=== PATIENT | female | born 1950 | race Caucasian/White ===

== ENCOUNTER → 2020-03-09 09:07 | Outpatient (BNVA) | payer MEDICARE, BC, SELFPAY | PROVIDERS: Visit Provider Orthopaedic Surgery | DX: M75.42 Impingement syndrome of left shoulder (principal) | CPT/HCPCS: 20610; 99202; J1040 ==

== ENCOUNTER → 2020-07-07 09:03 | Outpatient (BNVA) | payer MEDICARE, BC, SELFPAY | PROVIDERS: Visit Provider Orthopaedic Surgery | DX: M75.42 Impingement syndrome of left shoulder (principal) | CPT/HCPCS: 20610; 99212; J1040 ==

== ENCOUNTER 2020-08-12 08:00 | Outpatient (RCR) | payer MEDICARE, BC, SELFPAY ==
--- NOTE | 2020-07-15 13:45 | MHC.PT.EP ---
[facility] [place] Office [place] Office [place] Office [address] Mar[address] Pollock [address] [phone] F: [phone] F: [phone] F: [phone] F: [phone] Physical Therapy Plan of Care Date of Evaluation: 07/14/20 Date of Surgery: NA Diagnosis: LEFT SHOULDER IMPINGEMENT Assessment: ERYN IS A PLEASANT 70 YO FEMALE WITH INCREASING SHOULDER PAIN ON THE LEFT. OF NOTE SHE HAS CONTRALATERAL TSA WHICH FOR WHICH SHE WAS SEEN IN CLINIC SEVERAL MONTHS AGO. CURRENT IMPAIRMENTS INCLUDE DECREASED SHOULDER ROM, DECREASED RIGHT UE STRENGTH, ALTERED POSTURE AND POSITIONING, ALTERED SOFT TISSUE MOBILITY AND INCREASED PAIN. FUNCTIONAL LIMITATIONS INCLUDE DECREASED ABILITY TO REACH, LIFT AND CARRY, DECREASED ABILITY TO PERFORM HOMEMAKING TASKS, COMPUTER WORK AND READING. SHE HAS LIMITED PARTICIPATION IN COMMUNITY AND RECREATIONAL TASKS AND REPORTS DISRUPTED SLEEP. Frequency and Duration: The patient will be seen 2 X WEEK FOR 5 WEEKS Short Term Goals: INITIATE HEP AND PROMOTE SELF MANAGEMENT OF SYMPTOMS IN TWO VISITS [facility] Goals: Full, pain free ROM in 5 weeks Full UE strength, pain free in 5 weeks To perform computer and work tasks without restriction and pain no greater than 2/10 in [address] object at minimum of 5# into cabinet at shoulder height in 5 weeks Treatment Plan: Modalities to reduce pain, spasms and effusion. Manual therapy to restore motion and function. Therapeutic exercise to improve strength and flexibility. Neuromuscular re-education for posture and balance. Therapeutic activities to return to functional activities of daily living. Electronically signed by: URI VELEZ PT, DPT Please sign and return to therapist. Thank you for your referral.
--- NOTE | 2020-08-13 10:25 | MHC.PT.DC ---
[facility] [place] Office [place] Office [place] Office [address] Poll[address] [phone] F: [phone] F: [phone] F: [phone] F: [phone] Physical Therapy Discharge Report Diagnosis: LEFT SHOULDER IMPINGEMENT Date of Surgery: NA Date of Evaluation: 07/14/20 Date of Discharge: 08/12/20 Treatments to Date: 8 Cancellations to Date: 0 No Shows to Date: 0 Discharge Status: Achieved Goals Improved Function Independent with HEP Discharge Summary: ERYN PRESENTS WITH SIGNIFICANT DECREASED IN PAIN LEVELS AND IMPROVED ROM AND STRENGTH. SHE BENEFITS FROM [place] FOR POSTURAL AWARENESS AND WILL NEED TO CONTINUE WITH THIS FOCUS AT HOME. SHE IS INDEPENDENT WITH HER HOME EXERCISE PROGRAM AND SELF MANAGEMENT OF SYMPTOMS. SHE HAS RETURNED TO PERFORMANCE OF HOMEMAKING TASKS AND ADLs WITHOUT RESTRICTION AND HAS MET THE GOALS OF THERAPY ON THIS DATE. Electronically signed by: URI VELEZ PT, DPT Please sign and return to therapist. Thank you for your referral.
== END 2020-08-13 10:29 | disposition other institution (70) ==
LOC: HO.PT 08:00
PROVIDERS: PCP Physician Assistant Medical; Visit Provider Orthopaedic Surgery
DX: M75.42 Impingement syndrome of left shoulder (principal)
CPT/HCPCS: 97110; 97140; 97161; 97530

== ENCOUNTER → 2020-09-14 08:25 | Outpatient (BNVA) | payer MEDICARE, BC, SELFPAY | PROVIDERS: PCP Physician Assistant Medical; Visit Provider Orthopaedic Surgery | DX: M75.42 Impingement syndrome of left shoulder (principal) | CPT/HCPCS: 99212 ==

== ENCOUNTER 2021-04-08 22:36 | Emergency (ER) | payer MEDICARE, BC, SELFPAY ==
[2021-04-08 23:25] LABS: MANUAL DIFF FLAG NO
[2021-04-08 23:27] LABS: Basophils Absolute Auto 0.1 X10*3/uL (0.0-0.2); Basophils Percent Auto 0.8 % (0-2); Eosinophils Absolute Auto 0.4 X10*3/uL (0.0-0.4); Eosinophils Percent Auto 3.5 % (0-4); Hematocrit 30.1 % (37.0-47.0); Hemoglobin 8.9 g/dl (12.0-16.0); Imm Gran Abs Auto 0.02 X10*3/uL (0.00-0.03); Imm Gran Pct Auto 0.2 % (0.0-0.4); Lymphocytes Percent Auto 19.3 % (20-40); Mean Corpuscular HGB Conc 29.6 g/dl (31.0-35.0); Mean Corpuscular Hemoglobin 21.3 pg (27.0-33.0); Mean Corpuscular Volume 72.2 fL (80.0-98.0); Monocytes Absolute Auto 1.1 X10*3/uL (0.1-1.2); Monocytes Percent Auto 10.5 % (2-11); Neutrophils Absolute Auto 6.7 x10*3/uL (2.0-8.3); Neutrophils Percent Auto 65.7 % (45-73); Platelet Count 386 X10*3/uL (160-400); Red Blood Count 4.17 X10*6/uL (4.20-5.50); Red Cell Distribution Width 20.5 % (11.0-16.0); White Blood Count 10.2 X10*3/uL (4.8-10.8)
[2021-04-08 23:30] LABS: Appearance Urine HAZY; Color Urine YELLOW; Glucose Urine UA NEG (NEG); Leukocyte Esterase Urine 2+ (NEG); Nitrite Urine POS (NEG); Specific Gravity - Urine 1.025 (1.005-1.025); UACC Culture Trigger YES; Urine Blood 2+ (NEG); Urine Ketones NEG (NEG); Urine Protein TRACE MG/DL (NEG-TRACE)
[2021-04-08 23:39] LABS: Bacteria Urine 3+ /LPF; RBC Urine 50-75 /HPF (0); Squamous Epithelial Cell Urine 1+ /LPF
[2021-04-08 23:40] LABS: WBC Urine 30-49 /HPF (0-4)
[2021-04-08 23:47] LABS: Alanine Aminotransferase 20 U/L (0-31); Albumin Level 4.2 g/dL (3.5-5.0); Alkaline Phosphatase 89 U/L (39-117); Anion Gap 13 (12-20); Aspartate Amino Transferase 24 U/L (5-31); Bilirubin Total 0.4 mg/dL (0.0-1.0); Blood Urea Nitrogen 15 mg/dL (9-16); Calcium 9.4 mg/dL (8.4-10.2); Carbon Dioxide 25 mmol/L (22-29); Chloride 108 mmol/L (96-108); Estimated Glomerular Filt Rate 50; Glucose Random 122 mg/dL (60-115); Potassium 4.7 mmol/L (3.3-5.1); Sodium 141 mmol/L (135-145)
[2021-04-09 01:19] VITALS: BP 139/73; PULSE 94; RESP 16; TEMP 36.9; O2SAT 100; BMI 45.1
--- NOTE | 2021-04-09 01:49 | ED.FEMALEGU ---
HPI - Female Genitourinary General Chief complaint: Urogenital-Female Stated complaint: unable to urinate Time Seen by Provider: 04/09/21 01:49 Source: patient Mode of arrival: ambulatory Limitations: no limitations History of Present Illness HPI Narrative: Patient otherwise healthy no history of diabetes no history of recurrent urine tract infection noticed dysuria and frequency with small amount of bright red blood since today no flank pain no vomiting no fever or chills patient does not get infection very of otherwise feels fine Related Data Home Medications Medication Instructions Recorded Confirmed acetaminophen 325 mg capsule 325 mg PO QID PRN 02/27/20 albuterol sulfate 90 mcg/actuation 1 inh INHALATION QID 02/27/20 aerosol inhaler aspirin 325 mg tablet 325 mg PO DAILY 02/27/20 atorvastatin 10 mg tablet 10 mg PO DAILY 02/27/20 budesonide-formoterol HFA 80 2 puff INHALATION BID 02/27/20 mcg-4.5 mcg/actuation aerosol inhaler epinephrine 0.3 mg/0.3 mL 0.3 mg IM Q10M PRN 02/27/20 injection, auto-injector (EpiPen) levothyroxine 137 mcg tablet 137 mcg PO DAILY 02/27/20 losartan 50 mg tablet 50 mg PO DAILY 02/27/20 meloxicam 15 mg tablet 15 mg PO DAILY 02/27/20 montelukast 10 mg tablet 10 mg PO DAILY 02/27/20 nitroglycerin 0.4 mg sublingual 0.4 mg SUBLINGUAL Q5M PRN 02/27/20 tablet ibuprofen 800 mg tablet 800 mg PO Q8H 03/09/20 budesonide-formoterol HFA 160 INHALATION 09/14/20 mcg-4.5 mcg/actuation aerosol inhaler losartan 100 mg tablet 100 mg PO DAILY 09/14/20 Previous Rx's Medication Instructions Recorded cefpodoxime 100 mg tablet 100 mg PO BID #20 tab 04/09/21 phenazopyridine 200 mg tablet 200 mg PO TID 2 Days #6 tab 04/09/21 (Pyridium) Allergies Allergy/AdvReac Type Severity Reaction Status Date / Time lactose [LACTOSE] Allergy Intermediate GI UPSET Verified 09/14/20 09:00 adhesive tape [ADHESIVE TAPE] Allergy Unknown RASH Verified 09/14/20 09:00 blueberry [BLUEBERRY] AdvReac Intermediate VOMITING Verified 09/14/20 09:00 doxycycline [From VIBRAMYCIN] AdvReac Intermediate GI ISSUES Verified 09/14/20 09:00 lisinopril [From ZESTRIL] AdvReac Intermediate COUGH Verified 09/14/20 09:00 procaine [From NOVOCAIN] AdvReac Intermediate EXCESS Verified 09/14/20 09:00 NUMBING theophylline [THEOPHYLLINE] AdvReac Intermediate DIZZINESS Verified 09/14/20 09:00 CAT GUT SUTURES Allergy Intermediate DO NOT Uncoded 09/14/20 09:00 DISSOLVE DERMABOND AdvReac Severe RASH Uncoded 09/14/20 09:00 CHOCOLATE AdvReac Intermediate VOMITING Uncoded 09/14/20 09:00 Review of Systems Review of Systems: Yes all other systems are reviewed and are negative [facility] Past Medical History Medical History Asthma Carpal tunnel syndrome Hypercholesteremia Hypertension Hypothyroidism Obesity Surgical History Cataracts, both eyes History of cholecystectomy History of total left knee replacement History of total right knee replacement Hx of gastric bypass Status post total replacement of right shoulder (~09/2019) Family History Family History Mother No problems noted. Father No problems noted. Social History Social History Alcohol intake: never Advance Directives: No Advance Directives Information Provided: Yes Current occupation: [employer] Physical Exam Vital Signs: Vital Signs: Last Vital Signs Temp 98.4 F 04/09/21 01:19 Pulse 94 04/09/21 01:19 Resp 16 04/09/21 01:19 BP 139/73 04/09/21 01:19 Pulse Ox 100 04/09/21 01:19 BMI result Body Mass Index 45.1 Appearance: Alert. Oriented X3. No acute distress. ENT: Pharynx normal. Oral Mucosa moist Neck: Normal inspection. Neck supple. CVS: Normal heart rate and rhythm. Pulses normal. Respiratory: No respiratory distress. Equal air entry bilateral, Abdomen: Soft and nontender. Bowel sounds are present, no mass palpable, no CVA tenderness Skin: Skin warm and dry. Normal skin color. Normal skin turgor. Neuro: Oriented X 3. MDM - Female Genitourinary MDM Narrative Medical decision making narrative: Patient uncomplicated UTI will treat her with cephalosporin cefpodoxime and Pyridium Lab Data Attestation: I reviewed the patient's lab results. Result diagrams: 04/08/21 23:19 04/08/21 23:19 Labs: Lab Results 04/08/21 04/08/21 04/08/21 Range/Units 23:19 23:19 23:25 WBC 10.2 (4.8-10.8) X10*3/uL RBC 4.17 L (4.20-5.50) X10*6/uL Hgb 8.9 L (12.0-16.0) g/dl Hct 30.1 L (37.0-47.0) % MCV 72.2 L (80.0-98.0) fL MCH 21.3 L (27.0-33.0) pg MCHC 29.6 L (31.0-35.0) g/dl RDW 20.5 H (11.0-16.0) % Plt Count 386 (160-400) X10*3/uL MPV 9.0 L (9.4-12.3) fL Immature Gran % (Auto) 0.2 (0.0-0.4) % Neut % (Auto) 65.7 (45-73) % Lymph % (Auto) 19.3 L (20-40) % Jenkins % (Auto) 10.5 (2-11) % Eos % (Auto) 3.5 (0-4) % Baso % (Auto) 0.8 (0-2) % Lymph # (Auto) 2.0 (1.2-4.9) X10*3/uL Jenkins # (Auto) 1.1 (0.1-1.2) X10*3/uL Eos # (Auto) 0.4 (0.0-0.4) X10*3/uL Baso # (Auto) 0.1 (0.0-0.2) X10*3/uL Abs Immat Gran (auto) 0.02 (0.00-0.03) X10*3/uL Absolute Neuts (auto) 6.7 (2.0-8.3) x10*3/uL Absolute Nucleated RBC 0.000 (0.0-0.012) X10*3/uL Nucleated RBC % (auto) 0.0 (0.0-0.2) /100WBC Sodium 141 (135-145) mmol/L Potassium 4.7 (3.3-5.1) mmol/L Chloride 108 (96-108) mmol/L Carbon Dioxide 25 (22-29) mmol/L Anion Gap 13 (12-20) BUN 15 (9-16) mg/dL Creatinine 1.08 (0.5-1.4) mg/dL Estim Creat Clear Calc TNP Estimated GFR 50 Random Glucose 122 H (60-115) mg/dL Calcium 9.4 (8.4-10.2) mg/dL Total Bilirubin 0.4 (0.0-1.0) mg/dL AST 24 (5-31) U/L ALT 20 (0-31) U/L Alkaline Phosphatase 89 (39-117) U/L Total Protein 7.0 (6.5-8.0) g/dL Albumin 4.2 (3.5-5.0) g/dL Urine Color YELLOW Urine Appearance HAZY Urine pH 6.0 (5.0-8.0) Ur Specific [place] 1.025 (1.005-1.025) Urine Protein TRACE (NEG-TRACE) MG/DL Urine Glucose (UA) NEG (NEG) MG/DL Urine Ketones NEG (NEG) MG/DL Urine Blood 2+ H (NEG) Urine Nitrite POS H (NEG) Ur Leukocyte Esterase 2+ H (NEG) Urine RBC 50-75 H (0) /HPF Urine WBC 30-49 H (0-4) /HPF Ur Squamous Epith Cells 1+ /LPF Urine Bacteria 3+ /LPF Discharge Plan Discharge Clinical Impression: Urinary tract infection Qualifiers: Urinary tract infection type: acute cystitis Hematuria presence: with hematuria Qualified Code(s): N30.01 - Acute cystitis with hematuria Patient Disposition: Home, Self-Care Instructions: Urinary Tract Infection in Women (ED) Additional Instructions: Drink plenty of fluid Take antibiotic as prescribed Report to the ER if vomiting/fever/increase flank pain Prescriptions: New cefpodoxime 100 mg tablet 100 mg PO BID Qty: 20 RF: 0 phenazopyridine [Pyridium] 200 mg tablet 200 mg PO TID 2 Days Qty: 6 RF: 0 No Action acetaminophen 325 mg capsule 325 mg PO QID PRNRF: 0 levothyroxine 137 mcg tablet 137 mcg PO DAILY RF: 0 atorvastatin 10 mg tablet 10 mg PO DAILY RF: 0 meloxicam 15 mg tablet 15 mg PO DAILY RF: 0 losartan 50 mg tablet 50 mg PO DAILY RF: 0 montelukast 10 mg tablet 10 mg PO DAILY RF: 0 epinephrine [EpiPen] 0.3 mg/0.3 mL auto-injector 0.3 mg IM Q10M PRNRF: 0 budesonide-formoterol 80-4.5 mcg/actuation HFA aerosol inhaler 2 puff inhalation BID RF: 0 nitroglycerin 0.4 mg tablet, sublingual 0.4 mg sublingual Q5M PRNRF: 0 albuterol sulfate 90 mcg/actuation HFA aerosol inhaler 1 inh inhalation QID RF: 0 aspirin 325 mg tablet 325 mg PO DAILY RF: 0 ibuprofen 800 mg tablet 800 mg PO Q8H RF: 0 budesonide-formoterol 160-4.5 mcg/actuation HFA aerosol inhaler inhalation RF: 0 losartan 100 mg tablet 100 mg PO DAILY RF: 0
[2021-04-09] MEDS: Phenazopyridine HCL 200 MG TABLET PO (02:12)
== END 2021-04-09 02:24 | disposition home or self-care (01) ==
PROVIDERS: Emergency Provider Internal Medicine
DX: N30.01 Acute cystitis with hematuria (principal); I10 Essential (primary) hypertension; J45.909 Unspecified asthma, uncomplicated
CPT/HCPCS: 36415; 80053; 81001; 85025; 87086; 99283

== ENCOUNTER 2022-02-23 09:00 | Outpatient (RCR) | payer MEDICARE, BC, SELFPAY ==
[2021-11-15 08:11] VITALS: BP 178/76; PULSE 73; O2SAT 95
== END 2022-02-23 09:54 | disposition home or self-care (01) ==
LOC: HO.PT 09:00
PROVIDERS: PCP Physician Assistant Medical; Visit Provider Orthopaedic Surgery Orthopaedic Trauma
DX: Z96.612 Presence of left artificial shoulder joint (principal)
CPT/HCPCS: 97110; 97140; 97162; 97530

== ENCOUNTER 2023-08-01 07:51 | Outpatient (AMB) | payer MEDICARE, BC, SELFPAY ==
--- NOTE | 2023-08-01 08:00 | A.OFFVIS_ITS ---
Intake Vital Signs 08/01/23 08:02 Height 5 ft 8 in Weight 297 lb BMI 45.2 Intake Visit Reasons: NewProb- Left hip pain Intake Note: Cornelia a 73 year female who presents today for an evaluation of her left hip pain that radiatates to the groin. Patient reports her pain has been going on for about 2 years and is a 8 on the 1-10 pain scale. She states she has had injection that helped and is also using tylenol and ibuprofen for the pain with little relief. She denies injury and surgery. Allergies lactose [LACTOSE] Allergy (Intermediate, Verified 08/01/23 08:05) GI UPSET adhesive tape [ADHESIVE TAPE] Allergy (Unknown, Verified 08/01/23 08:05) RASH blueberry [BLUEBERRY] Adverse Reaction (Intermediate, Verified 08/01/23 08:05) VOMITING doxycycline [From VIBRAMYCIN] Adverse Reaction (Intermediate, Verified 08/01/23 08:05) GI ISSUES lisinopril [From ZESTRIL] Adverse Reaction (Intermediate, Verified 08/01/23 08:05) COUGH procaine [From NOVOCAIN] Adverse Reaction (Intermediate, Verified 08/01/23 08:05) EXCESS NUMBING theophylline [THEOPHYLLINE] Adverse Reaction (Intermediate, Verified 08/01/23 08 :05) DIZZINESS CAT GUT SUTURES Allergy (Intermediate, Uncoded 09/14/20 09:00) DO NOT DISSOLVE DERMABOND Adverse Reaction (Severe, Uncoded 09/14/20 09:00) RASH CHOCOLATE Adverse Reaction (Intermediate, Uncoded 09/14/20 09:00) VOMITING HPI NewProb- Left hip pain HPI Details 73-year-old female who presents to the o ice today for evaluation of left hip pain for about 2 years. She states she has intermittent burning pain in her left hip which radiates down to her groin and has been getting worse. She currently rates the pain as 8 on the scale of 0-10. Her pain makes it unable to lay on the left side. She also c/o numbness, tingling and an electric sensation in her left hip which goes down to her knee. She finds no relief with Tylenol or ibuprofen. She had injection in the past which provided her relief. She denies any injury and has not had any hip surgery in the past. She has a history of bilateral TKA between 2013-[address] Herrera. She does not have a history of diabetes. ON LICENSE OF [facility] Medical History Asthma Carpal tunnel syndrome Hypercholesteremia Hypertension Hypothyroidism Obesity Surgical History Cataracts, both eyes History of cholecystectomy History of total left knee replacement History of total right knee replacement Hx of gastric bypass Status post total replacement of right shoulder (~09/2019) Family History Mother No problems noted. Father No problems noted. Social History (Updated 08/01/23 @ 08:08 by Alivia Mcginnis CMA) Alcohol intake: never Patient Tobacco Use Status: Former Tobacco user Current occupation: [employer] Review of Systems Const All systems reviewed & are unremarkable except as noted in HPI and below Physical Exam Vital Signs: BMI result Body Mass Index 45.2 Const General: cooperative and no acute distress Orientation/consciousness: patient oriented x3 Resp Effort & Inspection: normal respiratory effort and able to speak in complete sentences Cardio Peripheral pulses: Peripheral pulses 2+ throughout Neuro General: patient oriented x3 Extrem Other: Left hip: Normal to inspection. No pain with ROM of the hip. Pain along the greater trochanter. No pain with hip flexion or abduction. Negative tenderness along the SI joint, Negative SLR. NVI. Results Reviewed Results Reviewed: Xrays were obtained in the office today and personally reviewed by me of the left hip show mild to moderate oa Assessment & Plan Assessment & Plan (1) Trochanteric bursitis, left hip: Code(s): M70.62 - Trochanteric bursitis, left hip Plan While she does have some OA, I fell her primary source of her pain is the bursitis. We discussed options which include PT, NSAIDs and injections. The patient will defer on the injection today and proceed with PT and NSAIDs. If symptoms persist, the patient will contact me for an injection, otherwise, PRN. Orders: Orders PT Evaluation and Treatment Today M70.62 - Trochanteric bursitis, left hip Patient Instructions: Scribed for Bety Krause PA-C, by Tae Lopez claim review medical director, on 08/01/2023 at 8:00 AM EST. I, Bety Krause PA-C, have personally reviewed and agree with the information entered by the scribe. Coding Level of Care Code New Pt Level 3 (23382) Diagnoses Trochanteric bursitis, left hip M70.62
[2023-08-01 08:02] VITALS: BMI 45.2
== END 2023-08-01 09:14 | disposition home or self-care (01) ==
PROVIDERS: PCP Physician Assistant Medical; Visit Provider Physician Assistant
DX: M70.62 Trochanteric bursitis, left hip (principal)
CPT/HCPCS: 99203

== ENCOUNTER 2023-08-01 07:51 | Outpatient (REF) | payer MEDICARE, BC, SELFPAY ==
--- NOTE | ~2023-08-01 | XR_ITS ---
EXAMINATION: XR HIP, LEFT CLINICAL INFORMATION: Pain in unspecified hip. COMPARISON: None available. TECHNIQUE: AP view of the pelvis and 2 views of the left hip. FINDINGS: Degenerative changes in the imaged lower lumbar spine. Bones are diffusely demineralized. Bilateral sacroiliac joints are preserved. Moderate degenerative changes in the left hip with joint space narrowing and hypertrophic change. Moderate degenerative changes on single AP view of the right hip. XR/XR hip LT min 2V IMPRESSION: 1. Moderate degenerative changes in the left hip. 2. Moderate degenerative changes on single AP view of the right hip. 3. Additional imaging with CT scan or MRI should be considered for better visualization as these modalities are much more sensitive for detection of fracture or other underlying pathology.
== END 2023-08-01 07:52 | disposition home or self-care (01) ==
LOC: HO.HOSX 07:51
PROVIDERS: PCP Physician Assistant Medical; Visit Provider Physician Assistant
DX: M70.62 Trochanteric bursitis, left hip (principal)
CPT/HCPCS: 73502; 99202

== ENCOUNTER 2023-08-17 08:25 | Outpatient (RCR) | payer MEDICARE, BC, SELFPAY ==
--- NOTE | 2023-08-17 12:03 | MHC.PT.EP ---
[facility] [place] Office [place] Office [place] Office [address] Janneth Pollock [address] [phone] F: [phone] F: [phone] F: [phone] F: [phone] Physical Therapy Plan of Care Date of Evaluation: 08/17/23 Date of Surgery: Diagnosis: LEFT TROCHANTERIC BURSITIS Assessment: 73 YO FEMALE REF TO PT FOR LEFT TROCH BURSITIS ,H/O HIP OA, EXACERBATED AFTER PAINTING HER CLOSET/ INCR SQUATTING/ STAIR NAVIGATION / CARRYING OBJECTS. SHE HAS A H/O AGUSTIN TKA. SHE RESIDES ALONE AND STATED SHE IS INDEP W ADLs. THE Pt NOTES HER HIP PAIN HAS DECR SINCE INITIAL ONSET... OBJECTIVE FINDINGS: DECR POSTURE, TIGHT HIP FLEXORS/CALVES, DECR LUMBOPELVIC STRENGTH AND STABILITY, AND FLUCTUATING LEVELS OF Lt HIP PAIN- TODAY AT [facility] SHE HAD 0/10 . SHE REQUESTED BRIEF PT HER SXS ARE RESOLVING, TO ADDRESS DEV A HEP AND REDUCING RISK OF REINJURY. Frequency and Duration: The patient will be seen 1 x WK x 3 WKS Short Term Goals: *DECR Lt HIP PAIN TO 2/10 AT MAX Pt RESUMES REG ADLs *INITIATE HEP TO ENGAGE GLUTES *IMPROVE FLEXIBILITY IN HS/ CALVES *IMPROVE FUNCTIONAL SQUAT Longterm Goals: Pt INDEP W HEP AND SELF SX MGMT TECHN Pt DEMON WFL SQUAT MECH W SIMUL ADLs Treatment Plan: Modalities to reduce pain, spasms and effusion. Manual therapy to restore motion and function. Therapeutic exercise to improve strength and flexibility. Neuromuscular re-education for posture and balance. Therapeutic activities to return to functional activities of daily living. Electronically signed by: HEYDI GUTIERREZ,PT Please sign and return to therapist. Thank you for your referral.
--- NOTE | 2023-12-25 11:55 | MHC.PT.DC ---
[facility] [place] Office [place] Office [place] Office [address] Janneth Pollock 140 [facility] [phone] F: [phone] F: [phone] F: [phone] F: [phone] Physical Therapy Discharge Report Diagnosis: LEFT TROCHANTERIC BURSITIS Date of Surgery: Date of Evaluation: 08/17/23 Date of Discharge: 12/25/23 Treatments to Date: 1 Cancellations to Date: 1 No Shows to Date: 0 Discharge Status: Patient Elected to Stop Discharge Summary: THE Pt ATTENDED HER PT EVAL, HOWEVER, SHE CANC F/U PT APPTS- HER SXS HAVE EASED. Electronically signed by: HEYDI GUTIERREZ,PT Please sign and return to therapist. Thank you for your referral.
== END 2023-12-25 11:55 | disposition home or self-care (01) ==
LOC: HO.PT 08:25
PROVIDERS: PCP Physician Assistant Medical; Visit Provider Physician Assistant
DX: M70.62 Trochanteric bursitis, left hip (principal)
CPT/HCPCS: 97161; 97530; 97535

== ENCOUNTER 2024-05-05 09:49 | Day surgery (SDC) | payer MEDICARE, BC, SELFPAY ==
[2024-05-01 09:21] VITALS: BMI 44.9
[2024-05-05 10:58] VITALS: BP 178/91; PULSE 100; RESP 18; TEMP 36.9; O2SAT 96
--- NOTE | 2024-05-05 12:33 | HO.ANESPROP2 ---
[facility] Active Problems Active Problems: All Active Problems Trochanteric bursitis, left hip (Acute) Rotator cuff impingement syndrome of left shoulder (Acute) Past Medical History Medical History Disorders of bursae and tendons in shoulder region, unspecified Hearing loss GERD (gastroesophageal reflux disease) Obesity Carpal tunnel syndrome Hypertension Hypercholesteremia Hypothyroidism Asthma Family History Family History Mother No problems noted. Father No problems noted. Surgical History Surgical History Hx of gastric bypass Cataracts, both eyes History of cholecystectomy History of total left knee replacement History of total right knee replacement Status post total replacement of right shoulder (~09/2019) History of Problems with Anesthesia: No Social History Social History Alcohol intake: never Patient Tobacco Use Status: Former Tobacco user Advance Directives: No Advance Directives Information Provided: Yes Advance Directives on File: No Recently lost weight without trying: No Nutrition Risks: No Nutritional Risk Patient : No : No Current occupation: [employer] Meds Allergies Allergy/AdvReac Type Severity Reaction Status Date / Time lactose [LACTOSE] Allergy Intermediate GI UPSET Verified 08/01/23 08:05 adhesive tape [ADHESIVE TAPE] Allergy Unknown RASH Verified 08/01/23 08:05 CARLOZ Inhibitors Allergy Unknown Verified 05/01/24 08:44 gabapentin Allergy Unknown Verified 05/01/24 08:49 grass pollen Allergy Unknown Verified 05/01/24 08:49 house dust mite Allergy Unknown Verified 05/01/24 08:49 mold Allergy Unknown Verified 05/01/24 08:49 ragweed pollen Allergy Unknown Verified 05/01/24 08:49 tree and shrub pollen Allergy Unknown Verified 05/01/24 08:49 blueberry [BLUEBERRY] AdvReac Intermediate VOMITING Verified 08/01/23 08:05 doxycycline [From VIBRAMYCIN] AdvReac Intermediate GI ISSUES Verified 08/01/23 08:05 lisinopril [From ZESTRIL] AdvReac Intermediate COUGH Verified 08/01/23 08:05 procaine [From NOVOCAIN] AdvReac Intermediate EXCESS Verified 08/01/23 08:05 NUMBING theophylline [THEOPHYLLINE] AdvReac Intermediate DIZZINESS Verified 08/01/23 08:05 CAT GUT SUTURES Allergy Intermediate DO NOT Uncoded 09/14/20 09:00 DISSOLVE DERMABOND AdvReac Severe RASH Uncoded 09/14/20 09:00 CHOCOLATE AdvReac Intermediate VOMITING Uncoded 09/14/20 09:00 Active Medications: Current Medications Povidone Iodine (Povidone Iodine 5 % Ophth Soln 30 Ml Bottle) 1 appl EYE-BOTH PREOP PRN PRN Reason: Pre-Op Surgical Implant Prophy Home Medications ?Medication ?Instructions ?Recorded ?Confirmed ?Last Taken ?Type albuterol sulfate 90 mcg/actuation 1 inh inhalation QID 02/27/20 05/01/24 Unknown History aerosol inhaler atorvastatin 10 mg tablet 10 mg PO DAILY 02/27/20 05/01/24 Unknown History budesonide-formoterol HFA 80 2 puff inhalation BID 02/27/20 05/01/24 Unknown History mcg-4.5 mcg/actuation aerosol inhaler epinephrine 0.3 mg/0.3 mL 0.3 mg IM Q10M PRN Anaphylaxis 02/27/20 05/01/24 Unknown History injection, auto-injector (EpiPen) levothyroxine 137 mcg tablet 137 mcg PO DAILY 02/27/20 05/01/24 05/05/24 History montelukast 10 mg tablet 10 mg PO BEDTIME 02/27/20 05/01/24 Unknown History nitroglycerin 0.4 mg sublingual 0.4 mg sublingual Q5M PRN Chest 02/27/20 05/01/24 Unknown History tablet Pain losartan 100 mg tablet 100 mg PO DAILY 09/14/20 05/01/24 Unknown History amlodipine 2.5 mg tablet 2.5 mg PO DAILY 08/01/23 05/01/24 05/05/24 History cetirizine 10 mg tablet 10 mg PO DAILY 08/01/23 05/01/24 Unknown History omeprazole 20 mg capsule,delayed 20 mg PO DAILY 08/01/23 05/01/24 05/05/24 History release acetaminophen 650 mg 650 mg PO Q8H PRN pain 05/01/24 05/01/24 Unknown History tablet,extended release amoxicillin 500 mg capsule 2,000 mg PO ONCE 05/01/24 05/01/24 Unknown History aspirin 325 mg tablet 325 mg PO DAILY 05/01/24 05/01/24 04/28/24 History calcium 600 mg (as 1 tab PO BID 05/01/24 05/01/24 Unknown History carbonate)-vitamin D3 5 mcg (200 unit) tablet multivitamin 1 tab PO DAILY 05/01/24 05/01/24 Unknown History Exam Height,Weight and Vital Signs: Height 5 ft 8 in Weight 134 kg Last Vital Signs Temp 98.5 F 05/05/24 10:58 Pulse 100 05/05/24 10:58 Resp 18 05/05/24 10:58 BP 178/91 H 05/05/24 10:58 Pulse Ox 96 05/05/24 10:58 O2 Del Method Room Air 05/05/24 10:58 Airway Mallampati Class: III TM Dist: >3cm Neck ROM: Full Loose/Missing/Broken Teeth: No Heart: RRR Lungs: CTA Assessment and Plan Assessment Anesthesia Assessment: Anesthesia Plan Discussed and Chart Reviewed Final Anesthetic Review History of Problems with Anesthesia: No NPO: Yes ASA Class: III Final Preanesthetic Review: Meds/Allgs Chart Reviewed, Consent Obtained/Reviewed and Anes Risks/Benef Reviewed Patient Risk: Intermediate Procedure Risk: Low Anesthetic Plan Anesthetic Plan: MAC: Disposition: Standard PACU
--- NOTE | 2024-05-05 14:24 | MHC.SHP ---
Pre-Procedural Eval Section A - 24 Hr Update-Section A only Date of Service: 05/05/24 The patient is an INPATIENT: No Changes since office visit: No Cold of Flu in the past 2 weeks, No New Medical Problems, No Changes in Medication and No Patient answered all questions The patient has been examined within 24 hours of the surgical procedure. 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 Allergies: Allergies Allergy/AdvReac Type Severity Reaction Status Date / Time lactose [LACTOSE] Allergy Intermediate GI UPSET Verified 08/01/23 08:05 adhesive tape [ADHESIVE TAPE] Allergy Unknown RASH Verified 08/01/23 08:05 CARLOZ Inhibitors Allergy Unknown Verified 05/01/24 08:44 gabapentin Allergy Unknown Verified 05/01/24 08:49 grass pollen Allergy Unknown Verified 05/01/24 08:49 house dust mite Allergy Unknown Verified 05/01/24 08:49 mold Allergy Unknown Verified 05/01/24 08:49 ragweed pollen Allergy Unknown Verified 05/01/24 08:49 tree and shrub pollen Allergy Unknown Verified 05/01/24 08:49 blueberry [BLUEBERRY] AdvReac Intermediate VOMITING Verified 08/01/23 08:05 doxycycline [From VIBRAMYCIN] AdvReac Intermediate GI ISSUES Verified 08/01/23 08:05 lisinopril [From ZESTRIL] AdvReac Intermediate COUGH Verified 08/01/23 08:05 procaine [From NOVOCAIN] AdvReac Intermediate EXCESS Verified 08/01/23 08:05 NUMBING theophylline [THEOPHYLLINE] AdvReac Intermediate DIZZINESS Verified 08/01/23 08:05 CAT GUT SUTURES Allergy Intermediate DO NOT Uncoded 09/14/20 09:00 DISSOLVE DERMABOND AdvReac Severe RASH Uncoded 09/14/20 09:00 CHOCOLATE AdvReac Intermediate VOMITING Uncoded 09/14/20 09:00 Plan Diagnosis/Plan: Unchanged I have reviewed the history and physical and performed a pertinent physical examination on my patient. No changes have occurred unless specified. Time Spent With Patient Time: Total time managing care of this patient today ____ minutes.
--- NOTE | 2024-05-05 14:25 | HO.PNOPHT ---
Ophthalmology Procedure Procedure Date of Service: 05/05/24 Ophthalmology Viscoelastic: Not Applicable Ophthalmology Lenses: Not Applicable Procedure Notes: PREOPERATIVE DIAGNOSIS: Decreased visual field secondary to dermatochalasia POSTOPERATIVE DIAGNOSIS: Same PROCEDURE: Bilateral Blepharoplasty, upper eyelids SURGEON: Meño Estrada M.D. ANESTHESIA: Local with sedation ESTIMATED BLOOD LOSS: None COMPLICATIONS: None After obtaining informed consent, the patient was brought to the operating room and placed in supine position. After adequate sedation per Anesthesia, the eyes were prepped and draped in the usual sterile fashion. Attention was directed to the right eye where a double pinch test was completed to assure excess tissue was not removed from the upper lid. The margin was marked at the proposed incision sites. The left eye was done in a similar fashion. 2% Lidocaine with epinephrine was then instilled subcutaneously along the margin of the pre-marked skin incisions. #15 scalpel blade was then utilized to create the incisions. Using a combination of sharp and blunt dissection with Zack scissors, the epidermis was removed. Hemostasis was achieved with cautery. 6-0 plain suture was then utilized to close the incision site. Attention was directed to the left upper lid where subcutaneous 2% with Epinephrine Lidocaine was instilled along the pre-marked areas. A #15 scalpel blade was then utilized to create the incisions followed by sharp and blunt dissection with Zack scissors to remove the overlying epidermis. Hemostasis was achieved with cautery, followed by closure with 6-0 plain suture. The patient tolerated the procedure well. The patient will be followed up in the a.m. Topical antibiotic ointment was instilled over the incision sites and ice as tolerated for 48 hours.
[2024-05-05 15:35] VITALS: BP 177/98; PULSE 95; RESP 18; TEMP 36.5; O2SAT 96
[2024-05-05 15:50] VITALS: BP 173/92; PULSE 93; RESP 20; TEMP 36.1; O2SAT 95
== END 2024-05-05 16:02 | disposition home or self-care (01) ==
PROVIDERS: PCP Physician Assistant Medical; Visit Provider Ophthalmology
PROC: (CPT 15823; principal; 2024-05-05 13:30)
DX: H02.831 Dermatochalasis of right upper eyelid (principal); H02.834 Dermatochalasis of left upper eyelid; H53.8 Other visual disturbances; I10 Essential (primary) hypertension; E03.9 Hypothyroidism, unspecified; J45.909 Unspecified asthma, uncomplicated; Z79.82 Long term (current) use of aspirin; Z79.51 Long term (current) use of inhaled steroids; Z79.899 Other long term (current) drug therapy; Z88.8 Allergy status to other drugs, medicaments and biological substances; Z87.891 Personal history of nicotine dependence
CPT/HCPCS: 15823; J2004; J2250; J3010

== ENCOUNTER 2024-06-08 08:43 | Emergency (ER) | payer MEDICARE, BC, SELFPAY ==
--- NOTE | ~2024-06-08 | XR_ITS ---
CLINICAL HISTORY: pain, injury 4 view right knee Comparison: None Findings: The cemented total knee arthroplasty is in near anatomic alignment without evidence of hardware complication. Small amount of fluid within the suprapatellar recess. Small superior patellar enthesophyte. IMPRESSION: No evidence of hardware complication. This document has been electronically signed by: Renzo Oglesby DO on 06/08/2024 09:28:24
[2024-06-08 08:51] VITALS: BP 186/124; PULSE 80; RESP 18; TEMP 36.8; O2SAT 98; BMI 44.2
--- NOTE | 2024-06-08 08:52 | ED_ITS ---
HPI - General Adult General Chief complaint: Extremity Injury, Lower Stated complaint: fall, knee pain Time Seen by Provider: 06/08/24 11:19 History of Present Illness HPI narrative: Patient with 2 complaints First complaint is she fell on the ice onto her right knee which has a knee rep lacement in the joint and has had continued pain and mild swelling for the past 3 weeks, she can walk on it with a very slight limp, denies any laceration denies any numbness weakness or tingling denies any other injury in this fall No head injury no neck pain no back pain Second complaint is the right rodriguez is turning a little pink and she has had cellulitis before and is concerned this could be a developing cellulitis No fever no chills denies any red stripe up the leg, no posterior pain no calf pain no posterior knee pain denies calf swelling Related Data Home Medications ?Medication ?Instructions ?Recorded ?Confirmed albuterol sulfate 90 mcg/actuation 1 inh inhalation QID 02/27/20 05/01/24 aerosol inhaler atorvastatin 10 mg tablet 10 mg PO DAILY 02/27/20 05/01/24 budesonide-formoterol HFA 80 2 puff inhalation BID 02/27/20 05/01/24 mcg-4.5 mcg/actuation aerosol inhaler epinephrine 0.3 mg/0.3 mL 0.3 mg IM Q10M PRN Anaphylaxis 02/27/20 05/01/24 injection, auto-injector (EpiPen) levothyroxine 137 mcg tablet 137 mcg PO DAILY 02/27/20 05/01/24 montelukast 10 mg tablet 10 mg PO BEDTIME 02/27/20 05/01/24 nitroglycerin 0.4 mg sublingual 0.4 mg sublingual Q5M PRN Chest 02/27/20 05/01/24 tablet Pain losartan 100 mg tablet 100 mg PO DAILY 09/14/20 05/01/24 amlodipine 2.5 mg tablet 2.5 mg PO DAILY 08/01/23 05/01/24 cetirizine 10 mg tablet 10 mg PO DAILY 08/01/23 05/01/24 omeprazole 20 mg capsule,delayed 20 mg PO DAILY 08/01/23 05/01/24 release acetaminophen 650 mg 650 mg PO Q8H PRN pain 05/01/24 05/01/24 tablet,extended release amoxicillin 500 mg capsule 2,000 mg PO ONCE 05/01/24 05/01/24 aspirin 325 mg tablet 325 mg PO DAILY 05/01/24 05/01/24 calcium 600 mg (as 1 tab PO BID 05/01/24 05/01/24 carbonate)-vitamin D3 5 mcg (200 unit) tablet multivitamin 1 tab PO DAILY 05/01/24 05/01/24 Previous Rx's ?Medication ?Instructions ?Recorded cephalexin 500 mg tablet 500 mg PO QID 7 days #28 tabs 06/08/24 Allergies Allergy/AdvReac Type Severity Reaction Status Date / Time lactose [LACTOSE] Allergy Intermediate GI UPSET Verified 06/08/24 08:54 adhesive tape [ADHESIVE TAPE] Allergy Unknown RASH Verified 06/08/24 08:54 CARLOZ Inhibitors Allergy Unknown Verified 06/08/24 08:54 gabapentin Allergy Unknown Verified 06/08/24 08:54 grass pollen Allergy Unknown Verified 06/08/24 08:54 house dust mite Allergy Unknown Verified 06/08/24 08:54 mold Allergy Unknown Verified 06/08/24 08:54 ragweed pollen Allergy Unknown Verified 06/08/24 08:54 tree and shrub pollen Allergy Unknown Verified 06/08/24 08:54 blueberry [BLUEBERRY] AdvReac Intermediate VOMITING Verified 06/08/24 08:54 doxycycline [From VIBRAMYCIN] AdvReac Intermediate GI ISSUES Verified 06/08/24 08:54 lisinopril [From ZESTRIL] AdvReac Intermediate COUGH Verified 06/08/24 08:54 procaine [From NOVOCAIN] AdvReac Intermediate EXCESS Verified 06/08/24 08:54 NUMBING theophylline [THEOPHYLLINE] AdvReac Intermediate DIZZINESS Verified 06/08/24 08:54 CAT GUT SUTURES Allergy Intermediate DO NOT Uncoded 06/08/24 08:54 DISSOLVE DERMABOND AdvReac Severe RASH Uncoded 06/08/24 08:54 CHOCOLATE AdvReac Intermediate VOMITING Uncoded 06/08/24 08:54 PMFSH Past Medical History Source: nursing notes reviewed Medical History Disorders of bursae and tendons in shoulder region, unspecified Hearing loss GERD (gastroesophageal reflux disease) Obesity Carpal tunnel syndrome Hypertension Hypercholesteremia Hypothyroidism Asthma Surgical History Hx of gastric bypass Cataracts, both eyes History of cholecystectomy History of total left knee replacement History of total right knee replacement Status post total replacement of right shoulder (~09/2019) Family History Family History Mother No problems noted. Father No problems noted. Social History Social History Alcohol intake: never Patient Tobacco Use Status: Former Tobacco user Advance Directives: No Advance Directives Information Provided: No Current occupation: [employer] Physical Exam ED Vital Signs: Vital Signs - 24 hr 06/08/24 08:51 Temperature 98.3 F Pulse Rate 80 Respiratory Rate 18 Blood Pressure 186/124 H Pulse Oximetry 98 Oxygen Delivery Method Room Air BMI result Body Mass Index 44.2 General appearance is no distress comfortable ambulates easily Head normocephalic atraumatic Neck is supple nontender Respiratory no distress Extremities full range motion x4 Right knee there is some mild swelling just below the knee, it is not fluctuant there is no redness or warmth there, she can flex past 90 degrees, the scar from her total knee replacement years ago is intact, there is no deformity, she can do a straight leg raise The lower leg anterior pretibial area is pinkish with some mild tenderness, no lymphangitis, there is no calf tenderness or swelling there is no redness behind the calf posterior leg looks normal and neurovascular intact distal Course Course Course Narrative: RME performed by Justyna Arellano PA-C. Patient is a 73 year old assigned female at presenting to the emergency department with right knee pain. Patient states 3 weeks ago she fell and landed on her knees. Patient states that she continues to have right knee pain. Detailed physical exam and review of systems are deferred to the psychiatric clinician. Imaging ordered. Patient placed back in the waiting room pending room availability and results. The knee replacement is intact patient ambulates easily and had an x-ray which showed intact knee replacement and no other injury no significant effusion The pinkish mildly tender area in the right anterior lower leg certainly could be an early cellulitis so she is treated with Keflex, there is no signs of sepsis or any systemic illness Discharge Plan Discharge Clinical Impression: Right knee sprain, Cellulitis Patient Disposition: Home, Self-Care Additional Instructions: Follow with orthopedist for your continuing knee pain after a fall 3 weeks ago The x-ray did not show any broken bone and showed the hardware intact in her joint replacement For the reddish area of her right rodriguez this certainly could be cellulitis so we are treating with Keflex Return to the ER any time for fever spreading redness worse pain and swelling, swelling behind the leg any worse condition or any concerns Prescriptions: New cephalexin 500 mg tablet 500 mg PO QID 7 Days Qty: 28 0RF No Action amoxicillin 500 mg capsule 2,000 mg PO ONCE aspirin 325 mg Tablet 325 mg PO DAILY acetaminophen 650 mg tablet extended release 650 mg PO Q8H PRN (Reason: pain) multivitamin Tablet 1 tab PO DAILY calcium carbonate-vitamin D3 600 mg-5 mcg (200 unit) Tablet 1 tab PO BID levothyroxine 137 mcg tablet 137 mcg PO DAILY atorvastatin 10 mg tablet 10 mg PO DAILY montelukast 10 mg tablet 10 mg PO BEDTIME epinephrine [EpiPen] 0.3 mg/0.3 mL auto-injector 0.3 mg IM Q10M PRN (Reason: Anaphylaxis) Rx Instructions: for 2 doses budesonide-formoterol 80-4.5 mcg/actuation HFA aerosol inhaler 2 puff inhalation BID nitroglycerin 0.4 mg tablet, sublingual 0.4 mg sublingual Q5M PRN (Reason: Chest Pain) Rx Instructions: do not exceed 3 doses per episode albuterol sulfate 90 mcg/actuation HFA aerosol inhaler 1 inh inhalation QID losartan 100 mg tablet 100 mg PO DAILY amlodipine 2.5 mg tablet 2.5 mg PO DAILY omeprazole 20 mg capsule,delayed release(DR/EC) 20 mg PO DAILY cetirizine 10 mg tablet 10 mg PO DAILY Print Language: [place]
--- OUTSIDE RECORDS SUMMARY | 2024-06-08 11:24 | XMS_ITS | Clinical Summary ---
Author Organization [facility] [address] [place] [address] [place] [phone] Phone Care Team Providers Care Fly Tier Name Role Phone Justin Zavala Primary Care Provider [phone] Allergies Active Allergy Reactions Criticality Noted Date Comments Jose Antonio Inhibitors 03/17/2005 cough Blueberry Flavor Swelling High 08/18/2009 Blueberries,cause swelling Chocolate Flavor Nausea And Vomiting 03/26/2009 Doxycycline Calcium 03/17/2005 Abd pain w/ bright green BM Gabapentin Dizziness 03/07/2017 Grass Pollen-Red Top, Standard 02/23/2020 House Dust Mite 07/26/2013 Lactose Other 01/18/2010 INTOLERANCE- BLOATING, ABD PAIN Mold 07/26/2013 Procaine Hcl 12/23/2007 Too extensive of a reaction Ragweed 07/26/2013 Theophylline Wheezing 03/17/2005 Tree And Shrub Pollen 07/26/2013 Medications albuterol HFA (PROVENTIL HFA;VENTOLIN HFA) 108 (90 Base) MCG/ACT inhaler Inhale 2 Puffs into the lungs 4 times daily. 2 Active multivitamin tablet 1tab bid Active acetaminophen (TYLENOL 8 HOUR) 650 mg 8 hr tablet TAKE 1 TABLET BY MOUTH EVERY 8 HOURS NEEDED FOR PAIN 4 Active aspirin 325 mg tablet Once daily Active budesonide-form oteroL (SYMBICORT) 80-4.5 mcg/actuation inhaler Inhale 2 Puffs into the lungs 2 times daily. Active calcium carbonate-vitam in D3 600 mg-5 mcg (200 unit) per tablet bid Active cetirizine (ZyrTEC) 10 mg tablet Take 1 Tablet by mouth daily. 3 Active EPINEPHrine (EpiPen 2-Brett) 0.3 mg/0.3 mL injection 6 Active losartan (COZAAR) 100 mg tablet TAKE 1 TABLET BY MOUTH EVERY DAY 4 Active montelukast (SINGULAIR) 10 mg tablet Take 10 mg by mouth at bedtime. Active nitroglycerin (NITROSTAT) 0.[address] 1 Tab under the tongue every 5 minutes as needed for Chest pain. 5 Active atorvastatin (LIPITOR) 10 mg tablet TAKE 1 TABLET BY MOUTH EVERY DAY 90 tablet 1 4 Active amLODIPine (NORVASC) 2.5 mg tablet TAKE 1 TABLET BY MOUTH EVERY DAY 90 tablet 1 4 Active levothyroxine (SYNTHROID, LEVOTHROID) 137 mcg tablet TAKE 1 TABLET BY MOUTH EVERY DAY 90 tablet 1 4 Active amoxicillin (AMOXIL) 500 mg capsule Take 4 capsules (2 gms) 1 hr prior to dental procedure 4 capsule 5 4 Active omeprazole (PriLOSEC) [address] capsule Take 1 capsule (20 mg total) by mouth 1 (one) time each day. Do not crush or chew. 90 capsule 3 4 Active Active Problems Problem Noted Date Diagnosed Date Gastroesophageal reflux disease without esophagi tis 03/05/2023 Allergy 09/08/2015 Hearing loss 01/21/2013 Overview (03/06/2024): Has bilat hearing aids Asthma 04/13/2012 Disorder of bursae and tendons in shoulder regio n 08/25/2009 Overview (03/06/2024): IMO update Carpal tunnel syndrome 03/19/2005 Overview (03/06/2024): Surgery on left Still present On the right Hypertension 03/19/2005 Hypothyroidism 03/19/2005 Obesity, unspecified 03/19/2005 Overview (03/06/2024): Gastric bypass Pure hypercholesterolemia 03/19/2005 Encounters Date Type Department Care Team Description 04/07/2024 10:00 AM EST Consult Adult Medicine [address] [phone] Justin Zavala PA Preop cardiovascular exam (Primary Dx); Eyelid abnormality; Secondary hypertension; Encounter for screening mammogram for malignant neoplasm of breast; Screening for osteoporosis from Last 3 Months Immunizations Name Administration Dates Next Due H1N1 Inj Preservative Free 02/19/2009 Influenza trivalent, 0.5mL ( Fluad) 65yo and older 01/21/2024,12/07/2022,12/08/2021,12/26,12/15/2019,01/12/2016,01/07/2015 Influenza trivalent, 0.5mL, preservative free (Fluarix; FluLaval; Fluzone) ages 6mo and older (Afluria) 3 years and older 01/01/2014,12/17/2012,12/29/2010,12/30,02/06/2009,02/03/2008,02/22/2006 Influenza, Unspecified 12/14/2018,12/23/2017, Moderna SARS-CoV-2 COVID-19, mRNA, LNP-S, preservative free 07/26/2021,02/11/2021 Pneumococcal conjugate 13 va lent (Prevnar 13, PCV13) 2mo and older 08/20/2014 Pneumococcal polysaccharide 23 valent (Pneumovax 23) 2yo and older 08/15/2013 Td Tetanus diptheria (Tdvax) 7yo and older 09/08/2015,01/11/2005 Tdap Tetanus diptheria acell ular pertussis (Boostrix; Adacel) 7yo and older 12/28/2019 Varicella live (Varivax) 12m o and older 01/12/2010 Zoster Live 09/15/2017,01/24/2012 Zoster recombinant (Shingrix ) 19yo and older 12/26/2017,06/14/2017,04/16/2017 Surgical History Surgery Date Site/Laterality Comments GASTRIC BYPASS PROCEDURE: KS GASTRIC RSTCV W/BYP W/SM INT RCNSTJ LIMIT ABSRPJ; COMMENT: 2004 dr rodriguez OTHER SURGICAL HISTORY PROCEDURE: KS EXC PRTD NICHOL/PRTD GLND LAT LOBE W/O NRV DSJ; COMMENT: 3 tumors, left COLONOSCOPY 12/23/2007 PROCEDURE: HISTORICAL COLONOSCOPY; COMMENT: diverticulosis; repeat in ten years HAND SURGERY PROCEDURE: HISTORICAL HAND SURGERY; COMMENT: thumb arthoplasty bilateral CARPAL TUNNEL RELEASE PROCEDURE: KS NEUROPLASTY &/TRANSPOS MEDIAN NRV CARPAL TUNNE; COMMENT: left KNEE ARTHROSCOPY 01/20/2011 PROCEDURE: KS ARTHROSCOPY KNEE DIAGNOSTIC W/WO SYNOVIAL BX SPX; COMMENT: Left; Mindess TOTAL KNEE ARTHROPLASTY 2014 PROCEDURE: KS ARTHRP KNE CONDYLE&PLATU MEDIAL&LAT COMPARTMENTS; COMMENT: left dr edward TOTAL KNEE ARTHROPLASTY 2015 PROCEDURE: KS ARTHRP KNE CONDYLE&PLATU MEDIAL&LAT COMPARTMENTS; COMMENT: right COLONOSCOPY 08/21/2018 PROCEDURE: HISTORICAL COLONOSCOPY; COMMENT: negative OTHER SURGICAL HISTORY 09/2019 PROCEDURE: KS ANES ARTHROSCOPIC TOTAL SHOULDER REPLACEMENT; COMMENT: R OTHER SURGICAL HISTORY 11/01/2021 Left PROCEDURE: SRIDEVI HO ARTHROSCOPIC TOTAL SHOULDER REPLACEMENT; COMMENT: reverse shoulder replacement / manasa COLONOSCOPY 02/10/2022 PROCEDURE: HISTORICAL COLONOSCOPY; COMMENT: 1 polyp repeat 5 years muslu OTHER SURGICAL HISTORY 02/10/2022 PROCEDURE: UPPER GI ENDOSCOPY, REMOVE LESION; COMMENT: Biopsies taken muslu Medical History Medical History Date Comments Unspecified hypothyroidism DX:Un specified hypothyroidism Pure hypercholesterolemia DX:Pur e hypercholesterolemia Carpal tunnel syndrome DX:Carpal tunnel syndrome Rosacea DX:Rosacea Obesity, unspecified DX:Obesity, unspecified; COMMENT: she has had a gastric bypass Essential hypertension, benign D X:Essential hypertension, benign Hearing loss 01/21/2013 DX:Hearing loss; COMMENT: Has bilat hearing aids Allergy 09/08/2015 DX:Allergy Family History Medical History Relation Name Comments Arthritis Mother Breast cancer Other m aunt Relation Name Status Comments Brother 1 (Age 72) cabg x2 Brother 2 Alive Brother 3 Alive obesity rheumat oid Brother 4 Alive dm (agent orang e) Father (Age 65) mi Mother (Age 87) sudden stephan th Other m aunt Sister Alive non alcohol robyn er Social History Tobacco Use Types Packs/Day Years Used Date Smoking Tobacco: Former Cigarettes 1 32.3 0 09/05/1961 - 12/16/1993 Smokeless Tobacco: Never Tobacco Cessation:Counseling Given: Not Answered Alcohol Use Standard Drinks/Week Comments No 0 (1 standard drink = 0.6 oz pur e alcohol) Comments Unknown Sex and Gender Information Value Date Recorded Sex Assigned at Not on file Legal Sex Female 10:15 PM EST Gender Identity Not on file Sexual Orientation Not on file Obstetrics History Last Filed Vital Signs Vital Sign Reading Time Taken Comments Blood Pressure 121/75 04/07/2024 10:04 AM EST Pulse 84 04/07/2024 10:04 AM EST Temperature 36.6 ??C (97.9 ??F) 04/07/2024 10:[address] Respiratory Rate 16 04/07/2024 10:04 AM EST Oxygen Saturation 96% 04/07/2024 10:04 AM EST Inhaled Oxygen Concentration - - Weight 134 kg (294 lb 12.8 oz) 04/07/2024 10:04 AM EST Height 172.7 cm (5' 8 ) 04/07/2024 10:04 AM EST Body Mass Index 44.82 04/07/2024 10:04 AM EST Plan of Treatment Upcoming Encounters Date Type Department Care Team (Late st Contact Info) Description 07/18/2024 11:00 AM EDT Office Visit Adult Medicine [facility] - [address] [phone] Justin Zavala PA [address] [place] [address] 09/03/2024 7:40 AM EDT Appointment Radiology Department - [address] [phone] Health Maintenance Due Date Last Done Comments Falls Risk Assessment 03/23/2022 Social Influencers of Health Screening 03/23/2022 RSV Immunization Patients 60+ Years Old (1 - 1-dose 75+ series) 07/10/2023 COVID-19 Vaccine ( season) 2023 07/26/2021, 02/11/2021, 07/15/2020, Additional history exists Depression Screening 07/17/2024 07/18/2023 Medicare Annual Wellness Visit 07/17/2024 07/18/2023 Hypertension/CHF/CAD Annual BMP Blood Test 03/19/2025 03/19/2024, 09/26/2023, 09/26/2023 Osteoporosis Screening (Bone Density Screening) 12/22/2025 12/22/2020 Colorectal Cancer Screening: Colonoscopy 02/10/2027 02/10/2022 Cholesterol Screening (Lipid Panel) 03/19/2029 03/19/2024, 09/26/2023, 09/26/2023 DTaP,Tdap,and Td Vaccines (4 - Td or Tdap) 12/27/2029 12/28/2019, 09/08/2015, 01/11/2005 Varicella Vaccines Aged Out 01/12/2010 No longer eligible based on patient's age to complete this topic Hepatitis C Screening Completed 02/12/2014 Pneumococcal Vaccine: 50+ Years Completed 08/20/2014, 08/15/2013 Zoster Vaccines Completed 12/26/2017, 05/2017, 06/14/2017, Additional history exists Breast Cancer Screening Discontinued 08/24/19, 08/24/2023, 03/07/2022, Additional history exists Influenza Vaccine Completed 01/21/2024, , 12/08/2021, Additional history exists HIB Vaccines Aged Out No longer eligi ble based on patient's age to complete this topic HPV Vaccines Aged Out No longer eligi ble based on patient's age to complete this topic Hepatitis A Vaccines Aged Out No long er eligible based on patient's age to complete this topic Hepatitis B Vaccines Aged Out No long er eligible based on patient's age to complete this topic IPV Vaccines Aged Out No longer eligi ble based on patient's age to complete this topic MMR Vaccines Aged Out No longer eligi ble based on patient's age to complete this topic Meningococcal ACWY Vaccine Aged Out N o longer eligible based on patient's age to complete this topic Meningococcal B Vacine Aged Out No lo nger eligible based on patient's age to complete this topic RSV Immunization Patients Under 20 months Aged Out No longer eligible based on patient's age to complete this topic Procedures Procedure Name Priority Date/Time Associated Diagnosis Comments CBC WITH AUTO DIFFERENTIAL Routine 03/19/2024 7:48 AM EST Need for prophylactic vaccination and inoculation against cholera alone Essential hypertension, malignant Pure hypercholesterolemia Moderate persistent asthma Myxedema heart disease Esophageal reflux Allergic, sequela CBC AND DIFFERENTIAL Routine 03/19/2024 7:48 AM EST Need for prophylactic vaccination and inoculation against cholera alone Essential hypertension, malignant Pure hypercholesterolemia Moderate persistent asthma Myxedema heart disease Esophageal reflux Allergic, sequela THYROID STIMULATING HORMONE WITH REFLEX TO FREE T4 AND FREE T3 Routine 03/19/2024 7:48 AM EST Need for prophylactic vaccination and inoculation against cholera alone Essential hypertension, malignant Pure hypercholesterolemia Moderate persistent asthma Myxedema heart disease Esophageal reflux Allergic, sequela COMPREHENSIVE METABOLIC PANEL Routine 03/19/2024 7:48 AM EST Need for prophylactic vaccination and inoculation against cholera alone Essential hypertension, malignant Pure hypercholesterolemia Moderate persistent asthma Myxedema heart disease Esophageal reflux Allergic, sequela LIPID PANEL WITH REFLEX TO DIRECT LDL Routine 03/19/2024 7:48 AM EST Need for prophylactic vaccination and inoculation against cholera alone Essential hypertension, malignant Pure hypercholesterolemia Moderate persistent asthma Myxedema heart disease Esophageal reflux Allergic, sequela HEMOGLOBIN A1C Routine 03/19/2024 7:48 AM EST Need for prophylactic vaccination and inoculation against cholera alone Essential hypertension, malignant Pure hypercholesterolemia Moderate persistent asthma Myxedema heart disease Esophageal reflux Allergic, sequela SCREENING MAMMOGRAPHY BI 2-VIEW BREAST INC CAD Routine 08/24/2023 7:52 AM EDT Encounter for screening mammogram for malignant neoplasm of breast DEPRESSION SCREENING Routine 07/18/2023 COLONOSCOPY Routine 02/10/2022 DXA BONE DENSITY STUDY 1+ SITS AXIAL SKEL Routine 12/22/2020 9:42 AM EDT Encounter for screening for osteoporosis HEPATITIS C SCREENING Routine 02/12/2014 from Last 3 Months or Most Recently Relevant to Health Maintenance Results * Thyroid stimulating hormone with reflex to free t4 and free t3 (03/19/2024 7:48 AM EST) TSH 1.55 0.40 - 4.00 mcIU/mL LAB CHEMISTRY METHOD 03/19/2024 10:39 AM [facility] Blood Venous blood specimen / Unknown Venipuncture / Unknown 03/19/2024 7:48 AM EST 03/19/2024 7:48 AM EST Justin BROWN LAB BLOOD ORDERABLES Lois l Result [facility] [address] [place] [address], [place] [phone] * Lipid panel with reflex to direct LDL (03/19/2024 7:48 AM EST) Pathologist [facility] Cholesterol 155 0 - 200 mg/dL LAB CHEMISTRY METHOD 03/19/2024 10:39 AM [facility] Triglycerides 132 0 - 150 mg/dL LAB CHEMISTRY METHOD 03/19/2024 10:39 AM [facility] HDL 61 >=40 mg/dL LAB CHEMISTRY METHOD 03/19/2024 10:39 AM [facility] LDL Calculated 68 0 - 100 mg/dL LAB CHEMISTRY METHOD 03/19/2024 10:39 AM [facility] VLDL Cholesterol Jasbir 26.4 mg/dL LAB CHEMISTRY METHOD 03/19/2024 10:39 AM [facility] Non HDL Chol. (LDL+VLDL) 94 <145 mg/dL LAB CHEMISTRY METHOD 03/19/2024 10:39 AM [facility] Chol/HDL Ratio 2.5 0.0 - 4.4 LAB CHEMISTRY METHOD 03/19/2024 10:39 AM [facility] Blood Venous blood specimen / Unknown Venipuncture / Unknown 03/19/2024 7:48 AM EST 03/19/2024 7:48 AM EST Justin BROWN LAB BLOOD ORDERABLES Lois l Result [facility] [address] [place] [address], * (ABNORMAL) CBC auto differential (03/19/2024 7:48 AM EST) WBC 5.2 4.8 - 10.8 K/mcL LAB HEMETOLOGY METHOD 03/19/2024 10:29 AM [facility] RBC 4.40 3.80 - 4.80 M/mcL LAB HEMETOLOGY METHOD 03/19/2024 10:29 AM [facility] Hemoglobin 12.7 11.5 - 16.0 g/dL LAB HEMETOLOGY METHOD 03/19/2024 10:29 AM [facility] Hematocrit 40.3 35.0 - 47.0 % LAB HEMETOLOGY METHOD 03/19/2024 10:29 AM [facility] MCV 90.8 79.0 - 98.0 FL LAB HEMETOLOGY METHOD 03/19/2024 10:29 AM [facility] MCH 28.6 27.0 - 32.0 pcg LAB HEMETOLOGY METHOD 03/19/2024 10:29 AM [facility] MCHC 31.5(L) 32.0 - 37.0 g/dL LAB HEMETOLOGY METHOD 03/19/2024 10:29 AM [facility] RDW 14.0 11.0 - 15.0 % LAB HEMETOLOGY METHOD 03/19/2024 10:29 AM [facility] Platelets 315 130 - 400 K/mcL LAB HEMETOLOGY METHOD 03/19/2024 10:29 AM [facility] MPV 9.8 7.0 - 11.0 FL LAB HEMETOLOGY METHOD 03/19/2024 10:29 AM [facility] NRBC 0.0 <1.0 % LAB HEMETOLOGY METHOD 03/19/2024 10:29 AM [facility] NRBC Absolute 0.00 <0.10 K/mcL LAB HEMETOLOGY METHOD 03/19/2024 10:29 AM [facility] Neutrophils Relative 49.9 % LAB HEMETOLOGY METHOD 03/19/2024 10:29 AM [facility] Lymphocytes Relative 28.2 % LAB HEMETOLOGY METHOD 03/19/2024 10:29 AM [facility] Monocytes Relative 16.6 % LAB HEMETOLOGY METHOD 03/19/2024 10:29 AM [facility] Eosinophils Relative 4.1 % LAB HEMETOLOGY METHOD 03/19/2024 10:29 AM [facility] Basophils Relative 1.0 % LAB HEMETOLOGY METHOD 03/19/2024 10:29 AM [facility] Immature Granulocytes Relative 0.2 % LAB HEMETOLOGY METHOD 03/19/2024 10:29 AM [facility] Neutrophils Absolute 2.58 1.50 - 7.00 K/mcL LAB HEMETOLOGY METHOD 03/19/2024 10:29 AM [facility] Lymphocytes Absolute 1.46 1.00 - 5.00 K/mcL LAB HEMETOLOGY METHOD 03/19/2024 10:29 AM [facility] Monocytes Absolute 0.86 0.20 - 1.00 K/mcL LAB HEMETOLOGY METHOD 03/19/2024 10:29 AM [facility] Eosinophils Absolute 0.21 0.00 - 0.50 K/mcL LAB HEMETOLOGY METHOD 03/19/2024 10:29 AM [facility] Basophils Absolute 0.05 0.00 - 0.20 K/mcL LAB HEMETOLOGY METHOD 03/19/2024 10:29 AM [facility] Immature Granulocytes Absolute 0.01 0.00 - 0.03 K/mcL LAB HEMETOLOGY METHOD 03/19/2024 10:29 AM EST [facility] Blood Venous blood specimen / Unknown Venipuncture / Unknown 03/19/2024 7:48 AM EST 03/19/2024 7:48 AM EST Justin BROWN LAB BLOOD ORDERABLES Lois l Result Performing Organization Address [facility] Co de Phone Number [facility] [address] [place] [address], [place] [phone] * Hemoglobin A1c (03/19/2024 7:48 AM EST) Pathologist [facility] Hemoglobin A1C 5.2 <6.5 % LAB CHEMISTRY METHOD 03/19/2024 12:45 PM EST [facility] Mean Bld Glu Estim. 103 mg/dL LAB CHEMISTRY METHOD 03/19/2024 12:45 PM EST [facility] Blood Venous blood specimen / Unknown Venipuncture / Unknown 03/19/2024 7:48 AM EST 03/19/2024 7:48 AM EST Justin BROWN LAB BLOOD ORDERABLES Lois l Result Performing Organization Address [facility] de Phone Number [facility] [address] [place] [address], [place] [phone] * Comprehensive metabolic panel (03/19/2024 7:48 AM EST) Pathologist [facility] Sodium 141 133 - 145 mmol/L LAB CHEMISTRY METHOD 03/19/2024 10:39 AM EST [facility] Potassium 4.2 3.5 - 5.5 mmol/L LAB CHEMISTRY METHOD 03/19/2024 10:39 AM EST [facility] Chloride 110 96 - 110 mmol/L LAB CHEMISTRY METHOD 03/19/2024 10:39 AM EST [facility] CO2 27 21 - 32 mmol/L LAB CHEMISTRY METHOD 03/19/2024 10:39 AM [facility] Anion Gap 4 3 - 11 LAB CHEMISTRY METHOD 03/19/2024 10:39 AM [facility] Glucose 100 70 - 100 mg/dL LAB CHEMISTRY METHOD 03/19/2024 10:39 AM [facility] BUN 13 5 - 25 mg/dL LAB CHEMISTRY METHOD 03/19/2024 10:39 AM [facility] Creatinine 0.94 0.50 - 1.10 mg/dL LAB CHEMISTRY METHOD 03/19/2024 10:39 AM [facility] eGFR 63 >=60 mL/min/1. 73m2 LAB CHEMISTRY METHOD 03/19/2024 10:39 AM [facility] Comment:Calculation based on the??Chronic Kidney Disease Epidemiology Collaboration (CKD-EPI) equation refit??without adjustment for race. BUN/Creatinine Ratio 13.8 LAB CHEMISTRY METHOD 03/19/2024 10:39 AM [facility] Calcium 9.1 8.5 - 10.5 mg/dL LAB CHEMISTRY METHOD 03/19/2024 10:39 AM [facility] AST (SGOT) 16 10 - 42 unit/L LAB CHEMISTRY METHOD 03/19/2024 10:39 AM [facility] ALT (SGPT) 23 10 - 60 unit/L LAB CHEMISTRY METHOD 03/19/2024 10:39 AM [facility] Alkaline Phosphatase 99 42 - 121 unit/L LAB CHEMISTRY METHOD 03/19/2024 10:39 AM [facility] Total Protein 7.0 6.0 - 8.0 g/dL LAB CHEMISTRY METHOD 03/19/2024 10:39 AM [facility] Albumin 3.9 3.2 - 5.0 g/dL LAB CHEMISTRY METHOD 03/19/2024 10:39 AM [facility] Total Bilirubin 0.5 0.0 - 1.4 mg/dL LAB CHEMISTRY METHOD 03/19/2024 10:39 AM EST [facility] Blood Venous blood specimen / Unknown Venipuncture / Unknown 03/19/2024 7:48 AM EST 03/19/2024 7:48 AM EST us Justin BROWN LAB BLOOD ORDERABLES Lois l Result [facility] ([facility] [address] [place] [address], [place] [phone] * SCREENING MAMMOGRAPHY BI 2-VIEW BREAST INC CAD (08/24/2023 7:52 AM EDT) Anatomical Region Laterality Modality Radiographic Any ging 04/05/2023 10:1 9 AM EST Narrative 08/24/2023 11:44 AM EDT This is a summary report. The complete report is available in the patient's medical record. If you cannot access the medical record, please contact the sending organization for a detailed fax or copy. Study: SCREENING MAMMOGRAPHY BI 2-VIEW BREAST INC CAD Technique: Bilateral full-field digital screening mammography is obtained and read in conjunction with computer aided detection. ??Tomosynthesis as well as 2D C-View imaging were obtained. ??Best possible images according to the technologist notes. Comparison: Comparison made to multiple prior, most recent March 07, 2022, and most remote May 14, 2014. Breast composition: There are scattered areas of fibroglandular density. Bilateral breasts: No significant masses, suspicious calcifications or other abnormalities are seen in either breast. IMPRESSION: Impression: Bilateral breasts: Negative, no specific mammographic evidence of malignancy. ??Normal interval follow-up is recommended in 12 months. BI-RADS: Category 1: Negative Procedure Note Randy Huertas MD - 12/03/2023 This is a summary report. The complete report is available in thepatient's medical record. If you cannot access the medical record, pleasecontact the sending organization for a detailed fax or copy. Study: SCREENING MAMMOGRAPHY BI 2-VIEW BREAST INC CAD Technique: Bilateral full-field digital screening mammography is obtainedand read in conjunction with computer aided detection. Tomosynthesis aswell as 2D C-View imaging were obtained. Best possible images accordingto the technologist notes. Comparison: Comparison made to multiple prior, most recent February, and most remote May 14, 2014. Breast composition: There are scattered areas of fibroglandular density. Bilateral breasts: No significant masses, suspicious calcifications orother abnormalities are seen in either breast. IMPRESSION: Impression: Bilateral breasts: Negative, no specific mammographic evidence ofmalignancy. Normal interval follow-up is recommended in 12 months. BI-RADS: Category 1: Negative Juanita Francisco PA IMG XR PROCEDURES Final Result * Depression Screening (07/18/2023) Depression Screening Abstracted Historical Provider MD HEALTH MAINTENANCE Final Result * Colonoscopy (02/10/2022) Colonoscopy No Interpretation , Abstracted Anatomical Region Laterality Modality Other Historical Provider MD HEALTH MAINTENANCE Final Result * DXA BONE DENSITY STUDY 1+ SITS AXIAL SKEL (12/22/2020 9:42 AM EDT) Anatomical Region Laterality Modality Bone Densitometr y 07/06/2020 4:02 PM EDT Narrative 12/22/2020 10:56 AM EDT BONE DENSITY (DEXA) ? Lumbar Spine T-score is 2.5. ?? (SD relative to 20-29 y/o adult) Z-score is 4.7. ??(SD relative to age matched peers) This is considered normal by WHO criteria. Left Hip T-score is 0.8. Z-score is 2.4. This is considered normal by WHO criteria. Lateral view of the spine demonstrates vertebral heights to be maintained. IMPRESSION: This patient is considered to have normal bone density by WHO criteria. [facility] Department of Internal Medicine recommends using National Osteoporosis Foundation (NOF) guidelines in treatment decisions related to osteoporosis. NOF guidelines suggest considering treatment for postmenopausal women and men aged 50 or older presenting with the following: History of hip or vertebral fracture. T-score = -2.5 (DXA) at the femoral neck, total hip, or spine, after appropriate evaluation to exclude secondary causes. Low bone mass (T-score between -1.0 and -2.5 at the femoral neck or spine) AND a 10-year probability of a hip fracture = 3% OR a 10-year probability of a major osteoporosis-related fracture = 20% based on the [place]-adapted WHO algorithm Please note that all treatment decisions require clinical judgment and consideration of individual patient factors, including patient preferences, co-morbidities, previous drug use, risk factors not captured in the FRAX model (e.g., frailty, falls, vitamin D deficiency, increased bone turnover, interval significant decline in bone density) and possible under- or over-estimation of fracture risk by FRAX. Optional alternative screening schedule based on nick Ceballos., [facility] May 04, 2011 for patients with osteopenia (based on hip BMD T-score) is as follows: * ??advanced osteopenia (T scores -2.00 to -2.49), BMD testing every year * ??moderate osteopenia (T scores -1.50 to -1.99), BMD testing every 5 years mild osteopenia or normal BMD (T scores -1.50 and higher), BMD testing every 15 years Procedure Note Andressa Perez MD - 04/04/2022 BONE DENSITY (DEXA) Lumbar Spine T-score is 2.5. (SD relative to 20-29 y/o adult) Z-score is 4.7. (SD relative to age matched peers) This is considered normal by WHO criteria. Left Hip T-score is 0.8. Z-score is 2.4. This is considered normal by WHO criteria. Lateral view of the spine demonstrates vertebral heights to bemaintained. IMPRESSION: This patient is considered to have normal bone density by WHO criteria. [facility] Department of Internal Medicine recommendsusing National Osteoporosis Foundation (NOF) guidelines in treatment decisions related toosteoporosis. NOF guidelines suggest considering treatment for postmenopausal women and menaged 50 or older presenting with the following: History of hip or vertebral fracture. T-score = -2.5 (DXA) at the femoral neck, total hip, or spine, afterappropriate evaluation to exclude secondary causes. Low bone mass (T-score between -1.0 and -2.5 at the femoral neck or spine)AND a 10-year probability of a hip fracture = 3% OR a 10-year probability of a majorosteoporosis-related fracture = 20% based on the [place]-adapted WHO algorithm Please note that all treatment decisions require clinical judgment andconsideration of individual patient factors, including patient preferences, co- morbidities,previous drug use, risk factors not captured in the FRAX model (e.g., frailty, falls, vitaminD deficiency, increased bone turnover, interval significant decline in bone density) andpossible under- or over-estimation of fracture risk by FRAX. Optional alternative screening schedule based on nick Ceballos., [place] for patients with osteopenia (based on hip BMD T-score) is as follows: * advanced osteopenia (T scores -2.00 to -2.49), BMD testing every year * moderate osteopenia (T scores -1.50 to -1.99), BMD testing every 5years mild osteopenia or normal BMD (T scores -1.50 and higher), BMD testingevery 15 years Justin BROWN IMEduardo DXA PROCEDURES Final Result * Hepatitis C Screening (02/12/2014) [facility] Hepatitis C Screening Abstracted Historical Provider HEALTH MAINTENANCE Final Result from Last 3 Months or Most Recently Relevant to Health Maintenance Insurance MEDICARE [facility] Advance Directives Documents on File Type Date Recorded Patient Motion Study Analyst Expl anation Health Care Decision (hx) 11/01/2021 AD SEBASTIAN DIRECTIVE Health Care Decision (hx) 11/01/2021 AD SEBASTIAN DIRECTIVE Health Care Decision (hx) 11/01/2021 AD SEBASTIAN DIRECTIVE Care Teams Fly Tier Relationship Specialty Start Date End Date Justin Zavala PA PCP - General Internal Medicine 06/23/20
[2024-06-08 11:59] VITALS: BP 186/124; PULSE 80; RESP 18; TEMP 36.8; O2SAT 98
== END 2024-06-08 12:01 | disposition home or self-care (01) ==
PROVIDERS: Emergency Provider Emergency Medicine; PCP Physician Assistant Medical
DX: S83.91XA Sprain of unspecified site of right knee, initial encounter (principal); L03.115 Cellulitis of right lower limb; W00.0XXA Fall on same level due to ice and snow, initial encounter; Y93.01 Activity, walking, marching and hiking; Y92.89 Other specified places as the place of occurrence of the external cause; Y99.8 Other external cause status; Z79.899 Other long term (current) drug therapy
CPT/HCPCS: 73564; 99282; 99283

== ENCOUNTER → 2024-06-08 08:53 | Outpatient (BNV) | payer MEDICARE, BC, SELFPAY | PROVIDERS: PCP Physician Assistant Medical; Visit Provider Radiology Diagnostic Radiology | DX: Z96.651 Presence of right artificial knee joint (principal) | CPT/HCPCS: 73564 ==

== ENCOUNTER 2024-06-26 07:47 | Outpatient (AMB) | payer MEDICARE, BC, SELFPAY ==
--- NOTE | 2024-06-26 07:55 | MHC.OFFVIS ---
Intake Visit Reasons: New prob- ED f/u Right knee sprain Intake Note: Cornelia is a 73 year old female who presents with complaints of intermittent discomfort along the anterior aspect of her right knee after falling onto her right knee approximately 1 month ago. The patient did undergo bilateral total knee replacement surgeries approximately 10 years ago. The patient states that the swelling along the anterior aspect of her knee has decreased in size over the last few weeks. She denies any fevers or chills. She has been taking Tylenol which gives her fairly good relief. She denies any other injuries. The patient states that she was picking up her trash cans which had blown over when she fell. Allergies lactose [LACTOSE] Allergy (Intermediate, Verified 06/26/24 07:56) GI UPSET adhesive tape [ADHESIVE TAPE] Allergy (Unknown, Verified 06/26/24 07:56) RASH CARLOZ Inhibitors Allergy (Verified 06/26/24 07:56) Unknown gabapentin Allergy (Verified 06/26/24 07:56) Unknown grass pollen Allergy (Verified 06/26/24 07:56) Unknown house dust mite Allergy (Verified 06/26/24 07:56) Unknown mold Allergy (Verified 06/26/24 07:56) Unknown ragweed pollen Allergy (Verified 06/26/24 07:56) Unknown tree and shrub pollen Allergy (Verified 06/26/24 07:56) Unknown blueberry [BLUEBERRY] Adverse Reaction (Intermediate, Verified 06/26/24 07:56) VOMITING doxycycline [From VIBRAMYCIN] Adverse Reaction (Intermediate, Verified 06/26/24 07:56) GI ISSUES lisinopril [From ZESTRIL] Adverse Reaction (Intermediate, Verified 06/26/24 07:56) COUGH procaine [From NOVOCAIN] Adverse Reaction (Intermediate, Verified 06/26/24 07:56) EXCESS NUMBING theophylline [THEOPHYLLINE] Adverse Reaction (Intermediate, Verified 06/26/24 07:56) DIZZINESS CAT GUT SUTURES Allergy (Intermediate, Uncoded 06/26/24 07:56) DO NOT DISSOLVE DERMABOND Adverse Reaction (Severe, Uncoded 06/26/24 07:56) RASH CHOCOLATE Adverse Reaction (Intermediate, Uncoded 06/26/24 07:56) VOMITING Medication List - Last Reconciled 06/26/24 by Jose Manuel Herrera MD acetaminophen ER 650 mg PO Q8H PRN albuterol sulfate 90 mcg/actuation 1 inh inhalation QID amlodipine 2.5 mg PO DAILY amoxicillin 2,000 mg PO ONCE amoxicillin 2,000 mg (4 x 500 mg) PO ONCE aspirin 325 mg PO DAILY atorvastatin 10 mg PO DAILY budesonide-formoterol 80-4.5 mcg/actuation 2 puffs inhalation BID calcium carbonate-vitamin D3 600 mg-5 mcg (200 unit) 1 tab PO BID cephalexin 500 mg PO QID 7 days cetirizine 10 mg PO DAILY epinephrine (EpiPen) 0.3 mg IM Q10M PRN levothyroxine 137 mcg PO DAILY losartan 100 mg PO DAILY montelukast 10 mg PO BEDTIME multivitamin 1 tab PO DAILY nitroglycerin 0.4 mg sublingual Q5M PRN omeprazole 20 mg PO DAILY PFSH Medical History Disorders of bursae and tendons in shoulder region, unspecified Hearing loss GERD (gastroesophageal reflux disease) Obesity Carpal tunnel syndrome Hypertension Hypercholesteremia Hypothyroidism Asthma Surgical History Hx of gastric bypass Cataracts, both eyes History of cholecystectomy History of total left knee replacement History of total right knee replacement Status post total replacement of right shoulder (~09/2019) Family History Mother No problems noted. Father No problems noted. Social History Alcohol intake: never Patient Tobacco Use Status: Former Tobacco user Current occupation: [employer] Physical Exam Const Other: Well-nourished well-developed very friendly female awake alert and oriented x3 in no acute distress Extrem Other: Right knee examination shows that the surgical incision is well healed, no erythema, full active extension and flexion to 110 degrees, her patella tracks well, there is soft tissue swelling along the anterior medial aspect of her proximal tibia, no redness, no overlying skin lesions, no fluctuance Results Reviewed Results Reviewed: X-rays of the patient's right knee show a total knee arthroplasty in good position with no signs of loosening, no acute bony abnormalities Assessment & Plan Assessment & Plan (1) Right knee pain: Code(s): M25.561 - Pain in right knee Category: Medical Plan Ms. Schreiber presents with a soft tissue contusion along the anteromedial aspect of her right knee after falling onto her knee approximately 1 month ago. At this point she does not any evidence of infection. I discussed with the patient the fact that the soft tissue swelling should continue to resolve on its own. She will contact me prior to her follow-up appointment in 1 month's if any questions or concerns arise. Feel free to call me at any time should questions regarding her orthopedic management arise. I spent 20 minutes in reviewing the patient's records and imaging studies, seeing the patient and documenting in the medical record. Medications: New amoxicillin Take four caps (2,000 mg) one hour before any dental work. 2,000 mg (4 x 500 mg) PO ONCE 20 caps 3RF Coding Level of Care Code Est Pt Level 3 (17711) Complex EM visit Add On G2211 Diagnoses Right knee pain M25.561
--- OUTSIDE RECORDS SUMMARY | 2024-06-26 07:56 | XMS_ITS | Clinical Summary ---
Author Organization [facility] Address [address] [place] [address] Care Team Providers Care Metal Moulder Name Role Phone Cameron Sanchez MD Primary Care Provider [phone] Allergies Active Allergy Reactions Criticality Noted Date Comments Jose Antonio Inhibitors 03/17/2005 cough Doxycycline 03/17/2005 Abd pain w/ bright green BM Gabapentin Other (See Comments) 03/07/2017 Lactose Other (See Comments) 01/18/2010 INTOLERANCE- BLOATING, ABD PAIN Trichophyton 07/26/2013 Procaine 12/23/2007 Too extensive of a reaction Theophyllines Other (See Comments) 03/17/2005 Lisinopril 11/23/2016 Medications Medication Sig Dispensed Refills Start Date End Date Status atorvastatin (LIPITOR) tablet 10 mg TAKE 1 TABLET EVERY DAY 1 09/15/2016 Active ibuprofen (ADVIL,MOTRIN) 800 MG tablet TAKE 1 TAB BY MOUTH 3 TIMES DAILY. WITH FOOD 1 09/21/2016 Active levothyroxine (SYNTHROID, LEVOXYL) tablet 137 mcg Take 137 mcg by mouth daily. 1 09/28/2016 Active losartan (COZAAR) 100 MG tablet Take 100 mg by mouth daily. 3 10/07/2016 Active meloxicam (MOBIC) 7.5 MG tablet Take 7.5 mg by mouth daily. 1 11/01/2016 Active SYMBICORT 160-4.5 MCG/ACT inhaler 0 01/13/2017 Active albuterol (PROVENTIL HFA;VENTOLIN HFA) 108 (90 Base) MCG/ACT inhaler Inhale 180 mcg into the lungs. 0 06/29/2011 Active aspirin 325 MG tablet Once daily 0 Active Calcium Carbonate-Vitamin D (CALCIUM 600+D) 600-200 MG-UNIT TABS Take by mouth. 0 Active EPINEPHrine (EPIPEN 2-ROSA) 0.3 MG/0.3ML SOAJ 0 12/29/2015 Active fluticasone (FLONASE) 50 MCG/ACT nasal spray 2 SPRAYS DAILY IN EACH NOSTRIL 1 03/31/2019 Active montelukast (SINGULAIR) 10 MG tablet Take 10 mg by mouth. 0 Active nitroglycerin (NITROSTAT) 0.[address] 0.4 mg under the tongue. 0 08/20/2014 Active amoxicillin (AMOXIL) 500 MG tablet TAKE 4 TABS 1 HOUR PRIOR TO DENTAL APPOINTMENT 20 tablet 3 08/08/2021 Active Hospital, Clinic, or Other Facility Administered Medication Ordered Dose Route Frequency Start Date End Date Status lidocaine (PF) (XYLOCAINE-MPF) 1 % injection 10 mgIndications:Arthritis of right glenohumeral joint,Chronic right shoulder pain 10 mg IX Once 04/24/2019 Active methylPREDNISolone acetate (DEPO-Medrol) injection 40 mgIndications:Arthritis of right glenohumeral joint,Chronic right shoulder pain 40 mg IX Once 04/24/2019 Active Active Problems Problem Noted Date Diagnosed Date Calcific tendinitis of right shoulder 01/09/2017 Chronic right shoulder pain 01/09/2017 Chronic right shoulder pain 11/23/2016 Family History Medical History Relation Name Comments Heart failure Brother Hypertension Father Heart failure Mother Relation Name Status Comments Brother Father Mother Social History Tobacco Use Types Packs/Day Years Used Date Smoking Tobacco: Never Assessed Sex and Gender Information Value Date Recorded Sex Assigned at Not on file Gender Identity Not on file Sexual Orientation Not on file Job Start Date Occupation Industry Not on file Not on file Not on file Last Filed Vital Signs Vital Sign Reading Time Taken Comments Blood Pressure - - Pulse - - Temperature - - Respiratory Rate - - Oxygen Saturation - - Inhaled Oxygen Concentration - - Weight 134.7 kg (297 lb) 04/11/2019 9:02 AM EST Height 172.7 cm (5' 8 ) 04/11/2019 9:02 AM EST Body Mass Index 45.16 04/11/2019 9:02 AM EST Plan of Treatment Health Maintenance Due Date Last Done Comments Hepatitis C Screening 1950 COVID-19 Vaccine (#1) 01[birth year]09[birth year]1949 Depression Screening 1960 BMI Counseling 1966 Preventative Health Evaluation 1966 DTap / Tdap / Td (1 - Tdap) 07/10/1967 Colon Cancer Screening (Colonoscopy) 1993 Fall Risk Assessment 2013 Osteoporosis Screening (DEXA Scan) 2013 RSV Adult > 60+ Yrs or (1 - 1-dose 75+ series) 07/10/2023 Influenza Vaccine (#1) 2023 6, 01/07/2015, 01/01/2014, Additional history exists Pneumococcal Vaccine Completed 08/20/2014, 08/16/19 14 Shingrix-Zoster Vaccine Completed 06/14/2017, 04/16 Hepatitis B Vaccines Aged Out No long er eligible based on patient's age to complete this topic RSV Ped < 20 months Aged Out No longe r eligible based on patient's age to complete this topic Care Teams Metal Moulder Relationship Specialty Start Date End Date Cameron Sanchez MD PCP - General Special Effects Makeup Artist 11/13/16
--- OUTSIDE RECORDS SUMMARY | 2024-06-26 07:56 | XMS_ITS | Clinical Summary ---
Author Organization [facility] [address] [facility] Address [address] [place] [phone] Phone Care Team Providers Care Chief Supply Chain Officer Name Role Phone Justin Zavala Primary Care Provider [phone] Allergies Active Allergy Reactions Criticality Noted Date [...] Puffs into the lungs 4 times daily. 06/29/19 12 Active multivitamin tablet 1tab bid Active acetaminophen (TYLENOL 8 HOUR) 650 mg 8 hr tablet TAKE 1 TABLET BY MOUTH EVERY 8 HOURS NEEDED FOR PAIN 12/18/19 24 Active aspirin 325 mg tablet Once daily Active budesonide-for moteroL (SYMBICORT) 80-4.5 mcg/actuation inhaler Inhale 2 Puffs into the lungs 2 times daily. Active calcium carbonate-roman min D3 600 mg-5 mcg (200 unit) per tablet bid Active cetirizine (ZyrTEC) 10 mg tablet Take 1 Tablet by mouth daily. 03/22/20 23 Active EPINEPHrine (EpiPen 2-Brett) 0.3 mg/0.3 mL injection 12/29/19 16 Active montelukast (SINGULAIR) 10 mg tablet Take 10 mg by mouth at bedtime. Active nitroglycerin (NITROSTAT) 0.[address] 1 Tab under the tongue every 5 minutes as needed for Chest pain. 08/21/19 15 Active amoxicillin (AMOXIL) 500 mg capsule Take 4 capsules (2 gms) 1 hr prior to dental procedure 4 capsule 5 04/07/20 24 Active omeprazole (PriLOSEC) [address] capsule Take 1 capsule (20 mg total) by mouth 1 (one) time each day. Do not crush or chew. 90 capsule 3 04/07/20 24 Active atorvastatin (LIPITOR) 10 mg tablet TAKE 1 TABLET BY MOUTH EVERY DAY 90 tablet 1 06/24/19 25 Active losartan (COZAAR) 100 mg tablet TAKE 1 TABLET BY MOUTH EVERY DAY 90 tablet 1 06/24/19 25 Active amLODIPine (NORVASC) 2.5 mg tablet TAKE 1 TABLET BY MOUTH EVERY DAY 90 tablet 1 06/24/19 25 Active levothyroxine (SYNTHROID, LEVOTHROID) 137 mcg tablet TAKE 1 TABLET BY MOUTH EVERY DAY 90 tablet 1 06/24/19 25 Active losartan (COZAAR) 100 mg tablet TAKE 1 TABLET BY MOUTH EVERY DAY 02/11/20 24 025 Discontinued atorvastatin (LIPITOR) 10 mg tablet TAKE 1 TABLET BY MOUTH EVERY DAY 90 tablet 1 03/19/20 24 025 Discontinued amLODIPine (NORVASC) 2.5 mg tablet TAKE 1 TABLET BY MOUTH EVERY DAY 90 tablet 1 03/19/20 24 025 Discontinued levothyroxine (SYNTHROID, LEVOTHROID) 137 mcg tablet TAKE 1 TABLET BY MOUTH EVERY DAY 90 tablet 1 03/19/20 24 025 Discontinued Active Problems Problem Noted Date Diagnosed Date [...] 04/07/2024 10:00 AM EST Consult Adult Medicine [address] [id number] Justin Zavala PA Preop cardiovascular exam (Primary [...] Surgery Date Site/Laterality Comments GASTRIC BYPASS PROCEDURE: CA GASTRIC RSTCV W/BYP W/SM INT RCNSTJ LIMIT ABSRPJ; COMMENT: 2004 dr rodriguez OTHER SURGICAL HISTORY PROCEDURE: CA EXC PRTD NICHOL/PRTD GLND LAT LOBE W/O NRV DSJ; COMMENT: 3 tumors, left COLONOSCOPY 12/23/2007 PROCEDURE: HISTORICAL COLONOSCOPY; COMMENT: diverticulosis; repeat in ten years HAND SURGERY PROCEDURE: HISTORICAL HAND SURGERY; COMMENT: thumb arthoplasty bilateral CARPAL TUNNEL RELEASE PROCEDURE: CA NEUROPLASTY &/TRANSPOS MEDIAN NRV CARPAL TUNNE; COMMENT: left KNEE ARTHROSCOPY 01/20/2011 PROCEDURE: CA ARTHROSCOPY KNEE DIAGNOSTIC W/WO SYNOVIAL BX SPX; COMMENT: Left; Idania TOTAL KNEE ARTHROPLASTY 2014 PROCEDURE: CA ARTHRP KNE CONDYLE&PLATU MEDIAL&LAT COMPARTMENTS; COMMENT: left dr edward TOTAL KNEE ARTHROPLASTY 2015 PROCEDURE: CA ARTHRP KNE CONDYLE&PLATU MEDIAL&LAT COMPARTMENTS; COMMENT: right COLONOSCOPY 08/21/2018 PROCEDURE: HISTORICAL COLONOSCOPY; COMMENT: negative OTHER SURGICAL HISTORY 09/2019 PROCEDURE: SRIDEVI HO ARTHROSCOPIC TOTAL SHOULDER REPLACEMENT; COMMENT: R OTHER SURGICAL HISTORY 11/01/2021 Left PROCEDURE: SRIDEVI HO ARTHROSCOPIC TOTAL SHOULDER REPLACEMENT; COMMENT: reverse shoulder replacement / manasa COLONOSCOPY 02/10/2022 PROCEDURE: HISTORICAL COLONOSCOPY; COMMENT: 1 polyp repeat 5 years muslu OTHER SURGICAL HISTORY 02/10/2022 PROCEDURE: UPPER GI ENDOSCOPY, REMOVE LESION; COMMENT: [place] [facility] Medical History Medical History Date Comments Unspecified [...] 11:00 AM EDT Office Visit Adult Medicine [facility] - [address] [phone] Justin Zavala PA [address] [place] [address] 09/03/2024 7:40 AM EDT Appointment Radiology Department - [address] [phone] Health Maintenance Due Date Last Done Comments Falls Risk Assessment 03/23/2022 Social Influencers of Health Screening 03/23/2022 RSV Immunization Patients 60+ Years Old (1 - 1-dose 75+ series) 07/10/2023 COVID-19 Vaccine ( - season) 2023 07/26/2021, 02/11/2021, 07/15/2020, Additional history [...] Procedure Name Priority Date/Time Associated Diagnosis Comments EXTERNAL XRAY REPORT 06/08/2024 EXTERNAL XRAY REPORT 06/08/2024 COMPREHENSIVE METABOLIC PANEL Routine 03/19/2024 7:48 AM [...] Recently Relevant to Health Maintenance Results * External Xray Report (06/08/2024) Only the most recent of2 resultswithin the time period is included. Anatomical Region Laterality Modality Radiographic Any ging us Provider [facility] IMG XR PROCEDURES Final Result * Lipid panel with reflex to direct LDL (03/19/2024 7:48 AM EST) Cholesterol 155 0 - 200 mg/dL LAB CHEMISTRY METHOD 03/19/2024 10:[address] [facility] Triglycerides 132 0 - 150 mg/dL LAB CHEMISTRY METHOD 03/19/2024 10:[address] [facility] HDL 61 >=40 mg/dL LAB CHEMISTRY METHOD 03/19/2024 10:[address] [facility] LDL Calculated 68 0 - 100 mg/dL LAB CHEMISTRY METHOD 03/19/2024 10:[address] [facility] VLDL Cholesterol Jasbir 26.4 mg/dL LAB CHEMISTRY METHOD 03/19/2024 10:[address] [facility] Non HDL Chol. (LDL+VLDL) 94 <145 mg/dL LAB CHEMISTRY METHOD 03/19/2024 10:[address] [facility] Chol/HDL Ratio 2.5 0.0 - 4.4 LAB CHEMISTRY METHOD 03/19/2024 10:[address] [facility] Blood Venous blood specimen / Unknown Venipuncture / Unknown 03/19/2024 7:48 AM EST 03/19/2024 7:48 AM EST Justin BROWN LAB BLOOD ORDERABLES Lois l Result [facility] [address] [place] [address], * Comprehensive metabolic panel (03/19/2024 7:48 AM EST) Sodium 141 133 - 145 mmol/L LAB CHEMISTRY METHOD 03/19/2024 10:[address] [facility] Potassium 4.2 3.5 - 5.5 mmol/L LAB CHEMISTRY METHOD 03/19/2024 10:[address] [facility] Chloride 110 96 - 110 mmol/L LAB CHEMISTRY METHOD 03/19/2024 10:[address] [facility] CO2 27 21 - 32 mmol/L LAB CHEMISTRY METHOD 03/19/2024 10:[address] [facility] Anion Gap 4 3 - 11 LAB CHEMISTRY METHOD 03/19/2024 10:[address] [facility] Glucose 100 70 - 100 mg/dL LAB CHEMISTRY METHOD 03/19/2024 10:[address] [facility] BUN 13 5 - 25 mg/dL LAB CHEMISTRY METHOD 03/19/2024 10:[address] [facility] Creatinine 0.94 0.50 - 1.10 mg/dL LAB CHEMISTRY METHOD 03/19/2024 10:[address] [facility] eGFR 63 >=60 mL/min/1. 73m2 LAB CHEMISTRY METHOD 03/19/2024 10:[address] [facility] Comment:Calculation based on the??Chronic Kidney Disease Epidemiology Collaboration (CKD-EPI) equation refit??without adjustment for race. BUN/Creatinine Ratio 13.8 LAB CHEMISTRY METHOD 03/19/2024 10:[address] [facility] Calcium 9.1 8.5 - 10.5 mg/dL LAB CHEMISTRY METHOD 03/19/2024 10:[address] [facility] AST (SGOT) 16 10 - 42 unit/L LAB CHEMISTRY METHOD 03/19/2024 10:[address] [facility] ALT (SGPT) 23 10 - 60 unit/L LAB CHEMISTRY METHOD 03/19/2024 10:[address] [facility] Alkaline Phosphatase 99 42 - 121 unit/L LAB CHEMISTRY METHOD 03/19/2024 10:[address] [facility] Total Protein 7.0 6.0 - 8.0 g/dL LAB CHEMISTRY METHOD 03/19/2024 10:[address] [facility] Albumin 3.9 3.2 - 5.0 g/dL LAB CHEMISTRY METHOD 03/19/2024 10:[address] [facility] Total Bilirubin 0.5 0.0 - 1.4 mg/dL LAB CHEMISTRY METHOD 03/19/2024 10:39 AM EST [facility] Blood Venous blood specimen / Unknown Venipuncture / Unknown 03/19/2024 7:48 AM EST 03/19/2024 7:48 AM EST us Justin BROWN LAB BLOOD ORDERABLES Lois l Result [facility] ([facility] [address] [place] [address], * SCREENING MAMMOGRAPHY BI 2-VIEW BREAST INC [...] 12 months. BI-RADS: Category 1: Negative Juanita Singh PA IMG XR PROCEDURES Final Result * Depression Screening (07/18/2023) Depression Screening Abstracted Historical Provider [place] [facility] Final Result * Colonoscopy (02/10/2022) Colonoscopy No Interpretation , Abstracted Anatomical Region Laterality Modality Other [facility] Provider [facility] Final Result * DXA BONE DENSITY STUDY [...] normal bone density by WHO criteria. The [facility] Department of Internal Medicine recommends using National [...] alternative screening schedule based on nick Ceballos., [facility] May 04, 2011 for patients with osteopenia [...] normal bone density by WHO criteria. The [facility] Department of Internal Medicine recommendsusing National Osteoporosis [...] alternative screening schedule [facility]., [facility] for [facility] with [facility] (based on hip BMD T-score) is as follows: * advanced osteopenia (T scores -2.00 to -2.49), BMD testing every year * moderate osteopenia (T scores -1.50 to -1.99), BMD testing every 5years mild osteopenia or normal BMD (T scores -1.50 and higher), BMD testingevery 15 years Justin BROWN IM DXA PROCEDURES Final Result * Hepatitis C Screening (02/12/2014) [facility] Hepatitis C Screening Abstracted Historical Provider HEALTH MAINTENANCE Final Result from Last 3 Months or Most Recently Relevant to Health Maintenance Insurance MEDICARE [facility] Advance Directives Documents on File Type Date Recorded Patient Catalyst Supervisor Expl anation Health Care Decision (hx) 11/01/2021 AD SEBASTIAN DIRECTIVE Health Care Decision (hx) 11/01/2021 AD SEBASTIAN DIRECTIVE Health Care Decision (hx) 11/01/2021 AD SEBASTIAN DIRECTIVE Care Teams Chief Supply Chain Officer Relationship Specialty Start Date End Date Justin Zavala PA PCP - General Internal Medicine 06/23/20
--- OUTSIDE RECORDS SUMMARY | 2024-06-26 08:20 | XMS_ITS | Clinical Summary ---
Author Organization [facility] Address [address] [place] [address] Care Team Providers Care Senior Tech Manufacturing Engineering Name Role Phone Cameron Sanchez MD Primary Care Provider [phone] Allergies Active Allergy Reactions Criticality Noted Date [...] age to complete this topic Care Teams Senior Tech Manufacturing Engineering Relationship Specialty Start Date End Date Cameron Sanchez MD PCP - General Director Of Market Research 11/13/16
--- OUTSIDE RECORDS SUMMARY | 2024-06-26 08:21 | XMS_ITS | Clinical Summary ---
Author Organization [facility] [address] [facility] Address [address] [place] [phone] Phone Care Team Providers Care Cinetechnician Name Role Phone Justin Zavala Primary Care Provider [phone] Allergies Active Allergy Reactions Criticality Noted Date [...] 04/07/2024 10:00 AM EST Consult Adult Medicine [address] [phone] Justin Zavala PA Preop cardiovascular exam (Primary [...] Surgery Date Site/Laterality Comments GASTRIC BYPASS PROCEDURE: AL GASTRIC RSTCV W/BYP W/SM INT RCNSTJ LIMIT ABSRPJ; COMMENT: 2004 dr rodriguez OTHER SURGICAL HISTORY PROCEDURE: AL EXC PRTD NICHOL/PRTD GLND LAT LOBE W/O NRV DSJ; COMMENT: 3 tumors, left COLONOSCOPY 12/23/2007 PROCEDURE: HISTORICAL COLONOSCOPY; COMMENT: diverticulosis; repeat in ten years HAND SURGERY PROCEDURE: HISTORICAL HAND SURGERY; COMMENT: thumb arthoplasty bilateral CARPAL TUNNEL RELEASE PROCEDURE: AL NEUROPLASTY &/TRANSPOS MEDIAN NRV CARPAL TUNNE; COMMENT: left KNEE ARTHROSCOPY 01/20/2011 PROCEDURE: AL ARTHROSCOPY KNEE DIAGNOSTIC W/WO SYNOVIAL BX SPX; COMMENT: Left; Idania TOTAL KNEE ARTHROPLASTY 2014 PROCEDURE: AL ARTHRP KNE CONDYLE&PLATU MEDIAL&LAT COMPARTMENTS; COMMENT: left dr edward TOTAL KNEE ARTHROPLASTY 2015 PROCEDURE: AL ARTHRP KNE CONDYLE&PLATU MEDIAL&LAT COMPARTMENTS; COMMENT: right [...] GI ENDOSCOPY, REMOVE LESION; COMMENT: Biopsies taken [facility] Medical History Medical History Date Comments Unspecified [...] 11:00 AM EDT Office Visit Adult Medicine [facility] - [address] [phone] Justin Zavala PA [address] [place] [address] 09/03/2024 7:40 AM EDT Appointment Radiology Department - [address] [phone] Health Maintenance Due Date Last Done Comments [...] Modality Radiographic Any ging us Provider [facility] IMG XR PROCEDURES Final Result * Lipid panel with reflex to direct LDL (03/19/2024 7:48 AM EST) Cholesterol 155 0 - 200 mg/dL LAB CHEMISTRY METHOD 03/19/2024 10:39 AM [facility] Triglycerides 132 0 - 150 mg/dL LAB CHEMISTRY METHOD 03/19/2024 10:39 AM [facility] HDL 61 >=40 mg/dL LAB CHEMISTRY METHOD 03/19/2024 10:39 AM [facility] LDL Calculated 68 0 - 100 mg/dL LAB CHEMISTRY METHOD 03/19/2024 10:39 AM [facility] VLDL Cholesterol Jasbir 26.4 mg/dL LAB CHEMISTRY METHOD 03/19/2024 10:39 AM [facility] Non HDL Chol. (LDL+VLDL) 94 <145 mg/dL LAB CHEMISTRY METHOD 03/19/2024 10:39 AM [facility] Chol/HDL Ratio 2.5 0.0 - 4.4 LAB CHEMISTRY METHOD 03/19/2024 10:39 AM [facility] Blood Venous blood specimen / Unknown Venipuncture / Unknown 03/19/2024 7:48 AM EST 03/19/2024 7:48 AM EST Justin BROWN LAB BLOOD ORDERABLES Lois l Result [facility] [address] [place] [address], * Comprehensive metabolic panel (03/19/2024 7:48 AM EST) Sodium 141 133 - 145 mmol/L LAB CHEMISTRY METHOD 03/19/2024 10:39 AM [facility] Potassium 4.2 3.5 - 5.5 mmol/L LAB CHEMISTRY METHOD 03/19/2024 10:39 AM [facility] Chloride 110 96 - 110 mmol/L LAB CHEMISTRY METHOD 03/19/2024 10:39 AM [facility] CO2 27 21 - 32 mmol/L LAB CHEMISTRY METHOD 03/19/2024 10:39 AM [facility] Anion Gap 4 3 - 11 LAB CHEMISTRY METHOD 03/19/2024 10:39 AM [facility] Glucose 100 70 - 100 mg/dL LAB CHEMISTRY METHOD 03/19/2024 10:39 AM [facility] BUN 13 5 - 25 mg/dL LAB CHEMISTRY METHOD 03/19/2024 10:39 AM [facility] Creatinine 0.94 0.50 - 1.10 mg/dL LAB CHEMISTRY METHOD 03/19/2024 10:39 AM [facility] eGFR 63 >=60 mL/min/1. 73m2 LAB CHEMISTRY METHOD 03/19/2024 10:39 AM [facility] Comment:Calculation based on the??Chronic Kidney Disease Epidemiology Collaboration (CKD-EPI) equation refit??without adjustment for race. BUN/Creatinine Ratio 13.8 LAB CHEMISTRY METHOD 03/19/2024 10:39 AM [facility] Calcium 9.1 8.5 - 10.5 mg/dL LAB CHEMISTRY METHOD 03/19/2024 10:39 AM [facility] AST (SGOT) 16 10 - 42 unit/L LAB CHEMISTRY METHOD 03/19/2024 10:39 AM [facility] ALT (SGPT) 23 10 - 60 unit/L LAB CHEMISTRY METHOD 03/19/2024 10:39 AM [facility] Alkaline Phosphatase 99 42 - 121 unit/L LAB CHEMISTRY METHOD 03/19/2024 10:39 AM [facility] Total Protein 7.0 6.0 - 8.0 g/dL LAB CHEMISTRY METHOD 03/19/2024 10:39 AM [facility] Albumin 3.9 3.2 - 5.0 g/dL LAB CHEMISTRY METHOD 03/19/2024 10:39 AM [facility] Total Bilirubin 0.5 0.0 - 1.4 mg/dL LAB CHEMISTRY METHOD 03/19/2024 10:39 AM EST [facility] Blood Venous blood specimen / Unknown Venipuncture / Unknown 03/19/2024 7:48 AM EST 03/19/2024 7:48 AM EST us Justin BROWN LAB BLOOD ORDERABLES Lois l Result [facility] [address] [place] [address], * SCREENING MAMMOGRAPHY BI 2-VIEW BREAST INC [...] Screening (07/18/2023) Depression Screening Abstracted Historical Provider [facility] Final Result * Colonoscopy (02/10/2022) Colonoscopy No Interpretation , Abstracted Anatomical Region Laterality Modality Other [facility] Provider [facility] Final Result * DXA BONE DENSITY STUDY [...] normal bone density by WHO criteria. The [facility] Department of Internal Medicine recommends using National [...] alternative screening schedule based on nick Ceballos., [facility] May 04, 2011 for patients with osteopenia [...] normal bone density by WHO criteria. The [facility] Department of Internal Medicine recommendsusing National Osteoporosis [...] alternative screening schedule based [facility] for [facility] with [facility] (based on hip BMD T-score) is as follows: * advanced osteopenia (T scores -2.00 to -2.49), BMD testing every year * moderate osteopenia (T scores -1.50 to -1.99), BMD testing every 5years mild osteopenia or normal BMD (T scores -1.50 and higher), BMD testingevery 15 years Justin BROWN IM DXA PROCEDURES Final Result * Hepatitis C Screening (02/12/2014) [facility] Hepatitis C Screening Abstracted Historical Provider [facility]TE[facility] Final Result from Last 3 Months or Most Recently Relevant to Health Maintenance Insurance MEDICARE [facility] Advance Directives Documents on File Type Date Recorded Patient Hand Spinner Expl anation Health Care Decision (hx) 11/01/2021 AD SBEASTIAN DIRECTIVE Health Care Decision (hx) 11/01/2021 AD SEBASTIAN DIRECTIVE Health Care Decision (hx) 11/01/2021 AD SEBASTIAN DIRECTIVE Care Teams Cinetechnician Relationship Specialty Start Date End Date Justin Zavala PA PCP - General Internal Medicine 06/23/20
== END 2024-06-26 08:14 | disposition home or self-care (01) ==
PROVIDERS: PCP Physician Assistant Medical; Visit Provider Orthopaedic Surgery
DX: M25.561 Pain in right knee (principal); Z96.653 Presence of artificial knee joint, bilateral
CPT/HCPCS: 99213; G2211

== ENCOUNTER → 2024-06-26 07:54 | Outpatient (BNVA) | payer MEDICARE, BC, SELFPAY | PROVIDERS: PCP Physician Assistant Medical; Visit Provider Orthopaedic Surgery | DX: S80.01XA Contusion of right knee, initial encounter (principal); M25.561 Pain in right knee; W19.XXXA Unspecified fall, initial encounter; Y93.9 Activity, unspecified; Y92.9 Unspecified place or not applicable; Y99.9 Unspecified external cause status; Z96.653 Presence of artificial knee joint, bilateral | CPT/HCPCS: 99212 ==

== ENCOUNTER 2024-07-03 16:10 | Emergency (ER) | payer MEDICARE, BC, SELFPAY ==
--- NOTE | ~2024-07-03 | US_ITS ---
CLINICAL HISTORY: swelling Venous duplex ultrasound right lower extremity Comparison: None Findings: The visualized deep veins are fully compressible with normal Doppler color flow and spectral tracings. No popliteal cyst. IMPRESSION: 1. Negative for right lower extremity deep vein thrombosis. This document has been electronically signed by: Rod Boyce MD on 07/03/2024 18:05:38
[2024-07-03 16:45] VITALS: BP 180/87; PULSE 96; RESP 20; TEMP 36.9; O2SAT 94; BMI 44.4
--- NOTE | 2024-07-03 17:15 | ED.SKABFB ---
HPI - Skin/Abscess/Foreign Bdy General Chief complaint: Skin/Abscess/Foreign Body Stated complaint: ? cellulitis right leg Time Seen by Provider: 07/03/24 20:14 Source: patient Mode of arrival: ambulatory Limitations: no limitations History of Present Illness ED Provider: HPI narrative: Patient is nondiabetic noticed cellulitis of the right leg seen here on 06/08 and was prescribed cephalexin got better for last 3 days felt redness coming back again no open wound no fever no chills Related Data Home Medications ?Medication ?Instructions ?Recorded ?Confirmed albuterol sulfate 90 mcg/actuation 1 inh inhalation QID 02/27/20 06/26/24 aerosol inhaler atorvastatin 10 mg tablet 10 mg PO DAILY 02/27/20 06/26/24 budesonide-formoterol HFA 80 2 puff inhalation BID 02/27/20 06/26/24 mcg-4.5 mcg/actuation aerosol inhaler epinephrine 0.3 mg/0.3 mL 0.3 mg IM Q10M PRN Anaphylaxis 02/27/20 06/26/24 injection, auto-injector (EpiPen) levothyroxine 137 mcg tablet 137 mcg PO DAILY 02/27/20 06/26/24 montelukast 10 mg tablet 10 mg PO BEDTIME 02/27/20 06/26/24 nitroglycerin 0.4 mg sublingual 0.4 mg sublingual Q5M PRN Chest 02/27/20 06/26/24 tablet Pain losartan 100 mg tablet 100 mg PO DAILY 09/14/20 06/26/24 amlodipine 2.5 mg tablet 2.5 mg PO DAILY 08/01/23 06/26/24 cetirizine 10 mg tablet 10 mg PO DAILY 08/01/23 06/26/24 omeprazole 20 mg capsule,delayed 20 mg PO DAILY 08/01/23 06/26/24 release acetaminophen 650 mg 650 mg PO Q8H PRN pain 05/01/24 06/26/24 tablet,extended release amoxicillin 500 mg capsule 2,000 mg PO ONCE 05/01/24 06/26/24 aspirin 325 mg tablet 325 mg PO DAILY 05/01/24 06/26/24 calcium 600 mg (as 1 tab PO BID 05/01/24 06/26/24 carbonate)-vitamin D3 5 mcg (200 unit) tablet multivitamin 1 tab PO DAILY 05/01/24 06/26/24 Previous Rx's ?Medication ?Instructions ?Recorded cephalexin 500 mg tablet 500 mg PO QID 7 days #28 tabs 06/08/24 amoxicillin 500 mg capsule 2,000 mg (4 x 500 mg) PO ONCE #20 06/26/24 caps cephalexin 500 mg capsule 500 mg PO QID 10 days #40 caps 07/03/24 doxycycline hyclate 100 mg tablet 100 mg PO BID #20 tabs 07/03/24 Allergies Allergy/AdvReac Type Severity Reaction Status Date / Time lactose [LACTOSE] Allergy Intermediate GI UPSET Verified 07/03/24 16:46 adhesive tape [ADHESIVE TAPE] Allergy Unknown RASH Verified 07/03/24 16:46 CARLOZ Inhibitors Allergy Unknown Verified 07/03/24 16:46 gabapentin Allergy Unknown Verified 07/03/24 16:46 grass pollen Allergy Unknown Verified 07/03/24 16:46 house dust mite Allergy Unknown Verified 07/03/24 16:46 mold Allergy Unknown Verified 07/03/24 16:46 ragweed pollen Allergy Unknown Verified 07/03/24 16:46 tree and shrub pollen Allergy Unknown Verified 07/03/24 16:46 blueberry [BLUEBERRY] AdvReac Intermediate VOMITING Verified 07/03/24 16:46 doxycycline [From VIBRAMYCIN] AdvReac Intermediate GI ISSUES Verified 07/03/24 16:46 lisinopril [From ZESTRIL] AdvReac Intermediate COUGH Verified 07/03/24 16:46 procaine [From NOVOCAIN] AdvReac Intermediate EXCESS Verified 07/03/24 16:46 NUMBING theophylline [THEOPHYLLINE] AdvReac Intermediate DIZZINESS Verified 07/03/24 16:46 CAT GUT SUTURES Allergy Intermediate DO NOT Uncoded 07/03/24 16:46 DISSOLVE DERMABOND AdvReac Severe RASH Uncoded 07/03/24 16:46 CHOCOLATE AdvReac Intermediate VOMITING Uncoded 07/03/24 16:46 Review of Systems Review of Systems: Yes all other systems are reviewed and are negative PMFSH Past Medical History Medical History Disorders of bursae and tendons in shoulder region, unspecified Hearing loss GERD (gastroesophageal reflux disease) Obesity Carpal tunnel syndrome Hypertension Hypercholesteremia Hypothyroidism Asthma Surgical History Hx of gastric bypass Cataracts, both eyes History of cholecystectomy History of total left knee replacement History of total right knee replacement Status post total replacement of right shoulder (~09/2019) Family History Family History Mother No problems noted. Father No problems noted. Social History Social History Alcohol intake: never Patient Tobacco Use Status: Former Tobacco user Smoked in Last 30 Days: No Use of substances other than those prescribed or required for medical reasons: No Advance Directives: No Advance Directives Information Provided: No Current occupation: [employer] Physical Exam Vital Signs: Vital Signs: Last Vital Signs Temp 98.5 F 07/03/24 20:47 Pulse 92 07/03/24 20:47 Resp 20 07/03/24 20:47 BP 154/66 H 07/03/24 20:47 Pulse Ox 97 07/03/24 20:47 O2 Del Method Room Air 07/03/24 20:47 BMI result Body Mass Index 44.4 Appearance: Alert. Oriented X3. No acute distress. Eyes: No pallor or icterus ENT: Pharynx normal. Oral Mucosa moist Neck: Normal inspection. Neck supple. CVS: Normal heart rate and rhythm. Pulses normal. Respiratory: No respiratory distress. Equal air entry bilateral, no wheezing/rales/rhonchi Abdomen: Soft and nontender. Bowel sounds are present, no mass palpable, no CVA tenderness Skin: Skin warm and dry. Normal skin color. Normal skin turgor. Extremities: No lower extremity edema. No calf tenderness warmth and redness of the right leg no open wound Neuro: Oriented X 3. No motor deficit. Course Course Course Narrative: This is an RME: Additional HPI, ROS, PE not included below will be deferred to primary provider. RME assessment and note performed by: Pam Jacobson PA-C This is a 73-year-old female presents emergency department with complaints of right lower extremity redness and swelling. Recently seen here for cellulitis treated with Keflex. Symptoms did improve however states that she has noticed increased swelling and redness same area. 2+ pitting edema noted Plan: Labs, ultrasound, further ER evaluation needed. Medications Administered Discontinued Medications Generic Name Dose Route Start Last Admin Trade Name Hal PRN Reason Stop Dose Admin Cephalexin HCl 500 mg 07/03/24 20:22 07/03/24 20:44 Cephalexin 500 Mg Capsule PO 07/03/24 20:23 500 mg ONCE ONE Administration Doxycycline Monohydrate 100 mg 07/03/24 20:22 07/03/24 20:44 Doxycycline Monohydrate 100 Mg Capsule PO 07/03/24 20:23 100 mg ONCE ONE Administration Medical Decision Making Medical Decision Making [facility] Narrative: Patient with recurrent cellulitis nondiabetic no open wounds ultrasound negative for DVT will prescribe doxycycline cephalexin together follow up Lab Data [facility] Lab Attestation statement: I reviewed the patient's lab results. 07/03/24 17:56 07/03/24 17:56 Labs: Lab Results 07/03/24 Range/Units 17:56 WBC 5.8 (4.8-10.8) X10*3/uL RBC 4.44 (4.20-5.50) X10*6/uL Hgb 12.7 D (12.0-16.0) g/dl Hct 38.1 D (37.0-47.0) % MCV 85.8 (80.0-98.0) fL MCH 28.6 (27.0-33.0) pg MCHC 33.3 (31.0-35.0) g/dl RDW 14.4 (11.0-16.0) % Plt Count 272 D (160-400) X10*3/uL MPV 9.5 (9.4-12.3) fL Immature Gran % (Auto) 0.3 (0.0-0.4) % Neut % (Auto) 62.9 (45-73) % Lymph % (Auto) 14.8 L (20-40) % Alexander % (Auto) 17.9 H (2-11) % Eos % (Auto) 3.1 (0-4) % Baso % (Auto) 1.0 (0-2) % Lymph # (Auto) 0.9 L (1.2-4.9) X10*3/uL Alexander # (Auto) 1.0 (0.1-1.2) X10*3/uL Eos # (Auto) 0.2 (0.0-0.4) X10*3/uL Baso # (Auto) 0.1 (0.0-0.2) X10*3/uL Abs Immat Gran (auto) 0.02 (0.00-0.03) X10*3/uL Absolute Neuts (auto) 3.6 (2.0-8.3) x10*3/uL Absolute Nucleated RBC 0.000 (0.0-0.012) X10*3/uL Nucleated RBC % (auto) 0.0 (0.0-0.2) /100WBC Sodium 140 (135-145) mmol/L Potassium 4.2 (3.3-5.1) mmol/L Chloride 109 H (96-108) mmol/L Carbon Dioxide 23 (22-29) mmol/L Anion Gap 12 (12-20) BUN 11 (9-16) mg/dL Creatinine 0.79 (0.5-1.4) mg/dL Estim Creat Clear Calc 88.7 Estimated GFR > 60 Random Glucose 108 (60-115) mg/dL Calcium 8.9 (8.4-10.2) mg/dL Total Bilirubin 0.3 (0.0-1.0) mg/dL Direct Bilirubin 0.1 (0.0-0.5) mg/dL AST 30 (5-31) U/L ALT 25 (0-31) U/L Alkaline Phosphatase 98 (39-117) U/L B-Natriuretic Peptide 15 (<100) pg/mL Total Protein 7.8 (6.5-8.0) g/dL Albumin 4.2 (3.5-5.0) g/dL Independent Interpretation I performed an independent interpretation of an: Ultrasound Radiology Impression Discussion of test interpretation with radiology: I have reviewed the radiologist's reading. Discharge Plan Discharge Clinical Impression: Cellulitis Patient Disposition: Home, Self-Care Instructions: Cellulitis (ED) Additional Instructions: Take antibiotic as prescribed Keep your right leg elevated Follow with your PCP if not better Prescriptions: New cephalexin 500 mg capsule 500 mg PO QID 10 Days Qty: 40 0RF doxycycline hyclate 100 mg tablet 100 mg PO BID Qty: 20 0RF No Action amoxicillin 500 mg capsule 2,000 mg PO ONCE aspirin 325 mg Tablet 325 mg PO DAILY acetaminophen 650 mg tablet extended release 650 mg PO Q8H PRN (Reason: pain) multivitamin Tablet 1 tab PO DAILY calcium carbonate-vitamin D3 600 mg-5 mcg (200 unit) Tablet 1 tab PO BID cephalexin 500 mg tablet 500 mg PO QID 7 Days Qty: 28 0RF levothyroxine 137 mcg tablet 137 mcg PO DAILY atorvastatin 10 mg tablet 10 mg PO DAILY montelukast 10 mg tablet 10 mg PO BEDTIME epinephrine [EpiPen] 0.3 mg/0.3 mL auto-injector 0.3 mg IM Q10M PRN (Reason: Anaphylaxis) Rx Instructions: for 2 doses budesonide-formoterol 80-4.5 mcg/actuation HFA aerosol inhaler 2 puff inhalation BID nitroglycerin 0.4 mg tablet, sublingual 0.4 mg sublingual Q5M PRN (Reason: Chest Pain) Rx Instructions: do not exceed 3 doses per episode albuterol sulfate 90 mcg/actuation HFA aerosol inhaler 1 inh inhalation QID losartan 100 mg tablet 100 mg PO DAILY amoxicillin 500 mg capsule 2,000 mg PO ONCE Qty: 20 3RF Rx Instructions: Take four caps (2,000 mg) one hour before any dental work. amlodipine 2.5 mg tablet 2.5 mg PO DAILY omeprazole 20 mg capsule,delayed release(DR/EC) 20 mg PO DAILY cetirizine 10 mg tablet 10 mg PO DAILY Interventions: ED Discharge Assessment Last Done: 07/03/24 20:47 Discharge Date/Time: 07/03/24 20:49 Print Language: Gibraltarian
[2024-07-03 18:00] LABS: MANUAL DIFF FLAG NO
[2024-07-03 18:05] LABS: Basophils Absolute Auto 0.1 X10*3/uL (0.0-0.2); Eosinophils Absolute Auto 0.2 X10*3/uL (0.0-0.4); Eosinophils Percent Auto 3.1 % (0-4); Hematocrit 38.1 % (37.0-47.0); Hemoglobin 12.7 g/dl (12.0-16.0); Imm Gran Abs Auto 0.02 X10*3/uL (0.00-0.03); Imm Gran Pct Auto 0.3 % (0.0-0.4); Lymphocytes Absolute Auto 0.9 X10*3/uL (1.2-4.9); Lymphocytes Percent Auto 14.8 % (20-40); Mean Corpuscular HGB Conc 33.3 g/dl (31.0-35.0); Mean Corpuscular Hemoglobin 28.6 pg (27.0-33.0); Mean Corpuscular Volume 85.8 fL (80.0-98.0); Mean Platelet Volume 9.5 fL (9.4-12.3); Monocytes Percent Auto 17.9 % (2-11); Neutrophils Absolute Auto 3.6 x10*3/uL (2.0-8.3); Neutrophils Percent Auto 62.9 % (45-73); Platelet Count 272 X10*3/uL (160-400); Red Blood Count 4.44 X10*6/uL (4.20-5.50); Red Cell Distribution Width 14.4 % (11.0-16.0); White Blood Count 5.8 X10*3/uL (4.8-10.8)
[2024-07-03 18:17] LABS: Alanine Aminotransferase 25 U/L (0-31); Albumin Level 4.2 g/dL (3.5-5.0); Alkaline Phosphatase 98 U/L (39-117); Anion Gap 12 (12-20); Aspartate Amino Transferase 30 U/L (5-31); Bilirubin Direct 0.1 mg/dL (0.0-0.5); Bilirubin Total 0.3 mg/dL (0.0-1.0); Blood Urea Nitrogen 11 mg/dL (9-16); Calcium 8.9 mg/dL (8.4-10.2); Carbon Dioxide 23 mmol/L (22-29); Chloride 109 mmol/L (96-108); Creatinine Clr Calc Pharmacy 88.7; Estimated Glomerular Filt Rate > 60; Glucose Random 108 mg/dL (60-115); Potassium 4.2 mmol/L (3.3-5.1); Sodium 140 mmol/L (135-145); Total Protein 7.8 g/dL (6.5-8.0)
[2024-07-03 18:22] LABS: B Type Natriuretic Peptide 15 pg/mL (<100)
[2024-07-03 20:07] VITALS: BP 154/66; PULSE 92; RESP 20; TEMP 37.2; O2SAT 96
[2024-07-03] MEDS: Doxycycline Monohydrate 100 MG CAPSULE PO (20:44)
[2024-07-03] MEDS: cephALEXin 500 MG CAPSULE PO (20:44)
[2024-07-03 20:47] VITALS: BP 154/66; PULSE 92; RESP 20; TEMP 36.9; O2SAT 97
== END 2024-07-03 20:49 | disposition home or self-care (01) ==
LOC: HO.ED 20:46
PROVIDERS: Physician Assistant Medical; Emergency Provider Internal Medicine; PCP Physician Assistant Medical
DX: L03.115 Cellulitis of right lower limb (principal); R60.0 Localized edema; Z79.899 Other long term (current) drug therapy; Z87.891 Personal history of nicotine dependence
CPT/HCPCS: 36415; 80048; 80076; 83880; 85025; 93971; 99284

== ENCOUNTER → 2024-07-03 17:17 | Outpatient (BNV) | payer MEDICARE, BC, SELFPAY | PROVIDERS: PCP Physician Assistant Medical; Visit Provider Specialist | DX: R22.41 Localized swelling, mass and lump, right lower limb (principal) | CPT/HCPCS: 93971 ==

== ENCOUNTER 2024-07-31 08:28 | Outpatient (AMB) | payer MEDICARE, BC, SELFPAY ==
--- NOTE | 2024-07-31 08:41 | MHC.OFFVIS ---
Vital Signs 07/31/24 08:51 Height 5 ft 8 in Weight 292 lb BMI 44.4 Intake Visit Reasons: Left leg painful veins Intake Note: Cornelia is a 74 year old female who presents with complaints of painful veins along the anterior aspect of her left lower leg. The patient states that approximately 5-6 years ago she underwent ?a vein procedure? at [facility]. She got fairly good relief from that procedure initially. She states that she has developed more painful veins over the last year. She denies any fevers or chills. She continues with her home exercise program after undergoing bilateral total knee replacement surgeries. Allergies lactose [LACTOSE] Allergy (Intermediate, Verified 07/31/24 08:41) GI UPSET adhesive tape [ADHESIVE TAPE] Allergy (Unknown, Verified 07/31/24 08:41) RASH CARLOZ Inhibitors Allergy (Verified 07/31/24 08:41) Unknown gabapentin Allergy (Verified 07/31/24 08:41) Unknown grass pollen Allergy (Verified 07/31/24 08:41) Unknown house dust mite Allergy (Verified 07/31/24 08:41) Unknown mold Allergy (Verified 07/31/24 08:41) Unknown ragweed pollen Allergy (Verified 07/31/24 08:41) Unknown tree and shrub pollen Allergy (Verified 07/31/24 08:41) Unknown blueberry [BLUEBERRY] Adverse Reaction (Intermediate, Verified 07/31/24 08:41) VOMITING doxycycline [From VIBRAMYCIN] Adverse Reaction (Intermediate, Verified 07/31/24 08:41) GI ISSUES lisinopril [From ZESTRIL] Adverse Reaction (Intermediate, Verified 07/31/24 08:41) COUGH procaine [From NOVOCAIN] Adverse Reaction (Intermediate, Verified 07/31/24 08:41) EXCESS NUMBING theophylline [THEOPHYLLINE] Adverse Reaction (Intermediate, Verified 07/31/24 08:41) DIZZINESS CAT GUT SUTURES Allergy (Intermediate, Uncoded 07/31/24 08:41) DO NOT DISSOLVE DERMABOND Adverse Reaction (Severe, Uncoded 07/31/24 08:41) RASH CHOCOLATE Adverse Reaction (Intermediate, Uncoded 07/31/24 08:41) VOMITING Medication List - Last Reconciled 07/31/24 by Jose Manuel Herrera MD acetaminophen ER 650 mg PO Q8H PRN albuterol sulfate 90 mcg/actuation 1 inh inhalation QID amlodipine 2.5 mg PO DAILY amoxicillin 2,000 mg (4 x 500 mg) PO ONCE aspirin 325 mg PO DAILY atorvastatin 10 mg PO DAILY budesonide-formoterol 80-4.5 mcg/actuation 2 puffs inhalation BID calcium carbonate-vitamin D3 600 mg-5 mcg (200 unit) 1 tab PO BID cetirizine 10 mg PO DAILY epinephrine (EpiPen) 0.3 mg IM Q10M PRN levothyroxine 137 mcg PO DAILY losartan 100 mg PO DAILY montelukast 10 mg PO BEDTIME multivitamin 1 tab PO DAILY nitroglycerin 0.4 mg sublingual Q5M PRN omeprazole 20 mg PO DAILY PFSH Medical History Disorders of bursae and tendons in shoulder region, unspecified Hearing loss GERD (gastroesophageal reflux disease) Obesity Carpal tunnel syndrome Hypertension Hypercholesteremia Hypothyroidism Asthma Surgical History Hx of gastric bypass Cataracts, both eyes History of cholecystectomy History of total left knee replacement History of total right knee replacement Status post total replacement of right shoulder (~09/2019) Family History Mother No problems noted. Father No problems noted. Social History Alcohol intake: never Patient Tobacco Use Status: Former Tobacco user Current occupation: [employer] Physical Exam Vital Signs: BMI result Body Mass Index 44.4 Const Other: Well-nourished well-developed very friendly female awake alert and oriented x3 in no acute distress Extrem Other: Left leg examination shows multiple varicose veins which are tender to palpation, no erythema, no signs of infection Assessment & Plan Assessment & Plan (1) Varicose veins of left lower extremity with pain: Code(s): I83.812 - Varicose veins of left lower extremity with pain Category: Medical Plan Ms. Schreiber presents with left leg pain due to painful varicose veins. Thus, I will have her evaluated in our vascular surgery department here at [facility]. She will follow-up as instructed. Feel free to call me at any time should questions regarding her orthopedic management arise. I spent 21 minutes in reviewing the patient's records and imaging studies, seeing the patient and documenting in the medical record. Orders: Referrals Vascular Surgery Referral I83.812 - Varicose veins of left lower extremity with pain Coding Level of Care Code Est Pt Level 3 (07748) Complex EM visit Add On G2211 Diagnoses Varicose veins of left lower extremity with pain I83.812
[2024-07-31 08:51] VITALS: BMI 44.4
--- OUTSIDE RECORDS SUMMARY | 2024-07-31 08:52 | XMS_ITS | Encounter Summary ---
Author Organization [facility] Address [address] [place] [address] Care Team Providers Care Rose Grader Name Role Phone Justin Zavala Primary Care Provider [phone] Reason for Visit * Reason Onset Date Comments Leg Swelling 07/03/2024 redness Encounter Details Date Type Department Care Team (Late st Contact Info) Description 07/03/2024 Telephone Adult Medicine [facility] [address] [place] [address] Justin Zavala PA [address], [place] [phone] Leg Swelling (redness) Social History Tobacco Use Types Packs/Day Years Used Date Smoking Tobacco: Former Cigarettes 1 32.3 0 09/05/1961 - 12/16/1993 Smokeless Tobacco: Never Alcohol Use Standard Drinks/Week Comments No 0 (1 standard drink = 0.6 oz pur e alcohol) Comments Unknown Sex and Gender Information Value Date Recorded Sex Assigned at Not on file Legal Sex Female 10:15 PM EST Gender Identity Not on file Sexual Orientation Not on file documented as of this encounter Progress Notes * Priyanka Burris RN - 07/03/2024 3:34 PM EDT Pt. States she fell on 05/14 she injured her hands and knee and had developed a small tennis ball lump on side of knee. she did not go to er at that time but went later in may. When her grullon area had become red and hot. She was treated for a cellulitis and after being on medication it felt and looked better. The lump was considered to be scar tissue by one of the ER. Doctors. Pt. Went to podiatry and nursetold her it was very hot. At present time he rt. Grullon and ankle are red, hot and swollen . No feveror chills , no red streaking , no additional sob or chest pain. I advised with swelling , hot and red grullon to be evaluated in the ER. Pt. Agrees and will call for a ride * Natalyagomez Gunn - 07/03/2024 2:45 PM EDT The patient is calling in due to a swelling and redness on the lower part of her right leg. She stated that one of her specialist informed her that the patient would need to follow-up with STEPHANIE Kim in regards to her redness and swelling of her right lower part of the grullon. Please call patient via phone number [phone]. documented in this encounter Plan of Treatment Upcoming Encounters Date Type Department Care Team (Late st Contact Info) Description 09/03/2024 7:40 AM EDT Appointment Radiology Department - [address] [phone] 01/26/2025 8:00 AM EDT Office Visit Adult Medicine [facility] - [address] [phone] Justin Zavala PA [address] [place] [address] documented as of this encounter Visit Diagnoses Not on filedocumented in this encounter Care Teams Rose Grader Relationship Specialty Start Date End Date Justin Zavala PA [address] [place] [address] PCP - General Internal Medicine 06/23/20 documented as of this encounter
--- OUTSIDE RECORDS SUMMARY | 2024-07-31 08:52 | XMS_ITS | Clinical Summary ---
Author Organization [facility] Address [address] [place] [address] Care Team Providers Care Meteorology Teacher Name Role Phone Cameron Sanchez MD Primary Care Provider [phone] Allergies Active Allergy Reactions Criticality Noted Date [...] Tdap / Td (1 - Tdap) 07/10/1967 Fall Risk Assessment 2013 Osteoporosis Screening (DEXA [...] age to complete this topic Care Teams Meteorology Teacher Relationship Specialty Start Date End Date Cameron Sanchez MD PCP - General Telegraphic Instrument Supervisor 11/13/16
--- OUTSIDE RECORDS SUMMARY | 2024-07-31 08:52 | XMS_ITS | Clinical Summary ---
Author Organization [facility] [address] [place] [address] [place] [phone] Phone Care Team Providers Care Bottom Brusher Name Role Phone Justin Zavala Primary Care Provider [phone] Allergies Active Allergy Reactions Criticality Noted Date [...] 2-Brett) 0.3 mg/0.3 mL injection 6 Active montelukast (SINGULAIR) 10 mg tablet Take 10 mg by mouth at bedtime. Active nitroglycerin (NITROSTAT) 0.[address] 1 Tab under the tongue every 5 minutes as needed for Chest pain. 5 Active amoxicillin (AMOXIL) 500 mg capsule Take 4 capsules (2 gms) 1 hr prior to dental procedure 4 capsule 5 4 Active omeprazole (PriLOSEC) [address] capsule Take 1 capsule (20 mg total) by mouth 1 (one) time each day. Do not crush or chew. 90 capsule 3 4 Active atorvastatin (LIPITOR) 10 mg tablet TAKE 1 TABLET BY MOUTH EVERY DAY 90 tablet 1 5 Active losartan (COZAAR) 100 mg tablet TAKE 1 TABLET BY MOUTH EVERY DAY 90 tablet 1 5 Active amLODIPine (NORVASC) 2.5 mg tablet TAKE 1 TABLET BY MOUTH EVERY DAY 90 tablet 1 5 Active levothyroxine (SYNTHROID, LEVOTHROID) 137 mcg tablet TAKE 1 TABLET BY MOUTH EVERY DAY 90 tablet 1 5 Active Active Problems Problem Noted Date Diagnosed Date Gastroesophageal reflux disease without esophagi tis 03/05/2023 Assessment & Plan (07/18/2024 11:42 AM EDT): Allergy 09/08/2015 Hearing loss 01/21/2013 Overview (03/06/2024): Has bilat hearing aids Asthma 04/13/2012 Assessment & Plan (07/18/2024 11:42 AM EDT): Disorder of bursae and tendons in shoulder regio n 08/25/2009 Overview (03/06/2024): IMO update Carpal tunnel syndrome 03/19/2005 Overview (03/06/2024): Surgery on left Still present On the right Hypertension 03/19/2005 Assessment & Plan (07/18/2024 11:42 AM EDT): Hypothyroidism 03/19/2005 Assessment & Plan (07/18/2024 11:42 AM EDT): Obesity, unspecified 03/19/2005 Overview (03/06/2024): Gastric bypass Assessment & Plan (07/18/2024 11:42 AM EDT): Pure hypercholesterolemia 03/19/2005 Assessment & Plan (07/18/2024 11:42 AM EDT): Encounters Date Type Department Care Team Description 07/18/2024 11:00 AM EDT Office Visit Adult Medicine [address] [phone] Justin Zavala PA Pure hypercholesterolemia (Primary Dx); Uncomplicated asthma, unspecified asthma severity, unspecified whether persistent; Secondary hypertension; Obesity without serious comorbidity, unspecified class, unspecified obesity type; Hypothyroidism, unspecified type; Gastroesophageal reflux disease without esophagitis; Adult general medical examination 07/03/2024 Telephone Adult Medicine [address] [phone] Justin Zavala PA Leg Swelling (redness) from Last 3 Months Immunizations Name Administration [...] valent (Pneumovax 23) 2yo and older 08/15/2013 RSV, bivalent, protein subun it RSVpreF, 0.5mL, Preservative Free (Arexvy) 60yo and older 07/23/2024 Td Tetanus diptheria (Tdvax) 7yo and older 09/08/2015,01/11/2005 Tdap Tetanus diptheria acell ular pertussis (Boostrix; Adacel) 7yo and older 12/28/2019 Varicella live (Varivax) 12m o and older 01/12/2010 Zoster Live 09/15/2017,01/24/2012 Zoster recombinant (Shingrix ) 19yo and older 12/26/2017,06/14/2017,04/16/2017 Surgical History Surgery Date Site/Laterality Comments GASTRIC BYPASS PROCEDURE: WI GASTRIC RSTCV W/BYP W/SM INT RCNSTJ LIMIT ABSRPJ; COMMENT: 2004 dr rodriguez OTHER SURGICAL HISTORY PROCEDURE: WI EXC PRTD NICHOL/PRTD GLND LAT LOBE W/O NRV DSJ; COMMENT: 3 tumors, left COLONOSCOPY 12/23/2007 PROCEDURE: HISTORICAL COLONOSCOPY; COMMENT: diverticulosis; repeat in ten years HAND SURGERY PROCEDURE: HISTORICAL HAND SURGERY; COMMENT: thumb arthoplasty bilateral CARPAL TUNNEL RELEASE PROCEDURE: WI NEUROPLASTY &/TRANSPOS MEDIAN NRV CARPAL TUNNE; COMMENT: left KNEE ARTHROSCOPY 01/20/2011 PROCEDURE: WI ARTHROSCOPY KNEE DIAGNOSTIC W/WO SYNOVIAL BX SPX; COMMENT: Left; Idania TOTAL KNEE ARTHROPLASTY 2014 PROCEDURE: WI ARTHRP KNE CONDYLE&PLATU MEDIAL&LAT COMPARTMENTS; COMMENT: left dr edward TOTAL KNEE ARTHROPLASTY 2015 PROCEDURE: WI ARTHRP KNE CONDYLE&PLATU MEDIAL&LAT COMPARTMENTS; COMMENT: right COLONOSCOPY 08/21/2018 PROCEDURE: HISTORICAL COLONOSCOPY; COMMENT: negative OTHER SURGICAL HISTORY 09/2019 PROCEDURE: WI ANES ARTHROSCOPIC TOTAL SHOULDER REPLACEMENT; COMMENT: R OTHER SURGICAL HISTORY 11/01/2021 Left PROCEDURE: WI ANES ARTHROSCOPIC TOTAL SHOULDER REPLACEMENT; COMMENT: reverse shoulder [...] drink = 0.6 oz pur e alcohol) Housing Instability Answer Date Recorde d Are you worried that in the next 2 months you may not have stable housing? No 07/18/2024 Food Access & Nutrition Answer Date Rec orded Do you have access to a vari ety of food including fruits and vegetables? Yes 07/18/2024 Health Literacy Answer Date Recorded How often do you need to hav e someone help you when you read instructions, pamphlets, or other written material from your doctor or pharmacy? Never 07/18/2024 Caregiver: How often do you need to have someone help you when you read instructions, pamphlets, or other written material from your doctor or pharmacy? Not on file 07/18/2024 Financial Risk Answer Date Recorded How hard is it for you to pa y for the very basics like food, housing, medical care, and air conditioning / heating? Not very hard 07/18/2024 Transportation Answer Date Recorded Has the lack of transportati on kept you from meetings, work, or from getting things needed for daily living? No Has the lack of transportati on kept you from medical appointments or from getting medications? No 07/18/2024 Social Isolation Answer Date Recorded How often do you feel lonely or isolated from th ose around you? Never 07/18/2024 Food Risk Answer Date Recorded Within the past 12 months we worried whether our food would run out before we got money to buy more. Never true 07/18/2024 Within the past 12 months th e food we bought just didn't last and we didn't have money to get more. Never true 07/18/2024 Dependent Care Answer Date Recorded Do you need help finding or paying for care for your loved ones. For example, child protective services specialist or elderly care for an older adult? No 07/18/2024 Education Answer Date Recorded Do you think completing more education or training, like finishing a GED, going to college, or learning a trade, would be helpful for you? No 07/18/2024 Employment and Income Answer Date Recor ded During the last four weeks, have you been actively looking for work? No 07/18/2024 Living Situation Answer Date Recorded What is your living situation? 0 07/18/2024 Comments Unknown Sex and Gender Information Value Date Recorded Sex Assigned at Not on file Legal Sex Female 10:15 PM EST Gender Identity Not on file Sexual Orientation Not on file Obstetrics History Last Filed Vital Signs Vital Sign Reading Time Taken Comments Blood Pressure 130/80 07/18/2024 11:33 AM EDT Pulse 88 07/18/2024 10:53 AM EDT Temperature 36.4 ??C (97.6 ??F) 07/18/2024 10:53 AM E DT Respiratory Rate 14 07/18/2024 10:53 AM EDT Oxygen Saturation 96% 04/07/2024 10:04 AM EST Inhaled Oxygen Concentration - - Weight 135 kg (297 lb) 07/18/2024 10:53 AM EDT Height 172.7 cm (5' 8 ) 07/18/2024 10:53 AM EDT Body Mass Index 45.16 07/18/2024 10:53 AM EDT Plan of Treatment Upcoming Encounters Date Type Department Care Team (Late st Contact Info) Description 09/03/2024 7:40 AM EDT Appointment Radiology Department - [address] [phone] 01/26/2025 8:00 AM EDT Office Visit [facility] [place] [address] [place] [address] Justin Zavala PA [address] [place], [place] Health Maintenance Due Date Last Done Comments COVID-19 Vaccine ( season) 2023 07/26/2021, 02/11/2021, 07/15/2020, Additional history exists Hypertension/CHF/CAD Annual BMP Blood Test 03/19/2025 03/19/2024, 09/26/2023, 09/26/2023 Depression Screening 07/18/2025 07/18/2024, 07/18/19 24 Falls Risk Assessment 07/18/2025 07/18/2024, 025 Medicare Annual Wellness Visit 07/18/2025 07/18/2024 Social Influencers of Health Screening 07/18/2025 07/18/2024 Osteoporosis Screening (Bone Density Screening) 12/22/2025 12/22/2020 Colorectal Cancer Screening: Colonoscopy 02/10/2027 02/10/2022 Cholesterol Screening (Lipid Panel) 03/19/2029 03/19/2024, 09/26/2023, 09/26/2023 DTaP,Tdap,and Td Vaccines (4 - Td or Tdap) 12/27/2029 12/28/2019, 09/08/2015, 01/11/2005 Varicella Vaccines Aged Out 01/12/2010 No longer eligible based on patient's age to complete this topic Hepatitis C Screening Completed 02/12/2014 Zoster Vaccines Completed 12/26/2017, 0605/2017, 06/14/2017, Additional history exists Pneumococcal Vaccine: 50+ Years Completed 12/15/2019, 08/20/2014, 08/15/2013 Breast Cancer Screening Discontinued 08/24/19 24, 08/24/2023, 03/07/2022, Additional history exists Influenza Vaccine Completed 01/21/2024, , 12/08/2021, Additional history exists RSV Immunization Adult Patients Completed 07/23/2024 HIB Vaccines Aged Out No longer eligi [...] age to complete this topic Meningococcal B Vaccine Aged Out No l onger eligible based on patient's age to complete this topic RSV Immunization Patients Under 20 months Aged Out No longer eligible based on patient's age to complete this topic Procedures Procedure Name Priority Date/Time Associated Diagnosis Comments EXTERNAL VASCULAR ULTRASOUND 07/03/2024 EXTERNAL VASCULAR ULTRASOUND 07/03/2024 EXTERNAL XRAY REPORT 06/08/2024 EXTERNAL XRAY REPORT [...] Relevant to Health Maintenance Results * External Vascular Ultrasound (07/03/2024) Only the most recent of2 resultswithin the time period is included. Anatomical Region Laterality Modality Ultrasound us Provider [facility] CV VASCULAR PROCEDURES F inal Result * External Xray Report (06/08/2024) Only the most recent of2 resultswithin the time period is included. Anatomical Region Laterality Modality Radiographic Any ging us Provider [facility] IMG XR PROCEDURES Final Result * Lipid panel with reflex to direct LDL (03/19/2024 7:48 AM EST) Cholesterol 155 0 - 200 mg/dL LAB CHEMISTRY METHOD 03/19/2024 10:39 AM [facility] Triglycerides 132 0 - 150 mg/dL LAB CHEMISTRY METHOD 03/19/2024 10:39 AM [facility] HDL 61 >=40 mg/dL LAB CHEMISTRY METHOD 03/19/2024 10:39 AM [facility] LDL Calculated 68 0 - 100 mg/dL LAB CHEMISTRY METHOD 03/19/2024 10:39 AM [facility] VLDL Cholesterol Jasbir 26.4 mg/dL LAB CHEMISTRY METHOD 03/19/2024 10:39 AM [facility] Non HDL Chol. (LDL+VLDL) 94 <145 mg/dL LAB CHEMISTRY METHOD 03/19/2024 10:39 AM [facility] Chol/HDL Ratio 2.5 0.0 - 4.4 LAB CHEMISTRY METHOD 03/19/2024 10:39 AM [facility] Blood Venous blood specimen / Unknown Venipuncture / Unknown 03/19/2024 7:48 AM EST 03/19/2024 7:48 AM EST us Justin BROWN LAB BLOOD ORDERABLES Lois burnett Result [facility] [address] [place] [address], * Comprehensive metabolic panel (03/19/2024 7:48 AM EST) Sodium 141 133 - 145 mmol/L LAB CHEMISTRY METHOD 03/19/2024 10:39 AM [facility] Potassium 4.2 3.5 - 5.5 mmol/L LAB CHEMISTRY METHOD 03/19/2024 10:39 AM [facility] Chloride 110 96 - 110 mmol/L LAB CHEMISTRY METHOD 03/19/2024 10:39 AM [facility] CO2 27 21 - 32 mmol/L LAB CHEMISTRY METHOD 03/19/2024 10:39 AM [facility] Anion Gap 4 3 - 11 LAB CHEMISTRY METHOD 03/19/2024 10:39 AM [facility] Glucose 100 70 - 100 mg/dL LAB CHEMISTRY METHOD 03/19/2024 10:39 AM [facility] BUN 13 5 - 25 mg/dL LAB CHEMISTRY METHOD 03/19/2024 10:39 AM [facility] Creatinine 0.94 0.50 - 1.10 mg/dL LAB CHEMISTRY METHOD 03/19/2024 10:39 AM [facility] eGFR 63 >=60 mL/min/1. 73m2 LAB CHEMISTRY METHOD 03/19/2024 10:39 AM [facility] Comment:Calculation based on the??Chronic Kidney Disease Epidemiology Collaboration (CKD-EPI) equation refit??without adjustment for race. BUN/Creatinine Ratio 13.8 LAB CHEMISTRY METHOD 03/19/2024 10:39 AM [facility] Calcium 9.1 8.5 - 10.5 mg/dL LAB CHEMISTRY METHOD 03/19/2024 10:39 AM [facility] AST (SGOT) 16 10 - 42 unit/L LAB CHEMISTRY METHOD 03/19/2024 10:39 AM [facility] ALT (SGPT) 23 10 - 60 unit/L LAB CHEMISTRY METHOD 03/19/2024 10:39 AM [facility] Alkaline Phosphatase 99 42 - 121 unit/L LAB CHEMISTRY METHOD 03/19/2024 10:39 AM [facility] Total Protein 7.0 6.0 - 8.0 g/dL LAB CHEMISTRY METHOD 03/19/2024 10:39 AM [facility] Albumin 3.9 3.2 - 5.0 g/dL LAB CHEMISTRY METHOD 03/19/2024 10:39 AM [facility] Total Bilirubin 0.5 0.0 - 1.4 mg/dL LAB CHEMISTRY METHOD 03/19/2024 10:39 AM [facility] Blood Venous blood specimen / Unknown Venipuncture / Unknown 03/19/2024 7:48 AM EST 03/19/2024 7:48 AM EST Justin BROWN LAB BLOOD ORDERABLES Lois l Result [facility] [address] [place] [address], * SCREENING MAMMOGRAPHY BI 2-VIEW BREAST INC [...] in 12 months. BI-RADS: Category 1: Negative us Juanita BROWN IMG XR PROCEDURES Final Result * Depression Screening (07/18/2023) Depression Screening Abstracted Historical Provider HEALTH MAINTENANCE Final Result * Colonoscopy (02/10/2022) Colonoscopy No Interpretation , Abstracted Anatomical Region Laterality Modality Other Historical Provider HEALTH MAINTENANCE Final Result * DXA BONE [...] normal bone density by WHO criteria. [facility] Department of Internal Medicine recommends using National [...] alternative screening schedule based on nick Ceballos., [facility] May 04, 2011 for patients with [...] normal bone density by WHO criteria. [facility] Department of Internal Medicine recommendsusing National Osteoporosis [...] alternative screening schedule based on nick Ceballos., NEJMJanuary 2011 for patients with osteopenia (based on hip BMD T-score) is as follows: * advanced osteopenia (T scores -2.00 to -2.49), BMD testing every year * moderate osteopenia (T scores -1.50 to -1.99), BMD testing every 5years mild osteopenia or normal BMD (T scores -1.50 and higher), BMD testingevery 15 years Justin BROWN IMEduardo DXA PROCEDURES Final Result * Hepatitis C Screening (02/12/2014) Hepatitis C Screening Abstracted Historical Provider MD HEALTH MAINTENANCE Final Result from Last 3 Months or Most Recently Relevant to Health Maintenance Insurance MEDICARE [facility] Advance Directives Documents on File Type Date Recorded Patient Legal Stenographer Expl anation Health Care Decision (hx) 11/01/2021 AD SEBASTIAN DIRECTIVE Health Care Decision (hx) 11/01/2021 AD SEBASTIAN DIRECTIVE Health Care Decision (hx) 11/01/2021 AD SEBASTIAN DIRECTIVE Care Teams Bottom Brusher Relationship Specialty Start Date End Date Justin Zavala PA [address] [place] [address] PCP - General Internal Medicine 06/23/20
== END 2024-07-31 09:04 | disposition home or self-care (01) ==
LOC: HO.HOS 08:28
PROVIDERS: PCP Physician Assistant Medical; Visit Provider Orthopaedic Surgery
DX: I83.812 Varicose veins of left lower extremity with pain (principal)
CPT/HCPCS: 99213; G2211

== ENCOUNTER → 2024-07-31 08:28 | Outpatient (BNVA) | payer MEDICARE, BC, SELFPAY | PROVIDERS: PCP Physician Assistant Medical; Visit Provider Orthopaedic Surgery | DX: I83.812 Varicose veins of left lower extremity with pain (principal) | CPT/HCPCS: 99212 ==

== ENCOUNTER 2024-08-19 11:04 | Outpatient (AMB) | payer MEDICARE, BC, SELFPAY ==
--- NOTE | 2024-08-19 11:08 | A.OFFVIS_ITS ---
Vital Signs 08/19/24 11:09 Height 5 ft 8 in Weight 292 lb BMI 44.4 BP 142/76 H Blood Pressure Location Rt brachial Position Sitting Intake Visit Reasons: Varicose veins of left lower extremity with pain Intake Note: Pt presents to the office today for a new patient visit referred by Dr. Herrera for varicose veins of left lower extremity with pain. Pt states she has throbbing and aching pain especially when walking or standing for longer periods of time. Allergies lactose [LACTOSE] Allergy (Intermediate, Verified 08/19/24 11:10) GI UPSET adhesive tape [ADHESIVE TAPE] Allergy (Unknown, Verified 08/19/24 11:10) RASH CARLOZ Inhibitors Allergy (Verified 08/19/24 11:10) Unknown gabapentin Allergy (Verified 08/19/24 11:10) Unknown grass pollen Allergy (Verified 08/19/24 11:10) Unknown house dust mite Allergy (Verified 08/19/24 11:10) Unknown mold Allergy (Verified 08/19/24 11:10) Unknown ragweed pollen Allergy (Verified 08/19/24 11:10) Unknown tree and shrub pollen Allergy (Verified 08/19/24 11:10) Unknown blueberry [BLUEBERRY] Adverse Reaction (Intermediate, Verified 08/19/24 11:10) VOMITING doxycycline [From VIBRAMYCIN] Adverse Reaction (Intermediate, Verified 08/19/24 11:10) GI ISSUES lisinopril [From ZESTRIL] Adverse Reaction (Intermediate, Verified 08/19/24 11:10) COUGH procaine [From NOVOCAIN] Adverse Reaction (Intermediate, Verified 08/19/24 11:10) EXCESS NUMBING theophylline [THEOPHYLLINE] Adverse Reaction (Intermediate, Verified 08/19/24 11:10) DIZZINESS CAT GUT SUTURES Allergy (Intermediate, Uncoded 08/19/24 11:10) DO NOT DISSOLVE DERMABOND Adverse Reaction (Severe, Uncoded 08/19/24 11:10) RASH CHOCOLATE Adverse Reaction (Intermediate, Uncoded 08/19/24 11:10) VOMITING HPI HPI Varicose veins of left lower extremity with pain: Details: Very pleasant 74-year-old female patient presents for painful varicose veins. Complaints include pain over varicosities, swelling of lower extremities, cramping, fatigue, and heaviness of the lower extremities. It has been affecting there daily activities including walking. It is noted more so in left leg. Has been seen and treated by Dr. Herrera in orthopedics Patient has had prior left leg venous ablation by Dr. Forbes at [facility] Patient denies any history of DVT/ PE. Patient denies any history of phlebitis. She has had prior history of right lower extremity cellulitis. Trial of compression includes - [id number] but can not wear. They now present for vascular evaluation regarding their varicose veins. [facility] Medical History Disorders of bursae and tendons in shoulder region, unspecified Hearing loss GERD (gastroesophageal reflux disease) Obesity Carpal tunnel syndrome Hypertension Hypercholesteremia Hypothyroidism Asthma Surgical History Hx of gastric bypass Cataracts, both eyes History of cholecystectomy History of total left knee replacement History of total right knee replacement Status post total replacement of right shoulder (~09/2019) Family History Mother No problems noted. Father No problems noted. Social History Alcohol intake: never Patient Tobacco Use Status: Former Tobacco user Current occupation: [employer] Review of Systems Const Reports as per HPI ENT Reports no additional complaints Card Denies chest pain, Denies chest pain at rest and Denies chest pain with activity Resp Denies chest congestion and Denies cough GI Reports no additional complaints Musc Details: pain over varicosities, aching of lower extremities, swelling, cramping, heaviness and tiredness, itching Denies abnormal gait Skin/Breast Reports pruritus and Denies wounds Neuro Reports no additional complaints and Denies abnormal gait Psych Denies no additional complaints Physical Exam Vital Signs: Last Vital Signs BP 142/76 H 08/19/24 11:09 BMI result Body Mass Index 44.4 Const General: cooperative, healthy appearing and comfortable Orientation/consciousness: oriented to person, oriented to place and oriented to time Neck Carotids: no bruits Chest Chest palpation & inspection: normal inspection of the chest and normal palpation of entire chest wall Resp Effort & Inspection: normal respiratory effort and able to speak in complete sentences Cardio Rate: regular rate Heart sounds: S1 normal heart sound present and S2 normal heart sound present Peripheral pulses: Peripheral pulses 2+ throughout GI Inspection: Yes normal to inspection Skin Other: +2 edema, large rope-like varicosities greater than 4 mm left thigh and knee CEAP Classification C4 - skin color changes - right calf Ep - Etiology Primary As - superficial veins P - reflux General skin exam: dry skin Neuro General: oriented to person, oriented to place and oriented to time Extrem Right lower extremity: full ROM, normal capillary refill and edema Left lower extremity: full ROM, normal capillary refill and edema Psych Mental Status: mental status grossly normal Assessment & Plan Assessment & Plan (1) Varicose veins of left lower extremity with inflammation: Code(s): I83.12 - Varicose veins of left lower extremity with inflammation Category: Medical Plan: In short, the patient has evidence of venous insufficiency. I have discussed the pathophysiology with the patient. In addition I have provided informational material regarding venous disease to the patient. We have discussed conservative measures including compression, elevation, and exercise. I have also provided a handout regarding appropriate use of compression stockings and where to purchase good compression stockings as well. I have taken the liberty of ordering venous insufficiency testing with the patient. They will follow up with me after testing. The patient had an opportunity to ask questions regarding the treatment plan. All questions were answered. Imaging studies, laboratory studies and physical exam results were discussed and reviewed in detail. No major barriers to understanding were identified. The patient expressed understanding and agreement with the above treatment plan. The patient is aware they should contact our office by phone for worsening of the current condition or the appearance of new symptoms. Thank you for allowing me to participate in the vascular care of this patient. If you have any questions or concerns regarding the treatment for the above condition please do not hesitate to contact me. The office telephone contact is [phone]. This note is constructed using voice recognition software. While every effort has been made to ensure accuracy, professor of musicology errors may have been included. Thank you for allowing me to participate in the care of your patient. Yours sincerely, Jerald Tinsley MD, FACS, R.P.V.I. Orders: Orders US venous duplex LE BI 1 Week I83.12 - Varicose veins of left lower extremity with inflammation Coding Level of Care Code New Pt Level 4 (79770) Complex EM visit Add On G2211 Diagnoses Varicose veins of left lower extremity with inflammation I83.12
[2024-08-19 11:09] VITALS: BP 142/76; BMI 44.4
--- OUTSIDE RECORDS SUMMARY | 2024-08-19 12:53 | XMS_ITS | Clinical Summary ---
Author Organization [facility] Address [address] [place] [address] Care Team Providers Care Jack Prizer Name Role Phone Cameron Sanchez MD Primary Care Provider [phone] Allergies Active Allergy Reactions Criticality Noted Date [...] age to complete this topic Care Teams Jack Prizer Relationship Specialty Start Date End Date Cameron Sanchez MD PCP - General Bin Cleaner 11/13/16
--- OUTSIDE RECORDS SUMMARY | 2024-08-19 12:53 | XMS_ITS | Clinical Summary ---
Author Organization [facility] [address] [place] [address] [place] [phone] Phone Care Team Providers Care Sales Representative [employer] Name Role Phone Justin Zavala Primary Care Provider [phone] Allergies Active Allergy Reactions Criticality Noted Date [...] 11:00 AM EDT Office Visit Adult Medicine [address] [phone] Justin Zavala PA Pure hypercholesterolemia (Primary Dx); Uncomplicated asthma, unspecified asthma severity, unspecified whether persistent; Secondary hypertension; Obesity without serious comorbidity, unspecified class, unspecified obesity type; Hypothyroidism, unspecified type; Gastroesophageal reflux disease without esophagitis; Adult general medical examination 07/03/2024 Telephone Adult Medicine [address] [phone] Justin Zavala PA Leg Swelling (redness) from [...] Surgery Date Site/Laterality Comments GASTRIC BYPASS PROCEDURE: IA GASTRIC RSTCV W/BYP W/SM INT RCNSTJ LIMIT ABSRPJ; COMMENT: 2004 dr rodriguez OTHER SURGICAL HISTORY PROCEDURE: IA EXC PRTD NICHOL/PRTD GLND LAT LOBE W/O NRV DSJ; COMMENT: 3 tumors, left COLONOSCOPY 12/23/2007 PROCEDURE: HISTORICAL COLONOSCOPY; COMMENT: diverticulosis; repeat in ten years HAND SURGERY PROCEDURE: HISTORICAL HAND SURGERY; COMMENT: thumb arthoplasty bilateral CARPAL TUNNEL RELEASE PROCEDURE: IA NEUROPLASTY &/TRANSPOS MEDIAN NRV CARPAL TUNNE; COMMENT: left KNEE ARTHROSCOPY 01/20/2011 PROCEDURE: IA ARTHROSCOPY KNEE DIAGNOSTIC W/WO SYNOVIAL BX SPX; COMMENT: Left; Idania TOTAL KNEE ARTHROPLASTY 2014 PROCEDURE: IA ARTHRP KNE CONDYLE&PLATU MEDIAL&LAT COMPARTMENTS; COMMENT: left dr edward TOTAL KNEE ARTHROPLASTY 2015 PROCEDURE: IA ARTHRP KNE CONDYLE&PLATU MEDIAL&LAT COMPARTMENTS; COMMENT: right COLONOSCOPY 08/21/2018 PROCEDURE: HISTORICAL COLONOSCOPY; COMMENT: negative OTHER SURGICAL HISTORY 09/2019 PROCEDURE: IA ANES ARTHROSCOPIC TOTAL SHOULDER REPLACEMENT; COMMENT: R OTHER SURGICAL HISTORY 11/01/2021 Left PROCEDURE: IA ANES ARTHROSCOPIC TOTAL SHOULDER REPLACEMENT; COMMENT: reverse [...] for your loved ones. For example, child care attendant school or elderly care for an older adult? [...] 7:40 AM EDT Appointment Radiology Department - [address] [phone] 01/26/2025 8:00 AM EDT Office Visit [facility] [place] [address] [place] [address] Justin Zavala PA [address] [place], [place] Health Maintenance Due Date Last Done [...] mg/dL LAB CHEMISTRY METHOD 03/19/2024 10:39 AM [facility] Triglycerides 132 0 - 150 mg/dL LAB CHEMISTRY METHOD 03/19/2024 10:39 AM [facility] HDL 61 >=40 mg/dL LAB CHEMISTRY METHOD 03/19/2024 10:39 AM [facility] LDL Calculated 68 0 - 100 mg/dL LAB CHEMISTRY METHOD 03/19/2024 10:39 AM [facility] VLDL Cholesterol Jasbir 26.4 mg/dL LAB CHEMISTRY METHOD 03/19/2024 10:39 AM [facility] Non HDL Chol. (LDL+VLDL) 94 <145 mg/dL LAB CHEMISTRY METHOD 03/19/2024 10:39 AM [facility] Chol/HDL Ratio 2.5 0.0 - 4.4 LAB CHEMISTRY METHOD 03/19/2024 10:39 AM [facility] Blood Venous blood specimen / Unknown Venipuncture / Unknown 03/19/2024 7:48 AM EST 03/19/2024 7:48 AM EST us Justin BROWN LAB BLOOD ORDERABLES Lois burnett Result [facility] [address] [place] [address], * Comprehensive metabolic panel (03/19/2024 7:48 AM EST) Sodium 141 133 - 145 mmol/L LAB CHEMISTRY METHOD 03/19/2024 10:39 AM [facility] Potassium 4.2 3.5 - 5.5 mmol/L LAB CHEMISTRY METHOD 03/19/2024 10:39 AM [facility] Chloride 110 96 - 110 mmol/L LAB CHEMISTRY METHOD 03/19/2024 10:39 AM [facility] CO2 27 21 - 32 mmol/L LAB CHEMISTRY METHOD 03/19/2024 10:39 AM [facility] Anion Gap 4 3 - 11 LAB CHEMISTRY METHOD 03/19/2024 10:39 AM [facility] Glucose 100 70 - 100 mg/dL LAB CHEMISTRY METHOD 03/19/2024 10:39 AM [facility] BUN 13 5 - 25 mg/dL LAB CHEMISTRY METHOD 03/19/2024 10:39 AM [facility] Creatinine 0.94 0.50 - 1.10 mg/dL LAB CHEMISTRY METHOD 03/19/2024 10:39 AM [facility] eGFR 63 >=60 mL/min/1. 73m2 LAB CHEMISTRY METHOD 03/19/2024 10:39 AM [facility] Comment:Calculation based on the??Chronic Kidney Disease Epidemiology Collaboration (CKD-EPI) equation refit??without adjustment for race. BUN/Creatinine Ratio 13.8 LAB CHEMISTRY METHOD 03/19/2024 10:39 AM [facility] Calcium 9.1 8.5 - 10.5 mg/dL LAB CHEMISTRY METHOD 03/19/2024 10:39 AM [facility] AST (SGOT) 16 10 - 42 unit/L LAB CHEMISTRY METHOD 03/19/2024 10:39 AM [facility] ALT (SGPT) 23 10 - 60 unit/L LAB CHEMISTRY METHOD 03/19/2024 10:39 AM [facility] Alkaline Phosphatase 99 42 - 121 unit/L LAB CHEMISTRY METHOD 03/19/2024 10:39 AM [facility] Total Protein 7.0 6.0 - 8.0 g/dL LAB CHEMISTRY METHOD 03/19/2024 10:39 AM [facility] Albumin 3.9 3.2 - 5.0 g/dL LAB CHEMISTRY METHOD 03/19/2024 10:39 AM [facility] Total Bilirubin 0.5 0.0 - 1.4 mg/dL LAB CHEMISTRY METHOD 03/19/2024 10:39 AM [facility] Blood Venous blood specimen / Unknown Venipuncture / Unknown 03/19/2024 7:48 AM EST 03/19/2024 7:48 AM EST Justin BROWN LAB BLOOD ORDERABLES Lois l Result [facility] [address] [place] [address], * SCREENING MAMMOGRAPHY BI 2-VIEW BREAST INC [...] normal bone density by WHO criteria. The [facility] Department of Internal Medicine recommends using National [...] normal bone density by WHO criteria. The [facility] Department of Internal Medicine recommendsusing National Osteoporosis [...] Recently Relevant to Health Maintenance Insurance MEDICARE [facility] Advance Directives Documents on File Type Date Recorded Patient Flame Gouger Expl anation Health Care Decision (hx) 11/01/2021 AD SEBASTIAN DIRECTIVE Health Care Decision (hx) 11/01/2021 AD SEBASTIAN DIRECTIVE Health Care Decision (hx) 11/01/2021 AD SEBASTIAN DIRECTIVE Care Teams Sales Representative Public [employer] Relationship Specialty Start Date End Date Justin Zavala PA [address] [place] [address] PCP - General Internal Medicine 06/23/20
== END 2024-08-19 11:28 | disposition home or self-care (01) ==
LOC: HO.HVS 11:05
PROVIDERS: PCP Physician Assistant Medical; Visit Provider Surgery Vascular Surgery
DX: I83.12 Varicose veins of left lower extremity with inflammation (principal)
CPT/HCPCS: 99204; G2211

== ENCOUNTER → 2024-08-19 11:04 | Outpatient (BNVA) | payer MEDICARE, BC, SELFPAY | PROVIDERS: PCP Physician Assistant Medical; Visit Provider Surgery Vascular Surgery | DX: I83.12 Varicose veins of left lower extremity with inflammation (principal) | CPT/HCPCS: 99202 ==

== ENCOUNTER → 2024-08-31 00:15 | Outpatient (BNV) | payer MEDICARE, BC, SELFPAY | PROVIDERS: Emergency Provider Emergency Medicine; PCP Physician Assistant Medical; Visit Provider Specialist | DX: M25.532 Pain in left wrist (principal); M79.632 Pain in left forearm; W19.XXXA Unspecified fall, initial encounter | CPT/HCPCS: 73090; 73100 ==

== ENCOUNTER 2024-08-31 20:57 | Emergency (ER) | payer MEDICARE, BC, SELFPAY ==
--- NOTE | ~2024-08-31 | XR_ITS ---
CLINICAL HISTORY: fall, pain 2 view left forearm Comparison: None Findings: There is a mildly displaced/impacted distal radial fracture likely involving the radiocarpal joint. No additional acute fractures. No dislocation. No elbow joint effusion. Soft tissue swelling distal forearm and wrist. IMPRESSION: 1. Displaced/impacted likely intra-articular distal radial fracture. No dislocation. This document has been electronically signed by: Brandie Dutton MD on 09/01/2024 01:08:09
--- NOTE | ~2024-08-31 | XR_ITS ---
CLINICAL HISTORY: fall pain 3 view left wrist Comparison: None Findings: No lateral view of the wrist. There is a displaced/impacted distal radial fracture which likely involves the radiocarpal joint. No additional fractures. On lateral x-ray of the forearm there is no dislocation. The trapezium is absent likely surgically removed. Degenerative changes of the base of the 1st metacarpal and at the 2nd carpometacarpal joint. Soft tissue swelling. IMPRESSION: 1. Displaced/impacted likely intra-articular distal radial fracture. No dislocation. This document has been electronically signed by: Brandie Dutton MD on 09/01/2024 01:06:28
[2024-08-31 21:08] VITALS: BP 150/88; PULSE 91; O2SAT 99
[2024-08-31 21:14] VITALS: BP 177/79; PULSE 83; RESP 18; TEMP 36.8; O2SAT 98; BMI 44.9
[2024-08-31 23:20] VITALS: BP 153/95; PULSE 90; RESP 16; TEMP 36.5; O2SAT 95
--- NOTE | 2024-09-01 00:06 | ED.EXTPRO ---
HPI - Extremity Problem General Chief complaint: Extremity Problem Stated complaint: fall, running in yard no headstrike, +thinners Time Seen by Provider: 08/31/24 23:50 Source: patient and EMS Mode of arrival: EMS Limitations: no limitations History of Present Illness ED Provider: Dr. Lucille Olmedo HPI Narrative: Patient comes to the emergency room complaining of a fall and left forearm pain. Patient states that earlier today, she was at home, chasing a squirrel in her backyard. Patient states that she was able to corner the squirrel against a wall, it jumped towards the patient and she fell on her left side landing on the left wrist. Patient denies hitting her head or losing consciousness Related Data Home Medications ?Medication ?Instructions ?Recorded ?Confirmed albuterol sulfate 90 mcg/actuation 1 inh inhalation QID 02/27/20 07/31/24 aerosol inhaler atorvastatin 10 mg tablet 10 mg PO DAILY 02/27/20 07/31/24 budesonide-formoterol HFA 80 2 puff inhalation BID 02/27/20 07/31/24 mcg-4.5 mcg/actuation aerosol inhaler epinephrine 0.3 mg/0.3 mL 0.3 mg IM Q10M PRN Anaphylaxis 02/27/20 07/31/24 injection, auto-injector (EpiPen) levothyroxine 137 mcg tablet 137 mcg PO DAILY 02/27/20 07/31/24 montelukast 10 mg tablet 10 mg PO BEDTIME 02/27/20 07/31/24 nitroglycerin 0.4 mg sublingual 0.4 mg sublingual Q5M PRN Chest 02/27/20 07/31/24 tablet Pain losartan 100 mg tablet 100 mg PO DAILY 09/14/20 07/31/24 amlodipine 2.5 mg tablet 2.5 mg PO DAILY 08/01/23 07/31/24 cetirizine 10 mg tablet 10 mg PO DAILY 08/01/23 07/31/24 omeprazole 20 mg capsule,delayed 20 mg PO DAILY 08/01/23 07/31/24 release acetaminophen 650 mg 650 mg PO Q8H PRN pain 05/01/24 07/31/24 tablet,extended release aspirin 325 mg tablet 325 mg PO DAILY 05/01/24 07/31/24 calcium 600 mg (as 1 tab PO BID 05/01/24 07/31/24 carbonate)-vitamin D3 5 mcg (200 unit) tablet multivitamin 1 tab PO DAILY 05/01/24 07/31/24 Previous Rx's ?Medication ?Instructions ?Recorded amoxicillin 500 mg capsule 2,000 mg (4 x 500 mg) PO ONCE #20 06/26/24 caps acetaminophen 500 mg tablet 500 mg PO Q6H PRN fever or pain 09/01/24 #30 tabs tramadol 50 mg tablet 50 mg PO BEDTIME PRN pain #6 tabs 09/01/24 Allergies Allergy/AdvReac Type Severity Reaction Status Date / Time lactose [LACTOSE] Allergy Intermediate GI UPSET Verified 08/31/24 21:16 adhesive tape [ADHESIVE TAPE] Allergy Unknown RASH Verified 08/31/24 21:16 CARLOZ Inhibitors Allergy Unknown Verified 08/31/24 21:16 gabapentin Allergy Unknown Verified 08/31/24 21:16 grass pollen Allergy Unknown Verified 08/31/24 21:16 house dust mite Allergy Unknown Verified 08/31/24 21:16 mold Allergy Unknown Verified 08/31/24 21:16 ragweed pollen Allergy Unknown Verified 08/31/24 21:16 tree and shrub pollen Allergy Unknown Verified 08/31/24 21:16 blueberry [BLUEBERRY] AdvReac Intermediate VOMITING Verified 08/31/24 21:16 doxycycline [From VIBRAMYCIN] AdvReac Intermediate GI ISSUES Verified 08/31/24 21:16 lisinopril [From ZESTRIL] AdvReac Intermediate COUGH Verified 08/31/24 21:16 procaine [From NOVOCAIN] AdvReac Intermediate EXCESS Verified 08/31/24 21:16 NUMBING theophylline [THEOPHYLLINE] AdvReac Intermediate DIZZINESS Verified 08/31/24 21:16 CAT GUT SUTURES Allergy Intermediate DO NOT Uncoded 08/19/24 11:10 DISSOLVE DERMABOND AdvReac Severe RASH Uncoded 08/19/24 11:10 CHOCOLATE AdvReac Intermediate VOMITING Uncoded 08/19/24 11:10 Review of Systems Review of Systems: Constitutional : No Weight loss, No Fever, No Chills, No Night Sweats, No Fatigue, No Malaise ENT/Mouth : No Hearing loss, No Ear Pain, No Nasal Congestion, No Sinus Pain, No Hoarseness, No sore throat, No Rhinorrhea, No Swallowing Difficulty Eyes: No Eye Pain, No Swelling, No Redness, No Foreign Body, No Discharge, No Vision Changes Cardiovascular : No Chest Pain, No SOB, No Dyspnea on Exertion, No Orthopnea, No Edema, No Palpitations Respiratory : No Cough, No Sputum, No Wheezing, No Smoke Exposure, No Dyspnea Gastrointestinal : No Nausea, No Vomiting, No Diarrhea, No Constipation, No abdominal Pain, No Hematochezia, No Melena Genitourinary : no irregular bleeding, No Dysuria, No Urinary Frequency, No Hematuria, No Urinary Incontinence, No Urgency, No Flank Pain, No Urinary Flow Changes, No Hesitancy Musculoskeletal : Complaining of left wrist pain No Myalgias, No Joint Swelling Skin : No Skin Lesions, No rash Neuro : No Weakness, No Numbness, No Paresthesias, No Loss of Consciousness, No Dizziness, No Headache Psych : No Anxiety/Panic, No Depression, No SI/HI/AH/VH, No Social Issues, Heme/Lymph: No Bruising, No Bleeding,No Lymphadenopathy Endocrine : No Polyuria, No Polydipsia, No Temperature Intolerance [facility] Past Medical History Medical History Disorders of bursae and tendons in shoulder region, unspecified Hearing loss GERD (gastroesophageal reflux disease) Obesity Carpal tunnel syndrome Hypertension Hypercholesteremia Hypothyroidism Asthma Surgical History Hx of gastric bypass Cataracts, both eyes History of cholecystectomy History of total left knee replacement History of total right knee replacement Status post total replacement of right shoulder (~09/2019) Family History Family History Mother No problems noted. Father No problems noted. Social History Social History Alcohol intake: never Patient Tobacco Use Status: Former Tobacco user Smoked in Last 30 Days: No Use of substances other than those prescribed or required for medical reasons: No Advance Directives: No Advance Directives Information Provided: Yes Do you have a plan to hurt others: No Plan Current occupation: [employer] Physical Exam Vital Signs: Vital Signs: Last Vital Signs Temp 97.7 F 08/31/24 23:20 Pulse 90 08/31/24 23:20 Resp 16 08/31/24 23:20 BP 153/95 H 08/31/24 23:20 Pulse Ox 95 08/31/24 23:20 O2 Del Method Room Air 08/31/24 23:20 BMI result Body Mass Index 44.9 Const: Other: Appearance: Alert. Oriented X3. No acute distress. Eyes: Pupils equal, round and reactive to light. ENT: Pharynx normal. Neck: Normal inspection. Neck supple. No lymph nodes noted. No crepitus CVS: Normal heart rate and rhythm. Pulses normal. Normal S1 and S2 Respiratory: No respiratory distress. Breath sounds normal. No Wheezing. No rales Abdomen: Soft and nontender. No rigidity. No distention. Skin: Skin warm and dry. Normal skin color. Normal skin turgor. Extremities: No lower extremity edema. No Lacerations. No Rash. The left wrist is swollen, ecchymosis in the dorsum, obvious deformity Neuro: Oriented X 3. No motor deficit. No sensory deficit. Moving all extremities. No slurred speech. CN 2 through 12 grossly intact Psych: calm, cooperative, normal affect Course Course Course Narrative: Patient requested p.o. acetaminophen X-rays pending Patient adamant that she did not hit her head or lost consciousness. Medications Administered Discontinued Medications Generic Name Dose Route Start Last Admin Trade Name Freq PRN Reason Stop Dose Admin Acetaminophen 975 mg 09/01/24 00:07 09/01/24 00:35 Acetaminophen 325 Mg Tablet PO 09/01/24 00:08 975 mg ONCE ONE Administration Medical Decision Making Medical Decision Making [facility] Narrative: My interpretation of x-rays: Slightly displaced impacted fracture of the distal radius I discussed the x-ray findings and imaging with STEPHANIE Ling from Orthopedics. At this time, no need for reduction. Splint and discharged. Patient agrees with plan Patient's hand was placed in a volar splint Differential Diagnosis Differential Diagnoses: The differential diagnosis associated with the presentation includes (Wrist contusion, fracture, dislocation) Independent Interpretation I performed an independent interpretation of an: Plain X-Ray Radiology Impression Discussion of test interpretation with radiology: I have reviewed the radiologist's reading. Radiologist Impression: There is a mildly displaced/impacted distal radial fracture likely involving the radiocarpal joint. No additional acute fractures. No dislocation. No elbow joint effusion. Soft tissue swelling distal forearm and wrist. Procedures Orthopedic Splinting/Casting Injury #1: Side: left Upper Extremity Injury Location: wrist Upper Extremity Immobilizer: volar splint Critical Care Time Critical Care Time Critical Care Time: Yes Total Critical Care Time: 30 Attestation: I have personally provided critical care time. Time includes review of lab data, radiology results, discussion with consultants, and monitoring for potential decompensation. Intervention performed as documented. Discharge Plan Discharge Clinical Impression: Distal radial fracture Patient Disposition: Home, Self-Care Instructions: Arm Fracture in Adults (ED) Additional Instructions: Please follow-up with your primary care physician tomorrow. If you have any worsening or new symptoms, please return to the emergency room or call 911 Prescriptions: New tramadol 50 mg tablet 50 mg PO BEDTIME PRN (Reason: pain) Qty: 6 0RF acetaminophen 500 mg tablet 500 mg PO Q6H PRN (Reason: fever or pain) Qty: 30 0RF No Action aspirin 325 mg Tablet 325 mg PO DAILY acetaminophen 650 mg tablet extended release 650 mg PO Q8H PRN (Reason: pain) multivitamin Tablet 1 tab PO DAILY calcium carbonate-vitamin D3 600 mg-5 mcg (200 unit) Tablet 1 tab PO BID levothyroxine 137 mcg tablet 137 mcg PO DAILY atorvastatin 10 mg tablet 10 mg PO DAILY montelukast 10 mg tablet 10 mg PO BEDTIME epinephrine [EpiPen] 0.3 mg/0.3 mL auto-injector 0.3 mg IM Q10M PRN (Reason: Anaphylaxis) Rx Instructions: for 2 doses budesonide-formoterol 80-4.5 mcg/actuation HFA aerosol inhaler 2 puff inhalation BID nitroglycerin 0.4 mg tablet, sublingual 0.4 mg sublingual Q5M PRN (Reason: Chest Pain) Rx Instructions: do not exceed 3 doses per episode albuterol sulfate 90 mcg/actuation HFA aerosol inhaler 1 inh inhalation QID losartan 100 mg tablet 100 mg PO DAILY amoxicillin 500 mg capsule 2,000 mg PO ONCE Qty: 20 3RF Rx Instructions: Take four caps (2,000 mg) one hour before any dental work. amlodipine 2.5 mg tablet 2.5 mg PO DAILY omeprazole 20 mg capsule,delayed release(DR/EC) 20 mg PO DAILY cetirizine 10 mg tablet 10 mg PO DAILY Referrals: Haven Ling PA-C [Physician Medical Staff Services Manager] - 09/01/24 Print Language: Mexican
[2024-09-01] MEDS: Acetaminophen 325 MG TABLET 975 MG PO (00:35)
--- NOTE | 2024-09-01 00:39 | PC.NURSE ---
this rn assumed care of pt @ 2300 pt medicated according to mar awaiting xray report
[2024-09-01 02:47] VITALS: BP 154/76; PULSE 91; RESP 16; TEMP 36.4; O2SAT 97
[2024-09-01 03:33] VITALS: BP 154/76; PULSE 91; RESP 16; TEMP 36.4; O2SAT 97
== END 2024-09-01 03:34 | disposition home or self-care (01) ==
PROVIDERS: Emergency Provider Emergency Medicine; PCP Physician Assistant Medical
DX: S52.572A Other intraarticular fracture of lower end of left radius, initial encounter for closed fracture (principal); W18.39XA Other fall on same level, initial encounter; M25.532 Pain in left wrist; Y93.89 Activity, other specified; Y92.017 Garden or yard in single-family (private) house as the place of occurrence of the external cause; Y99.9 Unspecified external cause status
CPT/HCPCS: 29125; 73090; 73100; 99283; 99284

== ENCOUNTER 2024-09-05 08:24 | Outpatient (AMB) | payer MEDICARE, BC, SELFPAY ==
--- NOTE | 2024-09-05 08:36 | A.OFFVIS_ITS ---
Vital Signs 09/05/24 08:42 Height 5 ft 8 in Weight 295 lb BMI 44.8 Intake Visit Reasons: FC- ED f/u Left distal radius fracture Intake Note: Cornelia is a 74 year old right hand dominant female who presents today for evaluation of a distal radial fracture of the left hand, DOI: 09/01/24. Patient reports she was at home, chasing a squirrel in her backyard. Patient states af ter cornering the squirrel against a wall, it jumped towards her. Patient says she fell on her left side landing on the left wrist. Patient complains of pain on the dorsal aspect of the left hand as well as numbness and tingling of the left small finger. Patient states she is taking Percocet with relief of pain. Denies prior injuries or surgeries to the left hand. Allergies lactose [LACTOSE] Allergy (Intermediate, Verified 09/05/24 08:44) GI UPSET adhesive tape [ADHESIVE TAPE] Allergy (Unknown, Verified 09/05/24 08:44) RASH CARLOZ Inhibitors Allergy (Verified 09/05/24 08:44) Unknown gabapentin Allergy (Verified 09/05/24 08:44) Unknown grass pollen Allergy (Verified 09/05/24 08:44) Unknown house dust mite Allergy (Verified 09/05/24 08:44) Unknown mold Allergy (Verified 09/05/24 08:44) Unknown ragweed pollen Allergy (Verified 09/05/24 08:44) Unknown tree and shrub pollen Allergy (Verified 09/05/24 08:44) Unknown blueberry [BLUEBERRY] Adverse Reaction (Intermediate, Verified 09/05/24 08:44) VOMITING doxycycline [From VIBRAMYCIN] Adverse Reaction (Intermediate, Verified 09/05/24 08:44) GI ISSUES lisinopril [From ZESTRIL] Adverse Reaction (Intermediate, Verified 09/05/24 08:44) COUGH procaine [From NOVOCAIN] Adverse Reaction (Intermediate, Verified 09/05/24 08:44) EXCESS NUMBING theophylline [THEOPHYLLINE] Adverse Reaction (Intermediate, Verified 09/05/24 08:44) DIZZINESS CAT GUT SUTURES Allergy (Intermediate, Uncoded 09/05/24 08:44) DO NOT DISSOLVE DERMABOND Adverse Reaction (Severe, Uncoded 09/05/24 08:44) RASH CHOCOLATE Adverse Reaction (Intermediate, Uncoded 09/05/24 08:44) VOMITING HPI HPI FC- ED f/u Left distal radius fracture: Details: Cornelia is a 74 year old right hand dominant female who presents today for evaluation of a distal radial fracture of the left hand, DOI: 09/01/24. Patient reports she was at home, chasing a squirrel in her backyard. Patient states after cornering the squirrel against a wall, it jumped towards her. Patient says she fell on her left side landing on the left wrist. Patient complains of pain on the dorsal aspect of the left hand as well as numbness and tingling of the left small finger. Patient states she is taking Percocet with relief of pain. Denies prior injuries or surgeries to the left hand. [facility] Medical History Disorders of bursae and tendons in shoulder region, unspecified Hearing loss GERD (gastroesophageal reflux disease) Obesity Carpal tunnel syndrome Hypertension Hypercholesteremia Hypothyroidism Asthma Surgical History Hx of gastric bypass Cataracts, both eyes History of cholecystectomy History of total left knee replacement History of total right knee replacement Status post total replacement of right shoulder (~09/2019) Family History Mother No problems noted. Father No problems noted. Social History Alcohol intake: never Patient Tobacco Use Status: Former Tobacco user Current occupation: [employer] Review of Systems Const All systems reviewed & are unremarkable except as noted in HPI and below Physical Exam Vital Signs: BMI result Body Mass Index 44.8 Extrem Other: Patient is alert, oriented, and in no acute distress. Neuro: Normal sensation of the tips of all digits of the left hand at this time Vascular: Cap refill brisk Pain: Tenderness to palpation noted at the level of the fracture of the left distal radius ROM: Patient is able to make a closed fist Skin: No lacerations or abrasions. General: Significant ecchymosis and edema noted of the distal radius No erythema Psych: Appears grossly normal Affect normal Attitude cooperative Results Reviewed Results Reviewed: X-rays obtained in the office today and independently reviewed by me, Darryl Alexis PA-C, demonstrate displaced and comminuted fracture of the left distal radius. Assessment & Plan Assessment & Plan (1) Fracture of left distal radius: Code(s): S52.502A - Unspecified fracture of the lower end of left radius, initial encounter for closed fracture Category: Medical Plan 1. Left distal radius fracture Date of injury 09/11/2024 I educated the patient about the condition. I discussed both operative and nonoperative treatment options. The patient would like to proceed with surgery. The risks and benefits of operative treatment were discussed with the patient and the patient wishes to proceed with surgery. These risks include, but are not limited to, risk of damage to blood vessels, nerves, tendons, infection, recurrence, incomplete relief of preoperative symptoms, persistent pain, possible need for further surgery, and the risks associated with regional blocks and/or anesthesia. Plan is to take the patient to the operating room at some point in the next few weeks for the following procedures: 1. Left distal radius fracture ORIF under general anesthesia All of the preoperative paperwork including the consent was discussed today. All of the patient's questions were answered in the clinic today. The patient understands that they will be in contact with our surgical technologist to discuss scheduling their procedure. Patient denies diabetes, blood thinners, asthma, heart issues, lung issues, kidney issues, or current smoking. Orders: Orders XR wrist LT min 3V Today M25.532 - Pain in left wrist Coding Level of Care Code Est Pt Level 4 (21753) Diagnoses Fracture of left distal radius S52.502A
[2024-09-05 08:42] VITALS: BMI 44.8
== END 2024-09-05 09:21 | disposition home or self-care (01) ==
PROVIDERS: PCP Physician Assistant Medical
DX: S52.502A Unspecified fracture of the lower end of left radius, initial encounter for closed fracture (principal)
CPT/HCPCS: 99214

== ENCOUNTER 2024-09-05 08:25 | Outpatient (REF) | payer MEDICARE, BC, SELFPAY ==
--- NOTE | ~2024-09-05 | XR_ITS ---
EXAMINATION: XR WRIST, LEFT CLINICAL INFORMATION: M25.532 - Pain in left wrist COMPARISON: September 01, 2024. TECHNIQUE: PA, lateral, and oblique views of the left wrist. FINDINGS: Impacted comminuted dorsal angulated fracture distal metaphysis/epiphysis of the left wrist. No gross callus formation. Degenerative changes in the first and second carpometacarpal joint. Distal ulna is intact. XR/XR wrist LT min 3V IMPRESSION: No gross healing. Electronically signed by: Jace Shah MD 09/05/2024 08:35 AM EDT
--- OUTSIDE RECORDS SUMMARY | 2024-09-09 08:46 | XMS_ITS | Clinical Summary ---
Author Organization [facility] Address [address] [place] [address] Care Team Providers Care Flatbed Stitcher Name Role Phone Cameron Sanchez MD Primary Care Provider [phone] Allergies Active Allergy Reactions Criticality Noted Date [...] age to complete this topic Care Teams Flatbed Stitcher Relationship Specialty Start Date End Date Cameron Sanchez MD PCP - General Strip Winder 11/13/16
== END 2024-09-05 08:26 | disposition home or self-care (01) ==
LOC: HO.HOSX 08:25
DX: M25.532 Pain in left wrist (principal); S52.502A Unspecified fracture of the lower end of left radius, initial encounter for closed fracture
CPT/HCPCS: 73110; 99212

== ENCOUNTER → 2024-09-05 08:25 | Outpatient (BNV) | payer MEDICARE, BC, SELFPAY | PROVIDERS: Visit Provider Radiology Diagnostic Radiology | DX: M25.532 Pain in left wrist (principal) | CPT/HCPCS: 73110 ==

== ENCOUNTER 2024-09-09 13:57 | Outpatient (AMB) | payer MEDICARE, BC, SELFPAY ==
--- NOTE | 2024-09-09 15:06 | A.OFFVIS_ITS ---
Vital Signs 09/09/24 15:12 Height 5 ft 8 in Weight 295 lb BMI 44.8 Intake Visit Reasons: OV-Left distal radius fracture-one week F/U Intake Note: Cornelia is a 74 year old right hand dominant female who presents today for evaluation of a distal radial fracture of the left hand, DOI: 09/01/24. Patient reports she was at home, chasing a squirrel in her backyard. Last een with Janine Andrews who would like patient to be re-evaluated by Dr Bustamante. Allergies lactose [LACTOSE] Allergy (Intermediate, Verified 09/09/24 15:12) GI UPSET adhesive tape [ADHESIVE TAPE] Allergy (Unknown, Verified 09/09/24 15:12) RASH CARLOZ Inhibitors Allergy (Verified 09/09/24 15:12) Unknown gabapentin Allergy (Verified 09/09/24 15:12) Unknown grass pollen Allergy (Verified 09/09/24 15:12) Unknown house dust mite Allergy (Verified 09/09/24 15:12) Unknown mold Allergy (Verified 09/09/24 15:12) Unknown ragweed pollen Allergy (Verified 09/09/24 15:12) Unknown tree and shrub pollen Allergy (Verified 09/09/24 15:12) Unknown blueberry [BLUEBERRY] Adverse Reaction (Intermediate, Verified 09/09/24 15:12) VOMITING doxycycline [From VIBRAMYCIN] Adverse Reaction (Intermediate, Verified 09/09/24 15:12) GI ISSUES lisinopril [From ZESTRIL] Adverse Reaction (Intermediate, Verified 09/09/24 15:12) COUGH procaine [From NOVOCAIN] Adverse Reaction (Intermediate, Verified 09/09/24 15:12) EXCESS NUMBING theophylline [THEOPHYLLINE] Adverse Reaction (Intermediate, Verified 09/09/24 15:12) DIZZINESS CAT GUT SUTURES Allergy (Intermediate, Uncoded 09/09/24 15:12) DO NOT DISSOLVE DERMABOND Adverse Reaction (Severe, Uncoded 09/09/24 15:12) RASH CHOCOLATE Adverse Reaction (Intermediate, Uncoded 09/09/24 15:12) VOMITING HPI HPI OV-Left distal radius fracture-one week F/U: Details: The patient is a 74-year-old woman who fell onto her outstretched hand sustaining a left distal radius fracture on 09/05/2024. Her chief complaint is of pain particularly over the volar aspect of her wrist that is exacerbated by finger motion. She also gets a burning sensation that radiates up her forearm and down into her fingers. [facility] Medical History Disorders of bursae and tendons in shoulder region, unspecified Hearing loss GERD (gastroesophageal reflux disease) Obesity Carpal tunnel syndrome Hypertension Hypercholesteremia Hypothyroidism Asthma Surgical History Hx of gastric bypass Cataracts, both eyes History of cholecystectomy History of total left knee replacement History of total right knee replacement Status post total replacement of right shoulder (~09/2019) Family History Mother No problems noted. Father No problems noted. Social History Alcohol intake: never Patient Tobacco Use Status: Former Tobacco user Current occupation: [employer] Physical Exam Vital Signs: BMI result Body Mass Index 44.8 Const General: cooperative, healthy appearing and no acute distress Orientation/consciousness: oriented to person and oriented to place HEENT Head: Yes normocephalic and Yes atraumatic Eyes EOM: EOMs intact bilaterally Resp Effort & Inspection: normal respiratory effort and able to speak in complete sentences Cardio Jugular venous distension: no JVD Skin General skin exam: turgor normal Rashes: no rashes Neuro General: oriented to person and oriented to place Extrem Other: Evaluation of left Upper Extremity: The patient was alert oriented and in no acute distress. She ambulates with a cane. Sensation is intact to the tips of all digits today in clinic With encouragement she can make a weak fist and extend all of her digits, but appreciated some discomfort in the volar aspect of her wrist with this activity. She has some swelling about the left wrist and hand with ecchymosis in the left wrist extending up the forearm to the elbow No tenderness about the elbow and she can actively flex and extend about the elbow Radiographs: Three views of the left wrist were taken again today and reviewed by me in clinic. I also compared these with the radiographs from 09/05/2024. She has a left intra-articular distal radius fracture with loss of inclination, and at about neutral on the lateral view. On the lateral view we also see a rosalba rly large volar cortical fracture fragment that appears to be flipped out volarly and protruding into the area where the tendons and median nerve likely lie. Psych Appearance: grossly normal Affect: normal affect Attitude: cooperative Assessment & Plan Assessment & Plan (1) Fracture of left distal radius: Code(s): S52.502A - Unspecified fracture of the lower end of left radius, initial encou nter for closed fracture Category: Medical Plan Assessment and plan 1. Left intra-articular distal radius fracture With protrusion of a volar cortical piece into the flexor tendons and median nerve Date of injury 09/05/2024 I educated the patient about this condition We discussed operative and non operative treatment options and I am recommending surgery The risks and benefits of operative treatment were discussed with the patient and the patient wishes to proceed with surgery. These risks include, but are not limited to risk of damage to blood vessels, nerves, tendons, infection, recurrence, incomplete relief of preoperative symptoms, persistent pain, possible need for further surgery and the risks associated with regional blocks and anesthesia. The plan is to take the patient to the operating room on 09/11/2024 for the following procedures: 1. Left distal radius open reduction internal fixation 2. [ ] All of the preoperative paperwork including the consent was filled out today. All the patient's questions were answered. The patient understands that they will be contacted by our [facility] [employer] soon to schedule this procedure She denies having any heart lung kidney problems or diabetes She does have asthma which she says is controlled She does report having significant problems with postanesthesia nausea and vomiting Orders: Orders XR wrist LT min 3V Today M25.532 - Pain in left wrist Coding Level of Care Code New Pt Level 4 (24607) Diagnoses Fracture of left distal radius S52.502A
[2024-09-09 15:12] VITALS: BMI 44.8
== END 2024-09-09 15:48 | disposition home or self-care (01) ==
LOC: HO.HOS 13:58
PROVIDERS: PCP Physician Assistant Medical; Visit Provider Orthopaedic Surgery
DX: S52.502A Unspecified fracture of the lower end of left radius, initial encounter for closed fracture (principal)
CPT/HCPCS: 99204

== ENCOUNTER 2024-09-09 13:57 | Outpatient (REF) | payer MEDICARE, BC, SELFPAY ==
--- NOTE | ~2024-09-09 | XR_ITS ---
CLINICAL HISTORY: M25.532 - Pain in left wrist 3 views left wrist Comparison 09/01/2024 Findings: There is a healing impacted comminuted intra-articular fracture in satisfactory alignment unchanged in appearance from the previous exam. There has been surgical resection of the trapezium. No radiopaque foreign body. Impression: Healing impacted intra-articular fracture of the distal radius with a displaced 12 mm volar fragment. This document has been electronically signed by: Fred Ruano MD on 09/10/2024 17:01:46
== END 2024-09-09 13:58 | disposition home or self-care (01) ==
LOC: HO.HOSX 13:57
PROVIDERS: PCP Physician Assistant Medical; Visit Provider Orthopaedic Surgery
DX: M25.532 Pain in left wrist (principal); S52.502A Unspecified fracture of the lower end of left radius, initial encounter for closed fracture
CPT/HCPCS: 73110; 99202

== ENCOUNTER → 2024-09-09 15:17 | Outpatient (BNV) | payer MEDICARE, BC, SELFPAY | PROVIDERS: PCP Physician Assistant Medical; Visit Provider Radiology Diagnostic Radiology | DX: M25.532 Pain in left wrist (principal) | CPT/HCPCS: 73110 ==

== ENCOUNTER 2024-09-11 10:38 | Day surgery (SDC) | payer MEDICARE, BC, SELFPAY ==
--- NOTE | 2024-09-09 14:46 | P.CONAN_ITS ---
Documented by User: Mitzy Cruz NP 09/10/24 13:25 HPI - Anesthesia Eval Consult details Narrative: 74yo F for Left Radius Distal Fracture ORIF Multiple med allergies - procaine causes excess numbing ... PMFSH Active Problems Active Problems: All Active Problems Fracture of left distal radius (Acute) Varicose veins of left lower extremity with inflammation (Acute) Varicose veins of left lower extremity with pain (Acute) Varicose veins of left lower leg (Acute) Right knee pain (Acute) Trochanteric bursitis, left hip (Acute) Rotator cuff impingement syndrome of left shoulder (Acute) Past Medical History Medical History (Updated 09/05/24 @ 12:01 by STEPHANIE Murray) Disorders of bursae and tendons in shoulder region, unspecified Hearing loss GERD (gastroesophageal reflux disease) Obesity Carpal tunnel syndrome Hypertension Hypercholesteremia Hypothyroidism Asthma Family History Family History Mother No problems noted. Father No problems noted. Surgical History Surgical History (Updated 09/11/24 @ 11:58 by Kaycee Estrada RN) H/O parotidectomy History of revision of total shoulder arthroplasty Hx of gastric bypass Cataracts, both eyes History of cholecystectomy History of total left knee replacement History of total right knee replacement History of Problems with Anesthesia: Yes (PONV) Social History Social History Are you a primary property caretaker to a significant other at home: No Do you presently have visiting nurse or other home services: No Alcohol intake: never Patient Tobacco Use Status: Former Tobacco user Tobacco use type: Cigarette Years Smoked: 23 Smoked in Last 30 Days: No Use of substances other than those prescribed or required for medical reasons: No Have you been hit, kicked, punched, or otherwise hurt by someone within the past year? If so, by whom?: No Are you DNR?: No Advance Directives: No Advance Directives Information Provided: No Advance Directives on File: No Patient : No : No Poor oral hygiene: No Current occupation: [employer] Meds Allergies Allergy/AdvReac Type Severity Reaction Status Date / Time CARLOZ Inhibitors Allergy Intermediate Cough Verified 09/11/24 12:01 adhesive tape [ADHESIVE TAPE] Allergy Intermediate RASH Verified 09/11/24 12:01 gabapentin Allergy Intermediate Nausea Verified 09/11/24 12:01 grass pollen Allergy Intermediate Itching Verified 09/11/24 12:01 house dust mite Allergy Intermediate Itching Verified 09/11/24 12:01 lactose [LACTOSE] Allergy Intermediate GI UPSET Verified 09/11/24 12:01 mold Allergy Intermediate Itching Verified 09/11/24 12:01 ragweed pollen Allergy Intermediate Itching Verified 09/11/24 12:01 tree and shrub pollen Allergy Intermediate Itching Verified 09/11/24 12:01 blueberry [BLUEBERRY] AdvReac Intermediate VOMITING Verified 09/11/24 12:01 doxycycline [From VIBRAMYCIN] AdvReac Intermediate GI ISSUES Verified 09/11/24 12:01 lisinopril [From ZESTRIL] AdvReac Intermediate COUGH Verified 09/11/24 12:01 procaine [From NOVOCAIN] AdvReac Intermediate EXCESS Verified 09/11/24 12:01 NUMBING theophylline [THEOPHYLLINE] AdvReac Intermediate DIZZINESS Verified 09/11/24 12:01 CAT GUT SUTURES Allergy Intermediate DO NOT Uncoded 09/11/24 12:01 DISSOLVE DERMABOND AdvReac Severe RASH Uncoded 09/11/24 12:01 CHOCOLATE AdvReac Intermediate VOMITING Uncoded 09/11/24 12:01 Home Medications ?Medication ?Instructions ?Recorded ?Confirmed ?Last Taken ?Type albuterol sulfate 90 mcg/actuation 1 inh inhalation QID 02/27/20 09/11/24 Unknown History aerosol inhaler atorvastatin 10 mg tablet 10 mg PO DAILY 02/27/20 09/11/24 09/11/24 History budesonide-formoterol HFA 80 2 puff inhalation BID 02/27/20 09/11/24 Unknown History mcg-4.5 mcg/actuation aerosol inhaler epinephrine 0.3 mg/0.3 mL 0.3 mg IM Q10M PRN Anaphylaxis 02/27/20 09/11/24 Unknown History injection, auto-injector (EpiPen) levothyroxine 137 mcg tablet 137 mcg PO DAILY 02/27/20 09/11/24 09/11/24 History montelukast 10 mg tablet 10 mg PO BEDTIME 02/27/20 09/11/24 Unknown History nitroglycerin 0.4 mg sublingual 0.4 mg sublingual Q5M PRN Chest 02/27/20 09/11/24 Unknown History tablet Pain losartan 100 mg tablet 100 mg PO DAILY 09/14/20 09/11/24 09/11/24 History amlodipine 2.5 mg tablet 2.5 mg PO DAILY 08/01/23 09/11/24 09/11/24 History cetirizine 10 mg tablet 10 mg PO DAILY 08/01/23 09/11/24 09/11/24 History omeprazole 20 mg capsule,delayed 20 mg PO DAILY 08/01/23 09/11/24 09/11/24 History release acetaminophen 650 mg 650 mg PO Q8H PRN pain 05/01/24 09/11/24 Unknown History tablet,extended release aspirin 325 mg tablet 325 mg PO DAILY 05/01/24 09/11/24 09/04/24 History calcium 600 mg (as 1 tab PO BID 05/01/24 09/11/24 Unknown History carbonate)-vitamin D3 5 mcg (200 unit) tablet multivitamin 1 tab PO DAILY 05/01/24 09/11/24 Unknown History oxycodone-acetaminophen 5 mg-325 1 tab PO QID PRN Pain 09/05/24 09/11/24 Unknown History mg tablet Exam Pertinent Lab Results Pertinent Lab Results: Laboratory Tests 07/03/24 17:56 WBC 5.8 Hgb 12.7 D Hct 38.1 D Plt Count 272 D Sodium 140 Potassium 4.2 Chloride 109 H Carbon Dioxide 23 BUN 11 Creatinine 0.79 Assessment and Plan Assessment Anesthesia Assessment: Chart Reviewed Final Anesthetic Review History of Problems with Anesthesia: Yes (PONV) Documented by User: Renard Daniel MD 09/11/24 12:22 [facility] Past Medical History Medical History (Updated 09/05/24 @ 12:01 by STEPHANIE Murray) Disorders of bursae and tendons in shoulder region, unspecified Hearing loss GERD (gastroesophageal reflux disease) Obesity Carpal tunnel syndrome Hypertension Hypercholesteremia Hypothyroidism Asthma Family History Family History Mother No problems noted. Father No problems noted. Family history of problems with anesthesia: No Surgical History Surgical History (Updated 09/11/24 @ 11:58 by Kaycee Estrada RN) H/O parotidectomy History of revision of total shoulder arthroplasty Hx of gastric bypass Cataracts, both eyes History of cholecystectomy History of total left knee replacement History of total right knee replacement Social History Social History Are you a primary property caretaker to a significant other at home: No Do you presently have visiting nurse or other home services: No Alcohol intake: never Patient Tobacco Use Status: Former Tobacco user Tobacco use type: Cigarette Years Smoked: 23 Smoked in Last 30 Days: No Use of substances other than those prescribed or required for medical reasons: No Have you been hit, kicked, punched, or otherwise hurt by someone within the past year? If so, by whom?: No Are you DNR?: No Advance Directives: No Advance Directives Information Provided: No Advance Directives on File: No Patient : No : No Poor oral hygiene: No Current occupation: [employer] Meds Allergies Allergy/AdvReac Type Severity Reaction Status Date / Time CARLOZ Inhibitors Allergy Intermediate Cough Verified 09/11/24 12:01 adhesive tape [ADHESIVE TAPE] Allergy Intermediate RASH Verified 09/11/24 12:01 gabapentin Allergy Intermediate Nausea Verified 09/11/24 12:01 grass pollen Allergy Intermediate Itching Verified 09/11/24 12:01 house dust mite Allergy Intermediate Itching Verified 09/11/24 12:01 lactose [LACTOSE] Allergy Intermediate GI UPSET Verified 09/11/24 12:01 mold Allergy Intermediate Itching Verified 09/11/24 12:01 ragweed pollen Allergy Intermediate Itching Verified 09/11/24 12:01 tree and shrub pollen Allergy Intermediate Itching Verified 09/11/24 12:01 blueberry [BLUEBERRY] AdvReac Intermediate VOMITING Verified 09/11/24 12:01 doxycycline [From VIBRAMYCIN] AdvReac Intermediate GI ISSUES Verified 09/11/24 12:01 lisinopril [From ZESTRIL] AdvReac Intermediate COUGH Verified 09/11/24 12:01 procaine [From NOVOCAIN] AdvReac Intermediate EXCESS Verified 09/11/24 12:01 NUMBING theophylline [THEOPHYLLINE] AdvReac Intermediate DIZZINESS Verified 09/11/24 12:01 CAT GUT SUTURES Allergy Intermediate DO NOT Uncoded 09/11/24 12:01 DISSOLVE DERMABOND AdvReac Severe RASH Uncoded 09/11/24 12:01 CHOCOLATE AdvReac Intermediate VOMITING Uncoded 09/11/24 12:01 Home Medications ?Medication ?Instructions ?Recorded ?Confirmed ?Last Taken ?Type albuterol sulfate 90 mcg/actuation 1 inh inhalation QID 02/27/20 09/11/24 Unknown History aerosol inhaler atorvastatin 10 mg tablet 10 mg PO DAILY 02/27/20 09/11/24 09/11/24 History budesonide-formoterol HFA 80 2 puff inhalation BID 02/27/20 09/11/24 Unknown History mcg-4.5 mcg/actuation aerosol inhaler epinephrine 0.3 mg/0.3 mL 0.3 mg IM Q10M PRN Anaphylaxis 02/27/20 09/11/24 Unknown History injection, auto-injector (EpiPen) levothyroxine 137 mcg tablet 137 mcg PO DAILY 02/27/20 09/11/24 09/11/24 History montelukast 10 mg tablet 10 mg PO BEDTIME 02/27/20 09/11/24 Unknown History nitroglycerin 0.4 mg sublingual 0.4 mg sublingual Q5M PRN Chest 02/27/20 09/11/24 Unknown History tablet Pain losartan 100 mg tablet 100 mg PO DAILY 09/14/20 09/11/24 09/11/24 History amlodipine 2.5 mg tablet 2.5 mg PO DAILY 08/01/23 09/11/24 09/11/24 History cetirizine 10 mg tablet 10 mg PO DAILY 08/01/23 09/11/24 09/11/24 History omeprazole 20 mg capsule,delayed 20 mg PO DAILY 08/01/23 09/11/24 09/11/24 History release acetaminophen 650 mg 650 mg PO Q8H PRN pain 05/01/24 09/11/24 Unknown History tablet,extended release aspirin 325 mg tablet 325 mg PO DAILY 05/01/24 09/11/24 09/04/24 History calcium 600 mg (as 1 tab PO BID 05/01/24 09/11/24 Unknown History carbonate)-vitamin D3 5 mcg (200 unit) tablet multivitamin 1 tab PO DAILY 05/01/24 09/11/24 Unknown History oxycodone-acetaminophen 5 mg-325 1 tab PO QID PRN Pain 09/05/24 09/11/24 Unknown History mg tablet Exam Airway Mallampati Class: III TM Dist: >3cm Neck ROM: Full Heart: RRR Lungs: CTA Assessment and Plan Assessment Anesthesia Assessment: Anesthesia Plan Discussed Final Anesthetic Review Family History of Problems with Anesthesia: No Anesthetic Plan Anesthetic Plan: Regional Block (supraclavicular nerve block) Documented by User: Maycol Simons MD 09/11/24 12:20 [facility] Past Medical History Medical History (Updated 09/05/24 @ 12:01 by STEPHANIE Murray) Disorders of bursae and tendons in shoulder region, unspecified Hearing loss GERD (gastroesophageal reflux disease) Obesity Carpal tunnel syndrome Hypertension Hypercholesteremia Hypothyroidism Asthma Family History Family History Mother No problems noted. Father No problems noted. Surgical History Surgical History (Updated 09/11/24 @ 11:58 by Kaycee Estrada RN) H/O parotidectomy History of revision of total shoulder arthroplasty Hx of gastric bypass Cataracts, both eyes History of cholecystectomy History of total left knee replacement History of total right knee replacement Social History Social History Are you a primary property caretaker to a significant other at home: No Do you presently have visiting nurse or other home services: No Alcohol intake: never Patient Tobacco Use Status: Former Tobacco user Tobacco use type: Cigarette Years Smoked: 23 Smoked in Last 30 Days: No Use of substances other than those prescribed or required for medical reasons: No Have you been hit, kicked, punched, or otherwise hurt by someone within the past year? If so, by whom?: No Are you DNR?: No Advance Directives: No Advance Directives Information Provided: No Advance Directives on File: No Patient : No : No Poor oral hygiene: No Current occupation: [employer] Meds Allergies Allergy/AdvReac Type Severity Reaction Status Date / Time CARLOZ Inhibitors Allergy Intermediate Cough Verified 09/11/24 12:01 adhesive tape [ADHESIVE TAPE] Allergy Intermediate RASH Verified 09/11/24 12:01 gabapentin Allergy Intermediate Nausea Verified 09/11/24 12:01 grass pollen Allergy Intermediate Itching Verified 09/11/24 12:01 house dust mite Allergy Intermediate Itching Verified 09/11/24 12:01 lactose [LACTOSE] Allergy Intermediate GI UPSET Verified 09/11/24 12:01 mold Allergy Intermediate Itching Verified 09/11/24 12:01 ragweed pollen Allergy Intermediate Itching Verified 09/11/24 12:01 tree and shrub pollen Allergy Intermediate Itching Verified 09/11/24 12:01 blueberry [BLUEBERRY] AdvReac Intermediate VOMITING Verified 09/11/24 12:01 doxycycline [From VIBRAMYCIN] AdvReac Intermediate GI ISSUES Verified 09/11/24 12:01 lisinopril [From ZESTRIL] AdvReac Intermediate COUGH Verified 09/11/24 12:01 procaine [From NOVOCAIN] AdvReac Intermediate EXCESS Verified 09/11/24 12:01 NUMBING theophylline [THEOPHYLLINE] AdvReac Intermediate DIZZINESS Verified 09/11/24 12:01 CAT GUT SUTURES Allergy Intermediate DO NOT Uncoded 09/11/24 12:01 DISSOLVE DERMABOND AdvReac Severe RASH Uncoded 09/11/24 12:01 CHOCOLATE AdvReac Intermediate VOMITING Uncoded 09/11/24 12:01 Home Medications ?Medication ?Instructions ?Recorded ?Confirmed ?Last Taken ?Type albuterol sulfate 90 mcg/actuation 1 inh inhalation QID 02/27/20 09/11/24 Unknown History aerosol inhaler atorvastatin 10 mg tablet 10 mg PO DAILY 02/27/20 09/11/24 09/11/24 History budesonide-formoterol HFA 80 2 puff inhalation BID 02/27/20 09/11/24 Unknown History mcg-4.5 mcg/actuation aerosol inhaler epinephrine 0.3 mg/0.3 mL 0.3 mg IM Q10M PRN Anaphylaxis 02/27/20 09/11/24 Unknown History injection, auto-injector (EpiPen) levothyroxine 137 mcg tablet 137 mcg PO DAILY 02/27/20 09/11/24 09/11/24 History montelukast 10 mg tablet 10 mg PO BEDTIME 02/27/20 09/11/24 Unknown History nitroglycerin 0.4 mg sublingual 0.4 mg sublingual Q5M PRN Chest 02/27/20 09/11/24 Unknown History tablet Pain losartan 100 mg tablet 100 mg PO DAILY 09/14/20 09/11/24 09/11/24 History amlodipine 2.5 mg tablet 2.5 mg PO DAILY 08/01/23 09/11/24 09/11/24 History cetirizine 10 mg tablet 10 mg PO DAILY 08/01/23 09/11/24 09/11/24 History omeprazole 20 mg capsule,delayed 20 mg PO DAILY 08/01/23 09/11/24 09/11/24 History release acetaminophen 650 mg 650 mg PO Q8H PRN pain 05/01/24 09/11/24 Unknown History tablet,extended release aspirin 325 mg tablet 325 mg PO DAILY 05/01/24 09/11/24 09/04/24 History calcium 600 mg (as 1 tab PO BID 05/01/24 09/11/24 Unknown History carbonate)-vitamin D3 5 mcg (200 unit) tablet multivitamin 1 tab PO DAILY 05/01/24 09/11/24 Unknown History oxycodone-acetaminophen 5 mg-325 1 tab PO QID PRN Pain 09/05/24 09/11/24 Unknown History mg tablet Assessment and Plan Final Anesthetic Review NPO: Yes ASA Class: III Final Preanesthetic Review: No Changes in Pt Med Stat, Meds/Allgs Chart Reviewed, Consent Obtained/Reviewed, Anes Risks/Benef Reviewed and DNR Form (If Appl.) Patient Risk: Intermediate Procedure Risk: Low Anesthetic Plan Anesthetic Plan: GA Disposition: Standard PACU
--- NOTE | ~2024-09-11 | FL_ITS ---
EXAMINATION: FL GUIDANCE ONLY HISTORY: distal radius ORIF left COMPARISON: Correlation is made to plain films of the left wrist dated 09/09/2024. TECHNIQUE: Fluoroscopy time: 42.48 seconds. Cumulative Dose: 1.6036 mGy. DAP: 0.0969 mGym2 Images: 8. FINDINGS: Fluoroscopic spot films of the left wrist demonstrate internal fixation of the previously seen comminuted intra-articular fracture with a sideplate and multiple orthopedic screws. FL/FL guidance in OR IMPRESSION: Fluoroscopy during procedure. Please see procedure report for additional information. Electronically signed by: Marc Donnelly MD 09/12/2024 07:05 AM EDT
--- NOTE | 2024-09-11 11:15 | P.OP_ITS ---
Operative Note Operative Note Date of Service: 09/11/24 Narrative: Operative Note Narrative: Preop diagnosis: 1. Left Distal radius fracture Postop diagnosis: Same Procedure: 1. Left Distal radius fracture open reduction internal fixation, 2 part intra- articular Surgeon: Carolina Bustamante MD Regulatory Affairs Specialist: Darryl BROWN Anesthesia: General anesthesia plus regional block Findings: Large volar fragment extending into the articular surface found displaced and rotated with hematoma and pronator quadratus muscle tissue in between fracture fragments. Implants: A short standard [place] volar locking plate, with 4 X 2.3 mm locking pegs/screws, and 3 3.5 mm cortical screws Tourniquet time: 64 minutes EBL: 5.0 ml Specimen: None Drains: None Complications: None Disposition: Brought to the recovery room in stable condition Plan: Follow-up in 10-14 days for wound check, suture removal and postop radiographs The patient will be placed in either a short-arm cast . Encouraged no lifting of anything heavier than a cell phone. Please encourage active and passive range of motion of the digits. Follow-up at 4-5 weeks postop for repeat radiographs. Indications: The patient is a 74 year old woman with a left distal radius fracture . The risks and benefits of operative treatment, including but not limited to risk of damage to blood vessels, nerves, tendons, infection, recurrence, persistent pain or numbness, incomplete resolution of preoperative symptoms, or need for further surgery were discussed with the patient and they wished to proceed with surgery. Procedure: Once consent was obtained patient was brought back to the operating suite and placed in the operating table in a supine position. A regional block was performed by the anesthesia team. Perioperative antibiotics and anesthesia was administered by the anesthesia team. A tourniquet was applied to the proximal aspect of the left upper extremity and the limb was prepped and draped in a standard surgical fashion. The limb was elevated exsanguinated with Esmarch bandage and the tourniquet inflated to 250 mm of mercury for a total tourniquet time of [ ] minutes. The FluoroScan was used throughout the case to assess our reduction, and facilitate implant placement. A gentle closed reduction was 1st performed on the patient's left distal radius fracture. Was assessed radiographically before proceeding with the reduction internal fixation. I then made an 8 cm sherie gitudinal incision over the distal aspect of the flexor carpi radialis tendon. The incision was made through the skin to the subcutaneous tissue using a 15. Blade. Then carefully dissected down to flexor carpi radialis tendon she tenotomy scissors. The FCR tendon sheath was then incised longitudinally using tenotomy scissors under direct visualization. The FCR tendon was then retracted ulnarly. I then made a longitudinal incision in the volar forearm fascia through the floor of FCR tendon sheath using tenotomy scissors under direct visualization. I identified the interval between the radial artery and the flexor tendons. This interval was developed further with my index finger, releasing some of the muscular fibers of the flexor pollicis longus. A dull weatlander retractor was then placed. I then created an ulnarly based flap of the pronator quadratus by releasing the radial and distal edges using a 15. Blade. A Kang elevator was used to elevate the pronator quadratus from the volar surface of the distal radius. This then revealed to us our distal radius fracture. There was a large volar fracture fragment extending from essentially the radial styloid area over to the lunate facet and extending proximally perhaps 1.5 cm from the articular surface. The fragment did appear to involve the volar lip of the articular surface. It was rotated perhaps 65 degrees with both hematoma and pronator quadratus muscle belly between the fracture fragments. I used a kang elevator and a small rongeur to remove the hematoma and muscle tissue from between the fracture fragments. An open reduction was then performed on our distal radius fracture by applying traction and carefully rotating the volar fracture fragment into place.. I then placed a short standard [place] volar locking plate on the volar surface of the distal radius. I placed a single K-wire through the distal aspect of the plate and into the distal radius. This was assessed using fluoroscopic images. I was satisfied with the placement of our plate. I then placed 4 X 2.3 mm locking screws/pegs in the distal aspect of the plate and distal radius by 1st drilling bicortically with a 2.0 mm drill bit, measuring with a depth gauge, and placing the appropriate length locking screws/pegs. The placement of our plate and screws was then assessed again using fluoroscopic images. The once satisfied with the placement of the volar locking plate and screws on the distal aspect of the distal radius, the plate was then reduced to the shaft of the radius. I then placed 3 X 3.5 mm cortical screws to the proximal aspect of the plate and into the shaft of the radius. This was done by 1st drilling bicortically with a 2.0 mm drill bit, measuring with a depth gauge, and placing the appropriate length screw. Final radiographs were then obtained. The DRUJ was assessed and found to be stable on exam. I was satisfied with our reduction and placement of all implants. At this point the wound was irrigated with normal saline. The pronator quadratus was reduced back over the volar locking plate using some 3-0 Vicryl suture material. The tourniquet was then deflated and hemostasis was obtained with a brief period of local pressure and bipolar monopolar electrocautery. The subcutaneous layer was then reapproximated using some 4-0 Vicryl suture, and the skin edges were reapproximated using some 5 0 Prolene suture. The wound was then infiltrated with some 1% lidocaine with epinephrine postop pain control. A sterile dressing and a short dorsal splint allowing for active flexion and extension of the digits was applied. The patient appears to have tolerated the procedure well and with no complications. All digits were well vascularized conclusion of the case.
[2024-09-11 11:45] VITALS: BP 174/88; PULSE 90; RESP 16; TEMP 37.1; O2SAT 98; BMI 43.9
--- NOTE | 2024-09-11 11:57 | MHC.SHP ---
Pre-Procedural Eval Section A - 24 Hr Update-Section A only Date of Service: 09/11/24 The patient is an INPATIENT: No Changes since office visit: No Cold of Flu in the past 2 weeks, No New Medical Problems, No Changes in Medication and No Patient answered all questions The patient has been examined within 24 hours of the surgical procedure. The History & Physical has been completed within 30 days and I have reviewed it.: Yes Section B - Complete if H&P > 30 days Chief Complaint: Unspecified fracture of the lower end of left radi Allergies: Allergies Allergy/AdvReac Type Severity Reaction Status Date / Time lactose [LACTOSE] Allergy Intermediate GI UPSET Verified 09/09/24 15:12 adhesive tape [ADHESIVE TAPE] Allergy Unknown RASH Verified 09/09/24 15:12 CARLOZ Inhibitors Allergy Unknown Verified 09/09/24 15:12 gabapentin Allergy Unknown Verified 09/09/24 15:12 grass pollen Allergy Unknown Verified 09/09/24 15:12 house dust mite Allergy Unknown Verified 09/09/24 15:12 mold Allergy Unknown Verified 09/09/24 15:12 ragweed pollen Allergy Unknown Verified 09/09/24 15:12 tree and shrub pollen Allergy Unknown Verified 09/09/24 15:12 blueberry [BLUEBERRY] AdvReac Intermediate VOMITING Verified 09/09/24 15:12 doxycycline [From VIBRAMYCIN] AdvReac Intermediate GI ISSUES Verified 09/09/24 15:12 lisinopril [From ZESTRIL] AdvReac Intermediate COUGH Verified 09/09/24 15:12 procaine [From NOVOCAIN] AdvReac Intermediate EXCESS Verified 09/09/24 15:12 NUMBING theophylline [THEOPHYLLINE] AdvReac Intermediate DIZZINESS Verified 09/09/24 15:12 CAT GUT SUTURES Allergy Intermediate DO NOT Uncoded 09/09/24 15:12 DISSOLVE DERMABOND AdvReac Severe RASH Uncoded 09/09/24 15:12 CHOCOLATE AdvReac Intermediate VOMITING Uncoded 09/09/24 15:12 Plan I have reviewed the history and physical and performed a pertinent physical examination on my patient. No changes have occurred unless specified. Time Spent With Patient Time: Total time managing care of this patient today ____ minutes.
[2024-09-11] MEDS: Scopolamine 1.5 MG PATCH.TD.3 TRANSDERMA (12:07)
[2024-09-11] MEDS: Lactated Ringers 1,000 ML 100 ML IVCONT (12:24)
[2024-09-11] MEDS: ceFAZolin Sodium/Dextrose,Iso 2 GM/50 ML PIGGYBACK IV (13:41)
[2024-09-11 15:29] VITALS: BP 153/79; PULSE 101; RESP 14; TEMP 36.7; O2SAT 94
[2024-09-11 15:34] VITALS: BP 157/85; PULSE 99; RESP 17; O2SAT 93
[2024-09-11 15:39] VITALS: BP 163/81; PULSE 96; RESP 20; O2SAT 95
[2024-09-11 15:44] VITALS: BP 166/80; PULSE 91; RESP 20; O2SAT 95
[2024-09-11 16:00] VITALS: BP 166/80; PULSE 96; RESP 20; TEMP 36.3; O2SAT 94
--- NOTE | 2024-09-11 19:01 | HO.POSTANES ---
Post Anesthesia Evaluation Post Anesthesia Evaluation Date of Service: 09/11/24 Vital Signs: Vital Signs Temp Pulse Resp BP Pulse Ox O2 Del Method O2 Flow Rate 09/11/24 16:00 97.3 F 96 20 166/80 H 94 Room Air 09/11/24 15:44 91 20 166/80 H 95 Nasal Cannula 2 09/11/24 15:39 96 20 163/81 H 95 Nasal Cannula 2 09/11/24 15:34 99 17 157/85 H 93 Nasal Cannula 2 09/11/24 15:29 98.0 F 101 H 14 153/79 H 94 Nasal Cannula 2 09/11/24 11:45 98.8 F 90 16 174/88 H 98 Room Air Anesthesia: General LMA Mental Status: Awake Pain Control: Satisfactory Nausea/Vomiting: None Hydration: Adequate Anesthesia-Related Issues: No Anes. Related Issues
== END 2024-09-11 16:20 | disposition home or self-care (01) ==
PROVIDERS: PCP Physician Assistant Medical; Visit Provider Orthopaedic Surgery
PROC: (CPT 25608; principal; 2024-09-11 12:30)
DX: S52.502A Unspecified fracture of the lower end of left radius, initial encounter for closed fracture (principal); M25.532 Pain in left wrist; W01.0XXA Fall on same level from slipping, tripping and stumbling without subsequent striking against object, initial encounter; Y93.89 Activity, other specified; Y92.096 Garden or yard of other non-institutional residence as the place of occurrence of the external cause; Y99.9 Unspecified external cause status; I10 Essential (primary) hypertension; J45.909 Unspecified asthma, uncomplicated; E03.9 Hypothyroidism, unspecified; Z79.82 Long term (current) use of aspirin; Z79.899 Other long term (current) drug therapy; Z88.8 Allergy status to other drugs, medicaments and biological substances; Z91.011 Allergy to milk products; Z91.018 Allergy to other foods; Z91.048 Other nonmedicinal substance allergy status; Z87.891 Personal history of nicotine dependence; Z98.84 Bariatric surgery status; Z98.890 Other specified postprocedural states
CPT/HCPCS: 25608; C1713; J0131; J0665; J0690; J1100; J2003; J2004; J2250; J2405; J2704; J3010

== ENCOUNTER → 2024-09-11 10:38 | Outpatient (BNV) | payer MEDICARE, BC, SELFPAY | PROVIDERS: PCP Physician Assistant Medical; Visit Provider Orthopaedic Surgery | DX: S52.592A Other fractures of lower end of left radius, initial encounter for closed fracture (principal) | CPT/HCPCS: 25608 ==

== ENCOUNTER 2024-09-24 08:30 | Outpatient (REF) | payer MEDICARE, BC, SELFPAY ==
--- NOTE | ~2024-09-24 | XR_ITS ---
EXAMINATION: XR WRIST 3 OR MORE VIEWS LEFT HISTORY: M25.532 - Pain in left wrist COMPARISON: Comparison is made with the prior examination dated 09/09/2024. FINDINGS: Three views of the left wrist are submitted. Osseous mineralization is normal. The patient is status post internal fixation of the previously noted comminuted fracture of the distal radial metaphysis with a sideplate and multiple orthopedic screws. Alignment is anatomic. The fracture line remains visible. There has been resection of the trapezium. There is degenerative change of the 1st carpometacarpal joint. The soft tissues are unremarkable. XR/XR wrist LT min 3V IMPRESSION: Internal fixation of the previously noted fracture of the distal radial metaphysis. Electronically signed by: Marc Donnelly MD 09/24/2024 10:10 AM EDT
--- OUTSIDE RECORDS SUMMARY | 2024-09-24 08:43 | XMS_ITS | Clinical Summary ---
Author Organization [facility] Address [address] [place] [address] Care Team Providers Care Gleason Operator Name Role Phone Cameron Sanchez MD Primary Care Provider [phone] Allergies Active Allergy Reactions Criticality Noted Date [...] - 1-dose 75+ series) 07/10/2023 Influenza Vaccine (Season Ended) 2024 01/12/2016, 01/07/2015, 01/01/2014, Additional history exists Pneumococcal Vaccine Completed 08/20/2014, 08/16/19 14 Shingrix-Zoster Vaccine Completed 06/14/2017, 04/16 Hepatitis B Vaccines Aged Out No long er eligible based on patient's age to complete this topic RSV Ped < 20 months Aged Out No longe r eligible based on patient's age to complete this topic Care Teams Gleason Operator Relationship Specialty Start Date End Date Cameron Sanchez MD PCP - General Data Analytics Chief Scientist 11/13/16
== END 2024-09-24 08:31 | disposition home or self-care (01) ==
LOC: HO.HOSX 08:30
DX: S52.502D Unspecified fracture of the lower end of left radius, subsequent encounter for closed fracture with routine healing (principal)
CPT/HCPCS: 29075; 73110; 99212

== ENCOUNTER 2024-09-24 08:42 | Outpatient (AMB) | payer MEDICARE, BC, SELFPAY ==
--- NOTE | 2024-09-24 08:51 | MHC.OFFVIS ---
Intake Visit Reasons: PO LT distal radius ORIF 09/11/24 AR Intake Note: Cornelia is a 74 year old right hand dominant female who presents today for a post operative visit s/p left distal radius fracture ORIF DOS: 09/11/[address] Carolina Bustamante. Patient reports she is doing well with minimal pain. Allergies CARLOZ Inhibitors Allergy (Intermediate, Verified 09/24/24 09:01) Cough adhesive tape [ADHESIVE TAPE] Allergy (Intermediate, Verified 09/24/24 09:01) RASH gabapentin Allergy (Intermediate, Verified 09/24/24 09:01) Nausea grass pollen Allergy (Intermediate, Verified 09/24/24 09:01) Itching house dust mite Allergy (Intermediate, Verified 09/24/24 09:01) Itching lactose [LACTOSE] Allergy (Intermediate, Verified 09/24/24 09:01) GI UPSET mold Allergy (Intermediate, Verified 09/24/24 09:01) Itching ragweed pollen Allergy (Intermediate, Verified 09/24/24 09:01) Itching tree and shrub pollen Allergy (Intermediate, Verified 09/24/24 09:01) Itching blueberry [BLUEBERRY] Adverse Reaction (Intermediate, Verified 09/24/24 09:01) VOMITING doxycycline [From VIBRAMYCIN] Adverse Reaction (Intermediate, Verified 09/24/24 09:01) GI ISSUES lisinopril [From ZESTRIL] Adverse Reaction (Intermediate, Verified 09/24/24 09:01) COUGH procaine [From NOVOCAIN] Adverse Reaction (Intermediate, Verified 09/24/24 09:01) EXCESS NUMBING theophylline [THEOPHYLLINE] Adverse Reaction (Intermediate, Verified 09/24/24 09:01) DIZZINESS CAT GUT SUTURES Allergy (Intermediate, Uncoded 09/11/24 12:01) DO NOT DISSOLVE DERMABOND Adverse Reaction (Severe, Uncoded 09/11/24 12:01) RASH CHOCOLATE Adverse Reaction (Intermediate, Uncoded 09/11/24 12:01) VOMITING HPI HPI PO LT distal radius ORIF 09/11/24 AR: Details: Patient is a 74-year-old female presents today for follow-up visit for ORIF of left distal radius, DOS 09/11/2024. Today, the patient reports she is feeling very well, and is experiencing no pain and then her swelling has improved very significantly from prior to surgery. Patient reports no pain at this time, normal sensation to the tips of all digits of the left hand. Patient does report some numbness in the dorsal aspect of the hand, but reports that this has improved significantly with time. No other acute complaints or concerns at this time. [facility] Medical History (Updated 09/05/24 @ 12:01 by STEPHANIE Murray) Disorders of bursae and tendons in shoulder region, unspecified Hearing loss GERD (gastroesophageal reflux disease) Obesity Carpal tunnel syndrome Hypertension Hypercholesteremia Hypothyroidism Asthma Surgical History (Updated 09/11/24 @ 11:58 by Kaycee Estrada RN) H/O parotidectomy History of revision of total shoulder arthroplasty Hx of gastric bypass Cataracts, both eyes History of cholecystectomy History of total left knee replacement History of total right knee replacement Family History Mother No problems noted. Father No problems noted. Social History Are you a primary mall plant caretaker to a significant other at home: No Do you presently have visiting nurse or other home services: No Alcohol intake: never Patient Tobacco Use Status: Former Tobacco user Tobacco use type: Cigarette Years Smoked: 23 Current occupation: [employer] Physical Exam Const General: cooperative, healthy appearing and no acute distress Orientation/consciousness: oriented to person and oriented to place HEENT Head: Yes normocephalic and Yes atraumatic Eyes EOM: EOMs intact bilaterally Resp Effort & Inspection: normal respiratory effort and able to speak in complete sentences Cardio Jugular venous distension: no JVD Skin General skin exam: turgor normal Rashes: no rashes Neuro General: oriented to person and oriented to place Extrem Other: Evaluation of left Upper Extremity: The patient was alert oriented and in no acute distress. She ambulates with a cane. Sensation is intact to the tips of all digits today in clinic With encouragement she can make a fist and extend all of her digits She has some swelling about the left wrist and hand with ecchymosis in the left wrist, but this has improved significantly from prior to surgery Incision site clean, dry, intact, no erythema, ecchymosis, evidence of infection No tenderness to palpation about the left distal radius No tenderness about the elbow and she can actively flex and extend about the elbow Psych Appearance: grossly normal Affect: normal affect Attitude: cooperative Office Procedures Casting/Splints 37046-Oftk/Wrist Cast Application Procedure code (CPT) selection complete Results Reviewed Results Reviewed: X-rays obtained in the office today and independently reviewed by me, Darryl Alexis PA-C, demonstrate surgically reduced fracture of the left distal radius with orthopedic hardware in place and in satisfactory clinical alignment. Assessment & Plan Assessment & Plan (1) Fracture of left distal radius: Code(s): S52.502A - Unspecified fracture of the lower end of left radius, initial encounter for closed fracture Category: Medical Plan 1. Left distal radius fracture status post ORIF DOS 09/11/2024 Patient appears to be recovering very well postoperatively Patient is educated about the typical recovery course At this time, patient is placed into a short-arm cast Patient is educated on proper cast care and precautions Patient is amenable to this plan 1-2 lb weight limit in left hand reinforced Follow-up in 2 weeks with repeat x-rays, anticipate cast removal at that time, sooner with any acute concerns Orders: Orders XR wrist LT min 3V 09/24/24 M25.532 - Pain in left wrist Coding Level of Care Code Global (41413) Diagnoses Fracture of left distal radius S52.502A CPT Codes Casting - CPT: 06250-Kwvn/Wrist Cast Application ([id number])
== END 2024-09-24 09:54 | disposition home or self-care (01) ==
LOC: HO.HOS 08:43
PROVIDERS: PCP Physician Assistant Medical
DX: S52.502A Unspecified fracture of the lower end of left radius, initial encounter for closed fracture (principal)
CPT/HCPCS: 29075; 99024

== ENCOUNTER → 2024-09-24 08:45 | Outpatient (BNV) | payer MEDICARE, BC, SELFPAY | PROVIDERS: Visit Provider Radiology Diagnostic Radiology | DX: S52.502A Unspecified fracture of the lower end of left radius, initial encounter for closed fracture (principal) | CPT/HCPCS: 73110 ==

== ENCOUNTER 2024-10-08 07:58 | Outpatient (REF) | payer MEDICARE, BC, SELFPAY ==
--- NOTE | ~2024-10-08 | XR_ITS ---
CLINICAL HISTORY: M25.532 - Pain in left wrist --- Additional Notes or Special Instructions: Out of cast 3 view left wrist Comparison: DX/SR - XR WRIST LT MIN 3V - 09/24/24 08:45 EDT Findings: Metallic plate and fixation screws are seen transfixing the healing distal radial fracture with increased bridging sclerosis since prior exam. There is no evidence of hardware failure or loosening. No new osseous abnormality is identified. IMPRESSION: Internal fixation of a healing distal radial fracture without evidence of hardware failure or loosening. This document has been electronically signed by: Keri Yen on 10/09/2024 08:25:18
--- OUTSIDE RECORDS SUMMARY | 2024-10-08 08:05 | XMS_ITS | Clinical Summary ---
Author Organization [facility] Address [address] [place] [address] Care Team Providers Care Garment Sewer Hand Name Role Phone Cameron Sanchez MD Primary Care Provider Allergies Active Allergy Reactions Criticality Noted Date [...] age to complete this topic Care Teams Garment Sewer Hand Relationship Specialty Start Date End Date Cameron Sanchez MD PCP - General Chef Broiler Or Fry 11/13/16
== END 2024-10-08 07:59 | disposition home or self-care (01) ==
LOC: HO.HOSX 07:58
DX: S52.502D Unspecified fracture of the lower end of left radius, subsequent encounter for closed fracture with routine healing (principal)
CPT/HCPCS: 29075; 73110; 99212

== ENCOUNTER 2024-10-08 09:04 | Outpatient (AMB) | payer MEDICARE, BC, SELFPAY ==
--- NOTE | 2024-10-08 09:22 | A.OFFVIS_ITS ---
Intake Visit Reasons: PO LT distal radius ORIF 09/11/24 AR-w/xrays Intake Note: Cornelia is a 74 year old right hand dominant female who presents today for a post operative visit s/p left distal radius fracture ORIF DOS: 09/11/[address] Carolina Bustamante. At her last visit she was placed into a short-arm cast and 1-2 lb weight limit in left hand was reinforced. Cast has been removed and x-rays updated today. Patient states she is having sharp pain in the center of her palm, also towards her wrist area. States she is having numbness on the ulnar aspect of her hand. Allergies CARLOZ Inhibitors Allergy (Intermediate, Verified 10/08/24 09:23) Cough adhesive tape (ADHESIVE TAPE) Allergy (Intermediate, Verified 10/08/24 09:23) RASH gabapentin Allergy (Intermediate, Verified 10/08/24 09:23) Nausea grass pollen Allergy (Intermediate, Verified 10/08/24 09:23) Itching house dust mite Allergy (Intermediate, Verified 10/08/24 09:23) Itching lactose (LACTOSE) Allergy (Intermediate, Verified 10/08/24 09:23) GI UPSET mold Allergy (Intermediate, Verified 10/08/24 09:23) Itching ragweed pollen Allergy (Intermediate, Verified 10/08/24 09:23) Itching tree and shrub pollen Allergy (Intermediate, Verified 10/08/24 09:23) Itching blueberry (BLUEBERRY) Adverse Reaction (Intermediate, Verified 10/08/24 09:23) VOMITING doxycycline (From VIBRAMYCIN) Adverse Reaction (Intermediate, Verified 10/08/24 09:23) GI ISSUES lisinopril (From ZESTRIL) Adverse Reaction (Intermediate, Verified 10/08/24 09:23) COUGH procaine (From NOVOCAIN) Adverse Reaction (Intermediate, Verified 10/08/24 09:23) EXCESS NUMBING theophylline (THEOPHYLLINE) Adverse Reaction (Intermediate, Verified 10/08/24 09:23) DIZZINESS CAT GUT SUTURES Allergy (Intermediate, Uncoded 10/08/24 09:23) DO NOT DISSOLVE DERMABOND Adverse Reaction (Severe, Uncoded 10/08/24 09:23) RASH CHOCOLATE Adverse Reaction (Intermediate, Uncoded 10/08/24 09:23) VOMITING HPI HPI PO LT distal radius ORIF 09/11/24 AR-w/xrays: Details: Cornelia is a 74 year old right hand dominant female who presents today for a post operative visit s/p left distal radius fracture ORIF DOS: 09/11/[address] Carolina Bustamante. At her last visit she was placed into a short-arm cast and 1-2 lb weight limit in left hand was reinforced. Cast has been removed and x-rays updated today. Patient states she is having sharp pain in the center of her palm, also towards her wrist area. States she is having numbness on the ulnar aspect of her hand. [facility] Medical History (Updated 09/05/24 @ 12:01 by STEPHANIE Murray) Disorders of bursae and tendons in shoulder region, unspecified Hearing loss GERD (gastroesophageal reflux disease) Obesity Carpal tunnel syndrome Hypertension Hypercholesteremia Hypothyroidism Asthma Surgical History (Updated 09/11/24 @ 11:58 by Kaycee Estrada RN) H/O parotidectomy History of revision of total shoulder arthroplasty Hx of gastric bypass Cataracts, both eyes History of cholecystectomy History of total left knee replacement History of total right knee replacement Family History Mother No problems noted. Father No problems noted. Social History Are you a primary child care assistant to a significant other at home: No Do you presently have visiting nurse or other home services: No Alcohol intake: never Patient Tobacco Use Status: Former Tobacco user Tobacco use type: Cigarette Years Smoked: 23 Current occupation: [employer] Review of Systems Const All systems reviewed & are unremarkable except as noted in HPI and below Physical Exam Const General: cooperative, healthy appearing and no acute distress Orientation/consciousness: oriented to person and oriented to place HEENT Head: Yes normocephalic and Yes atraumatic Eyes EOM: EOMs intact bilaterally Resp Effort & Inspection: normal respiratory effort and able to speak in complete sentences Cardio Jugular venous distension: no JVD Skin General skin exam: turgor normal Rashes: no rashes Neuro General: oriented to person and oriented to place Extrem Other: Evaluation of left Upper Extremity: The patient was alert oriented and in no acute distress. She ambulates with a cane. Sensation is intact to the tips of all digits today in clinic With encouragement she can make a fist and extend all of her digits She has some swelling about the left wrist and hand with ecchymosis in the left wrist, but this has improved significantly from prior to surgery Incision site clean, dry, intact, no erythema, ecchymosis, evidence of infection Mild tenderness to palpation about the left distal radius No tenderness about the elbow and she can actively flex and extend about the elbow Psych Appearance: grossly normal Affect: normal affect Attitude: cooperative Office Procedures Casting/Splints 60369-Fjwn/Wrist Cast Application Procedure code (CPT) selection complete Results Reviewed Results Reviewed: X-rays obtained in the office today and independently reviewed by me, Darryl Alexis PA-C, demonstrate surgically reduced fracture of the left distal radius with orthopedic hardware in place and in satisfactory clinical alignment. Assessment & Plan Assessment & Plan (1) Fracture of left distal radius: Code(s): S52.502A - Unspecified fracture of the lower end of left radius, initial encounter for closed fracture Category: Medical Plan 1. Left distal radius fracture status post ORIF DOS 09/11/2024 Patient appears to be recovering very well postoperatively Patient is educated about the typical recovery course At this time, patient is placed into a short-arm cast due to mild ongoing tenderness Patient is educated on proper cast care and precautions Patient is amenable to this plan 1-2 lb weight limit in left hand reinforced Follow-up in 2 weeks with repeat x-rays, anticipate cast removal at that time, sooner with any acute concerns Orders: Orders XR wrist LT min 3V 10/08/24 M25.532 - Pain in left wrist Coding Level of Care Code Global (47474) Diagnoses Fracture of left distal radius S52.502A CPT Codes Casting - CPT: 30898-Gydv/Wrist Cast Application ([id number])
== END 2024-10-08 10:16 | disposition home or self-care (01) ==
LOC: HO.HOS 09:05
PROVIDERS: PCP Physician Assistant Medical
DX: S52.502A Unspecified fracture of the lower end of left radius, initial encounter for closed fracture (principal)
CPT/HCPCS: 29075; 99024

== ENCOUNTER → 2024-10-08 09:08 | Outpatient (BNV) | payer MEDICARE, BC, SELFPAY | PROVIDERS: Visit Provider Radiology Vascular & Interventional Radiology | DX: M25.532 Pain in left wrist (principal) | CPT/HCPCS: 73110 ==

== ENCOUNTER 2024-10-21 08:04 | Outpatient (REF) | payer MEDICARE, BC, SELFPAY ==
--- NOTE | ~2024-10-21 | XR_ITS ---
CLINICAL HISTORY: M25.532 - Pain in left wrist --- Additional Notes or Special Instructions: Out of cast 3 view left wrist Comparison: DX - XR WRIST LT MIN 3V - 10/08/24 09:08 EDT Findings: Prior open reduction internal fixation a transverse fracture of the distal radius. Appropriate alignment. No evidence of hardware failure. The trapezium is absent without change. There is a small corticated bone fragment in the region of the trapezium fossa. No acute fracture. No dislocation. No significant arthritic change or erosions. No radiopaque foreign body. IMPRESSION: Status post open reduction internal fixation of the distal radius with an unremarkable postoperative appearance. This document has been electronically signed by: Jacqueline Bragg MD on 10/22/2024 16:32:32
--- OUTSIDE RECORDS SUMMARY | 2024-10-21 08:09 | XMS_ITS | Clinical Summary ---
Author Organization [facility] [address] [place] [address] [place] [phone] Phone Care Team Providers Care Mattress Finisher Name Role Phone Justin Zavala Primary Care Provider [phone] Allergies Active Allergy Reactions Criticality Noted Date [...] 2 Active multivitamin tablet 1tab bid Active aspirin 325 mg tablet Once daily [...] EVERY DAY 90 tablet 1 5 Active acetaminophen (TYLENOL 8 HOUR) 650 mg 8 hr tablet TAKE 1 TABLET BY MOUTH EVERY 8 HOURS NEEDED FOR PAIN 100 tablet 5 Active Active Problems Problem Noted Date [...] Encounters Date Type Department Care Team Description 09/03/2024 10:00 AM EDT Office Visit Adult Medicine [address] [phone] Justin Zavala PA Closed fracture of distal end of left radius, unspecified fracture morphology, initial encounter (Primary Dx); Fall, subsequent encounter 09/03/2024 Telephone Adult Medicine [address] [phone] Justin Zavala PA Appointment 09/01/2024 Telephone Adult Medicine [address] [phone] Justin Zavala PA broken wrist from Last 3 Months Immunizations Name Administration [...] Surgery Date Site/Laterality Comments GASTRIC BYPASS PROCEDURE: [place] GASTRIC RSTCV W/BYP W/SM INT RCNSTJ LIMIT ABSRPJ; COMMENT: 2004 dr rodriguez OTHER SURGICAL HISTORY PROCEDURE: NH EXC PRTD NICHOL/PRTD GLND LAT LOBE W/O NRV DSJ; COMMENT: 3 tumors, left COLONOSCOPY 12/23/2007 PROCEDURE: HISTORICAL COLONOSCOPY; COMMENT: diverticulosis; repeat in ten years HAND SURGERY PROCEDURE: HISTORICAL HAND SURGERY; COMMENT: thumb arthoplasty bilateral CARPAL TUNNEL RELEASE PROCEDURE: NH NEUROPLASTY &/TRANSPOS MEDIAN NRV CARPAL TUNNE; COMMENT: left KNEE ARTHROSCOPY 01/20/2011 PROCEDURE: NH ARTHROSCOPY KNEE DIAGNOSTIC W/WO SYNOVIAL BX SPX; COMMENT: Left; Mind[facility] TOTAL KNEE ARTHROPLASTY 2014 PROCEDURE: NH ARTHRP KNE CONDYLE&PLATU MEDIAL&LAT COMPARTMENTS; COMMENT: left dr edward TOTAL KNEE ARTHROPLASTY 2015 PROCEDURE: NH ARTHRP KNE CONDYLE&PLATU MEDIAL&LAT COMPARTMENTS; COMMENT: right COLONOSCOPY 08/21/2018 PROCEDURE: HISTORICAL COLONOSCOPY; COMMENT: negative OTHER SURGICAL HISTORY 09/2019 PROCEDURE: NH ANES ARTHROSCOPIC TOTAL SHOULDER REPLACEMENT; COMMENT: R OTHER SURGICAL HISTORY 11/01/2021 Left PROCEDURE: NH ANES ARTHROSCOPIC TOTAL SHOULDER REPLACEMENT; COMMENT: reverse [...] care for your loved ones. For example, early childhood associate or elderly care for an older adult? [...] is your living situation? 0 07/18/2024 Comments No Sex and Gender Information Value Date Recorded Sex Assigned at Not on file Legal Sex Female 10:15 PM EST Gender Identity Not on file Sexual Orientation Not on file Obstetrics History Last Filed Vital Signs Vital Sign Reading Time Taken Comments Blood Pressure 153/81 09/03/2024 10:02 AM EDT Pulse 98 09/03/2024 10:02 AM EDT Temperature 36.4 C (97.6 F) 07/18/2024 10:53 AM EDT Respiratory Rate 14 07/18/2024 10:53 AM EDT Oxygen Saturation 96% 04/07/2024 10:04 AM EST Inhaled Oxygen Concentration - - Weight 133 kg (294 lb) 09/03/2024 10:02 AM EDT Height 172.7 cm (5' 8 ) 09/03/2024 10:02 AM EDT Body Mass Index 44.7 09/03/2024 10:02 AM EDT Plan of Treatment Upcoming Encounters Date Type Department Care Team (Late st Contact Info) Description 12/23/2024 7:30 AM EDT Appointment Radiology Department - [place] [address] [place], [place] [phone] 01/26/2025 8:00 AM EDT Office Visit Adult Medicine East - [place] [address] [place], [place] [phone] Justin Zavala PA [address] [place], [place] Health Maintenance Due Date Last Done Comments COVID-19 Vaccine ( season) 2023 07/26/2021, 02/11/2021, 07/15/2020, Additional history exists Influenza Vaccine (#1) 2024 , 12/07/2022, 12/08/2021, Additional history exists Hypertension/CHF/CAD Annual BMP Blood [...] Screening Completed 02/12/2014 Zoster Vaccines Completed 12/26/2017, 05/2017, 06/14/2017, Additional history exists Pneumococcal Vaccine: 50+ Years Completed 12/15/2019, 08/20/2014, 08/15/2013 Breast Cancer Screening Discontinued 08/24/19, 08/24/2023, 03/07/2022, Additional history exists RSV Immunization Adult Patients [...] Date/Time Associated Diagnosis Comments EXTERNAL XRAY REPORT 09/11/2024 EXTERNAL XRAY REPORT 09/09/2024 EXTERNAL XRAY REPORT 09/09/2024 EXTERNAL XRAY REPORT 08/31/2024 EXTERNAL XRAY REPORT 08/31/2024 COMPREHENSIVE METABOLIC PANEL Routine 03/19/2024 7:48 AM [...] screening mammogram for malignant neoplasm of breast HM DEPRESSION SCREENING Routine 07/18/2023 COLONOSCOPY Routine 02/10/2022 DXA BONE DENSITY STUDY 1+ SITS AXIAL SKEL Routine 12/22/2020 9:42 AM EDT Encounter for screening for osteoporosis HEPATITIS C SCREENING Routine 02/12/2014 from Last 3 Months or Most Recently Relevant to Health Maintenance Results * External Xray Report (09/11/2024) Only the most recent of5 resultswithin the time period is included. Anatomical Region Laterality Modality Radiographic Any ging us Provider [facility] XR PROCEDURES Final Result * Lipid panel with reflex to direct LDL (03/19/2024 7:48 AM EST) Cholesterol 155 0 - 200 mg/dL LAB CHEMISTRY METHOD 03/19/2024 10:39 AM [facility] Triglycerides 132 0 - 150 mg/dL LAB CHEMISTRY METHOD 03/19/2024 10:39 AM [facility] HDL 61 >=40 mg/dL LAB CHEMISTRY METHOD 03/19/2024 10:39 AM [facility] LDL Calculated 68 0 - 100 mg/dL LAB CHEMISTRY METHOD 03/19/2024 10:39 AM [facility] VLDL Cholesterol Jasbir 26.4 mg/dL LAB CHEMISTRY METHOD 03/19/2024 10:39 AM [facility] Non HDL Chol. (LDL+VLDL) 94 <145 mg/dL LAB CHEMISTRY METHOD 03/19/2024 10:39 AM [facility] Chol/HDL Ratio 2.5 0.0 - 4.4 LAB CHEMISTRY METHOD 03/19/2024 10:39 AM [facility] Blood Venous blood specimen / Unknown Venipuncture / Unknown 03/19/2024 7:48 AM EST 03/19/2024 7:48 AM EST Justin BROWN LAB BLOOD ORDERABLES Lois hortencia Result [facility] [address] [place] [address], * Comprehensive metabolic panel (03/19/2024 7:48 AM EST) Sodium 141 133 - 145 mmol/L LAB CHEMISTRY METHOD 03/19/2024 10:39 AM [facility] Potassium 4.2 3.5 - 5.5 mmol/L LAB CHEMISTRY METHOD 03/19/2024 10:39 AM [facility] Chloride 110 96 - 110 mmol/L LAB CHEMISTRY METHOD 03/19/2024 10:39 AM [facility] CO2 27 21 - 32 mmol/L LAB CHEMISTRY METHOD 03/19/2024 10:39 AM [facility] Anion Gap 4 3 - 11 LAB CHEMISTRY METHOD 03/19/2024 10:39 AM [facility] Glucose 100 70 - 100 mg/dL LAB CHEMISTRY METHOD 03/19/2024 10:39 AM [facility] BUN 13 5 - 25 mg/dL LAB CHEMISTRY METHOD 03/19/2024 10:39 AM [facility] Creatinine 0.94 0.50 - 1.10 mg/dL LAB CHEMISTRY METHOD 03/19/2024 10:39 AM [facility] eGFR 63 >=60 mL/min/1. 73m2 LAB CHEMISTRY METHOD 03/19/2024 10:39 AM [facility] Comment:Calculation based on the Chronic Kidney Disease Epidemiology Collaboration (CKD-EPI) equation refit without adjustment for race. BUN/Creatinine Ratio 13.8 LAB CHEMISTRY METHOD 03/19/2024 10:39 AM [facility] Calcium 9.1 8.5 - 10.5 mg/dL LAB CHEMISTRY METHOD 03/19/2024 10:39 AM [facility] AST (SGOT) 16 10 - 42 unit/L LAB CHEMISTRY METHOD 03/19/2024 10:39 AM [facility] ALT (SGPT) 23 10 - 60 unit/L LAB CHEMISTRY METHOD 03/19/2024 10:39 AM [facility] Alkaline Phosphatase 99 42 - 121 unit/L LAB CHEMISTRY METHOD 03/19/2024 10:39 AM [facility] Total Protein 7.0 6.0 - 8.0 g/dL LAB CHEMISTRY METHOD 03/19/2024 10:39 AM [facility] Albumin 3.9 3.2 - 5.0 g/dL LAB CHEMISTRY METHOD 03/19/2024 10:39 AM [facility] Total Bilirubin 0.5 0.0 - 1.4 mg/dL LAB CHEMISTRY METHOD 03/19/2024 10:39 AM [facility] Blood Venous blood specimen / Unknown Venipuncture / Unknown 03/19/2024 7:48 AM EST 03/19/2024 7:48 AM EST Justin BROWN LAB BLOOD ORDERABLES Lois l Result [facility] [address] [place] [address], * SCREENING MAMMOGRAPHY BI 2-VIEW BREAST INC [...] in conjunction with computer aided detection. Tomosynthesis as well as 2D C-View imaging were obtained. Best possible images according to the technologist notes. Comparison: Comparison made to multiple prior, most recent March 07, 2022, and most remote May 14, 2014. Breast composition: There are scattered areas of fibroglandular density. Bilateral breasts: No significant masses, suspicious calcifications or other abnormalities are seen in either breast. IMPRESSION: Impression: Bilateral breasts: Negative, no specific mammographic evidence of malignancy. Normal interval follow-up is recommended in 12 [...] 12/22/2020 10:56 AM EDT BONE DENSITY (DEXA) Lumbar Spine T-score is [...] normal bone density by WHO criteria. The [facility] Department of Internal Medicine recommends [...] screening schedule based on nick Ceballos., [facility] May 04, 2011 for patients with [...] normal bone density by WHO criteria. The [facility] Department of Internal Medicine recommendsusing [...] screening schedule based on [facility]allos., [facility] for patients with osteopenia (based on hip BMD T-score) is as follows: * advanced osteopenia (T scores -2.00 to -2.49), BMD testing every year * moderate osteopenia (T scores -1.50 to -1.99), BMD testing every 5years mild osteopenia or normal BMD (T scores -1.50 and higher), BMD testingevery 15 years Justin BROWN G DXA PROCEDURES Final Result * Hepatitis C Screening (02/12/2014) [facility] Hepatitis C Screening Abstracted Historical Provider HEALTH MAINTENANCE Final Result from Last 3 Months or Most Recently Relevant to Health Maintenance Insurance MEDICARE [facility] Advance Directives Documents on File Type Date Recorded Patient Leather Stitcher Expl anation Health Care Decision (hx) 11/01/2021 AD SEBASTIAN DIRECTIVE Health Care Decision (hx) 11/01/2021 AD SEBASTIAN DIRECTIVE Health Care Decision (hx) 11/01/2021 AD SEBASTIAN DIRECTIVE Care Teams Mattress Finisher Relationship Specialty Start Date End Date Justin Zavala PA [address] [place] [id number] PCP - General Internal Medicine 06/23/20
--- OUTSIDE RECORDS SUMMARY | 2024-10-21 08:09 | XMS_ITS | Clinical Summary ---
Author Organization [facility] Address [address] [place] [address] Care Team Providers Care Semiconductor Wafers Tester Name Role Phone Cameron Sanchez MD Primary Care Provider [phone] Allergies Active Allergy Reactions Criticality Noted Date [...] 1-dose 75+ series) 07/10/2023 Influenza Vaccine (#1) 2024 6, 01/07/2015, 01/01/2014, Additional history exists Pneumococcal Vaccine Completed 08/20/2014, 08/16/19 14 Shingrix-Zoster Vaccine Completed 06/14/2017, 04/16 Hepatitis B Vaccines Aged Out No long er eligible based on patient's age to complete this topic RSV Ped < 20 months Aged Out No longe r eligible based on patient's age to complete this topic Care Teams Semiconductor Wafers Tester Relationship Specialty Start Date End Date Cameron Sanchez MD PCP - General Snowboarder 11/13/16
== END 2024-10-21 08:05 | disposition home or self-care (01) ==
LOC: HO.HOSX 08:04
DX: S52.502D Unspecified fracture of the lower end of left radius, subsequent encounter for closed fracture with routine healing (principal); M25.532 Pain in left wrist
CPT/HCPCS: 73110; 99212

== ENCOUNTER 2024-10-21 08:54 | Outpatient (AMB) | payer MEDICARE, BC, SELFPAY ==
--- NOTE | 2024-10-21 09:12 | A.OFFVIS_ITS ---
Intake Visit Reasons: PO LT distal radius ORIF 09/11/24 AR Intake Note: Cornelia is a 74 year old female who presents today for P/O left distal radius ORIF 09/11/24 AR. Patient states that the left wrist has a dullache but no numbness or tingling to report. Allergies CARLOZ Inhibitors Allergy (Intermediate, Verified 10/21/24 09:15) Cough adhesive tape (ADHESIVE TAPE) Allergy (Intermediate, Verified 10/21/24 09:15) RASH gabapentin Allergy (Intermediate, Verified 10/21/24 09:15) Nausea grass pollen Allergy (Intermediate, Verified 10/21/24 09:15) Itching house dust mite Allergy (Intermediate, Verified 10/21/24 09:15) Itching lactose (LACTOSE) Allergy (Intermediate, Verified 10/21/24 09:15) GI UPSET mold Allergy (Intermediate, Verified 10/21/24 09:15) Itching ragweed pollen Allergy (Intermediate, Verified 10/21/24 09:15) Itching tree and shrub pollen Allergy (Intermediate, Verified 10/21/24 09:15) Itching blueberry (BLUEBERRY) Adverse Reaction (Intermediate, Verified 10/21/24 09:15) VOMITING doxycycline (From VIBRAMYCIN) Adverse Reaction (Intermediate, Verified 10/21/24 09:15) GI ISSUES lisinopril (From ZESTRIL) Adverse Reaction (Intermediate, Verified 10/21/24 09:15) COUGH procaine (From NOVOCAIN) Adverse Reaction (Intermediate, Verified 10/21/24 09:15) EXCESS NUMBING theophylline (THEOPHYLLINE) Adverse Reaction (Intermediate, Verified 10/21/24 09:15) DIZZINESS CAT GUT SUTURES Allergy (Intermediate, Uncoded 10/08/24 09:23) DO NOT DISSOLVE DERMABOND Adverse Reaction (Severe, Uncoded 10/08/24 09:23) RASH CHOCOLATE Adverse Reaction (Intermediate, Uncoded 10/08/24 09:23) VOMITING PFSH Medical History (Updated 09/05/24 @ 12:01 by STEPHANIE Murray) Disorders of bursae and tendons in shoulder region, unspecified Hearing loss GERD (gastroesophageal reflux disease) Obesity Carpal tunnel syndrome Hypertension Hypercholesteremia Hypothyroidism Asthma Surgical History (Updated 09/11/24 @ 11:58 by Kaycee Estrada RN) H/O parotidectomy History of revision of total shoulder arthroplasty Hx of gastric bypass Cataracts, both eyes History of cholecystectomy History of total left knee replacement History of total right knee replacement Family History Mother No problems noted. Father No problems noted. Social History Are you a primary laboratory animal caretaker to a significant other at home: No Do you presently have visiting nurse or other home services: No Alcohol intake: never Patient Tobacco Use Status: Former Tobacco user Tobacco use type: Cigarette Years Smoked: 23 Current occupation: [employer] Review of Systems Const All systems reviewed & are unremarkable except as noted in HPI and below Assessment & Plan Assessment & Plan (1) Fracture of left distal radius: Code(s): S52.502A - Unspecified fracture of the lower end of left radius, initial encounter for closed fracture Category: Medical Plan History of Present Illness The patient is a 74-year-old female presenting with wrist stiffness and pain. The wrist stiffness has been persistent, with pain improving since the last visit but still present intermittently, particularly with changes in weather and increased use of the fingers. The patient reports that heavy lifting exacerbates the pain, and she experiences a pulling sensation in the wrist. The patient has been experiencing limited range of motion in the wrist, with current measurements showing 30-40 degrees of flexion and 10-15 degrees of extension. She has full and intact pronation and supination, and normal sensation at the tips of all digits, although she previously reported numbness in two fingers, which has improved. Review of Systems - Musculoskeletal: Reports wrist stiffness and pain, limited range of motion - Neurological: Reports previous numbness in fingers, now improved Systems reviewed and are negative except as per HPI and below Physical Exam - Musculoskeletal: Wrist examination revealed 30-40 degrees of flexion and 10-15 degrees of extension, full and intact pronation and supination no tenderness to palpation about the left distal radius - Neurological: Normal sensation at the tips of all digits Results X-rays obtained in the office today and independently reviewed by me, Darryl Alexis PA-C, demonstrate status post left distal radius ORIF with all orthopedic hardware in place and in satisfactory clinical alignment. Procedure Plan The patient will be provided with a Velcro wrist splint to wear during daytime activities to support the wrist and prevent further strain. She is advised to remove the splint while at home relaxing, bathing, and sleeping, and to avoid lifting anything heavier than a cell phone with the affected hand. Occupational therapy is recommended to assist with improving range of motion and function of the wrist. The patient is encouraged to start working on wrist range of motion exercises at home. A follow-up appointment is scheduled in four weeks to assess progress and make any necessary adjustments to the treatment plan. Patient was informed and verbally consented to the use of an ambient scribe for clinic note documentation during this visit. Discussion Notes I discussed with the patient the plan to use a Velcro wrist splint during daytime activities and the importance of removing it during rest and sleep to promote healing and flexibility. We talked about the referral to occupational therapy to aid in improving wrist function and range of motion. I emphasized the need to avoid lifting heavy objects with the affected hand and encouraged her to begin range of motion exercises at home. A follow-up visit was scheduled in four weeks to evaluate her progress. Patient Instructions - Wear the Velcro wrist splint during daytime activities. - Remove the splint while at home relaxing, bathing, and sleeping. - Avoid lifting anything heavier than a cell phone with the affected hand. - Begin wrist range of motion exercises at home. - Attend occupational therapy as scheduled. - Follow up in four weeks for reassessment. Orders: Orders XR wrist LT min 3V Today M25.532 - Pain in left wrist Coding Level of Care Code Global (81036) Diagnoses Fracture of left distal radius S52.502A
== END 2024-10-21 09:53 | disposition home or self-care (01) ==
LOC: HO.HOS 08:55
DX: S52.502A Unspecified fracture of the lower end of left radius, initial encounter for closed fracture (principal)
CPT/HCPCS: 99024

== ENCOUNTER → 2024-10-21 08:58 | Outpatient (BNV) | payer MEDICARE, BC, SELFPAY | PROVIDERS: Visit Provider Radiology Diagnostic Radiology | DX: M25.532 Pain in left wrist (principal) | CPT/HCPCS: 73110 ==

== ENCOUNTER 2024-10-27 08:09 | Outpatient (REF) | payer MEDICARE, BC, SELFPAY ==
--- NOTE | ~2024-10-27 | US_ITS ---
EXAMINATION: US LOWER EXTREMITY VENOUS (REFLUX EXAM), BILATERAL CLINICAL INFORMATION: Varices. COMPARISON: None. TECHNIQUE: Color flow triplex imaging and compression Doppler was performed to evaluate both the deep and the superficial systems bilaterally. To evaluate the superficial system, the examination was performed in the upright position. Color-flow Doppler ultrasound and compression ultrasound were utilized. In addition, maneuvers were utilized to demonstrate reflux. FINDINGS: 1. DEEP VENOUS ULTRASOUND OF THE RIGHT LOWER EXTREMITY: Common Femoral Vein: Compressible, normal respiratory variation and augmented flow. Femoral Vein: Compressible, normal color flow and augmentation. Popliteal Vein: Compressible, normal augmentation. Deep Reflux: There is no evidence of reflux in the deep system in either the common femoral vein, superficial femoral or the popliteal vein. There is no evidence of a Patel's cyst. 2. SUPERFICIAL ULTRASOUND WITH DOPPLER OF RIGHT LOWER EXTREMITY: GREAT SAPHENOUS VEIN: Saphenofemoral Junction: 0.8 cm; Reflux: 0 ms Proximal Thigh: 0.5 cm; Reflux: 0 ms Mid Thigh: 0.4 cm; Reflux: 0 ms Distal Thigh: 0.4 cm; Reflux: 0 ms At Knee: 0.4 cm; Reflux: 0 ms Proximal Calf: 0.4 cm; Reflux: 0 ms Mid Calf: 0.3 cm; Reflux: 1076 ms Distal Calf: 0.4 cm; Reflux: 0 ms DUPLICATED MEDIAL GREAT SAPHENOUS VEIN: Diameter: None imaged Reflux: NA DUPLICATED LATERAL GREAT SAPHENOUS VEIN: Diameter: None imaged Reflux: NA SMALL SAPHENOUS VEIN: Saphenopopliteal Junction: 0.3 cm; Reflux: 0 ms Proximal: 0.3 cm; Reflux: 0 ms Distal: 0.3 cm; Reflux: 0 ms VEIN OF GIACOMINI: Size: NA Reflux: NA PERFORATORS: Location: Mid calf. Size: 0.3 cm. Reflux: NA VARICOSITIES: Location: None imaged. Size: NA Reflux: NA 3. DEEP VENOUS ULTRASOUND OF THE LEFT LOWER EXTREMITY: Common Femoral Vein: Compressible, normal respiratory variation and augmented flow. Femoral Vein: Compressible, normal color flow and augmentation. Popliteal Vein: Compressible, normal augmentation. Deep Reflux: There is no evidence of reflux in the deep system in either the common femoral vein, superficial femoral or the popliteal vein. There is no evidence of a Patel's cyst. 4. SUPERFICIAL ULTRASOUND WITH DOPPLER OF LEFT LOWER EXTREMITY: GREAT SAPHENOUS VEIN: Saphenofemoral Junction: 1.4 cm; Reflux: 740 ms Proximal Thigh: 0.3 cm; Reflux: 0 ms Mid Thigh: 0.5 cm; Reflux: 0 ms Distal Thigh: 0.4 cm; Reflux: 0 ms At Knee: 0.4 cm; Reflux: 0 ms Proximal Calf: 0.4 cm; Reflux: 1900 ms Mid Calf: 0.3 cm; Reflux: 0 ms Distal Calf: 0.3 cm; Reflux: 0 ms DUPLICATED MEDIAL GREAT SAPHENOUS VEIN: Diameter: None imaged Reflux: NA DUPLICATED LATERAL GREAT SAPHENOUS VEIN: Diameter: None imaged. Reflux: NA SMALL SAPHENOUS VEIN: Saphenopopliteal Junction: 0.3 cm; Reflux: 0 ms Proximal: 0.3 cm; Reflux: 0 ms Distal: 0.3 cm; Reflux: 0 ms VEIN OF GIACOMINI: Size: NA Reflux: NA PERFORATORS: Location: Mid calf. Size: 0.2 cm. Reflux: NA VARICOSITIES: Location: Mid thigh and at the knee. Size: 0.4-0.5 cm. Reflux: Range: 2004 ms-3364 ms US/US venous duplex LE BI IMPRESSION: Right: Venous insufficiency, great saphenous vein at the mid calf. Perforators without reflux. Left: Venous insufficiency, great saphenous vein at the junction and below the knee. Varices with reflux around at knee. Perforators without reflux. Electronically signed by: Jace Shah MD 10/27/2024 12:39 PM EDT
--- OUTSIDE RECORDS SUMMARY | 2024-10-27 08:12 | XMS_ITS | Clinical Summary ---
Author Organization [facility] Address [address] [place] [address] Care Team Providers Care Executive Services Administrator Name Role Phone Cameron Sanchez MD Primary Care Provider [phone] Allergies Active Allergy Reactions Criticality Noted Date [...] age to complete this topic Care Teams Executive Services Administrator Relationship Specialty Start Date End Date Cameron Sanchez MD PCP - General Automobile Damage Field Appraiser 11/13/16
--- OUTSIDE RECORDS SUMMARY | 2024-10-27 08:12 | XMS_ITS | Clinical Summary ---
Author Organization [facility] [address] [place] [address] [place] [phone] Phone Care Team Providers Care Transport Manager Name Role Phone Justin Zavala Primary Care Provider [phone] Allergies Active Allergy Reactions Criticality Noted Date [...] 10:00 AM EDT Office Visit Adult Medicine [address] [phone] Justin Zavala PA Closed fracture of distal end of left radius, unspecified fracture morphology, initial encounter (Primary Dx); Fall, subsequent encounter 09/03/2024 Telephone Adult Medicine [address] [phone] Justin Zavala PA Appointment 09/01/2024 Telephone Adult Medicine [address] [phone] Justin Zavala PA broken wrist from Last [...] Left; Mindess TOTAL KNEE ARTHROPLASTY 2014 PROCEDURE: [place] ARTHRP [...] care for your loved ones. For example, attendant child activity or elderly care for an older adult? [...] 7:30 AM EDT Appointment Radiology Department - [place] [address] [place], [place] [phone] 01/26/2025 8:00 AM EDT Office Visit Adult Medicine East - [facility] [address] [place], [place] [phone] Justin Zavala PA [address] [place], [place] Health Maintenance Due Date Last Done [...] mg/dL LAB CHEMISTRY METHOD 03/19/2024 10:39 AM [facility] Triglycerides 132 0 - 150 mg/dL LAB CHEMISTRY METHOD 03/19/2024 10:39 AM [facility] HDL 61 >=40 mg/dL LAB CHEMISTRY METHOD 03/19/2024 10:39 AM [facility] LDL Calculated 68 0 - 100 mg/dL LAB CHEMISTRY METHOD 03/19/2024 10:39 AM [facility] VLDL Cholesterol Jasbir 26.4 mg/dL LAB CHEMISTRY METHOD 03/19/2024 10:39 AM [facility] Non HDL Chol. (LDL+VLDL) 94 <145 mg/dL LAB CHEMISTRY METHOD 03/19/2024 10:39 AM [facility] Chol/HDL Ratio 2.5 0.0 - 4.4 LAB CHEMISTRY METHOD 03/19/2024 10:39 AM [facility] Blood Venous blood specimen / Unknown Venipuncture / Unknown 03/19/2024 7:48 AM EST 03/19/2024 7:48 AM EST Justin BROWN LAB BLOOD ORDERABLES Lois hortencia Result [facility] [address] [place] [address], * Comprehensive metabolic panel (03/19/2024 7:48 AM EST) Sodium 141 133 - 145 mmol/L LAB CHEMISTRY METHOD 03/19/2024 10:39 AM [facility] Potassium 4.2 3.5 - 5.5 mmol/L LAB CHEMISTRY METHOD 03/19/2024 10:39 AM [facility] Chloride 110 96 - 110 mmol/L LAB CHEMISTRY METHOD 03/19/2024 10:39 AM [facility] CO2 27 21 - 32 mmol/L LAB CHEMISTRY METHOD 03/19/2024 10:39 AM [facility] Anion Gap 4 3 - 11 LAB CHEMISTRY METHOD 03/19/2024 10:39 AM [facility] Glucose 100 70 - 100 mg/dL LAB CHEMISTRY METHOD 03/19/2024 10:39 AM [facility] BUN 13 5 - 25 mg/dL LAB CHEMISTRY METHOD 03/19/2024 10:39 AM [facility] Creatinine 0.94 0.50 - 1.10 mg/dL LAB CHEMISTRY METHOD 03/19/2024 10:39 AM [facility] eGFR 63 >=60 mL/min/1. 73m2 LAB CHEMISTRY METHOD 03/19/2024 10:39 AM [facility] Comment:Calculation based on the Chronic Kidney Disease Epidemiology Collaboration (CKD-EPI) equation refit without adjustment for race. BUN/Creatinine Ratio 13.8 LAB CHEMISTRY METHOD 03/19/2024 10:39 AM [facility] Calcium 9.1 8.5 - 10.5 mg/dL LAB CHEMISTRY METHOD 03/19/2024 10:39 AM [facility] AST (SGOT) 16 10 - 42 unit/L LAB CHEMISTRY METHOD 03/19/2024 10:39 AM [facility] ALT (SGPT) 23 10 - 60 unit/L LAB CHEMISTRY METHOD 03/19/2024 10:39 AM [facility] Alkaline Phosphatase 99 42 - 121 unit/L LAB CHEMISTRY METHOD 03/19/2024 10:39 AM [facility] Total Protein 7.0 6.0 - 8.0 g/dL LAB CHEMISTRY METHOD 03/19/2024 10:39 AM [facility] Albumin 3.9 3.2 - 5.0 g/dL LAB CHEMISTRY METHOD 03/19/2024 10:39 AM [facility] Total Bilirubin 0.5 0.0 - 1.4 mg/dL LAB CHEMISTRY METHOD 03/19/2024 10:39 AM [facility] Blood Venous blood specimen / Unknown Venipuncture / Unknown 03/19/2024 7:48 AM EST 03/19/2024 7:48 AM EST Justin BROWN LAB BLOOD ORDERABLES Lois l Result [facility] [address] [place] [address], * SCREENING MAMMOGRAPHY BI 2-VIEW BREAST INC [...] normal bone density by WHO criteria. The [facility] Department of Internal Medicine recommends [...] alternative screening schedule based on nick Ceballos., [facility] May 04, 2011 for patients with osteopenia [...] normal bone density by WHO criteria. The [facility] Department of Internal Medicine recommendsusing [...] alternative screening schedule based on nick Ceballos., [facility]January 2011 for patients with osteopenia (based on hip BMD T-score) is as follows: * advanced osteopenia (T scores -2.00 to -2.49), BMD testing every year * moderate osteopenia (T scores -1.50 to -1.99), BMD testing every 5years mild osteopenia or normal BMD (T scores -1.50 and higher), BMD testingevery 15 years Justin BROWN G DXA PROCEDURES Final Result * Hepatitis C Screening (02/12/2014) [facility] Hepatitis C Screening Abstracted Historical Provider HEALTH MAINTENANCE Final Result from Last 3 Months or Most Recently Relevant to Health Maintenance Insurance MEDICARE [facility] Advance Directives Documents on File Type Date Recorded Patient Collar Trimmer Expl anation Health Care Decision (hx) 11/01/2021 AD SEBASTIAN DIRECTIVE Health Care Decision (hx) 11/01/2021 AD SEBASTIAN DIRECTIVE Health Care Decision (hx) 11/01/2021 AD SEBASTIAN DIRECTIVE Care Teams Transport Manager Relationship Specialty Start Date End Date Justin Zavala PA [address] [place] [id number] PCP - General Internal Medicine 06/23/20
== END 2024-10-27 08:10 | disposition home or self-care (01) ==
LOC: HO.US 08:09
PROVIDERS: Visit Provider Surgery Vascular Surgery
DX: I83.12 Varicose veins of left lower extremity with inflammation (principal)
CPT/HCPCS: 93970

== ENCOUNTER → 2024-10-27 08:11 | Outpatient (BNV) | payer MEDICARE, BC, SELFPAY | PROVIDERS: Visit Provider Radiology Diagnostic Radiology | DX: I83.893 Varicose veins of bilateral lower extremities with other complications (principal) | CPT/HCPCS: 93970 ==

== ENCOUNTER 2024-11-11 08:34 | Outpatient (AMB) | payer MEDICARE, BC, SELFPAY ==
--- OUTSIDE RECORDS SUMMARY | 2024-11-11 08:50 | XMS_ITS | Clinical Summary ---
Author Organization [facility] Address [address] [place] [address] Care Team Providers Care Handicapper [employer] Name Role Phone Cameron Sanchez MD Primary Care Provider [phone] Allergies Active Allergy Reactions Criticality Noted Date [...] age to complete this topic Care Teams Handicapper [employer] Relationship Specialty Start Date End Date Cameron Sanchez MD PCP - General Conference Specialist 11/13/16
--- OUTSIDE RECORDS SUMMARY | 2024-11-11 08:50 | XMS_ITS | Clinical Summary ---
Author Organization [facility] [address] [place] [address] [place] [phone] Phone Care Team Providers Care Third Grade Teacher Name Role Phone Justin Zavala Primary Care Provider [phone] Allergies Active Allergy Reactions Criticality Noted Date [...] 10:00 AM EDT Office Visit Adult Medicine [address] [phone] Justin Zavala PA Closed fracture of distal end of left radius, unspecified fracture morphology, initial encounter (Primary Dx); Fall, subsequent encounter 09/03/2024 Telephone Adult Medicine [address] [phone] Justin Zavala PA Appointment 09/01/2024 Telephone Adult Medicine [address] [phone] Justin Zavala PA broken wrist from Last [...] Surgery Date Site/Laterality Comments GASTRIC BYPASS PROCEDURE: MT GASTRIC RSTCV W/BYP W/SM INT RCNSTJ LIMIT ABSRPJ; COMMENT: 2004 dr rodriguez OTHER SURGICAL HISTORY PROCEDURE: MT EXC PRTD NICHOL/PRTD GLND LAT LOBE W/O NRV DSJ; COMMENT: 3 tumors, left COLONOSCOPY 12/23/2007 PROCEDURE: HISTORICAL COLONOSCOPY; COMMENT: diverticulosis; repeat in ten years HAND SURGERY PROCEDURE: HISTORICAL HAND SURGERY; COMMENT: thumb arthoplasty bilateral CARPAL TUNNEL RELEASE PROCEDURE: MT NEUROPLASTY &/TRANSPOS MEDIAN NRV CARPAL TUNNE; COMMENT: left KNEE ARTHROSCOPY 01/20/2011 PROCEDURE: MT ARTHROSCOPY KNEE DIAGNOSTIC W/WO SYNOVIAL BX SPX; COMMENT: Left; Mindess TOTAL KNEE ARTHROPLASTY 2014 PROCEDURE: MT ARTHRP KNE CONDYLE&PLATU MEDIAL&LAT COMPARTMENTS; COMMENT: left dr edward TOTAL KNEE ARTHROPLASTY 2015 PROCEDURE: MT ARTHRP KNE CONDYLE&PLATU MEDIAL&LAT COMPARTMENTS; COMMENT: right COLONOSCOPY 08/21/2018 PROCEDURE: HISTORICAL COLONOSCOPY; COMMENT: negative OTHER SURGICAL HISTORY 09/2019 PROCEDURE: MT ANES ARTHROSCOPIC TOTAL SHOULDER REPLACEMENT; COMMENT: R OTHER SURGICAL HISTORY 11/01/2021 Left PROCEDURE: MT ANES ARTHROSCOPIC TOTAL SHOULDER REPLACEMENT; COMMENT: reverse [...] care for your loved ones. For example, children's tutor nursery or elderly care for an older adult? [...] 7:30 AM EDT Appointment Radiology Department - [place] [address] [place], [place] [phone] 01/26/2025 8:00 AM EDT Office Visit Adult Medicine East - [place] [address] [place], [place] [phone] Justin Zavala PA [address] [place], [place] Health Maintenance Due Date Last Done Comments COVID-19 Vaccine ( season) 2023 07/26/2021, 02/11/2021, 07/15/2020, Additional history exists Influenza Vaccine (#1) 2024 , 12/07/2022, 12/08/2021, Additional history exists Hypertension/CHF/CAD Annual BMP Blood Test 03/19/2025 03/19/2024, 09/26/2023, 09/26/2023 Falls Risk Assessment 07/18/2025 07/18/2024, 025 Medicare [...] Discontinued 08/24/19, 08/24/2023, 03/07/2022, Additional history exists Depression Screening Completed 07/18/2024, 07/18/19 RSV Immunization Adult Patients Completed 07/23/2024 HIB [...] Anatomical Region Laterality Modality Radiographic Any ging Provider [facility] IMG XR PROCEDURES Final Result * Lipid panel with reflex to direct LDL (03/19/2024 7:48 AM EST) Cholesterol 155 0 - 200 mg/dL LAB CHEMISTRY METHOD 03/19/2024 10:[address] [facility] Triglycerides 132 0 - 150 mg/dL LAB CHEMISTRY METHOD 03/19/2024 10:[address] [facility] HDL 61 >=40 mg/dL LAB CHEMISTRY METHOD 03/19/2024 10:[address] [facility] LDL Calculated 68 0 - 100 mg/dL LAB CHEMISTRY METHOD 03/19/2024 10:[address] [facility] VLDL Cholesterol Jasbir 26.4 mg/dL LAB CHEMISTRY METHOD 03/19/2024 10:[address] [facility] Non HDL Chol. (LDL+VLDL) 94 <145 mg/dL LAB CHEMISTRY METHOD 03/19/2024 10:[address] [facility] Chol/HDL Ratio 2.5 0.0 - 4.4 LAB CHEMISTRY METHOD 03/19/2024 10:[address] [facility] Blood Venous blood specimen / Unknown Venipuncture / Unknown 03/19/2024 7:48 AM EST 03/19/2024 7:48 AM EST uJstin BROWN LAB BLOOD ORDERABLES Lois l Result [facility] [address] [place] [address], * Comprehensive metabolic panel (03/19/2024 7:48 AM EST) Sodium 141 133 - 145 mmol/L LAB CHEMISTRY METHOD 03/19/2024 10:[address] [facility] Potassium 4.2 3.5 - 5.5 mmol/L LAB CHEMISTRY METHOD 03/19/2024 10:[address] [facility] Chloride 110 96 - 110 mmol/L LAB CHEMISTRY METHOD 03/19/2024 10:[address] [facility] CO2 27 21 - 32 mmol/L LAB CHEMISTRY METHOD 03/19/2024 10:[address] [facility] Anion Gap 4 3 - 11 LAB CHEMISTRY METHOD 03/19/2024 10:[address] [facility] Glucose 100 70 - 100 mg/dL LAB CHEMISTRY METHOD 03/19/2024 10:[address] [facility] BUN 13 5 - 25 mg/dL LAB CHEMISTRY METHOD 03/19/2024 10:[address] [facility] Creatinine 0.94 0.50 - 1.10 mg/dL LAB CHEMISTRY METHOD 03/19/2024 10:[address] [facility] eGFR 63 >=60 mL/min/1. 73m2 LAB CHEMISTRY METHOD 03/19/2024 10:[address] [facility] Comment:Calculation based on the Chronic Kidney Disease Epidemiology Collaboration (CKD-EPI) equation refit without adjustment for race. BUN/Creatinine Ratio 13.8 LAB CHEMISTRY METHOD 03/19/2024 10:[address] [facility] Calcium 9.1 8.5 - 10.5 mg/dL LAB CHEMISTRY METHOD 03/19/2024 10:[address] [facility] AST (SGOT) 16 10 - 42 unit/L LAB CHEMISTRY METHOD 03/19/2024 10:[address] [facility] ALT (SGPT) 23 10 - 60 unit/L LAB CHEMISTRY METHOD 03/19/2024 10:[address] [facility] Alkaline Phosphatase 99 42 - 121 unit/L LAB CHEMISTRY METHOD 03/19/2024 10:[address] [facility] Total Protein 7.0 6.0 - 8.0 g/dL LAB CHEMISTRY METHOD 03/19/2024 10:[address] [facility] Albumin 3.9 3.2 - 5.0 g/dL LAB CHEMISTRY METHOD 03/19/2024 10:[address] [facility] Total Bilirubin 0.5 0.0 - 1.4 mg/dL LAB CHEMISTRY METHOD 03/19/2024 10:[address] [facility] Blood Venous blood specimen / Unknown Venipuncture / Unknown 03/19/2024 7:48 AM EST 03/19/2024 7:48 AM EST Justin BROWN LAB BLOOD ORDERABLES Lois burnett Result [facility] [address] [place] [address], * SCREENING MAMMOGRAPHY BI 2-VIEW BREAST INC [...] months. BI-RADS: Category 1: Negative us Juanita Francisco BROWN IMG XR PROCEDURES Final Result * [...] normal bone density by WHO criteria. The [facility] Department of Internal Medicine recommends [...] alternative screening schedule based on nick Ceballos., [facility] May 04, 2011 for patients with osteopenia [...] normal bone density by WHO criteria. The [facility] Department of Internal Medicine recommendsusing [...] FRAX. Optional alternative screening schedule based on safia Ceballos al., NEJMJanuary 2011 for patients with osteopenia (based on hip BMD T-score) is as follows: * advanced osteopenia (T scores -2.00 to -2.49), BMD testing every year * moderate osteopenia (T scores -1.50 to -1.99), BMD testing every 5years mild osteopenia or normal BMD (T scores -1.50 and higher), BMD testingevery 15 years Justin BRWON Eduardo DXA PROCEDURES Final Result * Hepatitis C Screening (02/12/2014) [facility] Hepatitis C Screening Abstracted Historical Provider HEALTH MAINTENANCE Final Result from Last 3 Months or Most Recently Relevant to Health Maintenance Insurance MEDICARE [facility] Advance Directives Documents on File Type Date Recorded 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
--- OUTSIDE RECORDS SUMMARY | 2024-11-11 08:50 | XMS_ITS ---
Author Name [facility] Organization Unknown Care Team Organization Name Specialty Phone Email Start Date End Da te [facility] Termed, PROVIDER Primary Care 09/22/202211/14 [facility] Justin Zavala Primary Care 04/24/2022 [facility] Kathe Dalton Primary Care 02/21/2022 024
--- NOTE | 2024-11-11 08:57 | A.OFFVIS_ITS ---
Vital Signs 11/11/24 08:59 Height 5 ft 8 in Weight 292 lb BMI 44.4 Intake Visit Reasons: follow up s/p 10/27/24 Intake Note: US 10/27/24 for Left LE VV w/ pain and throbbing, more with ambulation or standing. Also has Left LE swelling. Insulation Estimator Required: No Accompanied by: Self / Same As Patient Allergies CARLOZ Inhibitors Allergy (Intermediate, Verified 11/11/24 09:02) Cough adhesive tape (ADHESIVE TAPE) Allergy (Intermediate, Verified 11/11/24 09:02) RASH gabapentin Allergy (Intermediate, Verified 11/11/24 09:02) Nausea grass pollen Allergy (Intermediate, Verified 11/11/24 09:02) Itching house dust mite Allergy (Intermediate, Verified 11/11/24 09:02) Itching lactose (LACTOSE) Allergy (Intermediate, Verified 11/11/24 09:02) GI UPSET mold Allergy (Intermediate, Verified 11/11/24 09:02) Itching ragweed pollen Allergy (Intermediate, Verified 11/11/24 09:02) Itching tree and shrub pollen Allergy (Intermediate, Verified 11/11/24 09:02) Itching blueberry (BLUEBERRY) Adverse Reaction (Intermediate, Verified 11/11/24 09:02) VOMITING doxycycline (From VIBRAMYCIN) Adverse Reaction (Intermediate, Verified 11/11/24 09:02) GI ISSUES lisinopril (From ZESTRIL) Adverse Reaction (Intermediate, Verified 11/11/24 09:02) COUGH procaine (From NOVOCAIN) Adverse Reaction (Intermediate, Verified 11/11/24 09:02) EXCESS NUMBING theophylline (THEOPHYLLINE) Adverse Reaction (Intermediate, Verified 11/11/24 09:02) DIZZINESS CAT GUT SUTURES Allergy (Intermediate, Uncoded 11/11/24 09:02) DO NOT DISSOLVE DERMABOND Adverse Reaction (Severe, Uncoded 11/11/24 09:02) RASH CHOCOLATE Adverse Reaction (Intermediate, Uncoded 11/11/24 09:02) VOMITING HPI HPI follow up s/p 10/27/24: Details: The patient is a 74-year-old female presenting with a fracture of the wrist being managed by Orthopedics and varicose veins. The patient reports a fall in her yard, which resulted in a wrist fracture in three places, necessitating the placement of a plate and eight screws. The inj ury occurred on September 11, and she has since had the cast removed after eight weeks of immobilization. The patient also reports significant aching around the knee due to varicose veins, which was exacerbated during her recovery period when she was less active. She now presents to us for follow-up with venous insufficiency testing [facility] Medical History Disorders of bursae and tendons in shoulder region, unspecified Hearing loss GERD (gastroesophageal reflux disease) Obesity Carpal tunnel syndrome Hypertension Hypercholesteremia Hypothyroidism Asthma Surgical History H/O parotidectomy History of revision of total shoulder arthroplasty Hx of gastric bypass Cataracts, both eyes History of cholecystectomy History of total left knee replacement History of total right knee replacement Family History Mother No problems noted. Father No problems noted. Social History Are you a primary career based intervention coordinator to a significant other at home: No Do you presently have visiting nurse or other home services: No Alcohol intake: never Patient Tobacco Use Status: Former Tobacco user Tobacco use type: Cigarette Years Smoked: 23 Current occupation: [employer] Review of Systems Const All systems reviewed & are unremarkable except as noted in HPI and below Reports no additional complaints ENT Reports Normal hearing present Card Denies chest pain, Denies chest pain at rest, Denies chest pain with activity and Denies pedal edema Resp Denies cough GI Denies abdominal pain Musc Denies abnormal gait, Denies muscle cramps and Denies radiating pain into limb Skin/Breast Denies skin ulcer and Denies wounds Neuro Reports Normal hearing present and Denies abnormal gait Psych Reports no additional complaints Physical Exam Vital Signs: BMI result Body Mass Index 44.4 Const General: cooperative, healthy appearing and comfortable Orientation/consciousness: oriented to person, oriented to place and oriented to time HEENT Head: Yes normal to inspection Neck Neck: Yes normal visual inspection Carotids: no bruits Chest Chest palpation & inspection: normal inspection of the chest Resp Effort & Inspection: normal respiratory effort and able to speak in complete sentences Auscultation: clear to auscultation bilaterally, no crackles, no rales, no rhonchi and no wheezes Cardio Rate: regular rate Rhythm: regular rhythm Heart sounds: S1 normal heart sound present and S2 normal heart sound present Bruits: no carotid bruits Peripheral pulses: Peripheral pulses 2+ throughout GI Inspection: Yes normal to inspection Skin Wounds: no wounds Hair: normal Neuro General: oriented to person, oriented to place and oriented to time Cranial nerves: Yes CN's II-XII intact bilaterally and Yes Normal hearing present Cognition (Neuro): normal cognition Motor exam (neuro): 5/5 motor strength present throughout Extrem Other: venous exam: Large cluster of varicosities at left knee measuring greater than 4 mm. There is visible skin changes. General: No clubbing, No cyanosis and No edema Psych Appearance: grossly normal Mental Status: mental status grossly normal Speech and movement: Normal speech and movement present Results Reviewed Results Reviewed: Brief summary of venous insufficiency testing is as follows: right great saphenous vein: negative right small saphenous vein: negative right accessory vein: none present left great saphenous vein: negative left small saphenous vein: negative left accessory vein: none present Please note there is no evidence of any venous aneurysms or significant tortuosity Assessment & Plan Assessment & Plan (1) Varicose veins of left lower extremity with inflammation: Code(s): I83.12 - Varicose veins of left lower extremity with inflammation Category: Medical Plan: This patient has varicose veins with inflammation. They continue to be a source of discomfort for the patient. The patient has tried conservative treatment with compression, leg elevation and exercise program for over 3 months time. They have been compliant with all treatment. This has provided minimal relief for the patient. I do not anticipate this course of treatment will alter the underlying etiology. The patient has been scheduled for lower extremity venous treatment inclusive of --- left leg microphlebectomy. Risks, benefits, and complications of this procedure has been discussed in detail with the patient including but not limited to bleeding, infection, and the development of a DVT. The patient has demonstrated a clear understanding and has consented. We will schedule the patient as soon as possible. Thank you for allowing us to participate in this patient's care. If there are any questions or concerns please do not hesitate to contact us. Coding Level of Care Code Est Pt Level 4 (72386) Diagnoses Varicose veins of left lower extremity with inflammation I83.12
[2024-11-11 08:59] VITALS: BMI 44.4
== END 2024-11-11 09:46 | disposition home or self-care (01) ==
LOC: HO.HVS 08:34
PROVIDERS: Visit Provider Surgery Vascular Surgery
DX: I83.12 Varicose veins of left lower extremity with inflammation (principal)
CPT/HCPCS: 99214

== ENCOUNTER → 2024-11-11 08:34 | Outpatient (BNVA) | payer MEDICARE, BC, SELFPAY | PROVIDERS: Visit Provider Surgery Vascular Surgery | DX: I83.12 Varicose veins of left lower extremity with inflammation (principal) | CPT/HCPCS: 99212 ==

== ENCOUNTER 2024-11-19 09:14 | Outpatient (AMB) | payer MEDICARE, BC, SELFPAY ==
[2024-11-19 09:21] VITALS: BMI 44.4
--- NOTE | 2024-11-19 09:21 | A.OFFVIS_ITS ---
Vital Signs 11/19/24 09:21 Height 5 ft 8 in Weight 292 lb BMI 44.4 Intake Visit Reasons: PO-Left dirtal radius-w/xrays 09/11/24 AR Intake Note: Cornelia is a 74 year old right hand dominant female who presents today post- operatively status post left distal radius fracture ORIF, DOS: 09/11/[address] Bustamante. At their last post-operative visit, patient was instructed to wear her velcro wrist brace during daytime activities and to remove it while at home relaxing, bathing, and sleeping. She was advised to avoid lifting anything heavier than a cell phone and to begin wrist range of motion exercises at home. Patient was reminded to attend occupational therapy as scheduled. Today patient reports she has not started occupational therapy, has been doing exercises at home. Denies pain, numbness, and tingling. No pain medications at time. Allergies CARLOZ Inhibitors Allergy (Intermediate, Verified 11/25/24 08:17) Cough adhesive tape (ADHESIVE TAPE) Allergy (Intermediate, Verified 11/25/24 08:17) RASH gabapentin Allergy (Intermediate, Verified 11/25/24 08:17) Nausea grass pollen Allergy (Intermediate, Verified 11/25/24 08:17) Itching house dust mite Allergy (Intermediate, Verified 11/25/24 08:17) Itching lactose (LACTOSE) Allergy (Intermediate, Verified 11/25/24 08:17) GI UPSET mold Allergy (Intermediate, Verified 11/25/24 08:17) Itching ragweed pollen Allergy (Intermediate, Verified 11/25/24 08:17) Itching tree and shrub pollen Allergy (Intermediate, Verified 11/25/24 08:17) Itching blueberry (BLUEBERRY) Adverse Reaction (Intermediate, Verified 11/25/24 08:17) VOMITING doxycycline (From VIBRAMYCIN) Adverse Reaction (Intermediate, Verified 11/25/24 08:17) GI ISSUES lisinopril (From ZESTRIL) Adverse Reaction (Intermediate, Verified 11/25/24 08:17) COUGH procaine (From NOVOCAIN) Adverse Reaction (Intermediate, Verified 11/25/24 08:17) EXCESS NUMBING theophylline (THEOPHYLLINE) Adverse Reaction (Intermediate, Verified 11/25/24 08:17) DIZZINESS CAT GUT SUTURES Allergy (Intermediate, Uncoded 11/11/24 09:02) DO NOT DISSOLVE DERMABOND Adverse Reaction (Severe, Uncoded 11/11/24 09:02) RASH CHOCOLATE Adverse Reaction (Intermediate, Uncoded 11/11/24 09:02) VOMITING HPI HPI PO-Left dirtal radius-w/xrays 09/11/24 AR: Details: Cornelia is a 74 year old right hand dominant female who presents today post- operatively status post left distal radius fracture ORIF, DOS: 09/11/[address] Bustamante. At their last post-operative visit, patient was instructed to wear her velcro wrist brace during daytime activities and to remove it while at home relaxing, bathing, and sleeping. She was advised to avoid lifting anything heavier than a cell phone and to begin wrist range of motion exercises at home. Patient was reminded to attend occupational therapy as scheduled. Today patient reports she has not started occupational therapy, has been doing exercises at home. Denies pain, numbness, and tingling. No pain medications at time. [facility] Medical History Disorders of bursae and tendons in shoulder region, unspecified Hearing loss GERD (gastroesophageal reflux disease) Obesity Carpal tunnel syndrome Hypertension Hypercholesteremia Hypothyroidism Asthma Surgical History H/O parotidectomy History of revision of total shoulder arthroplasty Hx of gastric bypass Cataracts, both eyes History of cholecystectomy History of total left knee replacement History of total right knee replacement Family History Mother No problems noted. Father No problems noted. Social History Are you a primary health care technician to a significant other at home: No Do you presently have visiting nurse or other home services: No Alcohol intake: never Patient Tobacco Use Status: Former Tobacco user Tobacco use type: Cigarette Years Smoked: 23 Current occupation: [employer] Review of Systems Const All systems reviewed & are unremarkable except as noted in HPI and below Physical Exam Vital Signs: BMI result Body Mass Index 44.4 Const General: cooperative, healthy appearing and no acute distress Orientation/consciousness: oriented to person and oriented to place HEENT Head: Yes normocephalic and Yes atraumatic Eyes EOM: EOMs intact bilaterally Resp Effort & Inspection: normal respiratory effort and able to speak in complete sentences Cardio Jugular venous distension: no JVD Skin General skin exam: turgor normal Rashes: no rashes Neuro General: oriented to person and oriented to place Extrem Other: Evaluation of left Upper Extremity: The patient was alert oriented and in no acute distress. She ambulates with a cane. Sensation is intact to the tips of all digits today in clinic With encouragement she can make a fist and extend all of her digits No further edema or ecchymosis noted of the left wrist Incision site clean, dry, intact, no erythema, ecchymosis, evidence of infection No further tenderness to palpation about the left distal radius No tenderness about the elbow and she can actively flex and extend about the elbow Patient is able to flex the left wrist to approximately 50 degrees and extend to approximately 30 Psych Appearance: grossly normal Affect: normal affect Attitude: cooperative Assessment & Plan Assessment & Plan (1) Fracture of left distal radius: Code(s): S52.502A - Unspecified fracture of the lower end of left radius, initial encounter for closed fracture Category: Medical Plan Plan The patient will be provided with a Velcro wrist splint to wear during daytime activities to support the wrist and prevent further strain. She is advised to remove the splint while at home relaxing, bathing, and sleeping, and to avoid lifting anything heavier than a cell phone with the affected hand. Occupational therapy is recommended to assist with improving range of motion and function of the wrist. The patient is encouraged to start working on wrist range of motion exercises at home. A follow-up appointment is scheduled in four weeks to assess progress and make any necessary adjustments to the treatment plan. Discussion Notes I discussed with the patient the plan to use a Velcro wrist splint during higher risk daytime activities and the importance of removing it during rest and sleep to promote healing and flexibility. We talked about the referral to occupational therapy to aid in improving wrist function and range of motion. I emphasized the need to avoid lifting heavy objects with the affected hand and encouraged her to begin range of motion exercises at home. A follow-up visit was scheduled in four weeks to evaluate her progress. Patient Instructions - Wear the Velcro wrist splint during daytime activities. - Remove the splint while at home relaxing, bathing, and sleeping. - Avoid lifting anything heavier than a cell phone with the affected hand. - Begin wrist range of motion exercises at home. - Attend occupational therapy as scheduled. - Follow up in four weeks for reassessment. Coding Level of Care Code Global (74502) Diagnoses Fracture of left distal radius S52.502A
--- OUTSIDE RECORDS SUMMARY | 2024-11-19 09:33 | XMS_ITS | Clinical Summary ---
Author Organization [facility] [address] [place] [address] [place] [phone] Phone Care Team Providers Care Production Control Expediter Name Role Phone Justin Zavala Primary Care Provider [phone] Allergies Active Allergy Reactions Criticality Noted Date [...] 10:00 AM EDT Office Visit Adult Medicine [address] [phone] Justin Zavala PA Closed fracture of distal end of left radius, unspecified fracture morphology, initial encounter (Primary Dx); Fall, subsequent encounter 09/03/2024 Telephone Adult Medicine [address] [phone] Justin Zavala PA Appointment 09/01/2024 Telephone Adult Medicine [address] [phone] Justin Zavala PA broken wrist from Last [...] Surgery Date Site/Laterality Comments GASTRIC BYPASS PROCEDURE: NM GASTRIC RSTCV W/BYP W/SM INT RCNSTJ LIMIT ABSRPJ; COMMENT: 2004 dr rodriguez OTHER SURGICAL HISTORY PROCEDURE: NM EXC PRTD NICHOL/PRTD GLND LAT LOBE W/O NRV DSJ; COMMENT: 3 tumors, left COLONOSCOPY 12/23/2007 PROCEDURE: HISTORICAL COLONOSCOPY; COMMENT: diverticulosis; repeat in ten years HAND SURGERY PROCEDURE: HISTORICAL HAND SURGERY; COMMENT: thumb arthoplasty bilateral CARPAL TUNNEL RELEASE PROCEDURE: NM NEUROPLASTY &/TRANSPOS MEDIAN NRV CARPAL TUNNE; COMMENT: left KNEE ARTHROSCOPY 01/20/2011 PROCEDURE: NM ARTHROSCOPY KNEE DIAGNOSTIC W/WO SYNOVIAL BX SPX; COMMENT: Left; Mindess TOTAL KNEE ARTHROPLASTY 2014 PROCEDURE: NM ARTHRP KNE CONDYLE&PLATU MEDIAL&LAT COMPARTMENTS; COMMENT: left dr edward TOTAL KNEE ARTHROPLASTY 2015 PROCEDURE: NM ARTHRP KNE CONDYLE&PLATU MEDIAL&LAT COMPARTMENTS; COMMENT: right COLONOSCOPY 08/21/2018 PROCEDURE: HISTORICAL COLONOSCOPY; COMMENT: negative OTHER SURGICAL HISTORY 09/2019 PROCEDURE: NM ANES ARTHROSCOPIC TOTAL SHOULDER REPLACEMENT; COMMENT: R OTHER SURGICAL HISTORY 11/01/2021 Left PROCEDURE: NM ANES ARTHROSCOPIC TOTAL SHOULDER REPLACEMENT; COMMENT: reverse [...] your loved ones. For example, early childhood worker or elderly care for an older adult? [...] 7:30 AM EDT Appointment Radiology Department - [place] [address] [place], [place] [phone] 01/26/2025 8:00 AM EDT Office Visit Adult Medicine [facility] - [place] [address], [place] [phone] Justin Zavala PA [address], [place] Health Maintenance Due Date Last Done [...] mg/dL LAB CHEMISTRY METHOD 03/19/2024 10:39 AM [facility] Triglycerides 132 0 - 150 mg/dL LAB CHEMISTRY METHOD 03/19/2024 10:39 AM [facility] HDL 61 >=40 mg/dL LAB CHEMISTRY METHOD 03/19/2024 10:39 AM [facility] LDL Calculated 68 0 - 100 mg/dL LAB CHEMISTRY METHOD 03/19/2024 10:39 AM [facility] VLDL Cholesterol Jasbir 26.4 mg/dL LAB CHEMISTRY METHOD 03/19/2024 10:39 AM [facility] Non HDL Chol. (LDL+VLDL) 94 <145 mg/dL LAB CHEMISTRY METHOD 03/19/2024 10:39 AM [facility] Chol/HDL Ratio 2.5 0.0 - 4.4 LAB CHEMISTRY METHOD 03/19/2024 10:39 AM [facility] Blood Venous blood specimen / Unknown Venipuncture / Unknown 03/19/2024 7:48 AM EST 03/19/2024 7:48 AM EST Justin BROWN LAB BLOOD ORDERABLES Lois l Result [facility] [address] [place] [address], * Comprehensive metabolic panel (03/19/2024 7:48 AM EST) Sodium 141 133 - 145 mmol/L LAB CHEMISTRY METHOD 03/19/2024 10:39 AM [facility] Potassium 4.2 3.5 - 5.5 mmol/L LAB CHEMISTRY METHOD 03/19/2024 10:39 AM [facility] Chloride 110 96 - 110 mmol/L LAB CHEMISTRY METHOD 03/19/2024 10:39 AM [facility] CO2 27 21 - 32 mmol/L LAB CHEMISTRY METHOD 03/19/2024 10:39 AM [facility] Anion Gap 4 3 - 11 LAB CHEMISTRY METHOD 03/19/2024 10:39 AM [facility] Glucose 100 70 - 100 mg/dL LAB CHEMISTRY METHOD 03/19/2024 10:39 AM [facility] BUN 13 5 - 25 mg/dL LAB CHEMISTRY METHOD 03/19/2024 10:39 AM [facility] Creatinine 0.94 0.50 - 1.10 mg/dL LAB CHEMISTRY METHOD 03/19/2024 10:39 AM [facility] eGFR 63 >=60 mL/min/1. 73m2 LAB CHEMISTRY METHOD 03/19/2024 10:39 AM [facility] Comment:Calculation based on the Chronic Kidney Disease Epidemiology Collaboration (CKD-EPI) equation refit without adjustment for race. BUN/Creatinine Ratio 13.8 LAB CHEMISTRY METHOD 03/19/2024 10:39 AM [facility] Calcium 9.1 8.5 - 10.5 mg/dL LAB CHEMISTRY METHOD 03/19/2024 10:39 AM [facility] AST (SGOT) 16 10 - 42 unit/L LAB CHEMISTRY METHOD 03/19/2024 10:39 AM [facility] ALT (SGPT) 23 10 - 60 unit/L LAB CHEMISTRY METHOD 03/19/2024 10:39 AM [facility] Alkaline Phosphatase 99 42 - 121 unit/L LAB CHEMISTRY METHOD 03/19/2024 10:39 AM [facility] Total Protein 7.0 6.0 - 8.0 g/dL LAB CHEMISTRY METHOD 03/19/2024 10:39 AM [facility] Albumin 3.9 3.2 - 5.0 g/dL LAB CHEMISTRY METHOD 03/19/2024 10:39 AM [facility] Total Bilirubin 0.5 0.0 - 1.4 mg/dL LAB CHEMISTRY METHOD 03/19/2024 10:39 AM [facility] Blood Venous blood specimen / Unknown Venipuncture / Unknown 03/19/2024 7:48 AM EST 03/19/2024 7:48 AM EST Justin BROWN LAB BLOOD ORDERABLES Lois burn[place] Result [facility] [address] [place] [address], * SCREENING MAMMOGRAPHY BI 2-VIEW BREAST INC [...] normal bone density by WHO criteria. [facility] Department of Internal Medicine recommends [...] alternative screening schedule based on nick Ceballos., [facility] May 04, 2011 for patients [...] normal bone density by WHO criteria. [facility] Department of Internal Medicine recommendsusing [...] higher), BMD testingevery 15 years Justin BROWN Eduardo DXA PROCEDURES Final Result * Hepatitis C Screening (02/12/2014) [facility] Hepatitis C Screening Abstracted Historical Provider HEALTH MAINTENANCE Final Result from Last 3 Months or Most Recently Relevant to Health Maintenance Insurance MEDICARE [facility] Advance Directives Documents on File Type Date Recorded Patient Specialist Icu Expl anation Health Care Decision (hx) 11/01/2021 AD SEBASTIAN DIRECTIVE Health Care Decision (hx) 11/01/2021 AD SEBASTIAN DIRECTIVE Health Care Decision (hx) 11/01/2021 AD SEBASTIAN DIRECTIVE Care Teams Production Control Expediter Relationship Specialty Start Date End Date Justin Zavala PA [address] [place] [id number] PCP - General Internal Medicine 06/23/20
--- OUTSIDE RECORDS SUMMARY | 2024-11-19 09:33 | XMS_ITS | Clinical Summary ---
Author Organization [facility] Address [address] [place] [address] Care Team Providers Care Alliances Consultant Name Role Phone Cameron Sanchez MD Primary Care Provider [phone] Allergies Active Allergy Reactions Criticality Noted Date [...] age to complete this topic Care Teams Alliances Consultant Relationship Specialty Start Date End Date Cameron Sanchez MD PCP - General Nursing Tech 11/13/16
== END 2024-11-19 09:53 | disposition home or self-care (01) ==
LOC: HO.HOS 09:15
DX: S52.502A Unspecified fracture of the lower end of left radius, initial encounter for closed fracture (principal)
CPT/HCPCS: 99024

== ENCOUNTER → 2024-11-19 09:14 | Outpatient (BNVA) | payer MEDICARE, BC, SELFPAY | DX: S52.502D Unspecified fracture of the lower end of left radius, subsequent encounter for closed fracture with routine healing (principal); Z96.7 Presence of other bone and tendon implants | CPT/HCPCS: 99212 ==

== ENCOUNTER 2024-11-25 08:08 | Outpatient (AMB) | payer MEDICARE, BC, SELFPAY ==
--- NOTE | 2024-11-25 08:12 | A.OFFVIS_ITS ---
Vital Signs 11/25/24 08:17 Height 5 ft 8 in Weight 295 lb BMI 44.8 Intake Visit Reasons: Bilateral hip pain Intake Note: Cornelia is a 74 year old female who presents with complaints of bilateral hip pains. She describes her pains as sharp in nature. She has been to formal physical therapy which gave her minimal relief. She has also tried Tylenol and anti-inflammatory medicines which gave her only mild relief. She denies any numbness or tingling in either lower extremity. She is due to have a pain procedure performed on her left lower extremity by Dr. Tinsley next month. Allergies CARLOZ Inhibitors Allergy (Intermediate, Verified 11/25/24 08:17) Cough adhesive tape (ADHESIVE TAPE) Allergy (Intermediate, Verified 11/25/24 08:17) RASH gabapentin Allergy (Intermediate, Verified 11/25/24 08:17) Nausea grass pollen Allergy (Intermediate, Verified 11/25/24 08:17) Itching house dust mite Allergy (Intermediate, Verified 11/25/24 08:17) Itching lactose (LACTOSE) Allergy (Intermediate, Verified 11/25/24 08:17) GI UPSET mold Allergy (Intermediate, Verified 11/25/24 08:17) Itching ragweed pollen Allergy (Intermediate, Verified 11/25/24 08:17) Itching tree and shrub pollen Allergy (Intermediate, Verified 11/25/24 08:17) Itching blueberry (BLUEBERRY) Adverse Reaction (Intermediate, Verified 11/25/24 08:17) VOMITING doxycycline (From VIBRAMYCIN) Adverse Reaction (Intermediate, Verified 11/25/24 08:17) GI ISSUES lisinopril (From ZESTRIL) Adverse Reaction (Intermediate, Verified 11/25/24 08:17) COUGH procaine (From NOVOCAIN) Adverse Reaction (Intermediate, Verified 11/25/24 08:17) EXCESS NUMBING theophylline (THEOPHYLLINE) Adverse Reaction (Intermediate, Verified 11/25/24 08:17) DIZZINESS CAT GUT SUTURES Allergy (Intermediate, Uncoded 11/11/24 09:02) DO NOT DISSOLVE DERMABOND Adverse Reaction (Severe, Uncoded 11/11/24 09:02) RASH CHOCOLATE Adverse Reaction (Intermediate, Uncoded 11/11/24 09:02) VOMITING Medication List - Last Reconciled 11/25/24 by Jose Manuel Herrera MD acetaminophen ER 650 mg PO Q8H PRN albuterol sulfate 90 mcg/actuation 1 inh inhalation QID amlodipine 2.5 mg PO DAILY amoxicillin 2,000 mg (4 x 500 mg) PO ONCE aspirin 325 mg PO DAILY atorvastatin 10 mg PO DAILY budesonide-formoterol 80-4.5 mcg/actuation 2 puffs inhalation BID calcium carbonate-vitamin D3 600 mg-5 mcg (200 unit) 1 tab PO BID cetirizine 10 mg PO DAILY epinephrine (EpiPen) 0.3 mg IM Q10M PRN hydrocodone-acetaminophen 5-325 mg 1 tab PO Q6H PRN levothyroxine 137 mcg PO DAILY losartan 100 mg PO DAILY montelukast 10 mg PO BEDTIME multivitamin 1 tab PO DAILY nitroglycerin 0.4 mg sublingual Q5M PRN omeprazole 20 mg PO DAILY PFSH Medical History Disorders of bursae and tendons in shoulder region, unspecified Hearing loss GERD (gastroesophageal reflux disease) Obesity Carpal tunnel syndrome Hypertension Hypercholesteremia Hypothyroidism Asthma Surgical History H/O parotidectomy History of revision of total shoulder arthroplasty Hx of gastric bypass Cataracts, both eyes History of cholecystectomy History of total left knee replacement History of total right knee replacement Family History Mother No problems noted. Father No problems noted. Social History Are you a primary healthcare advisory services manager to a significant other at home: No Do you presently have visiting nurse or other home services: No Alcohol intake: never Patient Tobacco Use Status: Former Tobacco user Tobacco use type: Cigarette Years Smoked: 23 Current occupation: [employer] Physical Exam Vital Signs: BMI result Body Mass Index 44.8 Const Other: Well-nourished well-developed very friendly female awake alert and oriented x3 in no acute distress Extrem Other: Bilateral hip examination shows minimal tenderness over her bursa, pain with range of motion, negative straight leg raise test bilaterally at 70 degrees Results Reviewed Results Reviewed: X-rays of the patient's bilateral hips taken previously show mild to moderate diffuse joint space narrowing, no acute bony abnormalities Assessment & Plan Assessment & Plan (1) Bilateral hip joint arthritis: Code(s): M16.0 - Bilateral primary osteoarthritis of hip Category: Medical (2) Bilateral hip pain: Code(s): M25.551 - Pain in right hip; M25.552 - Pain in left hip Plan Ms. Schreiber presents with bilateral hip pains due to degenerative joint disease. I will arrange for the patient to have an evaluation by Dr. Ordoñez in our pain management department for possible bilateral hip cortisone injections. She will continue with her activity modifications in the meantime. Feel free to call me at any time should questions regarding her orthopedic management arise. I spent 20 minutes in reviewing the patient's records and imaging studies, seeing the patient and documenting in the medical record. Orders: Referrals Pain Management Referral M16.0 - Bilateral primary osteoarthritis of hip Coding Level of Care Code Est Pt Level 3 (76741) Complex EM visit Add On G2211 Diagnoses Bilateral hip joint arthritis M16.0 Bilateral hip pain M25.551; M25.552
[2024-11-25 08:17] VITALS: BMI 44.8
== END 2024-11-25 08:51 | disposition home or self-care (01) ==
LOC: HO.HOS 08:08
PROVIDERS: Visit Provider Orthopaedic Surgery
DX: M16.0 Bilateral primary osteoarthritis of hip (principal); M25.551 Pain in right hip; M25.552 Pain in left hip
CPT/HCPCS: 99213; G2211

== ENCOUNTER → 2024-11-25 08:08 | Outpatient (BNVA) | payer MEDICARE, BC, SELFPAY | PROVIDERS: Visit Provider Orthopaedic Surgery | DX: M25.551 Pain in right hip (principal); M25.552 Pain in left hip; M16.0 Bilateral primary osteoarthritis of hip; Z96.653 Presence of artificial knee joint, bilateral | CPT/HCPCS: 99212 ==

== ENCOUNTER 2024-12-12 08:13 | Outpatient (AMB) | payer MEDICARE, BC, SELFPAY ==
[2024-12-12 08:25] VITALS: BP 130/70; PULSE 78; TEMP 36.7; O2SAT 95; BMI 43.5
--- NOTE | 2024-12-12 08:25 | AM.OFFWIN_ITS ---
Intake Vital Signs 12/12/24 08:25 Height 5 ft 8 in Weight 286 lb BMI 43.5 BP 130/70 Blood Pressure Location Rt brachial Position Sitting Pulse 78 Pulse Source Pulse Oximeter Temp 98.1 F Temp Source Oral Pulse Oximetry (%) 95 Oxygen Delivery Method Room Air Intake Visit Reasons: EP Poison Sumac? Intake Note: pt presents extremely red rash on face, arms and spreading to legs Patient Tobacco Use Status: Former Tobacco user Allergies CARLOZ Inhibitors Allergy (Intermediate, Verified 12/12/24 08:30) Cough adhesive tape (ADHESIVE TAPE) Allergy (Intermediate, Verified 12/12/24 08:30) RASH gabapentin Allergy (Intermediate, Verified 12/12/24 08:30) Nausea grass pollen Allergy (Intermediate, Verified 12/12/24 08:30) Itching house dust mite Allergy (Intermediate, Verified 12/12/24 08:30) Itching lactose (LACTOSE) Allergy (Intermediate, Verified 12/12/24 08:30) GI UPSET mold Allergy (Intermediate, Verified 12/12/24 08:30) Itching ragweed pollen Allergy (Intermediate, Verified 12/12/24 08:30) Itching tree and shrub pollen Allergy (Intermediate, Verified 12/12/24 08:30) Itching blueberry (BLUEBERRY) Adverse Reaction (Intermediate, Verified 12/12/24 08:30) VOMITING doxycycline (From VIBRAMYCIN) Adverse Reaction (Intermediate, Verified 12/12/24 08:30) GI ISSUES lisinopril (From ZESTRIL) Adverse Reaction (Intermediate, Verified 12/12/24 08:30) COUGH procaine (From NOVOCAIN) Adverse Reaction (Intermediate, Verified 12/12/24 08:30) EXCESS NUMBING theophylline (THEOPHYLLINE) Adverse Reaction (Intermediate, Verified 12/12/24 08:30) DIZZINESS CAT GUT SUTURES Allergy (Intermediate, Uncoded 11/11/24 09:02) DO NOT DISSOLVE DERMABOND Adverse Reaction (Severe, Uncoded 11/11/24 09:02) RASH CHOCOLATE Adverse Reaction (Intermediate, Uncoded 11/11/24 09:02) VOMITING Do you need a note to return to daycare/school/sports/work: No HPI EP Poison Sumac? HPI Details This is a 74-year-old female patient who presents to the walk-in clinic today with report of likely poison sumac rash on her hands/wrists, and face. Also has a slight rash starting in her groin area. States that she was working out in her garden on Sunday, and Sunday night, developed a very itchy/red rash on her hands/wrists. This has since spread, and become increasingly itchy. It is now on her face. Denies any visual disturbances or swollen throat/tongue sensation. Has been using some calamine lotion at home. [facility] Medical History Disorders of bursae and tendons in shoulder region, unspecified Hearing loss GERD (gastroesophageal reflux disease) Obesity Carpal tunnel syndrome Hypertension Hypercholesteremia Hypothyroidism Asthma Surgical History H/O parotidectomy History of revision of total shoulder arthroplasty Hx of gastric bypass Cataracts, both eyes History of cholecystectomy History of total left knee replacement History of total right knee replacement Family History Mother No problems noted. Father No problems noted. Social History Are you a primary healthcare applications analyst to a significant other at home: No Do you presently have visiting nurse or other home services: No Alcohol intake: never Patient Tobacco Use Status: Former Tobacco user Tobacco use type: Cigarette Years Smoked: 23 Current occupation: [employer] Review of Systems Const All systems reviewed & are unremarkable except as noted in HPI and below Physical Exam Vital Signs: Last Vital Signs Temp 98.1 F 12/12/24 08:25 Pulse 78 12/12/24 08:25 BP 130/70 12/12/24 08:25 Pulse Ox 95 12/12/24 08:25 Oxygen Delivery Method Room Air 12/12/24 08:25 BMI result Body Mass Index 43.5 Const General: cooperative and comfortable HEENT Head: Yes normal to inspection Ears: hearing grossly normal bilaterally General nose exam: Normal external nose present Face and sinus: Yes normal facial exam Mouth: Normal oral and palatal mucosa present Throat: Yes posterior oropharynx normal Resp Effort & Inspection: normal respiratory effort Auscultation: clear to auscultation bilaterally Cardio Rate: regular rate Rhythm: regular rhythm Skin Other: Erythematous rash on hands/wrists/between fingers, on cheeks and forehead. Some yellow vesicles on fingers and wrists. Extrem General: Yes capillary refill normal and Yes no clubbing, cyanosis or edema Psych Appearance: grossly normal Mental Status: mental status grossly normal Speech and movement: Normal speech and movement present Assessment & Plan Assessment & Plan (1) Contact dermatitis due to plant: Code(s): L25.5 - Unspecified contact dermatitis due to plants, except food Plan: Rash consistent with contact dermatitis, likely due to poison sumac, per patient. I am going to start her on prednisone and also hydroxyzine p.r.n.. We reviewed indications, use, possible side effects of medications. She does not need to take Zyrtec while taking the hydroxyzine. She can continue to use topical calamine cream as needed. If she does not improve with treatment, or if symptoms worsen/new symptoms develop, she can return to the clinic. We discussed that if symptoms on the face worsen or if she develops any respiratory symptoms, she should go to the emergency department for evaluation. She verbalizes understanding and agrees to plan. Medications: New prednisone 40 mg (2 x 20 mg) PO DAILY 10 tabs 0RF 5 days L25.5 - Unspecified contact dermatitis due to plants, except food hydroxyzine HCl Take 1 tablet up to twice a day as needed for itching 25 mg PO BID PRN 10 tabs 0RF itching 5 days L25.5 - Unspecified contact dermatitis due to plants, except food Coding Level of Care Code Est Pt Level 4 (97787) Diagnoses Contact dermatitis due to plant L25.5
--- OUTSIDE RECORDS SUMMARY | 2024-12-12 08:57 | XMS_ITS | Clinical Summary ---
Author Organization [facility] Address [address] [place] [address] Care Team Providers Care Clerical Supervisor Name Role Phone Cameron Sanchez MD Primary Care Provider [phone] Allergies Active Allergy Reactions Criticality Noted Date [...] age to complete this topic Care Teams Clerical Supervisor Relationship Specialty Start Date End Date Cameron Sanchez MD PCP - General Fisher Mussel 11/13/16
--- OUTSIDE RECORDS SUMMARY | 2024-12-12 08:57 | XMS_ITS | Encounter Summary ---
Author Organization [facility] [place] [address] Care Team Providers Care Lead Front Desk Agent Name Role Phone Justin Zavala Primary Care Provider [phone] Reason for Visit * Reason Onset Date Comments Poison Milka 12/11/2024 Encounter Details Date Type Department Care Team (Late st Contact Info) Description 12/11/2024 Telephone Adult Medicine [address] [phone] Justin Zavala PA [address] [place] [address] Social History Tobacco Use Types Packs/Day Years [...] care for your loved ones. For example, home child care provider or elderly care for an older adult? [...] Progress Notes * Priyanka Burris RN - 12/11/2024 12:24 PM EDT Poison sumac bad case My eyes are almost closed , just around the eyes goes down the side of face to chin Started on Sunday , Sunday on fingers and hands then touched her face she has a itchy rash on hands, forearms as well , she sounds slighted winded while talking and she states it is her asthma and not new this time of year, she has been using antihistamines No fever or chills , no difficulty swallowing. I advised pt. If she is having swelling and eyes ar almost shut to be evaluated in the ER. She sts it is actually a little better today then yesterday ,I advised her to be evaluated if she is not going to ER as recommended to be evaluated at a urgent care and have someone bring her . Pt. Verbalized understanding and I advise dif at anytime she develop sob cp or difficulty swallowing to call for ambulance pt. agrees * Laila Cortez - 12/11/2024 10:09 AM EDT Patient call requires triage: Symptoms patient is presenting: gloria bah, wants to know if you could prednisone How long has patient had these symptoms?: 2-3 days For ALL patients calling to schedule any appointment (routine, sick visit, follow up, consult, etc.) in the outpatient setting please ask the following questions: Do you have fever of higher than 101, sore throat with difficulty swallowing or severe shortness ofbreath? no If YES to any of these above symptoms, send a message to triage and do not book. Red dot. If no, an audio or video visit should be booked. Have you had close contact with someone with Coronavirus in the last 14 days? no Have you traveled abroad? no Have you traveled recently to another state outside of [place], [place], [place], [place], [place], [place], [place]? no o If yes, did you quarantine for 14 days or have a negative covid test? no If yes to any of the above, patient is not to be scheduled in office until after 14 day quarantine or negative covid test. If pain or injury related was it due to an accident at work or from a motor vehicle accident? If yes, date of accident/Injury: No If yes, gather 3rd constitution party insurance information Third Libertarian Information: not applicable PCP: STEPHANIE Kim Payor: MEDICARE / Plan: MEDICARE PART A & B / Product Type: Medicare / documented in this encounter Plan of Treatment Upcoming Encounters Date Type Department Care Team (Late st Contact Info) Description 12/23/2024 7:30 AM EDT Appointment Radiology [address] [phone] 01/26/2025 8:00 AM EDT Office Visit Adult Medicine [address] [phone] Justin Zavala PA [address] [place] [phone] documented as of this encounter Visit Diagnoses Not on filedocumented in this encounter Additional Health Concerns Assessment Noted Time PHQ-9 Depression Total Score: 0 07/19/19 10:52 AM EDT A fall risk assessment has been complete d for the patient 07/18/2024 10:50 AM EDT documented as of this encounter Care Teams Lead Front Desk Agent Relationship Specialty Start Date End Date Justin Zavala PA [address] [place] [address] PCP - General Internal Medicine 06/23/20 documented as of this encounter
--- OUTSIDE RECORDS SUMMARY | 2024-12-12 08:58 | XMS_ITS | Clinical Summary ---
Author Organization [facility] [address] [place] [address] [place] [phone] Phone Care Team Providers Care Die Cast Die Maker Name Role Phone Justin Zavala Primary Care Provider [phone] Allergies Active Allergy Reactions Criticality Noted Date [...] Encounters Date Type Department Care Team Description 12/11/2024 Telephone Adult Medicine [address] [phone] Justin Zavala PA from Last 3 Months Immunizations Name Administration [...] Surgery Date Site/Laterality Comments GASTRIC BYPASS PROCEDURE: [place] GASTRIC RSTCV W/BYP W/SM INT RCNSTJ LIMIT ABSRPJ; COMMENT: 2004 dr rodriguez OTHER SURGICAL HISTORY PROCEDURE: [place] EXC PRTD NICHOL/PRTD GLND LAT LOBE W/O NRV DSJ; COMMENT: 3 tumors, left COLONOSCOPY 12/23/2007 PROCEDURE: HISTORICAL COLONOSCOPY; COMMENT: diverticulosis; repeat in ten years HAND SURGERY PROCEDURE: HISTORICAL HAND SURGERY; COMMENT: thumb arthoplasty bilateral CARPAL TUNNEL RELEASE PROCEDURE: [place] NEUROPLASTY &/TRANSPOS MEDIAN NRV CARPAL TUNNE; COMMENT: left KNEE ARTHROSCOPY 01/20/2011 PROCEDURE: [place] ARTHROSCOPY KNEE DIAGNOSTIC W/WO SYNOVIAL BX SPX; COMMENT: Left; Mind[facility] TOTAL KNEE ARTHROPLASTY 2014 PROCEDURE: [place] ARTHRP KNE CONDYLE&PLATU MEDIAL&LAT COMPARTMENTS; COMMENT: left dr edward TOTAL KNEE ARTHROPLASTY 2015 PROCEDURE: [place] ARTHRP KNE CONDYLE&PLATU MEDIAL&LAT COMPARTMENTS; COMMENT: right COLONOSCOPY 08/21/2018 PROCEDURE: HISTORICAL COLONOSCOPY; COMMENT: negative OTHER SURGICAL HISTORY 09/2019 PROCEDURE: [place] ARTHROSCOPIC TOTAL SHOULDER REPLACEMENT; COMMENT: R OTHER [...] your loved ones. For example, child care giver or elderly care for an older adult? [...] 7:30 AM EDT Appointment Radiology Department - [address] [phone] 01/26/2025 8:00 AM EDT Office Visit Adult Medicine [facility] - [address] [phone] Justin Zavala PA [address] [place] [phone] Health Maintenance Due Date Last Done Comments [...] 08/24/19 24, 08/24/2023, 03/07/2022, Additional history exists Depression Screening Completed 07/18/2024, 07/18/19 24 RSV Immunization Adult Patients Completed 07/23/2024 HIB [...] Associated Diagnosis Comments EXTERNAL XRAY REPORT 09/11/2024 COMPREHENSIVE METABOLIC PANEL Routine 03/19/2024 7:48 AM [...] Maintenance Results * External Xray Report (09/11/2024) Anatomical Region Laterality Modality Radiographic Any ging us Provider [facility] IMG XR PROCEDURES Final Result * Lipid panel with reflex to direct LDL (03/19/2024 7:48 AM EST) Cholesterol 155 0 - 200 mg/dL LAB CHEMISTRY METHOD 03/19/2024 10:39 AM [facility] Triglycerides 132 0 - 150 mg/dL LAB CHEMISTRY METHOD 03/19/2024 10:39 AM [facility] HDL 61 >=40 mg/dL LAB CHEMISTRY METHOD 03/19/2024 10:39 AM [facility] LDL Calculated 68 0 - 100 mg/dL LAB CHEMISTRY METHOD 03/19/2024 10:39 AM [facility] VLDL Cholesterol Jasbir 26.4 mg/dL LAB CHEMISTRY METHOD 03/19/2024 10:39 AM [facility] Non HDL Chol. (LDL+VLDL) 94 <145 mg/dL LAB CHEMISTRY METHOD 03/19/2024 10:39 AM [facility] Chol/HDL Ratio 2.5 0.0 - 4.4 LAB CHEMISTRY METHOD 03/19/2024 10:39 AM [facility] Blood Venous blood specimen / Unknown Venipuncture / Unknown 03/19/2024 7:48 AM EST 03/19/2024 7:48 AM EST Justin BROWN LAB BLOOD ORDERABLES Lois l Result [facility] [address] [place] [address], * Comprehensive metabolic panel (03/19/2024 7:48 AM EST) [facility] Sodium 141 133 - 145 mmol/L LAB CHEMISTRY METHOD 03/19/2024 10:39 AM [facility] Potassium 4.2 3.5 - 5.5 mmol/L LAB CHEMISTRY METHOD 03/19/2024 10:39 AM [facility] Chloride 110 96 - 110 mmol/L LAB CHEMISTRY METHOD 03/19/2024 10:39 AM [facility] CO2 27 21 - 32 mmol/L LAB CHEMISTRY METHOD 03/19/2024 10:39 AM [facility] Anion Gap 4 3 - 11 LAB CHEMISTRY METHOD 03/19/2024 10:39 AM [facility] Glucose 100 70 - 100 mg/dL LAB CHEMISTRY METHOD 03/19/2024 10:39 AM [facility] BUN 13 5 - 25 mg/dL LAB CHEMISTRY METHOD 03/19/2024 10:39 AM [facility] Creatinine 0.94 0.50 - 1.10 mg/dL LAB CHEMISTRY METHOD 03/19/2024 10:39 AM [facility] eGFR 63 >=60 mL/min/1. 73m2 LAB CHEMISTRY METHOD 03/19/2024 10:39 AM [facility] Comment:Calculation based on the Chronic Kidney Disease Epidemiology Collaboration (CKD-EPI) equation refit without adjustment for race. BUN/Creatinine Ratio 13.8 LAB CHEMISTRY METHOD 03/19/2024 10:39 AM [facility] Calcium 9.1 8.5 - 10.5 mg/dL LAB CHEMISTRY METHOD 03/19/2024 10:39 AM [facility] AST (SGOT) 16 10 - 42 unit/L LAB CHEMISTRY METHOD 03/19/2024 10:39 AM [facility] ALT (SGPT) 23 10 - 60 unit/L LAB CHEMISTRY METHOD 03/19/2024 10:39 AM [facility] Alkaline Phosphatase 99 42 - 121 unit/L LAB CHEMISTRY METHOD 03/19/2024 10:39 AM [facility] Total Protein 7.0 6.0 - 8.0 g/dL LAB CHEMISTRY METHOD 03/19/2024 10:39 AM [facility] Albumin 3.9 3.2 - 5.0 g/dL LAB CHEMISTRY METHOD 03/19/2024 10:39 AM [facility] Total Bilirubin 0.5 0.0 - 1.4 mg/dL LAB CHEMISTRY METHOD 03/19/2024 10:[address] [facility] Blood Venous blood specimen / Unknown Venipuncture / Unknown 03/19/2024 7:48 AM EST 03/19/2024 7:48 AM EST us Justin BROWN LAB BLOOD ORDERABLES Lois l Result [facility] [address] [place] [address], * SCREENING MAMMOGRAPHY BI 2-VIEW BREAST INC [...] months. BI-RADS: Category 1: Negative Juanita Francisco BROWN IMG XR PROCEDURES Final Result * Depression Screening (07/18/2023) Depression Screening Abstracted [facility] Provider [place] [facility] Final Result * Colonoscopy (02/10/2022) Colonoscopy No Interpretation , Abstracted Anatomical Region Laterality Modality Other [facility] Provider [facility] Final Result * DXA BONE DENSITY STUDY [...] normal bone density by WHO criteria. [facility] Department of Internal Medicine recommends using National [...] screening schedule based on nick Ceballos., [facility] May 04, 2011 for patients [...] normal bone density by WHO criteria. [facility] Department of Internal Medicine recommendsusing National Osteoporosis [...] higher), BMD testingevery 15 years Justin BROWN IMG DXA PROCEDURES Final Result * Hepatitis C Screening (02/12/2014) [facility] Hepatitis C Screening Abstracted Historical Provider HEALTH MAINTENANCE Final Result from Last 3 Months or Most Recently Relevant to Health Maintenance Insurance MEDICARE [facility] Advance Directives Documents on File Type Date Recorded Patient House Admin Expl anation Health Care Decision (hx) 11/01/2021 AD SEBASTIAN DIRECTIVE Health Care Decision (hx) 11/01/2021 AD SEBASTIAN DIRECTIVE Health Care Decision (hx) 11/01/2021 AD SEBASTIAN DIRECTIVE Care Teams Die Cast Die Maker Relationship Specialty Start Date End Date Justni Zavala PA [address] [place] [address] PCP - General Internal Medicine 06/23/20
== END 2024-12-12 09:09 | disposition home or self-care (01) ==
PROVIDERS: PCP Physician Assistant Medical; Visit Provider Nurse Practitioner Family
DX: L25.5 Unspecified contact dermatitis due to plants, except food (principal)

== ENCOUNTER → 2024-12-12 08:13 | Outpatient (BNVA) | payer MEDICARE, BC, SELFPAY | PROVIDERS: PCP Physician Assistant Medical; Visit Provider Nurse Practitioner Family | DX: L25.5 Unspecified contact dermatitis due to plants, except food (principal) | CPT/HCPCS: 99212 ==

== ENCOUNTER 2024-12-17 13:08 | Outpatient (AMB) | payer MEDICARE, BC, SELFPAY ==
--- NOTE | 2024-12-17 13:10 | MHC.OFFVIS ---
Vital Signs 12/17/24 13:13 Height 5 ft 8 in Weight 284 lb BMI 43.2 Handedness Ambidextrous Intake Visit Reasons: OV-Left distal radius-w/xrays 09/11/24 AR Intake Note: Cornelia is a 74 year old right hand dominant female who presents today post-operatively status post left distal radius fracture ORIF, DOS: 09/11/[address] Bustamante. On 11/19/24 patient was advised to continue wearing her Velcro wrist brace during daytime activities, avoid lifting anything heavier than a cell phone, and to attend occupational therapy as scheduled. She reports she did not attnd any occupational therapy due to her not needing to, says she had improvement. Denies pain, numbness and tingling. She says the only times she has issues is when it rains due to the hardware. Allergies CARLOZ Inhibitors Allergy (Intermediate, Verified 12/19/24 08:24) Cough adhesive tape (ADHESIVE TAPE) Allergy (Intermediate, Verified 12/19/24 08:24) RASH gabapentin Allergy (Intermediate, Verified 12/19/24 08:24) Nausea grass pollen Allergy (Intermediate, Verified 12/19/24 08:24) Itching house dust mite Allergy (Intermediate, Verified 12/19/24 08:24) Itching lactose (LACTOSE) Allergy (Intermediate, Verified 12/19/24 08:24) GI UPSET mold Allergy (Intermediate, Verified 12/19/24 08:24) Itching ragweed pollen Allergy (Intermediate, Verified 12/19/24 08:24) Itching tree and shrub pollen Allergy (Intermediate, Verified 12/19/24 08:24) Itching blueberry (BLUEBERRY) Adverse Reaction (Intermediate, Verified 12/19/24 08:24) VOMITING doxycycline (From VIBRAMYCIN) Adverse Reaction (Intermediate, Verified 12/19/24 08:24) GI ISSUES lisinopril (From ZESTRIL) Adverse Reaction (Intermediate, Verified 12/19/24 08:24) COUGH procaine (From NOVOCAIN) Adverse Reaction (Intermediate, Verified 12/19/24 08:24) EXCESS NUMBING theophylline (THEOPHYLLINE) Adverse Reaction (Intermediate, Verified 12/19/24 08:24) DIZZINESS CAT GUT SUTURES Allergy (Intermediate, Uncoded 12/17/24 13:13) DO NOT DISSOLVE DERMABOND Adverse Reaction (Severe, Uncoded 12/17/24 13:13) RASH CHOCOLATE Adverse Reaction (Intermediate, Uncoded 12/17/24 13:13) VOMITING HPI HPI OV-Left distal radius-w/xrays 09/11/24 AR: Details: Cornelia is a 74 year old right hand dominant female who presents today post-operatively status post left distal radius fracture ORIF, DOS: 09/11/[address] Bustamante. On 11/19/24 patient was advised to continue wearing her Velcro wrist brace during daytime activities, avoid lifting anything heavier than a cell phone, and to attend occupational therapy as scheduled. She reports she did not attnd any occupational therapy due to her not needing to, says she had improvement. Denies pain, numbness and tingling. She says the only times she has issues is when it rains due to the hardware. [facility] Medical History Disorders of bursae and tendons in shoulder region, unspecified Hearing loss GERD (gastroesophageal reflux disease) Obesity Carpal tunnel syndrome Hypertension Hypercholesteremia Hypothyroidism Asthma Surgical History Status post open reduction and internal fixation (ORIF) of fracture (~09/11/24) H/O parotidectomy History of revision of total shoulder arthroplasty Hx of gastric bypass Cataracts, both eyes History of cholecystectomy History of total left knee replacement History of total right knee replacement Family History Mother No problems noted. Father No problems noted. Social History Are you a primary customer care consultant to a significant other at home: No Do you presently have visiting nurse or other home services: No Alcohol intake: never Patient Tobacco Use Status: Former Tobacco user Tobacco use type: Cigarette Years Smoked: 23 Current occupational status: retired Current occupation: [employer] Review of Systems Const All systems reviewed & are unremarkable except as noted in HPI and below Physical Exam Vital Signs: BMI result Body Mass Index 43.2 Const General: cooperative, healthy appearing and no acute distress Orientation/consciousness: oriented to person and oriented to place HEENT Head: Yes normocephalic and Yes atraumatic Eyes EOM: EOMs intact bilaterally Resp Effort & Inspection: normal respiratory effort and able to speak in complete sentences Cardio Jugular venous distension: no JVD Skin General skin exam: turgor normal Rashes: no rashes Neuro General: oriented to person and oriented to place Extrem Other: Evaluation of left Upper Extremity: The patient was alert oriented and in no acute distress. She ambulates with a cane. Sensation is intact to the tips of all digits today in clinic With encouragement she can make a fist and extend all of her digits No further edema or ecchymosis noted of the left wrist Incision site clean, dry, intact, no erythema, ecchymosis, evidence of infection No further tenderness to palpation about the left distal radius No tenderness about the elbow and she can actively flex and extend about the elbow Patient is able to flex the left wrist to approximately 60-70 degrees and extend to approximately 50 Psych Appearance: grossly normal Affect: normal affect Attitude: cooperative Assessment & Plan Assessment & Plan (1) Fracture of left distal radius: Code(s): S52.502A - Unspecified fracture of the lower end of left radius, initial encounter for closed fracture Category: Medical Plan Plan The patient will be provided with a Velcro wrist splint to wear during daytime activities to support the wrist during high-risk daytime activities for the next 2-3 weeks. Patient may remove while at rest during that timeframe, and should slowly wean out of it totally by the end of that timeframe. Patient may slowly increase her weight lifting over the next 4-6 weeks, increasing weight limit to approximately 5 lb over the next 2 weeks, 10-15 lb over the 2 weeks following, and then slowly resuming full normal lifting. Discussion Notes I discussed with the patient the plan to use a Velcro wrist splint during higher risk daytime activities and the importance of removing it during rest and sleep to promote healing and flexibility. We talked about the referral to occupational therapy to aid in improving wrist function and range of motion. I emphasized the need to avoid lifting heavy objects with the affected hand and encouraged her to begin range of motion exercises at home. No acute follow-up as indicated, she may follow-up as needed at this time Patient Instructions - Wear the Velcro wrist splint during daytime activities for the next 2-3 weeks - Remove the splint while at home relaxing, bathing, and sleeping. -slowly increase to full normal lifting over the next 4-6 weeks - continue wrist range of motion exercises at home. Coding Level of Care Code Global (00929) Diagnoses Fracture of left distal radius S52.502A
[2024-12-17 13:13] VITALS: BMI 43.2
--- OUTSIDE RECORDS SUMMARY | 2024-12-17 15:27 | XMS_ITS | Clinical Summary ---
Author Organization [facility] [address] [place] [address] [place] [phone] Phone Care Team Providers Care Weed Cooking Operator Name Role Phone Justin Zavala Primary Care Provider [phone] Allergies Active Allergy Reactions Criticality Noted Date [...] Care Team Description 12/11/2024 Telephone Adult Medicine [address] [phone] Justin Zavala PA from Last [...] Surgery Date Site/Laterality Comments GASTRIC BYPASS PROCEDURE: MA GASTRIC RSTCV W/BYP W/SM INT RCNSTJ LIMIT ABSRPJ; COMMENT: 2004 dr rodriguez OTHER SURGICAL HISTORY PROCEDURE: MA EXC PRTD NICHOL/PRTD GLND LAT LOBE W/O NRV DSJ; COMMENT: 3 tumors, left COLONOSCOPY 12/23/2007 PROCEDURE: HISTORICAL COLONOSCOPY; COMMENT: diverticulosis; repeat in ten years HAND SURGERY PROCEDURE: HISTORICAL HAND SURGERY; COMMENT: thumb arthoplasty bilateral CARPAL TUNNEL RELEASE PROCEDURE: MA NEUROPLASTY &/TRANSPOS MEDIAN NRV CARPAL TUNNE; COMMENT: left KNEE ARTHROSCOPY 01/20/2011 PROCEDURE: MA ARTHROSCOPY KNEE DIAGNOSTIC W/WO SYNOVIAL BX SPX; COMMENT: Left; [facility] TOTAL KNEE ARTHROPLASTY 2014 PROCEDURE: MA ARTHRP KNE CONDYLE&PLATU MEDIAL&LAT COMPARTMENTS; COMMENT: left dr edward TOTAL KNEE ARTHROPLASTY 2015 PROCEDURE: MA ARTHRP KNE CONDYLE&PLATU MEDIAL&LAT COMPARTMENTS; COMMENT: right COLONOSCOPY 08/21/2018 PROCEDURE: HISTORICAL COLONOSCOPY; COMMENT: negative OTHER SURGICAL HISTORY 09/2019 PROCEDURE: MA [place] ARTHROSCOPIC TOTAL SHOULDER REPLACEMENT; COMMENT: R OTHER SURGICAL HISTORY 11/01/2021 Left PROCEDURE: RSIDEVI HO ARTHROSCOPIC TOTAL SHOULDER REPLACEMENT; COMMENT: reverse [...] 7:30 AM EDT Appointment Radiology Department - [address] [place] [address] [phone] 01/26/2025 8:00 AM EDT Office Visit Adult Medicine [facility] - [address] [place] [address] [phone] Justin Zavala PA [address] [place] [phone] Health Maintenance Due Date Last Done Comments COVID-19 Vaccine ( season) 2024 07/26/2021, 02/11/2021, 07/15/2020, Additional history exists Influenza [...] Procedure Name Priority Date/Time Associated Diagnosis Comments COMPREHENSIVE METABOLIC PANEL Routine 03/19/2024 7:48 AM [...] Recently Relevant to Health Maintenance Results * Lipid panel with reflex to direct LDL (03/19/2024 7:48 AM EST) Cholesterol 155 0 - 200 mg/dL LAB CHEMISTRY METHOD 03/19/2024 10:39 AM EST [facility] Triglycerides 132 0 - 150 mg/dL LAB CHEMISTRY METHOD 03/19/2024 10:39 AM EST [facility] HDL 61 >=40 mg/dL LAB CHEMISTRY METHOD 03/19/2024 10:39 AM [facility] LDL Calculated 68 0 - 100 mg/dL LAB CHEMISTRY METHOD 03/19/2024 10:39 AM [facility] VLDL Cholesterol Jasbir 26.4 mg/dL LAB CHEMISTRY METHOD 03/19/2024 10:39 AM [facility] Non HDL Chol. (LDL+VLDL) 94 <145 mg/dL LAB CHEMISTRY METHOD 03/19/2024 10:39 AM [facility] Chol/HDL Ratio 2.5 0.0 - 4.4 LAB CHEMISTRY METHOD 03/19/2024 10:39 AM [facility] Blood Venous blood specimen / Unknown Venipuncture / Unknown 03/19/2024 7:48 AM EST 03/19/2024 7:48 AM EST Justin BROWN LAB BLOOD ORDERABLES Lois l Result [facility] [address] [place] [address], * Comprehensive metabolic panel (03/19/2024 7:48 AM EST) Sodium 141 133 - 145 mmol/L LAB CHEMISTRY METHOD 03/19/2024 10:39 AM [facility] Potassium 4.2 3.5 - 5.5 mmol/L LAB CHEMISTRY METHOD 03/19/2024 10:39 AM [facility] Chloride 110 96 - 110 mmol/L LAB CHEMISTRY METHOD 03/19/2024 10:39 AM [facility] CO2 27 21 - 32 mmol/L LAB CHEMISTRY METHOD 03/19/2024 10:39 AM [facility] Anion Gap 4 3 - 11 LAB CHEMISTRY METHOD 03/19/2024 10:39 AM [facility] Glucose 100 70 - 100 mg/dL LAB CHEMISTRY METHOD 03/19/2024 10:39 AM [facility] BUN 13 5 - 25 mg/dL LAB CHEMISTRY METHOD 03/19/2024 10:39 AM [facility] Creatinine 0.94 0.50 - 1.10 mg/dL LAB CHEMISTRY METHOD 03/19/2024 10:39 AM [facility] eGFR 63 >=60 mL/min/1. 73m2 LAB CHEMISTRY METHOD 03/19/2024 10:39 AM [facility] Comment:Calculation based on the Chronic Kidney Disease Epidemiology Collaboration (CKD-EPI) equation refit without adjustment for race. BUN/Creatinine Ratio 13.8 LAB CHEMISTRY METHOD 03/19/2024 10:39 AM [facility] Calcium 9.1 8.5 - 10.5 mg/dL LAB CHEMISTRY METHOD 03/19/2024 10:39 AM [facility] AST (SGOT) 16 10 - 42 unit/L LAB CHEMISTRY METHOD 03/19/2024 10:39 AM [facility] ALT (SGPT) 23 10 - 60 unit/L LAB CHEMISTRY METHOD 03/19/2024 10:39 AM [facility] Alkaline Phosphatase 99 42 - 121 unit/L LAB CHEMISTRY METHOD 03/19/2024 10:39 AM [facility] Total Protein 7.0 6.0 - 8.0 g/dL LAB CHEMISTRY METHOD 03/19/2024 10:39 AM [facility] Albumin 3.9 3.2 - 5.0 g/dL LAB CHEMISTRY METHOD 03/19/2024 10:39 AM [facility] Total Bilirubin 0.5 0.0 - 1.4 mg/dL LAB CHEMISTRY METHOD 03/19/2024 10:39 AM [facility] Blood Venous blood specimen / Unknown Venipuncture / Unknown 03/19/2024 7:48 AM EST 03/19/2024 7:48 AM EST us Justin BROWN LAB BLOOD ORDERABLES Lois burnett Result [facility] [address] [place] [address], * SCREENING MAMMOGRAPHY BI 2-VIEW BREAST INC [...] 12 months. BI-RADS: Category 1: Negative Juanita BROWN IMG XR PROCEDURES Final Result * Depression Screening (07/18/2023) Depression Screening Abstracted [facility] [place] [facility] Final Result * Colonoscopy (02/10/2022) Colonoscopy No Interpretation , Abstracted Anatomical Region Laterality Modality Other [facility] Provider [facility] Final Result * DXA BONE DENSITY STUDY [...] normal bone density by WHO criteria. [facility] Department of Internal Medicine recommends using [...] alternative screening schedule based on nick Ceballos., [facility] May 04, 2011 for patients with osteopenia [...] normal bone density by WHO criteria. [facility] Department of Internal Medicine recommendsusing National [...] Final Result * Hepatitis C Screening (02/12/2014) [facility] Hepatitis C Screening Abstracted Historical Provider HEALTH MAINTENANCE Final Result from Last 3 Months or Most Recently Relevant to Health Maintenance Insurance MEDICARE [facility] [[email or web address]] Advance Directives Documents on File Type Date Recorded Patient Sinker Puller Expl anation Health Care Decision (hx) 11/01/2021 AD SEBASTIAN DIRECTIVE Health Care Decision (hx) 11/01/2021 AD SEBASTIAN DIRECTIVE Health Care Decision (hx) 11/01/2021 AD SEBASTIAN DIRECTIVE Care Teams Weed Cooking Operator Relationship Specialty Start Date End Date Justin Zavala PA [address] [place] [address] PCP - General Internal Medicine 06/23/20
--- OUTSIDE RECORDS SUMMARY | 2024-12-17 15:27 | XMS_ITS | Clinical Summary ---
Author Organization [facility] Address [address] [place] [address] Care Team Providers Care Shellfish Processing Machine Tender Name Role Phone Cameron Sanchez MD Primary Care Provider [phone] Allergies Active Allergy Reactions Criticality Noted Date [...] age to complete this topic Care Teams Shellfish Processing Machine Tender Relationship Specialty Start Date End Date Cameron Sanchez MD PCP - General Refining Engineer 11/13/16
--- OUTSIDE RECORDS SUMMARY | 2024-12-17 15:27 | XMS_ITS | Encounter Summary ---
Author Organization [facility] [place] [address] Care Team Providers Care Key Punch Operator Name Role Phone Justin Zavala Primary Care Provider [phone] Reason for Visit * Reason Onset Date Comments Poison Milka 12/11/2024 Encounter Details Date Type Department Care Team (Late st Contact Info) Description 12/11/2024 Telephone Adult Medicine [address] [phone] Justin Zavala PA [address] [place] [phone] Social History Tobacco Use Types Packs/Day Years [...] for your loved ones. For example, child welfare consultant or elderly care for an older adult? [...] traveled recently to another state outside of [place], [place], [place], [place], [place], [place], [place]? no o If yes, did you quarantine [...] of accident/Injury: No If yes, gather 3rd alliance party insurance information Third Democrat Information: not applicable PCP: STEPHANIE Kim Payor: MEDICARE / Plan: MEDICARE PART A & B / Product Type: Medicare / documented in this encounter Plan of Treatment Upcoming Encounters Date Type Department Care Team (Late st Contact Info) Description 12/23/2024 7:30 AM EDT Appointment Radiology [address] [phone] 01/26/2025 8:00 AM EDT Office Visit Adult Medicine [address] [phone] Justin Zavala PA [address] [place] [phone] documented as of this encounter Visit Diagnoses Not on filedocumented in this encounter Additional Health Concerns Assessment Noted Time PHQ-9 Depression Total Score: 0 07/19/19 10:52 AM EDT A fall risk assessment has been complete d for the patient 07/18/2024 10:50 AM EDT documented as of this encounter Care Teams Key Punch Operator Relationship Specialty Start Date End Date Justin Zavala PA [address] [place] [address] PCP - General Internal Medicine 06/23/20 documented as of this encounter
== END 2024-12-17 13:28 | disposition home or self-care (01) ==
LOC: HO.HOS 13:09
PROVIDERS: PCP Physician Assistant Medical
DX: S52.502A Unspecified fracture of the lower end of left radius, initial encounter for closed fracture (principal)
CPT/HCPCS: 99213

== ENCOUNTER → 2024-12-17 13:08 | Outpatient (BNVA) | payer MEDICARE, BC, SELFPAY | PROVIDERS: PCP Physician Assistant Medical | DX: S52.502D Unspecified fracture of the lower end of left radius, subsequent encounter for closed fracture with routine healing (principal); Z98.890 Other specified postprocedural states | CPT/HCPCS: 99212 ==

== ENCOUNTER 2024-12-19 08:06 | Outpatient (AMB) | payer MEDICARE, BC, SELFPAY ==
--- OUTSIDE RECORDS SUMMARY | 2024-12-19 08:16 | XMS_ITS | Clinical Summary ---
Author Organization [facility] Address [address] [place] [address] Care Team Providers Care Outsole Caser Name Role Phone Cameron Sanchez MD Primary Care Provider [phone] Allergies Active Allergy Reactions Criticality Noted Date [...] age to complete this topic Care Teams Outsole Caser Relationship Specialty Start Date End Date Cameron Sanchez MD PCP - General Heel Nailing Machine Operator 11/13/16
--- OUTSIDE RECORDS SUMMARY | 2024-12-19 08:16 | XMS_ITS | Encounter Summary ---
Author Organization [facility] [place] [address] Care Team Providers Care Elevator Builder Name Role Phone Justin Zavala Primary Care Provider [phone] Reason for Visit * Reason Onset Date Comments Poison Milka 12/11/2024 Encounter Details Date Type Department Care Team ([facility] st Contact Info) Description 12/11/2024 Telephone Adult Medicine [address] [phone] Justin Zavala PA [address] [place] [phone] Social History Tobacco Use Types Packs/Day Years [...] for your loved ones. For example, child custody evaluator or elderly care for an older adult? [...] traveled recently to another state outside of [place], [place], [place], [place], [place], [place], [place]? no o If yes, did you quarantine [...] of accident/Injury: No If yes, gather 3rd green party insurance information Third Alliance Party Information: not applicable PCP: STEPHANIE Kim Payor: MEDICARE / Plan: MEDICARE PART A & B / Product Type: Medicare / documented in this encounter Plan of Treatment Upcoming Encounters Date Type Department Care Team (Late st Contact Info) Description 12/23/2024 7:30 AM EDT Appointment Radiology Department [address] [phone] 01/26/2025 8:00 AM EDT Office Visit Adult Medicine [address] [phone] Justin Zavala PA [address] [place] [phone] documented as of this encounter Visit Diagnoses Not on filedocumented in this encounter Additional Health Concerns Assessment Noted Time PHQ-9 Depression Total Score: 0 07/19/19 25 10:52 AM EDT A fall risk assessment has been complete d for the patient 07/18/2024 10:50 AM EDT documented as of this encounter Care Teams Elevator Builder Relationship Specialty Start Date End Date Justin Zavala PA [address] [place] [address] PCP - General Internal Medicine 06/23/20 documented as of this encounter
--- OUTSIDE RECORDS SUMMARY | 2024-12-19 08:16 | XMS_ITS | Clinical Summary ---
Author Organization [facility] [address] [place] [address] [place] [phone] Phone Care Team Providers Care Retail Store Associate Name Role Phone Justin Zavala Primary Care Provider [phone] Allergies Active Allergy Reactions Criticality Noted Date [...] Care Team Description 12/11/2024 Telephone Adult Medicine [address] [phone] Justin Zavala PA from Last [...] Surgery Date Site/Laterality Comments GASTRIC BYPASS PROCEDURE: NV GASTRIC RSTCV W/BYP W/SM INT RCNSTJ LIMIT ABSRPJ; COMMENT: 2004 dr rodriguez OTHER SURGICAL HISTORY PROCEDURE: NV EXC PRTD NICHOL/PRTD GLND LAT LOBE W/O NRV DSJ; COMMENT: 3 tumors, left COLONOSCOPY 12/23/2007 PROCEDURE: HISTORICAL COLONOSCOPY; COMMENT: diverticulosis; repeat in ten years HAND SURGERY PROCEDURE: HISTORICAL HAND SURGERY; COMMENT: thumb arthoplasty bilateral CARPAL TUNNEL RELEASE PROCEDURE: NV NEUROPLASTY &/TRANSPOS MEDIAN NRV CARPAL TUNNE; COMMENT: left KNEE ARTHROSCOPY 01/20/2011 PROCEDURE: NV ARTHROSCOPY KNEE DIAGNOSTIC W/WO SYNOVIAL BX SPX; COMMENT: Left; Mindess TOTAL KNEE ARTHROPLASTY 2014 PROCEDURE: NV ARTHRP KNE CONDYLE&PLATU MEDIAL&LAT COMPARTMENTS; COMMENT: left dr edward TOTAL KNEE ARTHROPLASTY 2015 PROCEDURE: NV ARTHRP KNE CONDYLE&PLATU MEDIAL&LAT COMPARTMENTS; COMMENT: right COLONOSCOPY 08/21/2018 PROCEDURE: HISTORICAL COLONOSCOPY; COMMENT: negative OTHER SURGICAL HISTORY 09/2019 PROCEDURE: NV GEORGIA ARTHROSCOPIC TOTAL SHOULDER REPLACEMENT; COMMENT: R [...] 7:30 AM EDT Appointment Radiology Department - [address] [phone] 01/26/2025 8:00 AM EDT Office Visit Adult Medicine [facility] - [address] [phone] Justin Zavala PA [facility] [place] [phone] Health Maintenance Due Date Last Done Comments [...] LAB CHEMISTRY METHOD 03/19/2024 10:39 AM EST [facility] Triglycerides 132 0 - 150 mg/dL LAB CHEMISTRY METHOD 03/19/2024 10:39 AM [facility] HDL 61 >=40 mg/dL LAB CHEMISTRY METHOD 03/19/2024 10:39 AM [facility] LDL Calculated 68 0 - 100 mg/dL LAB CHEMISTRY METHOD 03/19/2024 10:39 AM [facility] VLDL Cholesterol Jasbir 26.4 mg/dL LAB CHEMISTRY METHOD 03/19/2024 10:39 AM [facility] Non HDL Chol. (LDL+VLDL) 94 <145 mg/dL LAB CHEMISTRY METHOD 03/19/2024 10:39 AM [facility] Chol/HDL Ratio 2.5 0.0 - 4.4 LAB CHEMISTRY METHOD 03/19/2024 10:39 AM [facility] Blood Venous blood specimen / Unknown Venipuncture / Unknown 03/19/2024 7:48 AM EST 03/19/2024 7:48 AM EST us Justin BROWN LAB BLOOD ORDERABLES Lois l Result [facility] [address] [place] [address], * Comprehensive metabolic panel (03/19/2024 7:48 AM EST) Sodium 141 133 - 145 mmol/L LAB CHEMISTRY METHOD 03/19/2024 10:39 AM [facility] Potassium 4.2 3.5 - 5.5 mmol/L LAB CHEMISTRY METHOD 03/19/2024 10:39 AM [facility] Chloride 110 96 - 110 mmol/L LAB CHEMISTRY METHOD 03/19/2024 10:39 AM [facility] CO2 27 21 - 32 mmol/L LAB CHEMISTRY METHOD 03/19/2024 10:39 AM [facility] Anion Gap 4 3 - 11 LAB CHEMISTRY METHOD 03/19/2024 10:39 AM [facility] Glucose 100 70 - 100 mg/dL LAB CHEMISTRY METHOD 03/19/2024 10:39 AM [facility] BUN 13 5 - 25 mg/dL LAB CHEMISTRY METHOD 03/19/2024 10:39 AM [facility] Creatinine 0.94 0.50 - 1.10 mg/dL LAB CHEMISTRY METHOD 03/19/2024 10:39 AM [facility] eGFR 63 >=60 mL/min/1. 73m2 LAB CHEMISTRY METHOD 03/19/2024 10:39 AM [facility] Comment:Calculation based on the Chronic Kidney Disease Epidemiology Collaboration (CKD-EPI) equation refit without adjustment for race. BUN/Creatinine Ratio 13.8 LAB CHEMISTRY METHOD 03/19/2024 10:39 AM [facility] Calcium 9.1 8.5 - 10.5 mg/dL LAB CHEMISTRY METHOD 03/19/2024 10:39 AM [facility] AST (SGOT) 16 10 - 42 unit/L LAB CHEMISTRY METHOD 03/19/2024 10:39 AM [facility] ALT (SGPT) 23 10 - 60 unit/L LAB CHEMISTRY METHOD 03/19/2024 10:39 AM [facility] Alkaline Phosphatase 99 42 - 121 unit/L LAB CHEMISTRY METHOD 03/19/2024 10:39 AM [facility] Total Protein 7.0 6.0 - 8.0 g/dL LAB CHEMISTRY METHOD 03/19/2024 10:39 AM [facility] Albumin 3.9 3.2 - 5.0 g/dL LAB CHEMISTRY METHOD 03/19/2024 10:39 AM [facility] Total Bilirubin 0.5 0.0 - 1.4 mg/dL LAB CHEMISTRY METHOD 03/19/2024 10:39 AM [facility] Blood Venous blood specimen / Unknown Venipuncture / Unknown 03/19/2024 7:48 AM EST 03/19/2024 7:48 AM EST Justin BROWN LAB BLOOD ORDERABLES Lois burnett Result [facility]) [facility] [address] [place] [address], * SCREENING MAMMOGRAPHY BI 2-VIEW BREAST INC [...] BI-RADS: Category 1: Negative us Juanita Francisco PA IMG XR PROCEDURES Final [...] normal bone density by WHO criteria. The [facility] Department of Internal Medicine recommends using National [...] alternative screening schedule based on nick Ceballos., [facility] May 04, 2011 for patients [...] normal bone density by WHO criteria. The [facility] Department of Internal Medicine recommendsusing National Osteoporosis [...] Result * Hepatitis C Screening (02/12/2014) [facility] Hepatitis C Screening Abstracted Historical Provider HEALTH MAINTENANCE Final Result from Last 3 Months or Most Recently Relevant to Health Maintenance Insurance MEDICARE [facility] Advance Directives Documents on File Type Date Recorded Patient Tariff Publishing Agent Expl anation Health Care Decision (hx) 11/01/2021 AD SEBASTIAN DIRECTIVE Health Care Decision (hx) 11/01/2021 AD SEBASTIAN DIRECTIVE Health Care Decision (hx) 11/01/2021 AD SEBASTIAN DIRECTIVE Care Teams Retail Store Associate Relationship Specialty Start Date End Date Justin Zavala PA [address] [place] [address] PCP - General Internal Medicine 06/23/20
--- NOTE | 2024-12-19 08:24 | A.OFFVIS_ITS ---
Intake Visit Reasons: Left Leg Micro Accompanied by: Self / Same As Patient Allergies KELLI Inhibitors Allergy (Intermediate, Verified 12/19/24 08:24) Cough adhesive tape (ADHESIVE TAPE) Allergy (Intermediate, Verified 12/19/24 08:24) RASH gabapentin Allergy (Intermediate, Verified 12/19/24 08:24) Nausea grass pollen Allergy (Intermediate, Verified 12/19/24 08:24) Itching house dust mite Allergy (Intermediate, Verified 12/19/24 08:24) Itching lactose (LACTOSE) Allergy (Intermediate, Verified 12/19/24 08:24) GI UPSET mold Allergy (Intermediate, Verified 12/19/24 08:24) Itching ragweed pollen Allergy (Intermediate, Verified 12/19/24 08:24) Itching tree and shrub pollen Allergy (Intermediate, Verified 12/19/24 08:24) Itching blueberry (BLUEBERRY) Adverse Reaction (Intermediate, Verified 12/19/24 08:24) VOMITING doxycycline (From VIBRAMYCIN) Adverse Reaction (Intermediate, Verified 12/19/24 08:24) GI ISSUES lisinopril (From ZESTRIL) Adverse Reaction (Intermediate, Verified 12/19/24 08:24) COUGH procaine (From NOVOCAIN) Adverse Reaction (Intermediate, Verified 12/19/24 08:24) EXCESS NUMBING theophylline (THEOPHYLLINE) Adverse Reaction (Intermediate, Verified 12/19/24 08:24) DIZZINESS CAT GUT SUTURES Allergy (Intermediate, Uncoded 12/17/24 13:13) DO NOT DISSOLVE DERMABOND Adverse Reaction (Severe, Uncoded 12/17/24 13:13) RASH CHOCOLATE Adverse Reaction (Intermediate, Uncoded 12/17/24 13:13) [facility] Medical History Disorders of bursae and tendons in shoulder region, unspecified Hearing loss GERD (gastroesophageal reflux disease) Obesity Carpal tunnel syndrome Hypertension Hypercholesteremia Hypothyroidism Asthma Surgical History Status post open reduction and internal fixation (ORIF) of fracture (~09/11/24) H/O parotidectomy History of revision of total shoulder arthroplasty Hx of gastric bypass Cataracts, both eyes History of cholecystectomy History of total left knee replacement History of total right knee replacement Family History Mother No problems noted. Father No problems noted. Social History Are you a primary residential care facility manager to a significant other at home: No Do you presently have visiting nurse or other home services: No Alcohol intake: never Patient Tobacco Use Status: Former Tobacco user Tobacco use type: Cigarette Years Smoked: 23 Current occupational status: retired Current occupation: [employer] Office Procedures Vascular Office Procedure Details Details: Diagnosis: Left Leg varicose veins with inflammation Procedure: Left leg Microphlebectomy Anesthesia: Local Infiltration 10 cc, Tumescent: 0 cc. Varicose veins were marked in the standing position on the left leg and the patient was then placed in the supine position. The left lower extremity was prepared and draped to allow knee flexion in the sterile field. The patient had large superficial varicose veins with significant symptoms of pain. It was therefore determined to perform microphlebectomies of the clusters of varicose veins. The patient had bulging varicose veins which were previously marked in the st anding position. A small stab incision was made longitudinally directly overlying the varicose vein in the calf and the varicose vein was grasped with a hemostat aided by a vein hook. It was then dissected as far proximally and distally as possible and avulsed. A total of 11 stab incisions were made and the procedure of stab phlebectomies was repeated 11 times. Hemostasis was checked and stab incision sites were closed with steri-strips and sterile dressing was given with gauze and krilex wrap followed by an kelli bandage. There were no complications and blood loss was minimal. Post-Op instructions were given and a follow-up appointment was recommended. [id number] - Phleb Veins, Extrem - up to 20 All charges added?: Procedure code (CPT) selection complete Assessment & Plan Assessment & Plan (1) Varicose veins of left lower extremity with inflammation: Comment: 12/19/2024 - left leg microphlebectomy Code(s): I83.12 - Varicose veins of left lower extremity with inflammation Category: Medical Plan: See op note Coding Level of Care Code Procedure Only Diagnoses Varicose veins of left lower extremity with inflammation I83.12 CPT Codes Details - Vascular 5: 49479 - Phleb Veins, Extrem - up to 20 ([id number])
== END 2024-12-19 09:43 | disposition home or self-care (01) ==
LOC: HO.HVS 08:07
PROVIDERS: Visit Provider Surgery Vascular Surgery
DX: I83.12 Varicose veins of left lower extremity with inflammation (principal)
CPT/HCPCS: 37765

== ENCOUNTER → 2024-12-19 08:06 | Outpatient (BNVA) | payer MEDICARE, BC, SELFPAY | PROVIDERS: Visit Provider Surgery Vascular Surgery | DX: I83.12 Varicose veins of left lower extremity with inflammation (principal) | CPT/HCPCS: 37765 ==

== ENCOUNTER 2024-12-22 08:18 | Outpatient (AMB) | payer MEDICARE, BC, SELFPAY ==
--- OUTSIDE RECORDS SUMMARY | 2024-12-22 09:10 | XMS_ITS | Clinical Summary ---
Author Organization [facility] Address [address] [place] [address] Care Team Providers Care Cert Pharmacy Tech Name Role Phone Cameron Sanchez MD Primary Care Provider [phone] Allergies Active Allergy Reactions Criticality Noted Date [...] age to complete this topic Care Teams Cert Pharmacy Tech Relationship Specialty Start Date End Date Cameron Sanchez MD PCP - General Lug Breaker And Wire Puller 11/13/16
--- OUTSIDE RECORDS SUMMARY | 2024-12-22 09:10 | XMS_ITS | Encounter Summary ---
Author Organization [facility] [place] [address] Care Team Providers Care Shovel Operator Name Role Phone Justin Zavala Primary Care Provider [phone] Reason for Visit * Reason Onset Date Comments Poison Milka 12/11/2024 Encounter Details Date Type Department Care Team ([facility] st Contact Info) Description 12/11/2024 Telephone Adult Medicine [address] [phone] Justin Zavala PA [address] [place] [address] Social History Tobacco Use Types [...] care for your loved ones. For example, exceptional children teacher or elderly care for an older adult? [...] traveled recently to another state outside of [place], [place], [place], [place], [place], [place]? no o If yes, did you quarantine [...] of accident/Injury: No If yes, gather 3rd democrat insurance information Third Alliance Party Information: not applicable PCP: STEPHANIE Kim Payor: MEDICARE / Plan: MEDICARE PART A & B / Product Type: Medicare / documented in this encounter Plan of Treatment Upcoming Encounters Date Type Department Care Team (Late st Contact Info) Description 12/23/2024 7:30 AM EDT Appointment Radiology Department [address] [phone] 01/26/2025 8:00 AM EDT Office Visit Adult Medicine [address] [phone] Justin Zavala PA [address] [place] [phone] documented as of this encounter Visit Diagnoses Not on filedocumented in this encounter Additional Health Concerns Assessment Noted Time PHQ-9 Depression Total Score: 0 07/19/19 25 10:52 AM EDT A fall risk assessment has been complete d for the patient 07/18/2024 10:50 AM EDT documented as of this encounter Care Teams Shovel Operator Relationship Specialty Start Date End Date Justin Zavala PA [address] [place] [address] PCP - General Internal Medicine 06/23/20 documented as of this encounter
--- OUTSIDE RECORDS SUMMARY | 2024-12-22 09:10 | XMS_ITS | Clinical Summary ---
Author Organization [facility] [address] [place] [address] [place] [phone] Phone Care Team Providers Care Wrist Hemmer Name Role Phone Justin Zavala Primary Care Provider [phone] Allergies Active Allergy Reactions Criticality Noted Date [...] Care Team Description 12/11/2024 Telephone Adult Medicine [address] [phone] Justin Zavala PA from Last [...] Surgery Date Site/Laterality Comments GASTRIC BYPASS PROCEDURE: DC GASTRIC RSTCV W/BYP W/SM INT RCNSTJ LIMIT ABSRPJ; COMMENT: 2004 dr rodriguez OTHER SURGICAL HISTORY PROCEDURE: DC EXC PRTD NICHOL/PRTD GLND LAT LOBE W/O NRV DSJ; COMMENT: 3 tumors, left COLONOSCOPY 12/23/2007 PROCEDURE: HISTORICAL COLONOSCOPY; COMMENT: diverticulosis; repeat in ten years HAND SURGERY PROCEDURE: HISTORICAL HAND SURGERY; COMMENT: thumb arthoplasty bilateral CARPAL TUNNEL RELEASE PROCEDURE: DC NEUROPLASTY &/TRANSPOS MEDIAN NRV CARPAL TUNNE; COMMENT: left KNEE ARTHROSCOPY 01/20/2011 PROCEDURE: DC ARTHROSCOPY KNEE DIAGNOSTIC W/WO SYNOVIAL BX SPX; COMMENT: Left; Mindess TOTAL KNEE ARTHROPLASTY 2014 PROCEDURE: DC ARTHRP KNE CONDYLE&PLATU MEDIAL&LAT COMPARTMENTS; COMMENT: left dr edward TOTAL KNEE ARTHROPLASTY 2015 PROCEDURE: DC ARTHRP KNE CONDYLE&PLATU MEDIAL&LAT COMPARTMENTS; COMMENT: right COLONOSCOPY 08/21/2018 PROCEDURE: HISTORICAL COLONOSCOPY; COMMENT: negative OTHER SURGICAL HISTORY 09/2019 PROCEDURE: DC GE[place]GIA ARTHROSCOPIC TOTAL SHOULDER REPLACEMENT; COMMENT: R [...] your loved ones. For example, child welfare social worker or elderly care for an older [...] 7:30 AM EDT Appointment Radiology Department - [address] [phone] 01/26/2025 8:00 AM EDT Office Visit Adult Medicine [facility] - [address] [phone] Justin Zavala PA [facility] [place] [phone] Health Maintenance Due Date Last Done Comments [...] LAB CHEMISTRY METHOD 03/19/2024 10:39 AM EST [facility] Triglycerides 132 0 [...] BROWN LAB BLOOD ORDERABLES Lois l Result [facility] [address] [place] [address], * Comprehensive metabolic panel (03/19/2024 7:48 AM [...] BROWN LAB BLOOD ORDERABLES Lois burnett Result [facility]) [facility] [address] [place] [address], * SCREENING MAMMOGRAPHY BI 2-VIEW BREAST INC [...] normal bone density by WHO criteria. The [facility] Department of Internal Medicine recommends [...] schedule based on nick Ceballos., [facility] May 04, 2011 for patients with [...] normal bone density by WHO criteria. The [facility] Department of Internal Medicine recommendsusing [...] Final Result * Hepatitis C Screening (02/12/2014) 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
--- NOTE | 2024-12-22 09:16 | A.OFFVIS_ITS ---
Vital Signs 12/22/24 09:18 Height 5 ft 8 in Weight 283 lb BMI 43.0 BP 140/66 H Blood Pressure Location Lt brachial Position Sitting Respiration 16 Pulse 99 Pulse Source Pulse Oximeter Pulse Oximetry (%) 95 Oxygen Delivery Method Room Air Intake Visit Reasons: Bilateral primary osteoarthritis of hip Chlorinator Operator Required: No Allergies CARLOZ Inhibitors Allergy (Intermediate, Verified 12/22/24 09:19) Cough adhesive tape (ADHESIVE TAPE) Allergy (Intermediate, Verified 12/22/24 09:19) RASH gabapentin Allergy (Intermediate, Verified 12/22/24 09:19) Nausea grass pollen Allergy (Intermediate, Verified 12/22/24 09:19) Itching house dust mite Allergy (Intermediate, Verified 12/22/24 09:19) Itching lactose (LACTOSE) Allergy (Intermediate, Verified 12/22/24 09:19) GI UPSET mold Allergy (Intermediate, Verified 12/22/24 09:19) Itching ragweed pollen Allergy (Intermediate, Verified 12/22/24 09:19) Itching tree and shrub pollen Allergy (Intermediate, Verified 12/22/24 09:19) Itching blueberry (BLUEBERRY) Adverse Reaction (Intermediate, Verified 12/22/24 09:19) VOMITING doxycycline (From VIBRAMYCIN) Adverse Reaction (Intermediate, Verified 12/22/24 09:19) GI ISSUES lisinopril (From ZESTRIL) Adverse Reaction (Intermediate, Verified 12/22/24 09:19) COUGH procaine (From NOVOCAIN) Adverse Reaction (Intermediate, Verified 12/22/24 09:19) EXCESS NUMBING theophylline (THEOPHYLLINE) Adverse Reaction (Intermediate, Verified 12/22/24 09:19) DIZZINESS CAT GUT SUTURES Allergy (Intermediate, Uncoded 12/22/24 09:19) DO NOT DISSOLVE DERMABOND Adverse Reaction (Severe, Uncoded 12/22/24 09:19) RASH CHOCOLATE Adverse Reaction (Intermediate, Uncoded 12/22/24 09:19) VOMITING Medication List - Last Reconciled 12/22/24 by Justyna Kulkarni LPN acetaminophen ER 650 mg PO Q8H PRN albuterol sulfate 90 mcg/actuation 1 inh inhalation QID amlodipine 2.5 mg PO DAILY amoxicillin 2,000 mg (4 x 500 mg) PO ONCE aspirin 325 mg PO DAILY atorvastatin 10 mg PO DAILY budesonide-formoterol 80-4.5 mcg/actuation 2 puffs inhalation BID calcium carbonate-vitamin D3 600 mg-5 mcg (200 unit) 1 tab PO BID cetirizine 10 mg PO DAILY epinephrine (EpiPen) 0.3 mg IM Q10M PRN levothyroxine 137 mcg PO DAILY losartan 100 mg PO DAILY montelukast 10 mg PO BEDTIME multivitamin 1 tab PO DAILY nitroglycerin 0.4 mg sublingual Q5M PRN omeprazole 20 mg PO DAILY HPI HPI Bilateral primary osteoarthritis of hip: Details: History of Present Illness The patient is a 74-year-old female presenting with hip pain secondary to osteoarthritis. The hip pain began approximately two years ago and is described as an aching and stabbing sensation, with a pain intensity rated at 6-9/10, worsening in the evenings. The pain has significantly impacted her ability to sleep and perform daily activities, and it is exacerbated by weight-bearing and prolonged sitting. The patient has a history of several falls, which she attributes to her inability to get up due to bilateral knee replacements. She recently underwent wrist surgery for a broken radius and has had rotator cuff surgeries on both shoulders. Additionally, she had a vein stripping procedure recently. Pain Description - Onset: Approximately two years ago - Quality: Aching and stabbing sensation - Intensity: Rated at 6-9/10 - Timing: Worsens in the evenings - Exacerbating factors: Weight-bearing, prolonged sitting - Impact: Affects sleep and daily activities Physical Exam - Appears afebrile. - Alert and oriented. - Mood and affect appropriate. - Follows and participates in conversation appropriately. - Respiratory effort is unlabored. Results XRays showing advanced hip OA Pain Management - Affect: Pain impacts sleep and daily activities - Analgesia: Previous cortisone injections provided relief - Activities of Daily Living: Pain affects mobility, especially after sitting or weight-bearing [facility] Medical History (Updated 12/22/24 @ 08:32 by Justyna Kulkarni LPN) Disorders of bursae and tendons in shoulder region, unspecified Hearing loss GERD (gastroesophageal reflux disease) Obesity Carpal tunnel syndrome Hypertension Hypercholesteremia Hypothyroidism Asthma Surgical History Status post open reduction and internal fixation (ORIF) of fracture (~09/11/24) H/O parotidectomy History of revision of total shoulder arthroplasty Hx of gastric bypass Cataracts, both eyes History of cholecystectomy History of total left knee replacement History of total right knee replacement Family History Mother No problems noted. Father No problems noted. Social History Are you a primary anesthesiologist and critical care to a significant other at home: No Do you presently have visiting nurse or other home services: No Alcohol intake: never Patient Tobacco Use Status: Former Tobacco user Tobacco use type: Cigarette Years Smoked: 23 Current occupational status: retired Current occupation: [employer] Physical Exam Vital Signs: Last Vital Signs Pulse 99 12/22/24 09:18 Resp 16 12/22/24 09:18 BP 140/66 H 12/22/24 09:18 Pulse Ox 95 12/22/24 09:18 Oxygen Delivery Method Room Air 12/22/24 09:18 BMI result Body Mass Index 43.0 Assessment & Plan Assessment & Plan (1) Bilateral hip joint arthritis: Code(s): M16.0 - Bilateral primary osteoarthritis of hip Category: Medical Plan Plan Patient was informed and verbally consented to the use of an ambient scribe for clinic note documentation during this visit. 1. Osteoarthritis Of Bilateral Hips - Plan for fluoroscopy-guided hip injections, starting with the right side, followed by the left side two weeks later. - Cortisone injections to be administered under x-ray guidance to ensure accurate placement. - Follow-up scheduled for three weeks post vein stripping procedure to allow adequate recovery time. Discussion Notes I discussed with the patient the plan for fluoroscopy-guided hip injections to manage her osteoarthritis pain. We agreed to start with the right hip and follow with the left hip two weeks later to manage the cortisone dosage. I explained the procedure would be done under x-ray guidance to ensure precision and discussed the need to wait three weeks post vein stripping for adequate recovery. Patient Instructions - Await a call from the nurse to schedule the hip injections. - Plan for the right hip injection first, followed by the left hip two weeks later. - Monitor for any changes in pain or mobility and report any concerns. Coding Level of Care Code New Pt Level 3 (64225) Diagnoses Bilateral hip joint arthritis M16.0
[2024-12-22 09:18] VITALS: BP 140/66; PULSE 99; RESP 16; O2SAT 95; BMI 43.0
== END 2024-12-22 10:09 | disposition home or self-care (01) ==
LOC: HO.PMC 08:18
PROVIDERS: PCP Physician Assistant Medical; Visit Provider Internal Medicine
DX: M16.0 Bilateral primary osteoarthritis of hip (principal)
CPT/HCPCS: 99203

== ENCOUNTER → 2024-12-22 08:18 | Outpatient (BNVA) | payer MEDICARE, BC, SELFPAY | PROVIDERS: PCP Physician Assistant Medical; Visit Provider Internal Medicine | DX: M16.0 Bilateral primary osteoarthritis of hip (principal); Z79.82 Long term (current) use of aspirin; I10 Essential (primary) hypertension; Z87.891 Personal history of nicotine dependence; Z98.84 Bariatric surgery status; E66.09 Other obesity due to excess calories; Z68.41 Body mass index [BMI] 40.0-44.9, adult | CPT/HCPCS: 99202 ==

== ENCOUNTER 2025-01-01 08:30 | Outpatient (AMB) | payer MEDICARE, BC, SELFPAY ==
[2025-01-01 08:46] VITALS: BMI 43.0
--- NOTE | 2025-01-01 08:46 | MHC.OFFVIS ---
Vital Signs 01/01/25 08:46 Height 5 ft 8 in Weight 283 lb BMI 43.0 Intake Visit Reasons: 2 wk follow up Left Micro 12/19/24 Intake Note: 2 week follow up Left Micro 12/19/24. 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 Required: No Accompanied by: Self / Same As Patient Allergies CARLOZ Inhibitors Allergy (Intermediate, Verified 01/01/25 08:53) Cough adhesive tape (ADHESIVE TAPE) Allergy (Intermediate, Verified 01/01/25 08:53) RASH gabapentin Allergy (Intermediate, Verified 01/01/25 08:53) Nausea grass pollen Allergy (Intermediate, Verified 01/01/25 08:53) Itching house dust mite Allergy (Intermediate, Verified 01/01/25 08:53) Itching lactose (LACTOSE) Allergy (Intermediate, Verified 01/01/25 08:53) GI UPSET mold Allergy (Intermediate, Verified 01/01/25 08:53) Itching ragweed pollen Allergy (Intermediate, Verified 01/01/25 08:53) Itching tree and shrub pollen Allergy (Intermediate, Verified 01/01/25 08:53) Itching blueberry (BLUEBERRY) Adverse Reaction (Intermediate, Verified 01/01/25 08:53) VOMITING doxycycline (From VIBRAMYCIN) Adverse Reaction (Intermediate, Verified 01/01/25 08:53) GI ISSUES lisinopril (From ZESTRIL) Adverse Reaction (Intermediate, Verified 01/01/25 08:53) COUGH procaine (From NOVOCAIN) Adverse Reaction (Intermediate, Verified 01/01/25 08:53) EXCESS NUMBING theophylline (THEOPHYLLINE) Adverse Reaction (Intermediate, Verified 01/01/25 08:53) DIZZINESS CAT GUT SUTURES Allergy (Intermediate, Uncoded 01/01/25 08:53) DO NOT DISSOLVE DERMABOND Adverse Reaction (Severe, Uncoded 01/01/25 08:53) RASH CHOCOLATE Adverse Reaction (Intermediate, Uncoded 01/01/25 08:53) VOMITING HPI HPI 2 wk follow up Left Micro 12/19/24: Details: The patient is a 74-year-old female presenting for follow-up after left leg microphlebectomy and evaluation of right calf swelling and discoloration. The patient underwent a left leg microphlebectomy on 12/19/2024, with subsequent minor bleeding post-procedure, which required her to leave her shoe and sock due to bleeding. She reports significant improvement in symptoms, including reduced pressure and pain when walking upstairs, attributed to the removal of problematic veins. The patient has experienced right calf swelling and discoloration for approximately four months, initially presenting as bright red and intensely pruritic, leading to bleeding upon scratching. The symptoms have been intermittent, and she has not received treatment for this episode of cellulitis, although she has had similar infections in the past. An ultrasound performed two to three months ago was negative for venous reflux, eliminating the need for further invasive procedures such as laser treatment or closure of larger veins. [facility] Medical History Disorders of bursae and tendons in shoulder region, unspecified Hearing loss GERD (gastroesophageal reflux disease) Obesity Carpal tunnel syndrome Hypertension Hypercholesteremia Hypothyroidism Asthma Surgical History Status post open reduction and internal fixation (ORIF) of fracture (~09/11/24) H/O parotidectomy History of revision of total shoulder arthroplasty Hx of gastric bypass Cataracts, both eyes History of cholecystectomy History of total left knee replacement History of total right knee replacement Family History Mother No problems noted. Father No problems noted. Social History Are you a primary director of health care marketing to a significant other at home: No Do you presently have visiting nurse or other home services: No Alcohol intake: never Patient Tobacco Use Status: Former Tobacco user Tobacco use type: Cigarette Years Smoked: 23 Current occupational status: retired Current occupation: [employer] Review of Systems Const All systems reviewed & are unremarkable except as noted in HPI and below Reports no additional complaints ENT Reports Normal hearing present Card Denies chest pain, Denies chest pain at rest, Denies chest pain with activity and Denies pedal edema Resp Denies cough GI Denies abdominal pain Musc Denies abnormal gait, Denies muscle cramps and Denies radiating pain into limb Skin/Breast Denies skin ulcer and Denies wounds Neuro Reports Normal hearing present and Denies abnormal gait Psych Reports no additional complaints Physical Exam Vital Signs: BMI result Body Mass Index 43.0 Const General: cooperative, healthy appearing and comfortable Orientation/consciousness: oriented to person, oriented to place and oriented to time HEENT Head: Yes normal to inspection Neck Neck: Yes normal visual inspection Carotids: no bruits Chest Chest palpation & inspection: normal inspection of the chest Resp Effort & Inspection: normal respiratory effort and able to speak in complete sentences Auscultation: clear to auscultation bilaterally, no crackles, no rales, no rhonchi and no wheezes Cardio Rate: regular rate Rhythm: regular rhythm Heart sounds: S1 normal heart sound present and S2 normal heart sound present Bruits: no carotid bruits Peripheral pulses: Peripheral pulses 2+ throughout GI Inspection: Yes normal to inspection Skin Other: Right calf cellulitis Wounds: no wounds Hair: normal Neuro General: oriented to person, oriented to place and oriented to time Cranial nerves: Yes CN's II-XII intact bilaterally and Yes Normal hearing present Cognition (Neuro): normal cognition Motor exam (neuro): 5/5 motor strength present throughout Extrem Other: venous exam: No significant superficial varicosities or spider telangiectasias, minimal edema General: No clubbing, No cyanosis and No edema Psych Appearance: grossly normal Mental Status: mental status grossly normal Speech and movement: Normal speech and movement present Assessment & Plan Assessment & Plan (1) Varicose veins of left lower extremity with inflammation: Comment: 12/19/2024 - left leg microphlebectomy Code(s): I83.12 - Varicose veins of left lower extremity with inflammation Category: Medical Plan: Doing well post microphlebectomy. No additional intervention indicated. (2) Cellulitis of leg, right: Code(s): L03.115 - Cellulitis of right lower limb Category: Medical Plan: Right calf cellulitis. Will treat with cephalexin for 10 days. Will have follow up in 2 weeks (3) Lymphedema: Code(s): I89.0 - Lymphedema, not elsewhere classified Category: Medical Plan: Doing well after vein procedure if she continues to have leg swelling will plan for lymphedema pumps. We will continue to monitor the status of her lower extremities. Medications: New cephalexin 500 mg PO BID 20 caps 0RF Coding Level of Care Code Est Pt Level 4 (14465) Diagnoses Varicose veins of left lower extremity with inflammation I83.12 Cellulitis of leg, right L03.115 Lymphedema I89.0
--- OUTSIDE RECORDS SUMMARY | 2025-01-01 09:37 | XMS_ITS | Encounter Summary ---
Author Organization [facility] Address [address] [place] [address] Care Team Providers Care Precinct I Police Sergeant Name Role Phone Justin Zavala Primary Care Provider [phone] Reason for Visit * Reason Onset Date Comments Poison Milka 12/11/2024 Encounter Details Date Type Department Care Team (Late st Contact Info) Description 12/11/2024 Telephone Adult Medicine [address] [phone] Justin Zavala PA [address] [place] [phone] Social History Tobacco Use Types [...] your loved ones. For example, child care sitter or elderly care for an older adult? [...] recently to another state outside of [place], [place], [place], [place], [place], [place], [place]? no o If yes, did you quarantine [...] gather 3rd green party insurance information Third Libertarian Information: not applicable PCP: STEPHANIE Kim Payor: MEDICARE / Plan: MEDICARE PART A & B / Product Type: Medicare / documented in this encounter Plan of Treatment Upcoming Encounters Date Type Department Care Team (Late st Contact Info) Description 01/26/2025 8:00 AM EDT Office Visit Adult Medicine [facility] [address] [place] [address] Justin Zavala PA [address] [place] [phone] documented as of this encounter Visit Diagnoses Not on filedocumented in this encounter Additional Health Concerns Assessment Noted Time PHQ-9 Depression Total Score: 0 07/19/19 25 10:52 AM EDT A fall risk assessment has been complete d for the patient 07/18/2024 10:50 AM EDT documented as of this encounter Care Teams Precinct I Police Sergeant Relationship Specialty Start Date End Date Justin Zavala PA [address] [place] [id number] PCP - General Internal Medicine 06/23/20 documented as of this encounter
--- OUTSIDE RECORDS SUMMARY | 2025-01-01 09:37 | XMS_ITS | Clinical Summary ---
Author Organization [facility] [address] [place] [address] [place] [phone] Phone Care Team Providers Care Community Administrator Name Role Phone Justin Zavala Primary Care Provider [phone] Allergies Active Allergy Reactions Criticality Noted Date [...] Encounters Date Type Department Care Team Description 12/23/2024 7:20 AM EDT - 12/23/2024 11:59 PM EDT Hospital Encounter Radiology Department - [address] [phone] Encounter for screening mammogram for breast cancer Discharge Disposition: Home or Self Care 12/11/2024 Telephone Adult Medicine East - [address] [phone] Justin Zavala PA from Last 3 Months [...] COMMENT: negative OTHER SURGICAL HISTORY 09/2019 PROCEDURE: AL ANES ARTHROSCOPIC TOTAL SHOULDER REPLACEMENT; COMMENT: R OTHER SURGICAL HISTORY 11/01/2021 Left PROCEDURE: AL TOMÁSS ARTHROSCOPIC TOTAL SHOULDER REPLACEMENT; COMMENT: reverse shoulder [...] care for your loved ones. For example, children counselor or elderly care for an older adult? [...] Sexual Orientation Not on file Obstetrics History Para Term AB IAB SAB Ectopic Multiple Livin g Live Births 0 0 0 0 Last Filed Vital Signs Vital Sign Reading [...] 8:00 AM EDT Office Visit Adult Medicine [address] [phone] Justin Zavala PA [address] [place] [phone] Health Maintenance Due Date Last Done Comments [...] Vaccine: 50+ Years Completed 12/15/2019, 08/20/2014, 08/15/2013 Depression Screening Completed 07/18/2024, 07/18/19 24 RSV Immunization Adult Patients Completed 07/23/2024 Breast Cancer Screening Discontinued 12/24/19, 08/24/2023, 08/24/2023, Additional history exists HIB Vaccines Aged Out [...] Procedure Name Priority Date/Time Associated Diagnosis Comments MG MAMMO DIGITAL SCREENING W ELIEZER BILAT Routine 12/23/2024 7:39 AM EDT Encounter for screening mammogram for breast cancer COMPREHENSIVE METABOLIC PANEL Routine 03/19/2024 7:48 AM [...] Myxedema heart disease Esophageal reflux Allergic, sequela DEPRESSION SCREENING Routine 07/18/2023 COLONOSCOPY Routine 02/10/2022 DXA BONE DENSITY STUDY 1+ SITS AXIAL SKEL Routine 12/22/2020 9:42 AM EDT Encounter for screening for osteoporosis HEPATITIS C SCREENING Routine 02/12/2014 from Last 3 Months or Most Recently Relevant to Health Maintenance Results * MG Mammo Digital Screening w Eliezer bilat (12/23/2024 7:39 AM EDT) Anatomical Region Laterality Modality Breast Bilateral Mammography 12/24/2024 5:53 PM EDT Impressions 12/24/2024 5:56 PM EDT No mammographic evidence of malignancy. BREAST DENSITY: B - There are scattered areas of fibroglandular density. BI-RADS CATEGORY: 2 - BENIGN RECOMMENDATION: Screening bilateral mammogram is recommended in 1 year. MAMMO LOCATION: [facility], [address] [place] [address], [phone], . -------- FINAL REPORT -------- Dictated By: Stephanie Cesar Dictated Date: 12/24/2024 17:53 ET Assigned Physician: Stephanie Cesar Reviewed and Electronically Signed By: Stephanie Cesar Signed Date: 12/24/2024 17:56 ET Workstation ID: [id number] Transcribed By: Self Edit Transcribed Date: 12/24/2024 17:53 ET Narrative 12/24/2024 5:56 PM EDT EXAM: Screening Mammogram CLINICAL: 74 years old, Female, routine annual exam. COMPARISON: 08/24/2023 and as far back as 10/04/2020 TECHNIQUE: Bilateral MLO and CC views were obtained digitally with 3-D mammogram (digital breast tomosynthesis). Computer-aided detection was utilized in evaluation of this exam (CAD). Exam limited by limitations in patient positioning due to body habitus and bilateral shoulder replacements. Images obtained are the best possible. FINDINGS: No new suspicious mass, architectural distortion, or suspicious calcifications. Stable focal asymmetry in the posterior upper outer left breast. Procedure Note Stephanie Cesar MD - 12/24/2024 EXAM: Screening Mammogram CLINICAL: 74 years old, Female, routine annual exam. COMPARISON: 08/24/2023 and as far back as 10/04/2020 TECHNIQUE: Bilateral MLO and CC views were obtained digitally with 3-Dmammogram (digital breast tomosynthesis). Computer-aided detection wasutilized in evaluation of this exam (CAD). Exam limited by limitations inpatient positioning due to body habitus and bilateral shoulderreplacements. Images obtained are the best possible. FINDINGS: No new suspicious mass, architectural distortion, or suspiciouscalcifications. Stable focal asymmetry in the posterior upper outer leftbreast. IMPRESSION: No mammographic evidence of malignancy. BREAST DENSITY: B - There are scattered areas of fibroglandular density. BI-RADS CATEGORY: 2 - BENIGN RECOMMENDATION: Screening bilateral mammogram is recommended in 1 year. MAMMO LOCATION: [facility], [address] [place] [address], [address], . -------- FINAL REPORT -------- Dictated By: Stephanie Cesar Dictated Date: 12/24/2024 17:53 ET Assigned Physician: Stephanie Cesar Reviewed and Electronically Signed By: Stephanie Csear Signed Date: 12/24/2024 17:56 ET Workstation ID: [id number] Transcribed By: Self Edit Transcribed Date: 12/24/2024 17:53 ET Justin BROWN IMG BI PROCEDURES Final R esult * Lipid panel with reflex to direct [...] l Result [facility] [address] [place] [address], * Comprehensive metabolic panel (03/19/2024 7:48 AM [...] l Result [facility] [address] [place] [address], * Depression Screening (07/18/2023) Pathologist [facility] Depression Screening Abstracted Historical Provider HEALTH MAINTENANCE Final Result * Colonoscopy (02/10/2022) Pathologist [facility] Colonoscopy No Interpretation , Abstracted Anatomical Region Laterality Modality Other Historical Provider HEALTH MAINTENANCE Final Result * DXA BONE DENSITY STUDY 1+ JOHNNY SEGURA SKEL (12/22/2020 9:42 AM EDT) Anatomical Region [...] normal bone density by WHO criteria. The [facility] Department of Internal Medicine recommends using [...] Optional alternative screening schedule based on nick Cebalols., [facility] May 04, 2011 for patients [...] normal bone density by WHO criteria. The [facility] Department of Internal Medicine recommendsusing National [...] -1.50 and higher), BMD testingevery 15 years us Justin BROWN IMG DXA PROCEDURES Final Result * Hepatitis C Screening (02/12/2014) Hepatitis C Screening Abstracted us Historical Provider HEALTH MAINTENANCE Final Result from Last 3 Months or Most Recently Relevant to Health Maintenance Insurance MEDICARE [facility] Advance Directives Documents on File Type Date Recorded Patient Graduate Nurse Expl anation Health Care Decision (hx) 11/01/2021 AD SEBASTIAN DIRECTIVE Health Care Decision (hx) 11/01/2021 AD SEBASTIAN DIRECTIVE Health Care Decision (hx) 11/01/2021 AD SEBASTIAN DIRECTIVE Care Teams Community Administrator Relationship Specialty Start Date End Date Justin Zavala PA [address] [place] [phone] PCP - General Internal Medicine 06/23/20
--- OUTSIDE RECORDS SUMMARY | 2025-01-01 09:37 | XMS_ITS | Clinical Summary ---
Author Organization [facility] Address [address] [place] [address] Care Team Providers Care Evp Name Role Phone Cameron Sanchez MD Primary Care Provider [phone] Allergies Active Allergy Reactions Criticality Noted Date [...] age to complete this topic Care Teams Evp Relationship Specialty Start Date End Date Cameron Sanchez MD PCP - General Coil Repair Technician 11/13/16
== END 2025-01-01 09:39 | disposition home or self-care (01) ==
LOC: HO.HVS 08:30
PROVIDERS: Visit Provider Surgery Vascular Surgery
DX: I83.12 Varicose veins of left lower extremity with inflammation (principal); L03.115 Cellulitis of right lower limb; I89.0 Lymphedema, not elsewhere classified
CPT/HCPCS: 99214

== ENCOUNTER → 2025-01-01 08:30 | Outpatient (BNVA) | payer MEDICARE, BC, SELFPAY | PROVIDERS: Visit Provider Surgery Vascular Surgery | DX: I83.12 Varicose veins of left lower extremity with inflammation (principal); L03.115 Cellulitis of right lower limb; I89.0 Lymphedema, not elsewhere classified | CPT/HCPCS: 99212 ==

== ENCOUNTER 2025-01-15 08:28 | Outpatient (AMB) | payer MEDICARE, BC, SELFPAY ==
--- OUTSIDE RECORDS SUMMARY | 2025-01-15 08:47 | XMS_ITS | Clinical Summary ---
Author Organization [facility] [address] [place] [address] [place] [phone] Phone Care Team Providers Care Data Collection Interviewer Name Role Phone Justin Zavala Primary Care Provider [phone] Allergies Active Allergy Reactions Criticality Noted Date [...] 12 Active multivitamin tablet 1tab bid Active aspirin [...] chew. 90 capsule 3 04/07/20 24 Active levothyroxine (SYNTHROID, LEVOTHROID) 137 mcg tablet TAKE 1 TABLET BY MOUTH EVERY DAY 90 tablet 1 06/24/19 25 Active acetaminophen (TYLENOL 8 HOUR) 650 mg 8 hr tablet TAKE 1 TABLET BY MOUTH EVERY 8 HOURS NEEDED FOR PAIN 100 tablet 08/27/19 25 Active losartan (COZAAR) 100 mg tablet TAKE 1 TABLET BY MOUTH EVERY DAY 90 tablet 01/06/20 25 Active atorvastatin (LIPITOR) 10 mg tablet TAKE 1 TABLET BY MOUTH EVERY DAY 90 tablet 01/06/20 25 Active amLODIPine (NORVASC) 2.5 mg tablet TAKE 1 TABLET BY MOUTH EVERY DAY 90 tablet 01/06/20 25 Active atorvastatin (LIPITOR) 10 mg tablet TAKE 1 TABLET BY MOUTH EVERY DAY 90 tablet 1 06/24/19 25 025 Discontinued losartan (COZAAR) 100 mg tablet TAKE 1 TABLET BY MOUTH EVERY DAY 90 tablet 1 06/24/19 25 025 Discontinued amLODIPine (NORVASC) 2.5 mg tablet TAKE 1 TABLET BY MOUTH EVERY DAY 90 tablet 1 06/24/19 25 025 Discontinued Active Problems Problem Noted Date [...] Encounters Date Type Department Care Team Description 01/13/2025 Telephone Adult Medicine [address] [phone] Brigette Wood [place] 01/09/2025 Telephone Adult Medicine [address] [phone] Justin Zavala PA 12/23/2024 7:20 AM EDT - 12/23/2024 11:59 PM EDT Hospital Encounter Radiology Department - [address] [phone] Encounter for screening mammogram for breast cancer Discharge Disposition: Home or Self Care 12/11/2024 Telephone Adult Medicine [address] [phone] Justin Zavala PA from Last 3 Months Immunizations Immunization Administration Dates Next Due H1N1 Inj Preservative [...] subun it RSVpreF, 0.5mL, Preservative Free (Arexvy) 50yo and older 07/23/2024 Td Tetanus diptheria (Tdvax) 7yo and older 09/08/2015,01/11/2005 Tdap Tetanus diptheria acell ular pertussis (Boostrix; Adacel) 7yo and older 12/28/2019 Varicella live (Varivax) 12m o and older 01/12/2010 Zoster Live 09/15/2017,01/24/2012 Zoster recombinant (Shingrix ) 19yo and older 12/26/2017,06/14/2017,04/16/2017 Surgical History Surgery Date Site/Laterality Comments GASTRIC BYPASS PROCEDURE: [place] GASTRIC RSTCV W/BYP W/SM INT RCNSTJ LIMIT ABSRPJ; COMMENT: 2004 dr rodriguez OTHER SURGICAL HISTORY PROCEDURE: MN EXC PRTD NICHOL/PRTD GLND LAT LOBE W/O NRV DSJ; COMMENT: 3 tumors, left COLONOSCOPY 12/23/2007 PROCEDURE: HISTORICAL COLONOSCOPY; COMMENT: diverticulosis; repeat in ten years HAND SURGERY PROCEDURE: HISTORICAL HAND SURGERY; COMMENT: thumb arthoplasty bilateral CARPAL TUNNEL RELEASE PROCEDURE: MN NEUROPLASTY &/TRANSPOS MEDIAN NRV CARPAL TUNNE; COMMENT: left KNEE ARTHROSCOPY 01/20/2011 PROCEDURE: MN ARTHROSCOPY KNEE DIAGNOSTIC W/WO SYNOVIAL BX SPX; COMMENT: Left; Idania TOTAL KNEE ARTHROPLASTY 2014 PROCEDURE: MN ARTHRP KNE CONDYLE&PLATU MEDIAL&LAT COMPARTMENTS; COMMENT: left dr edward TOTAL KNEE ARTHROPLASTY 2015 PROCEDURE: MN ARTHRP KNE CONDYLE&PLATU MEDIAL&LAT COMPARTMENTS; COMMENT: right COLONOSCOPY 08/21/2018 PROCEDURE: HISTORICAL COLONOSCOPY; COMMENT: negative OTHER SURGICAL HISTORY 09/2019 PROCEDURE: MN ANES ARTHROSCOPIC TOTAL SHOULDER REPLACEMENT; COMMENT: R OTHER SURGICAL HISTORY 11/01/2021 Left PROCEDURE: MN ANES ARTHROSCOPIC TOTAL SHOULDER REPLACEMENT; COMMENT: reverse [...] loved ones. For example, child protective services social worker or elderly care for an [...] Date Recorded What is your living situation? Unrecognized valu e 07/18/2024 Comments No Sex and Gender Information [...] 09/03/2024 10:02 AM EDT Plan of Treatment Health Maintenance Due Date [...] is recommended in 1 year. MAMMO LOCATION: [facility], [address] [place] [address], [address], . -------- FINAL REPORT -------- Dictated By: Stephanie Cesar Dictated Date: 12/24/2024 17:53 ET Assigned Physician: Stephanie Cesar Reviewed and Electronically Signed By: Stephanie Cesar Signed Date: 12/24/2024 17:56 ET Workstation ID: [id number] Transcribed By: Self Edit Transcribed Date: 12/24/2024 [...] is recommended in 1 year. MAMMO LOCATION: [facility], [address] [place] [address], [phone], . -------- FINAL REPORT -------- Dictated By: Stephanie Cesar Dictated Date: 12/24/2024 17:53 ET Assigned Physician: Stephanie Cesar Reviewed and Electronically Signed By: Stephanie Cesar Signed Date: 12/24/2024 17:56 ET Workstation ID: [id number] Transcribed By: Self Edit Transcribed Date: 12/24/2024 17:53 ET Justin BROWN IMG BI PROCEDURES Final R esult * Lipid panel with reflex to direct LDL (03/19/2024 7:48 AM EST) Cholesterol 155 0 - 200 mg/dL LAB CHEMISTRY METHOD 03/19/2024 10:39 AM EST [facility] Triglycerides 132 0 - 150 mg/dL LAB CHEMISTRY METHOD 03/19/2024 10:39 AM EST [facility] HDL 61 >=40 mg/dL LAB [...] BROWN LAB BLOOD ORDERABLES Lois burnett Result [facility] [address] [place] [address], * Comprehensive metabolic panel (03/19/2024 7:48 AM [...] BROWN LAB BLOOD ORDERABLES Lois burnett Result [facility] [address] [place] [address], * Depression Screening (07/18/2023) Depression Screening Abstracted us Historical Provider HEALTH MAINTENANCE Final Result * Colonoscopy (02/10/2022) Colonoscopy No Interpretation , Abstracted Anatomical Region Laterality Modality Other us Historical Provider MD HEALTH MAINTENANCE Final Result [...] normal bone density by WHO criteria. [facility] Department of Internal Medicine recommends using [...] screening schedule based on nick Ceballos., [facility] May 04, 2011 for patients with osteopenia [...] normal bone density by WHO criteria. [facility] Department of Internal Medicine recommendsusing National [...] FRAX. Optional alternative screening schedule based on osiris Ceballos, [facility]2011 for patients with osteopenia (based on hip BMD T-score) is as follows: * advanced osteopenia (T scores -2.00 to -2.49), BMD testing every year * moderate osteopenia (T scores -1.50 to -1.99), BMD testing every 5years mild osteopenia or normal BMD (T scores -1.50 and higher), BMD testingevery 15 years Justin BROWN IMEduardo DXA PROCEDURES Final Result * Hepatitis C Screening (02/12/2014) [facility] Hepatitis C Screening Abstracted Historical Provider HEALTH MAINTENANCE Final Result from Last 3 Months or Most Recently Relevant to Health Maintenance Insurance MEDICARE [facility] Advance Directives Documents on File Type Date Recorded Patient Obstetric Anaesthetist Expl anation Health Care Decision (hx) 11/01/2021 AD SEBASTIAN DIRECTIVE Health Care Decision (hx) 11/01/2021 AD SEBASTIAN DIRECTIVE Health Care Decision (hx) 11/01/2021 AD SEBASTIAN DIRECTIVE Care Teams Data Collection Interviewer Relationship Specialty Start Date End Date Justin Zavala PA [address] [place] [phone] PCP - General Internal Medicine 06/23/20
--- OUTSIDE RECORDS SUMMARY | 2025-01-15 08:47 | XMS_ITS | Encounter Summary ---
Author Organization [facility] Address [address] [place] [address] Care Team Providers Care Missile Mechanic Name Role Phone Justin Zavala Primary Care Provider [phone] Reason for Visit * Reason Onset Date Comments Call Back 01/13/2025 Encounter Details Date Type Department Care Team (Late st Contact Info) Description 01/13/2025 Telephone Adult Medicine [address] [phone] Brigette Wood MA Social History Tobacco Use Types Packs/Day Years [...] as of this encounter Progress Notes * Brigette Wood MA - 01/13/2025 11:59 AM EDT Ade the surgical services manager wants to know if it is ok to hold aspirin 325 mg prior to hip injections the Right hip 02/05 and Left Hip on 02/19. Or a fax ed note is ok also. FAX#[phone].Please Advise documented in this encounter Plan of Treatment Not on file documented as of this encounter Visit Diagnoses Not on filedocumented in this encounter Additional Health Concerns Assessment Noted Time PHQ-9 Depression Total Score: 0 07/19/19 25 10:52 AM EDT A fall risk assessment has been complete d for the patient 07/18/2024 10:50 AM EDT documented as of this encounter Care Teams Missile Mechanic Relationship Specialty Start Date End Date Justin Zavala PA [address] [place] [address] PCP - General Internal Medicine 06/23/20 documented as of this encounter
--- OUTSIDE RECORDS SUMMARY | 2025-01-15 08:47 | XMS_ITS | Encounter Summary ---
Author Organization [facility] Address [address] [place] [address] Care Team Providers Care Front Desk Coordinator Name Role Phone Justin Zavala Primary Care Provider [phone] Reason for Visit * Reason Onset Date Comments Poison Milka 12/11/2024 Encounter Details Date Type Department Care Team (Late st Contact Info) Description 12/11/2024 Telephone Adult Medicine [address] [phone] uJstin Zavala PA [address] [place] [address] Social History Tobacco Use Types [...] for your loved ones. For example, child abuse worker or elderly care for an older [...] of this encounter Progress Notes * Priyanka Burris, HARJINDER - 12/11/2024 12:24 PM EDT Poison sumac [...] requires triage: Symptoms patient is presenting: gloria olvin, wants to know if you could prednisone [...] traveled recently to another state outside of [place], [place], [place], [place], [place], [place], [place]? no o If yes, did you quarantine [...] documented as of this encounter Care Teams Front Desk Coordinator Relationship Specialty Start Date End Date Justin Zavala PA [address] [place] [address] PCP - General Internal Medicine 06/23/20 documented as of this encounter
--- OUTSIDE RECORDS SUMMARY | 2025-01-15 08:47 | XMS_ITS | Clinical Summary ---
Author Organization [facility] Address [address] [place] [address] Care Team Providers Care Code Official Name Role Phone Cameron Sanchez MD Primary Care Provider [phone] Allergies Active Allergy Reactions Criticality Noted Date [...] age to complete this topic Care Teams Code Official Relationship Specialty Start Date End Date Cameron Sanchez MD PCP - General Stroboroma Operator 11/13/16
--- NOTE | 2025-01-15 08:54 | MHC.OFFVIS ---
Vital Signs 01/15/25 09:01 Height 5 ft 8 in Weight 283 lb BMI 43.0 Intake Visit Reasons: 2 week follow up wound check Intake Note: 2 week follow up for Right LE discoloration and completed Abx. States that Left LE is doing well. Accompanied by: Self / Same As Patient Allergies CARLOZ Inhibitors Allergy (Intermediate, Verified 01/15/25 09:03) Cough adhesive tape (ADHESIVE TAPE) Allergy (Intermediate, Verified 01/15/25 09:03) RASH gabapentin Allergy (Intermediate, Verified 01/15/25 09:03) Nausea grass pollen Allergy (Intermediate, Verified 01/15/25 09:03) Itching house dust mite Allergy (Intermediate, Verified 01/15/25 09:03) Itching lactose (LACTOSE) Allergy (Intermediate, Verified 01/15/25 09:03) GI UPSET mold Allergy (Intermediate, Verified 01/15/25 09:03) Itching ragweed pollen Allergy (Intermediate, Verified 01/15/25 09:03) Itching tree and shrub pollen Allergy (Intermediate, Verified 01/15/25 09:03) Itching blueberry (BLUEBERRY) Adverse Reaction (Intermediate, Verified 01/15/25 09:03) VOMITING doxycycline (From VIBRAMYCIN) Adverse Reaction (Intermediate, Verified 01/15/25 09:03) GI ISSUES lisinopril (From ZESTRIL) Adverse Reaction (Intermediate, Verified 01/15/25 09:03) COUGH procaine (From NOVOCAIN) Adverse Reaction (Intermediate, Verified 01/15/25 09:03) EXCESS NUMBING theophylline (THEOPHYLLINE) Adverse Reaction (Intermediate, Verified 01/15/25 09:03) DIZZINESS CAT GUT SUTURES Allergy (Intermediate, Uncoded 01/15/25 09:03) DO NOT DISSOLVE DERMABOND Adverse Reaction (Severe, Uncoded 01/15/25 09:03) RASH CHOCOLATE Adverse Reaction (Intermediate, Uncoded 01/15/25 09:03) VOMITING HPI HPI 2 week follow up wound check: Details: The patient is a 74-year-old female presenting with lower extremity cellulitis. She had undergone a left microphlebectomy on December 19, 2024, and recovered well from the procedure. Following the procedure, she developed cellulitis in the right lower extremity, which is now improving. The patient reports that the condition is getting better and does not believe it is an infection but rather a result of stretching. She has difficulty wearing compression stockings due to severe cramps and fainting episodes when attempting to remove them. [facility] Medical History Disorders of bursae and tendons in shoulder region, unspecified Hearing loss GERD (gastroesophageal reflux disease) Obesity Carpal tunnel syndrome Hypertension Hypercholesteremia Hypothyroidism Asthma Surgical History Status post open reduction and internal fixation (ORIF) of fracture (~09/11/24) H/O parotidectomy History of revision of total shoulder arthroplasty Hx of gastric bypass Cataracts, both eyes History of cholecystectomy History of total left knee replacement History of total right knee replacement Family History Mother No problems noted. Father No problems noted. Social History Are you a primary healthcare interpreter to a significant other at home: No Do you presently have visiting nurse or other home services: No Alcohol intake: never Patient Tobacco Use Status: Former Tobacco user Tobacco use type: Cigarette Years Smoked: 23 Current occupational status: retired Current occupation: [employer] Review of Systems Const Reports as per HPI ENT Reports no additional complaints Card Denies chest pain, Denies chest pain at rest and Denies chest pain with activity Resp Denies chest congestion and Denies cough GI Reports no additional complaints Musc Details: pain over varicosities, aching of lower extremities, swelling, cramping, heaviness and tiredness, itching Denies abnormal gait Skin/Breast Reports pruritus and Denies wounds Neuro Reports no additional complaints and Denies abnormal gait Psych Denies no additional complaints Physical Exam Vital Signs: BMI result Body Mass Index 43.0 Const General: cooperative, healthy appearing and comfortable Orientation/consciousness: oriented to person, oriented to place and oriented to time Neck Carotids: no bruits Chest Chest palpation & inspection: normal inspection of the chest and normal palpation of entire chest wall Resp Effort & Inspection: normal respiratory effort and able to speak in complete sentences Cardio Rate: regular rate Heart sounds: S1 normal heart sound present and S2 normal heart sound present Peripheral pulses: Peripheral pulses 2+ throughout GI Inspection: Yes normal to inspection Skin Other: +2 edema, large rope-like varicosities greater than 4 mm CEAP Classification C4 - skin color changes Ep - Etiology Primary As - superficial veins P - reflux General skin exam: dry skin Neuro General: oriented to person, oriented to place and oriented to time Extrem Right lower extremity: full ROM, normal capillary refill and edema Left lower extremity: full ROM, normal capillary refill and edema Psych Mental Status: mental status grossly normal Assessment & Plan Assessment & Plan (1) Varicose veins of left lower extremity with inflammation: Comment: 12/19/2024 - left leg microphlebectomy Code(s): I83.12 - Varicose veins of left lower extremity with inflammation Category: Medical Plan: See below (2) Cellulitis of leg, right: Code(s): L03.115 - Cellulitis of right lower limb Category: Medical Plan: Patient is doing well after antibiotics. We discussed routine conservative measures including compression elevation and exercise. She will follow up with us on an as-needed basis. Thank you for allowing us to assist in her care. Plan Patient was informed and verbally consented to the use of an ambient scribe for clinic note documentation during this visit. Coding Level of Care Code Est Pt Level 3 (74770) Diagnoses Varicose veins of left lower extremity with inflammation I83.12 Cellulitis of leg, right L03.115
[2025-01-15 09:01] VITALS: BMI 43.0
== END 2025-01-15 09:22 | disposition home or self-care (01) ==
LOC: HO.HVS 08:29
PROVIDERS: PCP Physician Assistant Medical; Visit Provider Surgery Vascular Surgery
DX: I83.12 Varicose veins of left lower extremity with inflammation (principal); L03.115 Cellulitis of right lower limb
CPT/HCPCS: 99213

== ENCOUNTER → 2025-01-15 08:28 | Outpatient (BNVA) | payer MEDICARE, BC, SELFPAY | PROVIDERS: PCP Physician Assistant Medical; Visit Provider Surgery Vascular Surgery | DX: I83.12 Varicose veins of left lower extremity with inflammation (principal); L03.115 Cellulitis of right lower limb | CPT/HCPCS: 99212 ==

== ENCOUNTER 2025-02-05 06:14 | Outpatient (REF) | payer MEDICARE, BC, SELFPAY ==
--- NOTE | ~2025-02-05 | FL_ITS ---
EXAMINATION: XR FLUOROSCOPY WITH IMAGES CLINICAL INFORMATION: Hip osteoarthritis COMPARISON: None available. TECHNIQUE: Fluoroscopy time: 0.1 minutes DAP: 62 mGycm2 Images: 1 FINDINGS: Single radiograph demonstrates right hip injection. FL/FL guidance in treatment room IMPRESSION: Fluoroscopy during procedure. See procedure report for additional information. Electronically signed by: Alek Jean Baptiste MD 02/06/2025 08:35 AM EDT
--- OUTSIDE RECORDS SUMMARY | 2025-02-05 06:16 | XMS_ITS | Clinical Summary ---
Author Organization [facility] Address [address] [place] [address] Care Team Providers Care Medical Technical Writer Name Role Phone Cameron Sanchez MD Primary Care Provider [phone] Allergies Active Allergy Reactions Criticality Noted Date [...] age to complete this topic Care Teams Medical Technical Writer Relationship Specialty Start Date End Date Cameron Sanchez MD PCP - General Safety Admin Assistant 11/13/16
== END 2025-02-05 06:15 | disposition home or self-care (01) ==
LOC: CF 06:14
PROVIDERS: Visit Provider Internal Medicine
DX: M16.0 Bilateral primary osteoarthritis of hip (principal); M70.62 Trochanteric bursitis, left hip
CPT/HCPCS: 20610; J2003; J2795; J3301; Q9967

== ENCOUNTER 2025-02-05 09:18 | Outpatient (AMB) | payer MEDICARE, BC, SELFPAY ==
[2025-02-05 09:24] VITALS: BP 150/78; PULSE 77; RESP 16; O2SAT 95
--- NOTE | 2025-02-05 09:24 | MHC.OFFVIS ---
Vital Signs 02/05/25 09:24 02/05/25 10:21 BP 150/78 H 142/76 H Blood Pressure Location Lt brachial Lt brachial Position Sitting Sitting Respiration 16 16 Pulse 77 76 Pulse Source Pulse Oximeter Pulse Oximeter Pulse Oximetry (%) 95 98 Oxygen Delivery Method Room Air Room Air Intake Visit Reasons: Right hip injection w/fluro Ribbon Winder Required: No Allergies CARLOZ Inhibitors Allergy (Intermediate, Verified 02/05/25 09:25) Cough adhesive tape (ADHESIVE TAPE) Allergy (Intermediate, Verified 02/05/25 09:25) RASH gabapentin Allergy (Intermediate, Verified 02/05/25 09:25) Nausea grass pollen Allergy (Intermediate, Verified 02/05/25 09:25) Itching house dust mite Allergy (Intermediate, Verified 02/05/25 09:25) Itching lactose (LACTOSE) Allergy (Intermediate, Verified 02/05/25 09:25) GI UPSET mold Allergy (Intermediate, Verified 02/05/25 09:25) Itching ragweed pollen Allergy (Intermediate, Verified 02/05/25 09:25) Itching tree and shrub pollen Allergy (Intermediate, Verified 02/05/25 09:25) Itching blueberry (BLUEBERRY) Adverse Reaction (Intermediate, Verified 02/05/25 09:25) VOMITING doxycycline (From VIBRAMYCIN) Adverse Reaction (Intermediate, Verified 02/05/25 09:25) GI ISSUES lisinopril (From ZESTRIL) Adverse Reaction (Intermediate, Verified 02/05/25 09:25) COUGH procaine (From NOVOCAIN) Adverse Reaction (Intermediate, Verified 02/05/25 09:25) EXCESS NUMBING theophylline (THEOPHYLLINE) Adverse Reaction (Intermediate, Verified 02/05/25 09:25) DIZZINESS CAT GUT SUTURES Allergy (Intermediate, Uncoded 02/05/25 09:25) DO NOT DISSOLVE DERMABOND Adverse Reaction (Severe, Uncoded 02/05/25 09:25) RASH CHOCOLATE Adverse Reaction (Intermediate, Uncoded 02/05/25 09:25) VOMITING Medication List - Last Reconciled 02/05/25 by Justyna Kulkarni LPN acetaminophen ER 650 mg PO Q8H PRN albuterol sulfate 90 mcg/actuation 1 inh inhalation QID amlodipine 2.5 mg PO DAILY amoxicillin 2,000 mg (4 x 500 mg) PO ONCE aspirin 325 mg PO DAILY atorvastatin 10 mg PO DAILY budesonide-formoterol 80-4.5 mcg/actuation 2 puffs inhalation BID calcium carbonate-vitamin D3 600 mg-5 mcg (200 unit) 1 tab PO BID cetirizine 10 mg PO DAILY epinephrine (EpiPen) 0.3 mg IM Q10M PRN levothyroxine 137 mcg PO DAILY losartan 100 mg PO DAILY montelukast 10 mg PO BEDTIME multivitamin 1 tab PO DAILY nitroglycerin 0.4 mg sublingual Q5M PRN omeprazole 20 mg PO DAILY HPI HPI Right hip injection w/fluro: Details: Patient presents for scheduled procedure. Denies any recent cough, cold, infection, fever or other significant changes in medical history since last office visit. [facility] Medical History Disorders of bursae and tendons in shoulder region, unspecified Hearing loss GERD (gastroesophageal reflux disease) Obesity Carpal tunnel syndrome Hypertension Hypercholesteremia Hypothyroidism Asthma Surgical History Status post open reduction and internal fixation (ORIF) of fracture (~09/11/24) H/O parotidectomy History of revision of total shoulder arthroplasty Hx of gastric bypass Cataracts, both eyes History of cholecystectomy History of total left knee replacement History of total right knee replacement Family History Mother No problems noted. Father No problems noted. Social History Are you a primary care services manager to a significant other at home: No Do you presently have visiting nurse or other home services: No Alcohol intake: never Patient Tobacco Use Status: Former Tobacco user Tobacco use type: Cigarette Years Smoked: 23 Current occupational status: retired Current occupation: [employer] Physical Exam Vital Signs: Last Vital Signs Pulse 76 02/05/25 10:21 Resp 16 02/05/25 10:21 BP 142/76 H 02/05/25 10:21 Pulse Ox 98 02/05/25 10:21 Oxygen Delivery Method Room Air 02/05/25 10:21 Office Procedures AMB Joint Injection/Aspiration Joint Injection/Aspiration Details: Hip Intra-articular Injection, fluoroscopy guided, Right After informed written consent was obtained, the patient was placed in the supine position. Pre-procedure oxygen saturation, heart rate, and blood pressure were recorded. The skin was prepped with Chloroprep, and draped in a sterile fashion. With the use of fluroscopy the hip joint was identified. With a 25-gauge 1.5 hypodermic needle 0.75% lidocaine was injected subcutaneously over the entry site. A 22-gauge 3.5 spinal needle was then advanced toward the junction of the joint capsule and femoral neck, away from vascular structures based on manual palpation. Once in position, and after negative aspiration, 0.5mL of Omnipaque was injected outlining the joint capsule followed by injection of 25 mg Kenalog mixed with 0.25% ropivacaine (3mL total). There was no evidence of paresthesias throughout needle placement. The needle was withdrawn. Greater Trochanteric Bursa Injection, Right With the patient in lateral position and with manual palpation the greater trochanter was identified. The 22-gauge 3.5 spinal needle was then withdrawn and advanced toward the trochanteric bursa. Once in position, and after negative aspiration, 15 mg triamcinilone mixed with 0.25% ropivcaine (2 mL total). There was no evidence of paresthesias throughout needle placement. The stylet was replaced and then the needle was withdrawn. The patient tolerated the procedure well and there was no evidence of procedural complications. The patient was observed in the procedure room for 20 minutes, vitals were stable, and discharged in stable condition. Coding 24113 - Large joint Procedure code (CPT) selection complete Assessment & Plan Assessment & Plan (1) Trochanteric bursitis, left hip: Code(s): M70.62 - Trochanteric bursitis, left hip Category: Medical (2) Bilateral hip joint arthritis: Code(s): M16.0 - Bilateral primary osteoarthritis of hip Category: Medical Plan Patient is status post right hip intra-articular and trochanteric injections. Patient tolerated procedure well and was discharged home in stable condition with discharge instructions. All questions were answered. We will follow-up via telephone or in clinic to assess response to therapy. A follow-up appointment was made during today's visit. Orders: Orders AMB Joint Injection/Aspiration Today Andrew Ordoñez MD M16.0 - Bilateral primary osteoarthritis of hip, M70.62 - Trochanteric bursitis, left hip FL guidance in treatment room Today Ema Mak, ASSISTANT FRONT END MANAGER, DOCUMENTATION COORDINATOR M16.0 - Bilateral primary osteoarthritis of hip Coding Level of Care Code Procedure Only Diagnoses Trochanteric bursitis, left hip M70.62 Bilateral hip joint arthritis M16.0 CPT Codes Coding - 89078 Large joint: 91648 - Large joint ([id number])
--- OUTSIDE RECORDS SUMMARY | 2025-02-05 10:16 | XMS_ITS | Encounter Summary ---
Author Organization [facility] Address [address] [place] [address] Care Team Providers Care Sanitation Worker Hosing Machinery Name Role Phone Justin Zavala Primary Care Provider [phone] Reason for Visit * Reason Onset Date Comments Call Back 01/13/2025 Encounter Details Date Type Department Care Team (Late st Contact Info) Description 01/13/2025 Telephone Adult Medicine [address] [phone] Brigette Wood MA Social History Tobacco Use [...] your loved ones. For example, child welfare assistant or elderly care for an older adult? [...] as of this encounter Progress Notes * STEPHANIE Pandey - 01/16/2025 3:49 PM EDT Please call them and inform them it is okay to hold. * Brigette Wood MA - 01/13/2025 11:59 AM EDT Ade the surgical services assistant wants to know if it is ok to hold aspirin 325 mg prior to hip injections the Right hip 02/05 and Left Hip on 02/19. Or a fax ed note is ok also. FAX#[phone].Please Advise documented in this encounter Plan of Treatment Upcoming Encounters Date Type Department Care Team (Late st Contact Info) Description 03/23/2025 9:00 AM EST Office Visit Adult [facility] [address] [place] [address] Justin Zavala PA [address] [place] [phone] documented as of this encounter Visit Diagnoses Not on filedocumented in this encounter Additional Health Concerns Assessment Noted Time PHQ-9 Depression Total Score: 0 07/19/19 25 10:52 AM EDT A fall risk assessment has been complete d for the patient 07/18/2024 10:50 AM EDT documented as of this encounter Care Teams Sanitation Worker Hosing Machinery Relationship Specialty Start Date End Date Justin Zavala PA [address] [place] [address] PCP - General Internal Medicine 06/23/20 documented as of this encounter
--- OUTSIDE RECORDS SUMMARY | 2025-02-05 10:17 | XMS_ITS | Clinical Summary ---
Author Organization [facility] [address] [place] [address] [place] [phone] Phone Care Team Providers Care Mixer Driver Name Role Phone Justin Zavala Primary Care Provider [phone] Allergies Active Allergy Reactions Criticality Noted Date [...] or chew. 90 capsule 3 4 Active levothyroxine (SYNTHROID, LEVOTHROID) 137 mcg tablet TAKE 1 TABLET BY MOUTH EVERY DAY 90 tablet 1 5 Active acetaminophen (TYLENOL 8 HOUR) 650 mg 8 hr tablet TAKE 1 TABLET BY MOUTH EVERY 8 HOURS NEEDED FOR PAIN 100 tablet 5 Active losartan (COZAAR) 100 mg tablet TAKE 1 TABLET BY MOUTH EVERY DAY 90 tablet 5 Active atorvastatin (LIPITOR) 10 mg tablet TAKE 1 TABLET BY MOUTH EVERY DAY 90 tablet 5 Active amLODIPine (NORVASC) 2.5 mg tablet TAKE 1 TABLET BY MOUTH EVERY DAY 90 tablet 5 Active Active Problems Problem Noted [...] Care Team Description 01/13/2025 Telephone Adult Medicine [address] [phone] Brigette Wood MA 01/09/2025 Telephone Adult Medicine [address] [phone] Justin Zavala PA 12/23/2024 7:20 AM EDT - 12/23/2024 11:59 PM EDT Hospital Encounter Radiology Department - [address] [phone] Encounter for screening mammogram for breast cancer Discharge Disposition: Home or Self Care 12/11/2024 Telephone Adult Medicine [address] [phone] Justin Zavala PA from Last 3 Months [...] Surgery Date Site/Laterality Comments GASTRIC BYPASS PROCEDURE: GA GASTRIC RSTCV W/BYP W/SM INT RCNSTJ LIMIT ABSRPJ; COMMENT: 2004 dr rodriguez OTHER SURGICAL HISTORY PROCEDURE: GA EXC PRTD NICHOL/PRTD GLND LAT LOBE W/O NRV DSJ; COMMENT: 3 tumors, left COLONOSCOPY 12/23/2007 PROCEDURE: HISTORICAL COLONOSCOPY; COMMENT: diverticulosis; repeat in ten years HAND SURGERY PROCEDURE: HISTORICAL HAND SURGERY; COMMENT: thumb arthoplasty bilateral CARPAL TUNNEL RELEASE PROCEDURE: GA NEUROPLASTY &/TRANSPOS MEDIAN NRV CARPAL TUNNE; COMMENT: left KNEE ARTHROSCOPY 01/20/2011 PROCEDURE: GA ARTHROSCOPY KNEE DIAGNOSTIC W/WO SYNOVIAL BX SPX; COMMENT: Left; Mindess TOTAL KNEE ARTHROPLASTY 2014 PROCEDURE: GA ARTHRP KNE CONDYLE&PLATU MEDIAL&LAT COMPARTMENTS; COMMENT: left dr edward TOTAL KNEE ARTHROPLASTY 2015 PROCEDURE: GA ARTHRP KNE CONDYLE&PLATU MEDIAL&LAT COMPARTMENTS; COMMENT: right COLONOSCOPY 08/21/2018 PROCEDURE: HISTORICAL COLONOSCOPY; COMMENT: negative OTHER SURGICAL HISTORY 09/2019 PROCEDURE: GA ANES ARTHROSCOPIC TOTAL SHOULDER REPLACEMENT; COMMENT: R OTHER SURGICAL HISTORY 11/01/2021 Left PROCEDURE: GA [place] ARTHROSCOPIC TOTAL SHOULDER REPLACEMENT; COMMENT: reverse shoulder [...] for your loved ones. For example, child psychology teacher or elderly care for an older [...] 03/23/2025 9:00 AM EST Office Visit Adult Medicine [address] [phone] Justin Zavala PA [address] [place] [phone] Health Maintenance Due Date Last Done [...] is recommended in 1 year. MAMMO LOCATION: [facility], [address] [place] [address], [address], . -------- FINAL REPORT -------- Dictated By: Stephanie Cesar Dictated Date: 12/24/2024 17:53 ET Assigned Physician: Stephanie Cesar Reviewed and Electronically Signed By: Stephanie Cesar Signed Date: 12/24/2024 17:56 ET Workstation ID: [id number] Transcribed By: Self Edit Transcribed Date: 12/24/2024 [...] is recommended in 1 year. MAMMO LOCATION: [facility], [address] [place] [address], [address], . -------- FINAL REPORT -------- Dictated By: Stephanie Cesar Dictated Date: 12/24/2024 17:53 ET Assigned Physician: Stephanie Cesar Reviewed and Electronically Signed By: Stephanie Cesar Signed Date: 12/24/2024 17:56 ET Workstation ID: [id number] Transcribed By: Self Edit Transcribed Date: 12/24/2024 17:53 ET Justin [facility] IMG BI PROCEDURES Final R esult * Lipid panel with reflex to direct LDL (03/19/2024 7:48 AM EST) Cholesterol 155 0 - 200 mg/dL LAB CHEMISTRY METHOD 03/19/2024 10:39 AM EST [facility] Triglycerides 132 0 - 150 mg/dL LAB CHEMISTRY METHOD 03/19/2024 10:39 AM EST [facility] HDL 61 >=40 [...] [facility]OWN LAB BLOOD ORDERABLES Lois burnett Result [facility] [address] [place] [address], * Comprehensive metabolic panel (03/19/2024 7:48 AM [...] [facility] Comment:Calculation based on the [...] [facility] LAB BLOOD ORDERABLES Lois burnett Result [facility] [address] [place] [address], * Depression Screening (07/18/2023) Depression Screening Abstracted [...] normal bone density by WHO criteria. [facility] Department of Internal Medicine recommends [...] screening schedule based on nick Ceballos., [facility] May 04, 2011 for patients with [...] normal bone density by WHO criteria. [facility] Department of Internal Medicine recommendsusing [...] alternative screening schedule based on osiris Ceballos, [facility]2011 for patients with osteopenia (based on hip [...] Recently Relevant to Health Maintenance Insurance MEDICARE [facility] Advance Directives Documents on File Type Date Recorded Patient Proofing Machine Operator Expl anation Health Care Decision (hx) 11/01/2021 AD SEBASTIAN DIRECTIVE Health Care Decision (hx) 11/01/2021 AD SEBASTIAN DIRECTIVE Health Care Decision (hx) 11/01/2021 AD SEBASTIAN DIRECTIVE Care Teams Mixer Driver Relationship Specialty Start Date End Date Justin Zavala PA [address] [place] [id number] PCP - General Internal Medicine 06/23/20
[2025-02-05 10:21] VITALS: BP 142/76; PULSE 76; RESP 16; O2SAT 98
== END 2025-02-05 10:22 | disposition home or self-care (01) ==
LOC: HO.PMCPRC 09:18
PROVIDERS: PCP Physician Assistant Medical; Visit Provider Internal Medicine
DX: M70.62 Trochanteric bursitis, left hip (principal); M16.0 Bilateral primary osteoarthritis of hip
CPT/HCPCS: 20610; 77002

== ENCOUNTER 2025-03-11 08:45 | Outpatient (AMB) | payer MEDICARE, BC, SELFPAY ==
--- NOTE | 2025-03-11 09:05 | MHC.OFFVIS ---
Vital Signs 03/11/25 09:07 Height 5 ft 3 in Weight 288 lb BMI 51.0 BP 145/76 H Blood Pressure Location Lt brachial Position Sitting Respiration 16 Pulse 79 Pulse Source Pulse Oximeter Pulse Oximetry (%) 97 Oxygen Delivery Method Room Air Intake Visit Reasons: S/P Bilateral hip injections Dental Laboratory Technician Apprentice Required: No Allergies CARLOZ Inhibitors Allergy (Intermediate, Verified 03/11/25 09:08) Cough adhesive tape (ADHESIVE TAPE) Allergy (Intermediate, Verified 03/11/25 09:08) RASH gabapentin Allergy (Intermediate, Verified 03/11/25 09:08) Nausea grass pollen Allergy (Intermediate, Verified 03/11/25 09:08) Itching house dust mite Allergy (Intermediate, Verified 03/11/25 09:08) Itching lactose (LACTOSE) Allergy (Intermediate, Verified 03/11/25 09:08) GI UPSET mold Allergy (Intermediate, Verified 03/11/25 09:08) Itching ragweed pollen Allergy (Intermediate, Verified 03/11/25 09:08) Itching tree and shrub pollen Allergy (Intermediate, Verified 03/11/25 09:08) Itching blueberry (BLUEBERRY) Adverse Reaction (Intermediate, Verified 03/11/25 09:08) VOMITING doxycycline (From VIBRAMYCIN) Adverse Reaction (Intermediate, Verified 03/11/25 09:08) GI ISSUES lisinopril (From ZESTRIL) Adverse Reaction (Intermediate, Verified 03/11/25 09:08) COUGH procaine (From NOVOCAIN) Adverse Reaction (Intermediate, Verified 03/11/25 09:08) EXCESS NUMBING theophylline (THEOPHYLLINE) Adverse Reaction (Intermediate, Verified 03/11/25 09:08) DIZZINESS CAT GUT SUTURES Allergy (Intermediate, Uncoded 03/11/25 09:08) DO NOT DISSOLVE DERMABOND Adverse Reaction (Severe, Uncoded 03/11/25 09:08) RASH CHOCOLATE Adverse Reaction (Intermediate, Uncoded 03/11/25 09:08) VOMITING Medication List - Last Reconciled 03/11/25 by Justyna Kulkarni LPN acetaminophen ER 650 mg PO Q8H PRN albuterol sulfate 90 mcg/actuation 1 inh inhalation QID amlodipine 2.5 mg PO DAILY amoxicillin 2,000 mg (4 x 500 mg) PO ONCE aspirin 325 mg PO DAILY atorvastatin 10 mg PO DAILY budesonide-formoterol 80-4.5 mcg/actuation 2 puffs inhalation BID calcium carbonate-vitamin D3 600 mg-5 mcg (200 unit) 1 tab PO BID cetirizine 10 mg PO DAILY epinephrine (EpiPen) 0.3 mg IM Q10M PRN levothyroxine 137 mcg PO DAILY losartan 100 mg PO DAILY multivitamin 1 tab PO DAILY nitroglycerin 0.4 mg sublingual Q5M PRN omeprazole 20 mg PO DAILY HPI HPI S/P Bilateral hip injections: Details: History of Present Illness The patient is a 74 year old individual presenting for a follow-up visit after a right hip injection and evaluation of new-onset sciatica. The patient received an injection for right hip pain which provided about four weeks of relief, but symptoms have recurred in the last week and a half. An injection for the left hip was canceled because it was not symptomatic at the time. The main complaint is now sciatica, which the patient has a long history of. Symptoms include burning in the posterior thighs. On the left side, the patient describes a progression from numbness on the outer thigh to itching and now burning. Past interventions include physical therapy, Tylenol 650 mg, and ibuprofen 800 mg, none of which are currently providing relief. The patient recalls chiropractic treatment at age 25 or 26 for sacral, lumbar, and cervical issues. Relevant medical history includes asthma and claustrophobia, which precludes the use of a standard closed MRI. No recent MRI of the back is on file. Pain Description - Location: Sciatic nerve, affecting both posterior thighs, with specific symptoms on the left outer thigh. - Quality: Described as a burning sensation. - Associated Symptoms: The left thigh initially presented with numbness, then itching, before the burning began. - Timing: The pain is intermittent; it can persist for a while before subsiding, and then it recurs. Physical Exam - Musculoskeletal: Straight leg raise on the left leg reproduced pain in the thigh area, but not in the back. Results - Imaging: Review of records indicates no prior MRI of the back is on file; only a wrist MRI was found. Pain Management - Analgesia: A prior right hip injection provided approximately four weeks of relief. - Analgesia: Trials of Tylenol 650 mg and ibuprofen 800 mg are no longer effective. - Other interventions: Prior physical therapy was not helpful. [facility] Medical History Disorders of bursae and tendons in shoulder region, unspecified Hearing loss GERD (gastroesophageal reflux disease) Obesity Carpal tunnel syndrome Hypertension Hypercholesteremia Hypothyroidism Asthma Surgical History Status post open reduction and internal fixation (ORIF) of fracture (~09/11/24) H/O parotidectomy History of revision of total shoulder arthroplasty Hx of gastric bypass Cataracts, both eyes History of cholecystectomy History of total left knee replacement History of total right knee replacement Family History Mother No problems noted. Father No problems noted. Social History Are you a primary elderly caregiver to a significant other at home: No Do you presently have visiting nurse or other home services: No Alcohol intake: never Patient Tobacco Use Status: Former Tobacco user Tobacco use type: Cigarette Years Smoked: 23 Current occupational status: retired Current occupation: [employer] Physical Exam Vital Signs: Last Vital Signs Pulse 79 03/11/25 09:07 Resp 16 03/11/25 09:07 BP 145/76 H 03/11/25 09:07 Pulse Ox 97 03/11/25 09:07 Oxygen Delivery Method Room Air 03/11/25 09:07 BMI result Body Mass Index 51.0 Assessment & Plan Assessment & Plan (1) Lumbar radicular pain: Code(s): M54.16 - Radiculopathy, lumbar region Category: Medical (2) Bilateral hip joint arthritis: Code(s): M16.0 - Bilateral primary osteoarthritis of hip Category: Medical Plan Plan Patient was informed and verbally consented to the use of an ambient scribe for clinic note documentation during this visit. 1. Lumbar Radiculopathy - An MRI of the lumbar spine will be ordered to evaluate for the etiology of the patient's left-sided sciatica. - Due to the patient's claustrophobia and asthma, the order will specify an open MRI. - The patient will be contacted by the imaging center to schedule the study. - Follow-up will be scheduled after the MRI is completed to review the results and determine a target for a potential injection. 2. Right Hip Pain - The patient is a follow-up for a right hip injection that provided good relief for four weeks. - Current management is focused on the more acute lumbar radiculopathy. Discussion Notes I reviewed the patient's history, noting that the right hip injection provided good but temporary relief for about four weeks. The primary issue at this visit is new-onset sciatica, which the patient describes as a burning pain. I explained that sciatica is typically caused by pathology in the spine, not the hip. I recommended an MRI of the lumbar spine to identify the source of the pain. The patient stated an inability to tolerate a standard closed MRI due to claustrophobia and asthma, so I confirmed we would order an open MRI. I informed the patient that our office will contact them to schedule a follow-up to discuss treatment options, possibly including an epidural steroid injection, after the MRI results are available. Patient Instructions - You will receive a phone call from an imaging center to schedule an MRI of your lower back. - Please make sure to inform them that you require an open MRI due to your claustrophobia. - The imaging center will call you on your home phone number. - After the MRI is complete, our office will call you to schedule a follow-up appointment to discuss the results and potential treatment, such as an injection for your nerve pain. Coding Level of Care Code Est Pt Level 4 (04698) Diagnoses Lumbar radicular pain M54.16 Bilateral hip joint arthritis M16.0
--- OUTSIDE RECORDS SUMMARY | 2025-03-11 09:06 | XMS_ITS | Clinical Summary ---
Author Organization [facility] [address] [place] [address] [place] [phone] Phone Care Team Providers Care Stone Grader Name Role Phone Justin Zavala Primary Care Provider [phone] Allergies Active Allergy Reactions Criticality Noted Date [...] Care Team Description 01/13/2025 Telephone Adult Medicine [address] [phone] Brigette Wood MA 01/09/2025 Telephone Adult Medicine [address] [phone] Justin Zavala PA 12/23/2024 7:20 AM EDT - 12/23/2024 11:59 PM EDT Hospital Encounter Radiology Department - [address] [phone] Encounter for screening mammogram for breast cancer Discharge Disposition: Home or Self Care 12/11/2024 Telephone Adult Medicine [address] [phone] Justin Zavala PA from Last 3 Months Immunizations Immunization Administration Dates Next Due H1N1 Inj Preservative Free 02/19/2009 Influenza Quadravalent, 0.5m l (Fluzone High-dose) 65yo and older 12/07/2022,12/08/2021,12/26/2020,12/14 Influenza trivalent, 0.5mL ( Fluad) 65yo and older 02/07/2025,01/21/2024,12/07/2022,12/08,12/26/2020,12/15/2019,12/11/2018 ,01/12/2016,01/07/2015 Influenza trivalent, 0.5mL ( Fluzone High-dose) 65yo and older 12/23/2017,12/25/2016,01/12/2016,01/07 Influenza trivalent, 0.5mL, preservative free (Fluarix; FluLaval; Fluzone) ages 6mo and older (Afluria) 3 years and older 01/01/2014,12/17/2012,12/29/2010,12/30,02/06/2009,02/03/2008,02/22/2006 Influenza trivalent, with pr eservative (Fluzone; Afluria) 6mo and older 01/01/2014,12/17/2012,12/29/2010,12/30,02/06/2009,02/03/2008,02/22/2006 Influenza, Unspecified 12/14/2018,12/23/2017, Moderna SARS-CoV-2 COVID-19, mRNA, LNP-S, preservative free 07/26/2021,02/11/2021 Pneumococcal conjugate 13 va lent (Prevnar 13, PCV13) 2mo and older 12/15/2019,08/20/2014 Pneumococcal polysaccharide 23 valent (Pneumovax 23) 2yo [...] Surgery Date Site/Laterality Comments GASTRIC BYPASS PROCEDURE: AK GASTRIC RSTCV W/BYP W/SM INT RCNSTJ LIMIT ABSRPJ; COMMENT: 2004 dr rodriguez OTHER SURGICAL HISTORY PROCEDURE: AK EXC PRTD NICHOL/PRTD GLND LAT LOBE W/O NRV DSJ; COMMENT: 3 tumors, left COLONOSCOPY 12/23/2007 PROCEDURE: HISTORICAL COLONOSCOPY; COMMENT: diverticulosis; repeat in ten years HAND SURGERY PROCEDURE: HISTORICAL HAND SURGERY; COMMENT: thumb arthoplasty bilateral CARPAL TUNNEL RELEASE PROCEDURE: AK NEUROPLASTY &/TRANSPOS MEDIAN NRV CARPAL TUNNE; COMMENT: left KNEE ARTHROSCOPY 01/20/2011 PROCEDURE: AK ARTHROSCOPY KNEE DIAGNOSTIC W/WO SYNOVIAL BX SPX; COMMENT: Left; Idania TOTAL KNEE ARTHROPLASTY 2014 PROCEDURE: AK ARTHRP KNE CONDYLE&PLATU MEDIAL&LAT COMPARTMENTS; COMMENT: left dr edward TOTAL KNEE ARTHROPLASTY 2015 PROCEDURE: AK ARTHRP KNE CONDYLE&PLATU MEDIAL&LAT COMPARTMENTS; COMMENT: right COLONOSCOPY 08/21/2018 PROCEDURE: HISTORICAL COLONOSCOPY; COMMENT: negative OTHER SURGICAL HISTORY 09/2019 PROCEDURE: AK ANES ARTHROSCOPIC TOTAL SHOULDER REPLACEMENT; COMMENT: R OTHER SURGICAL HISTORY 11/01/2021 Left PROCEDURE: AK ANES ARTHROSCOPIC TOTAL SHOULDER REPLACEMENT; COMMENT: reverse shoulder replacement / manasa COLONOSCOPY 02/10/2022 PROCEDURE: HISTORICAL COLONOSCOPY; COMMENT: 1 polyp repeat 5 years muslu OTHER SURGICAL HISTORY 02/10/2022 PROCEDURE: UPPER GI ENDOSCOPY, REMOVE LESION; COMMENT: Biopsies taken mus Medical History Medical History Date Comments Unspecified [...] for your loved ones. 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 or elderly care for an older [...] 9:00 AM EST Office Visit Adult Medicine [address] [phone] Justin Zavala PA [address] [place] [phone] Health Maintenance Due Date Last Done Comments COVID-19 Vaccine ( season) 2024 07/26/2021, 02/11/2021, 07/15/2020, Additional history exists Hypertension/CHF/CAD [...] 08/20/2014, 08/15/2013 Depression Screening Completed 07/18/2024, 07/18/19 RSV Immunization Adult Patients Completed 07/23/2024 Breast Cancer Screening Discontinued 12/24/19, 08/24/2023, 08/24/2023, Additional history exists Influenza Vaccine Completed 02/07/2025, , 12/07/2022, Additional history exists HIB Vaccines Aged Out [...] is recommended in 1 year. MAMMO LOCATION: [facility], [address] [place] [address], [id number], . -------- FINAL REPORT -------- Dictated By: Stephanie Cesar Dictated Date: 12/24/2024 17:53 ET Assigned Physician: Stephanie Cesar Reviewed and Electronically Signed By: Stephanie Cesar Signed Date: 12/24/2024 17:56 ET Workstation ID: [id number] Transcribed By: Self Edit Transcribed Date: 12/24/2024 [...] is recommended in 1 year. MAMMO LOCATION: [facility], [address] [place] [address], [phone], . -------- FINAL REPORT -------- Dictated By: Stephanie Cesar Dictated Date: 12/24/2024 17:53 ET Assigned Physician: Stephanie Cesar Reviewed and Electronically Signed By: Stephanie Cesar Signed Date: 12/24/2024 17:56 ET Workstation ID: [id number] Transcribed By: Self Edit Transcribed Date: 12/24/2024 17:53 ET us Justin BROWN IMG BI PROCEDURES Final R [...] BROWN LAB BLOOD ORDERABLES Lois l Result [facility] [address] [place] [address], * Comprehensive metabolic panel (03/19/2024 7:48 AM [...] LAB CHEMISTRY METHOD 03/19/2024 10:39 AM EST [facility] Blood Venous blood specimen / Unknown Venipuncture / Unknown 03/19/2024 7:48 AM EST 03/19/2024 7:48 AM EST Justin BROWN LAB BLOOD ORDERABLES Lois l Result [facility] [address] [place] [address], [place] [phone] * Depression Screening (07/18/2023) Pathologist [facility] Depression Screening Abstracted [facility] Provider MD HEALTH MAINTENANCE Final Result * Colonoscopy (02/10/2022) Pathologist [facility] Colonoscopy No Interpretation , Abstracted Anatomical Region Laterality Modality Other [facility] Provider MD HEALTH MAINTENANCE Final Result * [...] screening schedule based on nick Ceballos., [facility] May 04, 2011 for patients [...] Final Result * Hepatitis C Screening (02/12/2014) [facility] Hepatitis C Screening Abstracted Historical Provider HEALTH MAINTENANCE Final Result from Last 3 Months or Most Recently Relevant to Health Maintenance Insurance MEDICARE [facility] Advance Directives Documents on File Type Date Recorded Patient 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
--- OUTSIDE RECORDS SUMMARY | 2025-03-11 09:06 | XMS_ITS | Clinical Summary ---
Author Organization [facility] Address [address] [place] [address] Care Team Providers Care Environmental Web Crawler Name Role Phone Cameron Sanchez MD Primary Care Provider [phone] Allergies Active Allergy Reactions Criticality Noted Date [...] age to complete this topic Care Teams Environmental Web Crawler Relationship Specialty Start Date End Date Cameron Sanchez MD PCP - General Compo Conveyor Operator 11/13/16
[2025-03-11 09:07] VITALS: BP 145/76; PULSE 79; RESP 16; O2SAT 97; BMI 51.0
== END 2025-03-11 09:42 | disposition home or self-care (01) ==
LOC: HO.PMC 08:45
PROVIDERS: PCP Physician Assistant Medical; Visit Provider Internal Medicine
DX: M54.16 Radiculopathy, lumbar region (principal); M16.0 Bilateral primary osteoarthritis of hip
CPT/HCPCS: 99214

== ENCOUNTER → 2025-03-11 08:45 | Outpatient (BNVA) | payer MEDICARE, BC, SELFPAY | PROVIDERS: PCP Physician Assistant Medical; Visit Provider Internal Medicine | DX: M54.16 Radiculopathy, lumbar region (principal); M16.0 Bilateral primary osteoarthritis of hip; I10 Essential (primary) hypertension; Z87.891 Personal history of nicotine dependence; E66.9 Obesity, unspecified; Z68.43 Body mass index [BMI] 50.0-59.9, adult | CPT/HCPCS: 99212 ==

== ENCOUNTER 2025-04-06 12:58 | Outpatient (AMB) | payer MEDICARE, BC, SELFPAY ==
--- NOTE | 2025-04-06 13:27 | MHC.OFFVIS ---
Vital Signs 04/06/25 13:29 Height 5 ft 3 in Weight 289 lb BMI 51.2 BP 176/94 H Blood Pressure Location Lt radial Position Sitting Respiration 16 Pulse 90 Pulse Source Pulse Oximeter Pulse Oximetry (%) 96 Oxygen Delivery Method Room Air Intake Visit Reasons: Discuss MRI Results Call Center Coordinator Required: No Allergies CARLOZ Inhibitors Allergy (Intermediate, Verified 04/06/25 13:32) Cough adhesive tape (ADHESIVE TAPE) Allergy (Intermediate, Verified 04/06/25 13:32) RASH gabapentin Allergy (Intermediate, Verified 04/06/25 13:32) Nausea grass pollen Allergy (Intermediate, Verified 04/06/25 13:32) Itching house dust mite Allergy (Intermediate, Verified 04/06/25 13:32) Itching lactose (LACTOSE) Allergy (Intermediate, Verified 04/06/25 13:32) GI UPSET mold Allergy (Intermediate, Verified 04/06/25 13:32) Itching ragweed pollen Allergy (Intermediate, Verified 04/06/25 13:32) Itching tree and shrub pollen Allergy (Intermediate, Verified 04/06/25 13:32) Itching blueberry (BLUEBERRY) Adverse Reaction (Intermediate, Verified 04/06/25 13:32) VOMITING doxycycline (From VIBRAMYCIN) Adverse Reaction (Intermediate, Verified 04/06/25 13:32) GI ISSUES lisinopril (From ZESTRIL) Adverse Reaction (Intermediate, Verified 04/06/25 13:32) COUGH procaine (From NOVOCAIN) Adverse Reaction (Intermediate, Verified 04/06/25 13:32) EXCESS NUMBING theophylline (THEOPHYLLINE) Adverse Reaction (Intermediate, Verified 04/06/25 13:32) DIZZINESS CAT GUT SUTURES Allergy (Intermediate, Uncoded 04/06/25 13:32) DO NOT DISSOLVE DERMABOND Adverse Reaction (Severe, Uncoded 04/06/25 13:32) RASH CHOCOLATE Adverse Reaction (Intermediate, Uncoded 04/06/25 13:32) VOMITING Medication List - Last Reconciled 04/06/25 by Justyna Kulkarni LPN acetaminophen ER 650 mg PO Q8H PRN albuterol sulfate 90 mcg/actuation 1 inh inhalation QID amlodipine 2.5 mg PO DAILY amoxicillin 2,000 mg (4 x 500 mg) PO ONCE aspirin 325 mg PO DAILY atorvastatin 10 mg PO DAILY budesonide-formoterol 80-4.5 mcg/actuation 2 puffs inhalation BID calcium carbonate-vitamin D3 600 mg-5 mcg (200 unit) 1 tab PO BID cetirizine 10 mg PO DAILY epinephrine (EpiPen) 0.3 mg IM Q10M PRN levothyroxine 137 mcg PO DAILY losartan 100 mg PO DAILY multivitamin 1 tab PO DAILY nitroglycerin 0.4 mg sublingual Q5M PRN omeprazole 20 mg PO DAILY HPI HPI Discuss MRI Results: Details: History of Present Illness The patient is a 74 year old female presenting for a review of her MRI results. She reports experiencing pain she describes as lightening across her back, which radiates to the buttock and down the posterior thigh. She also notes sharp pain behind the knees and cramps in her calves. Associated neurologic symptoms include numbness that has been progressing, and a pricky sensation in her left leg upon waking and standing in the morning. She has also experienced episodes of knee buckling and leg weakness when the pain is severe. The patient's weight is a noted concern, and she states her New Year's resolution is to lose weight. She has been drinking tonic water for her calf cramps. Pain Description - Quality: The patient describes the pain as a lightening sensation and sharp. - Location: The pain is located across her lower back. - Radiation: Pain radiates across the buttock and down the back of the thigh. - Associated Symptoms: The pain is accompanied by sharp pain behind the knees, calf cramps, numbness, paresthesias in the left leg upon waking, knee buckling, and leg weakness. Physical Exam - Appears afebrile. - Alert and oriented. - Mood and affect appropriate. - Follows and participates in conversation appropriately. - Walks with a cane. Results - MRI: Recent imaging of the patient's back revealed neuroforaminal stenosis, with a particular area where the nerve is significantly compressed or pinched, likely at one or two levels. Pain Management: - Analgesia: The patient states she has no tolerance for medication and has been taking tonic water for calf cramps. - Activities of Daily Living: Her condition causes knee buckling, which poses a risk for falls. - Adverse Effects: Not applicable as the patient is not taking prescribed pain medication. [facility] Medical History Disorders of bursae and tendons in shoulder region, unspecified Hearing loss GERD (gastroesophageal reflux disease) Obesity Carpal tunnel syndrome Hypertension Hypercholesteremia Hypothyroidism Asthma Surgical History Status post open reduction and internal fixation (ORIF) of fracture (~09/11/24) H/O parotidectomy History of revision of total shoulder arthroplasty Hx of gastric bypass Cataracts, both eyes History of cholecystectomy History of total left knee replacement History of total right knee replacement Family History Mother No problems noted. Father No problems noted. Social History Are you a primary career and guidance counselor to a significant other at home: No Do you presently have visiting nurse or other home services: No Alcohol intake: never Patient Tobacco Use Status: Former Tobacco user Tobacco use type: Cigarette Years Smoked: 23 Current occupational status: retired Current occupation: [employer] Physical Exam Vital Signs: Last Vital Signs Pulse 90 04/06/25 13:29 Resp 16 04/06/25 13:29 BP 176/94 H 04/06/25 13:29 Pulse Ox 96 04/06/25 13:29 Oxygen Delivery Method Room Air 04/06/25 13:29 BMI result Body Mass Index 51.2 Assessment & Plan Assessment & Plan (1) Lumbar spinal stenosis: Code(s): M48.061 - Spinal stenosis, lumbar region without neurogenic claudication Category: Medical Plan Plan Patient was informed and verbally consented to the use of an ambient scribe for clinic note documentation during this visit. 1. Severe Lumbar Spinal Stenosis - The patient's symptoms are caused by a structural issue of severe spinal stenosis, identified on her recent MRI, which is likely not amenable to medical management. - The condition is progressive and, if left untreated, is likely to worsen, leading to an increased risk of falls due to symptoms like knee buckling. History notable for a fall this year with wrist fracture. - Surgical intervention is considered the most appropriate next step, despite having uncertain outcomes. - A referral will be placed for a spine surgery consultation to discuss options, which may include surgical decompression and a potential fusion with hardware. - The surgeon's office will contact the patient to schedule this appointment. 2. Obesity - The patient's elevated body weight is a significant factor that complicates recovery and reduces the likelihood of a successful surgical outcome. - It is recognized that losing weight is challenging due to the pain and functional limitations caused by her spinal condition, creating a chicken and the egg scenario. - The plan is to proceed with the surgical consultation to address the neurological deficits, which may improve her ability to be active and subsequently lose weight. Discussion Notes I reviewed the patient's MRI results with her, explaining that she has severe spinal stenosis, a structural problem where a nerve is being compressed in her lower back. I informed her that due to the mechanical nature of the issue, medications would not be an effective treatment. We discussed the risks and benefits of her options. I advised that not pursuing surgery is a poor option, as her symptoms, particularly the knee buckling, would likely worsen and increase her risk of falling and sustaining a fracture. Regarding surgery, I cautioned that it is a difficult procedure with a long recovery and an estimated 50/50 chance of a successful outcome. We also talked about how her elevated weight complicates surgery and recovery. I outlined that the procedure would likely involve a decompression and possible spinal fusion. After our discussion, the patient agreed that proceeding with a surgical evaluation is the most sensible path forward, and I am placing a referral to Spine Surgery. Patient Instructions - Your MRI shows a condition called severe spinal stenosis, which means a nerve in your lower back is being pinched. - This is what is causing the pain, numbness, and weakness in your legs, as well as the moments where your knee kelly. - Because this is a physical issue, medications will not fix the underlying problem. - If this is not treated, your symptoms will likely get worse, and you will be at a higher risk for falling. - I am referring you to a spine surgeon to discuss a surgical procedure to relieve the pressure on the nerve. - The surgeon's office will call you to schedule an appointment for a consultation. - Although it is difficult with your current pain, losing weight would be very helpful for your recovery if you have surgery. Orders: Referrals Neurosurgery Referral M48.061 - Spinal stenosis, lumbar region without neurogenic claudication Coding Level of Care Code Est Pt Level 3 (07591) Diagnoses Lumbar spinal stenosis M48.061
[2025-04-06 13:29] VITALS: BP 176/94; PULSE 90; RESP 16; O2SAT 96; BMI 51.2
--- OUTSIDE RECORDS SUMMARY | 2025-04-06 16:14 | XMS_ITS | Clinical Summary ---
Author Organization [facility] Prior to 09/13/[address] [place] [address] Care Team Providers Care Digital Learning Platforms Manager Name Role Phone Cameron Sanchez MD Primary Care Provider [phone] Allergies Active Allergy Reactions Criticality Noted Date [...] age to complete this topic Care Teams Digital Learning Platforms Manager Relationship Specialty Start Date End Date Cameron Sanchez MD PCP - General Propagator 11/13/16
--- OUTSIDE RECORDS SUMMARY | 2025-04-06 16:14 | XMS_ITS | Clinical Summary ---
Author Organization [facility] [address] [place] [address] [place] [phone] Phone Care Team Providers Care Eclectic Doctor Name Role Phone Justin Zavala Primary Care Provider [phone] Allergies Active Allergy Reactions Criticality Noted Date [...] or chew. 90 capsule 3 4 Active acetaminophen (TYLENOL 8 HOUR) 650 mg [...] MOUTH EVERY DAY 90 tablet 5 Active levothyroxine (SYNTHROID, LEVOTHROID) 137 mcg tablet Take 1 tablet (137 mcg total) by mouth 1 (one) time each day. 90 tablet 3 5 Active ibuprofen (ADVIL,MOTRIN) 800 mg tablet Take 1 tablet (800 mg total) by mouth 3 (three) times a day if needed for mild pain (pain). 90 tablet 5 5 03/23/20 26 Active levothyroxine (SYNTHROID, LEVOTHROID) 137 mcg tablet TAKE 1 TABLET BY MOUTH EVERY DAY 90 tablet 1 5 03/23/20 25 Discontinue d(Reorder) predniSONE (DELTASONE) 20 mg tablet Take 2 tablets (40 mg total) by mouth 1 (one) time each day for 5 days. 10 each 5 03/28/20 25 Active Problems Problem Noted Date Diagnosed Date [...] Encounters Date Type Department Care Team Description 03/25/2025 9:45 AM EST Lab Draw [address] Secondary hypertension; Hypothyroidism, unspecified type; Pure hypercholesterolemia ; Uncomplicated asthma, unspecified asthma severity, unspecified whether persistent; Abnormal level of blood mineral 03/25/2025 Results Follow-Up Adult Medicine [address] [phone] Justin Zavala PA 03/23/2025 9:00 AM EST Office Visit Adult Medicine [address] [phone] Justin Zavala PA Secondary hypertension (Primary Dx); Hypothyroidism, unspecified type; Pure hypercholesterolemia ; Uncomplicated asthma, unspecified asthma severity, unspecified whether persistent; Abnormal level of blood mineral 01/13/2025 Telephone Adult Medicine [address] [phone] Brigette Wood [place] 01/09/2025 Telephone Adult Medicine [facility] [address] [place] [phone] Justin Zavala PA from Last 3 Months [...] Surgery Date Site/Laterality Comments GASTRIC BYPASS PROCEDURE: [place] GASTRIC RSTCV W/BYP W/SM INT RCNSTJ LIMIT ABSRPJ; COMMENT: 2004 dr rodriguez OTHER SURGICAL HISTORY PROCEDURE: [place] EXC PRTD NICHOL/PRTD GLND LAT LOBE W/O NRV DSJ; COMMENT: 3 tumors, left COLONOSCOPY 12/23/2007 PROCEDURE: HISTORICAL COLONOSCOPY; COMMENT: diverticulosis; repeat in ten years HAND SURGERY PROCEDURE: HISTORICAL HAND SURGERY; COMMENT: thumb arthoplasty bilateral CARPAL TUNNEL RELEASE PROCEDURE: NJ NEUROPLASTY &/TRANSPOS MEDIAN NRV CARPAL TUNNE; COMMENT: left KNEE ARTHROSCOPY 01/20/2011 PROCEDURE: [place] ARTHROSCOPY KNEE DIAGNOSTIC W/WO SYNOVIAL BX SPX; COMMENT: Left; Idania TOTAL KNEE ARTHROPLASTY 2014 PROCEDURE: [place] ARTHRP KNE CONDYLE&PLATU MEDIAL&LAT COMPARTMENTS; COMMENT: left dr edward TOTAL KNEE ARTHROPLASTY 2016 PROCEDURE: NJ ARTHRP KNE CONDYLE&PLATU MEDIAL&LAT COMPARTMENTS; COMMENT: right COLONOSCOPY 08/21/2018 PROCEDURE: HISTORICAL COLONOSCOPY; COMMENT: negative OTHER SURGICAL HISTORY 09/2019 PROCEDURE: [place] ARTHROSCOPIC TOTAL SHOULDER REPLACEMENT; COMMENT: R [...] care for your loved ones. For example, childcare attendant or elderly care for an older adult? [...] Reading Time Taken Comments Blood Pressure 130/80 03/23/2025 9:24 AM EST Pulse 79 03/23/2025 9:10 AM EST Temperature 36.4 C (97.6 F) 03/23/2025 9:10 AM EST Respiratory Rate 18 03/23/2025 9:10 AM EST Oxygen Saturation 96% 03/23/2025 9:10 AM EST Inhaled Oxygen Concentration - - Weight 131 kg (289 lb 6.4 oz) 03/23/2025 9:10 AM EST Height 172.7 cm (5' 8 ) 03/23/2025 9:10 AM EST Body Mass Index 44 03/23/2025 9:10 AM EST Plan of Treatment Upcoming Encounters Date Type Department Care Team (Late st Contact Info) Description 09/21/2025 8:15 AM EDT Office Visit Adult Medicine [address] [phone] Justin Zavala PA [facility] [place] [phone] Health Maintenance Due Date Last Done Comments COVID-19 Vaccine ( season) 2024 07/26/2021, 02/11/2021, 07/15/2020, Additional history exists Falls Risk Assessment 07/18/2025 07/18/2024, 025 Medicare Annual Wellness Visit 07/18/2025 07/18/2024 Social Influencers of Health Screening 07/18/2025 07/18/2024 Osteoporosis Screening (Bone Density Screening) 12/22/2025 12/22/2020 Hypertension/CHF/CAD Annual BMP Blood Test 03/25/2026 03/25/2025, 03/19/2024, 09/26/2023, Additional history exists Colorectal Cancer Screening: Colonoscopy 02/10/2027 02/10/2022 DTaP,Tdap,and Td Vaccines (4 - Td or Tdap) 12/27/2029 12/28/2019, 09/08/2015, 01/11/2005 Cholesterol Screening (Lipid Panel) 03/25/2030 03/25/2025, 03/19/2024, 09/26/2023, Additional history exists Varicella Vaccines Aged Out 01/12/2010 No longer [...] Diagnosis Comments CBC WITH AUTO DIFFERENTIAL Routine 03/25/2025 9:53 AM EST Secondary hypertension Hypothyroidism, unspecified type Pure hypercholesterolemia Uncomplicated asthma, unspecified asthma severity, unspecified whether persistent LIPID PANEL WITH REFLEX TO DIRECT LDL Routine 03/25/2025 9:53 AM EST Secondary hypertension Hypothyroidism, unspecified type Pure hypercholesterolemia Uncomplicated asthma, unspecified asthma severity, unspecified whether persistent COMPREHENSIVE METABOLIC PANEL Routine 03/25/2025 9:53 AM EST Secondary hypertension Hypothyroidism, unspecified type Pure hypercholesterolemia Uncomplicated asthma, unspecified asthma severity, unspecified whether persistent HEMOGLOBIN A1C Routine 03/25/2025 9:53 AM EST Secondary hypertension Hypothyroidism, unspecified type Pure hypercholesterolemia Uncomplicated asthma, unspecified asthma severity, unspecified whether persistent Abnormal level of blood mineral THYROID STIMULATING HORMONE WITH REFLEX TO FREE T4 AND FREE T3 Routine 03/25/2025 9:53 AM EST Secondary hypertension Hypothyroidism, unspecified type Pure hypercholesterolemia Uncomplicated asthma, unspecified asthma severity, unspecified whether persistent CBC AND DIFFERENTIAL Routine 03/25/2025 9:53 AM EST Secondary hypertension Hypothyroidism, unspecified type Pure hypercholesterolemia Uncomplicated asthma, unspecified asthma severity, unspecified whether persistent MG MAMMO DIGITAL SCREENING W ELIEZER BILAT Routine 12/23/2024 7:39 AM EDT Encounter for screening mammogram for breast cancer DEPRESSION SCREENING Routine 07/18/2023 COLONOSCOPY Routine 02/10/2022 DXA BONE DENSITY STUDY 1+ SITS AXIAL SKEL Routine 12/22/2020 9:42 AM EDT Encounter for screening for osteoporosis HEPATITIS C SCREENING Routine 02/12/2014 from Last 3 Months or Most Recently Relevant to Health Maintenance Results * Thyroid stimulating hormone with reflex to free t4 and free t3 (03/25/2025 9:53 AM EST) TSH 0.91 0.40 - 4.00 mcIU/mL 03/25/2025 12:53 PM [facility] Blood Venous blood specimen / Unknown Venipuncture / Unknown 03/25/2025 9:53 AM EST 03/25/2025 9:53 AM EST Justin BROWN LAB BLOOD ORDERABLES Lois burnett Result [facility] [address] [place] [address], [place] [phone] * Lipid panel with reflex to direct LDL (03/25/2025 9:53 AM EST) Cholesterol 178 0 - 200 mg/dL 03/25/2025 1:02 PM [facility] Triglycerides 90 0 - 150 mg/dL 03/25/2025 1:02 PM [facility] HDL 75 >=40 mg/dL 03/25/2025 1:02 PM [facility] LDL Calculated 85 0 - 100 mg/dL 03/25/2025 1:02 PM EST [facility] Comment:Estimated LDL is kel culated using the Friedewald equation: Total cholesterol - HDL cholesterol - (Triglycerides/5) VLDL Cholesterol Kel 18 mg/dL 03/25/2025 1:02 PM [facility] Non HDL Chol. (LDL+VLDL) 103 <145 mg/dL 03/25/2025 1:02 PM [facility] Chol/HDL Ratio 2.4 0.0 - 4.4 03/25/2025 1:02 PM [facility] Blood Venous blood specimen / Unknown Venipuncture / Unknown 03/25/2025 9:53 AM EST 03/25/2025 9:53 AM EST Justin BROWN LAB BLOOD ORDERABLES Lois l Result [facility] [address] [place] [address], * (ABNORMAL) CBC auto differential (03/25/2025 9:53 AM EST) WBC 4.7(L) 4.8 - 10.8 K/mcL LAB HEMETOLOGY METHOD 03/25/2025 12:11 PM [facility] RBC 4.40 3.80 - 4.80 M/mcL LAB HEMETOLOGY METHOD 03/25/2025 12:11 PM [facility] Hemoglobin 12.4 11.5 - 16.0 g/dL LAB HEMETOLOGY METHOD 03/25/2025 12:11 PM [facility] Hematocrit 39.1 35.0 - 47.0 % LAB HEMETOLOGY METHOD 03/25/2025 12:11 PM [facility] MCV 88.7 79.0 - 98.0 FL LAB HEMETOLOGY METHOD 03/25/2025 12:11 PM [facility] MCH 28.1 27.0 - 32.0 pcg LAB HEMETOLOGY METHOD 03/25/2025 12:11 PM [facility] MCHC 31.7(L) 32.0 - 37.0 g/dL LAB HEMETOLOGY METHOD 03/25/2025 12:11 PM [facility] RDW 14.6 11.0 - 15.0 % LAB HEMETOLOGY METHOD 03/25/2025 12:11 PM [facility] Platelets 331 130 - 400 K/mcL LAB HEMETOLOGY METHOD 03/25/2025 12:11 PM [facility] MPV 9.8 7.0 - 11.0 FL LAB HEMETOLOGY METHOD 03/25/2025 12:11 PM [facility] NRBC 0.0 <1.0 % LAB HEMETOLOGY METHOD 03/25/2025 12:11 PM [facility] NRBC Absolute 0.00 <0.10 K/mcL LAB HEMETOLOGY METHOD 03/25/2025 12:11 PM [facility] Neutrophils Relative 81.6 % LAB HEMETOLOGY METHOD 03/25/2025 12:11 PM [facility] Lymphocytes Relative 12.9 % LAB HEMETOLOGY METHOD 03/25/2025 12:11 PM [facility] Monocytes Relative 3.6 % LAB HEMETOLOGY METHOD 03/25/2025 12:11 PM [facility] Eosinophils Relative 0.2 % LAB HEMETOLOGY METHOD 03/25/2025 12:11 PM [facility] Basophils Relative 0.6 % LAB HEMETOLOGY METHOD 03/25/2025 12:11 PM [facility] Immature Granulocytes Relative 1.1 % LAB HEMETOLOGY METHOD 03/25/2025 12:11 PM [facility] Neutrophils Absolute 3.80 1.50 - 7.00 K/mcL LAB HEMETOLOGY METHOD 03/25/2025 12:11 PM EST [facility] Lymphocytes Absolute 0.60(L) 1.00 - 5.00 K/[facility] LAB HEMETOLOGY METHOD 03/25/2025 12:11 PM [facility] Monocytes Absolute 0.17(L) 0.20 - 1.00 K/[facility] LAB HEMETOLOGY METHOD 03/25/2025 12:11 PM [facility] Eosinophils Absolute 0.01 0.00 - 0.50 K/[facility] LAB HEMETOLOGY METHOD 03/25/2025 12:11 PM [facility] Basophils Absolute 0.03 0.00 - 0.20 K/[facility] LAB HEMETOLOGY METHOD 03/25/2025 12:11 PM [facility] Immature Granulocytes Absolute 0.05(H) 0.00 - 0.03 K/[facility] LAB HEMETOLOGY METHOD 03/25/2025 12:11 PM [facility] Blood Venous blood specimen / Unknown Venipuncture / Unknown 03/25/2025 9:53 AM EST 03/25/2025 9:53 AM EST Justin BROWN LAB BLOOD ORDERABLES Lois l Result [facility] [address] [place] [address], * Hemoglobin A1c (03/25/2025 9:53 AM EST) Hemoglobin A1C 6.0 <6.5 % LAB CHEMISTRY METHOD 03/25/2025 5:31 PM EST [facility] Mean Bld Glu Estim. 126 mg/dL LAB CHEMISTRY METHOD 03/25/2025 5:31 PM EST [facility] Blood Venous blood specimen / Unknown Venipuncture / Unknown 03/25/2025 9:53 AM EST 03/25/2025 9:53 AM EST us Justin BROWN LAB BLOOD ORDERABLES Lois burnett Result [facility] [address] [place] [address], * Comprehensive metabolic panel (03/25/2025 9:53 AM EST) Sodium 142 133 - 145 mmol/L 03/25/2025 1:02 PM [facility] Potassium 4.6 3.5 - 5.5 mmol/L 03/25/2025 1:02 PM [facility] Chloride 105 96 - 110 mmol/L 03/25/2025 1:02 PM [facility] CO2 29 21 - 32 mmol/L 03/25/2025 1:02 PM [facility] Anion Gap 8 3 - 11 03/25/2025 1:02 PM [facility] Glucose 100 70 - 100 mg/dL 03/25/2025 1:02 PM [facility] BUN 14 5 - 25 mg/dL 03/25/2025 1:02 PM [facility] Creatinine 0.98 0.50 - 1.10 mg/dL 03/25/2025 1:02 PM [facility] eGFR 60 >=60 mL/min/1. 73m2 03/25/2025 1:02 PM [facility] Comment:Calculation based on the Chronic Kidney Disease Epidemiology Collaboration (CKD-EPI) equation refit without adjustment for race. BUN/Creatinine Ratio 14.3 03/25/2025 1:02 PM [facility] Calcium 9.1 8.5 - 10.5 mg/dL 03/25/2025 1:02 PM [facility] AST (SGOT) 19 10 - 42 unit/L 03/25/2025 1:02 PM [facility] ALT (SGPT) 18 10 - 60 unit/L 03/25/2025 1:02 PM EST [facility] Alkaline Phosphatase 85 42 - 121 unit/L 03/25/2025 1:02 PM [facility] Total Protein 7.4 6.0 - 8.0 g/dL 03/25/2025 1:02 PM [facility] Albumin 4.6 3.2 - 5.0 g/dL 03/25/2025 1:02 PM [facility] Total Bilirubin 0.3 0.0 - 1.4 mg/dL 03/25/2025 1:02 PM [facility] Blood Venous blood specimen / Unknown Venipuncture / Unknown 03/25/2025 9:53 AM EST 03/25/2025 9:53 AM EST Justin BROWN LAB BLOOD ORDERABLES Lois l Result [facility] [address] [place] [address], * MG Mammo Digital Screening w Eliezer bilat (12/23/2024 7:39 AM EDT) Anatomical Region Laterality Modality Breast Bilateral Mammography 12/24/2024 5:53 PM EDT Impressions 12/24/2024 5:56 PM EDT No mammographic evidence of malignancy. BREAST DENSITY: B - There are scattered areas of fibroglandular density. BI-RADS CATEGORY: 2 - BENIGN RECOMMENDATION: Screening bilateral mammogram is recommended in 1 year. MAMMO LOCATION: [facility], [address] [place] [address], [phone], . -------- FINAL REPORT -------- Dictated By: Stephanie Cesar Dictated Date: 12/24/2024 17:53 ET Assigned Physician: Stephanie Cesar Reviewed and Electronically Signed By: Stephanie Cesar Signed Date: 12/24/2024 17:56 ET Workstation ID: [id number] Transcribed By: Self Edit Transcribed Date: 12/24/2024 [...] is recommended in 1 year. MAMMO LOCATION: [facility], [address] [place] [address], [phone], . -------- FINAL REPORT -------- Dictated By: Stephanie Cesar Dictated Date: 12/24/2024 17:53 ET Assigned Physician: Stephanie Cesar Reviewed and Electronically Signed By: Stephanie Cesar Signed Date: 12/24/2024 17:56 ET Workstation ID: [id number] Transcribed By: Self Edit Transcribed Date: 12/24/2024 17:53 ET Justin BROWN IMG BI PROCEDURES Final R esult * Depression Screening (07/18/2023) [facility] Depression Screening Abstracted Historical Provider HEALTH MAINTENANCE Final Result * Colonoscopy (02/10/2022) [facility] Colonoscopy No Interpretation , Abstracted Anatomical [...] normal bone density by WHO criteria. [facility] Department of Internal Medicine recommends using National [...] alternative screening schedule based on nick Ceballos., [facility] May 04, 2011 for patients [...] normal bone density by WHO criteria. [facility] Department of Internal Medicine recommendsusing National Osteoporosis [...] Final Result * Hepatitis C Screening (02/12/2014) [facility] Hepatitis C Screening Abstracted Historical Provider MD HEALTH MAINTENANCE Final Result from Last 3 Months or Most Recently Relevant to Health Maintenance Insurance MEDICARE [facility] Advance Directives Documents on File Type Date Recorded Patient Prison Teacher Expl anation Health Care Decision (hx) 11/01/2021 AD SEBASTIAN DIRECTIVE Health Care Decision (hx) 11/01/2021 AD SEBASTIAN DIRECTIVE Health Care Decision (hx) 11/01/2021 AD SEBASTIAN DIRECTIVE Care Teams Eclectic Doctor Relationship Specialty Start Date End Date Justin Zavala PA [address] [place] [address] PCP - General Internal Medicine 06/23/20
--- OUTSIDE RECORDS SUMMARY | 2025-04-06 16:14 | XMS_ITS | Encounter Summary ---
Author Organization [facility] Address [address] [place] [address] Care Team Providers Care Die Holder Name Role Phone Justin Zavala Primary Care Provider [phone] Encounter Details Date Type Department Care Team (Late st Contact Info) Description 03/25/2025 Results Follow-Up [address] [phone] Justin Zavala PA [address] [place] [phone] Social History Tobacco Use Types Packs/Day Years [...] loved ones. For example, exceptional children teacher assistant or elderly care for an older [...] on file documented as of this encounter Plan of Treatment Upcoming Encounters Date Type Department Care Team (Late st Contact Info) Description 09/21/2025 8:15 AM EDT Office Visit Adult Medicine [address] [phone] Justin Zavlaa PA [address] [place] [phone] documented as of this encounter Visit Diagnoses Not on filedocumented in this encounter Additional Health Concerns Assessment Noted Time PHQ-9 Depression Total Score: 0 07/19/19 25 10:52 AM EDT A fall risk assessment has been complete d for the patient 07/18/2024 10:50 AM EDT documented as of this encounter Care Teams Die Holder Relationship Specialty Start Date End Date Justin Zavala PA [address] [place] [address] PCP - General Internal Medicine 06/23/20 documented as of this encounter
== END 2025-04-06 14:06 | disposition home or self-care (01) ==
LOC: HO.PMC 12:59
PROVIDERS: PCP Physician Assistant Medical; Visit Provider Internal Medicine
DX: M48.061 Spinal stenosis, lumbar region without neurogenic claudication (principal)
CPT/HCPCS: 99213

== ENCOUNTER → 2025-04-06 12:58 | Outpatient (BNVA) | payer MEDICARE, BC, SELFPAY | PROVIDERS: PCP Physician Assistant Medical; Visit Provider Internal Medicine | DX: M48.061 Spinal stenosis, lumbar region without neurogenic claudication (principal) | CPT/HCPCS: 99212 ==

== ENCOUNTER 2025-04-14 10:32 | Outpatient (AMB) | payer MEDICARE, BC, SELFPAY ==
--- NOTE | 2025-04-14 10:46 | HO.SPINEOV ---
Vital Signs 04/14/25 10:52 Height 5 ft 3 in Weight 289 lb BMI 51.2 Intake Visit Reasons: lumbar stenosis/both leg pain Intake Note: Ms. Schreiber is here today c/o low back to leg pain. MRI done at [facility]. Machine Maintenance Servicer Required: No Allergies CARLOZ Inhibitors Allergy (Intermediate, Verified 04/14/25 10:53) Cough adhesive tape (ADHESIVE TAPE) Allergy (Intermediate, Verified 04/14/25 10:53) RASH gabapentin Allergy (Intermediate, Verified 04/14/25 10:53) Nausea grass pollen Allergy (Intermediate, Verified 04/14/25 10:53) Itching house dust mite Allergy (Intermediate, Verified 04/14/25 10:53) Itching lactose (LACTOSE) Allergy (Intermediate, Verified 04/14/25 10:53) GI UPSET mold Allergy (Intermediate, Verified 04/14/25 10:53) Itching ragweed pollen Allergy (Intermediate, Verified 04/14/25 10:53) Itching tree and shrub pollen Allergy (Intermediate, Verified 04/14/25 10:53) Itching blueberry (BLUEBERRY) Adverse Reaction (Intermediate, Verified 04/14/25 10:53) VOMITING doxycycline (From VIBRAMYCIN) Adverse Reaction (Intermediate, Verified 04/14/25 10:53) GI ISSUES lisinopril (From ZESTRIL) Adverse Reaction (Intermediate, Verified 04/14/25 10:53) COUGH procaine (From NOVOCAIN) Adverse Reaction (Intermediate, Verified 04/14/25 10:53) EXCESS NUMBING theophylline (THEOPHYLLINE) Adverse Reaction (Intermediate, Verified 04/14/25 10:53) DIZZINESS CAT GUT SUTURES Allergy (Intermediate, Uncoded 04/06/25 13:32) DO NOT DISSOLVE DERMABOND Adverse Reaction (Severe, Uncoded 04/06/25 13:32) RASH CHOCOLATE Adverse Reaction (Intermediate, Uncoded 04/06/25 13:32) VOMITING Physical Exam Vital Signs: BMI result Body Mass Index 51.2 Assessment & Plan Assessment & Plan (1) Lumbar spinal stenosis: Code(s): M48.061 - Spinal stenosis, lumbar region without neurogenic claudication Category: Medical Plan Dear Dr Ordoñez, Thank you for referring Mrs Schreiber to our office today. She is a very nice 74-year-old female who presents for evaluation of bilateral lower extremity pain, with numbness of her left leg with standing and walking which gets better when she sits. It all started around January of this year. She does not recall any specific event that set it off. She does not have a large component of back pain, but there is some discomfort. She underwent an MRI showing a large synovial cyst at L3-4 with severe central canal stenosis amongst other degenerative changes and was sent here today to see us for an evaluation. She has been taking Motrin and Tylenol to help with the pain. She did undergo physical therapy earlier in the year in the late spring and summer when she was having some back pain after a fall. That intense back pain went away. She has not injections in her back. She has not had any chiropractic or acupuncture at this point her life has become debilitating because she is unable to stand and walk and the feeling of lightening bolts going down her legs make her scared that she is going to fall. 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 She has had cataract surgery. Denies any history of heart attacks, strokes, cancer, diabetes, bleeding disorders, blood clots or unusual infections. Social hx: She has not smoke, drink use any recreational drugs Medications: Cozaar, amlodipine, Symbicort, Singulair, levothyroxine, omeprazole, Tylenol, Motrin Allergies: Please see the list Physical exam: Awake alert oriented no acute distress, her BMI is 51. able to stand up very slowly, walks with an antalgic gait using a cane. Strength is difficult to test secondary to pain with movement. She had does appear however to have full strength. Reflexes at the patella unreliable secondary to knee surgeries. Achilles reflexes are diminished. Abdominal exam reveals obese nondistended nontender abdomen, she has well healed scar at the upper abdomen which is about 3-4 inches in length. On the right side of her lower abdominal area she has a foot long scar extending from about the midline over toward the right flank. Imaging review: Lumbar MRI done at [facility] shows degenerative spondylolisthesis at L3-4 and L4-5. She has a large synovial cyst which is occupying most of the spinal canal at L3-4 causing severe stenosis. At L4-5 she has moderate stenosis. L5-S1 she has a central disc protrusion that is not contacting any of the nerves. Impression: 74-year-old female presents with 3 month history of severe bilateral lower extremity pain secondary to large synovial cyst at L3-4. What makes the situation a little more complicated his that she has a spondylolisthesis grade 1-2 at this level as well. My Suspicion is that this is unstable, I will confirm with standing flexion-extension x-rays. She also has a spondylolisthesis degenerative in nature at L4-5. There is no significant central canal stenosis at this level. Interestingly, with all these anatomical findings, she does not report much in the way of back pain. I am going to review her imaging with Dr. Conroy, but I suspect she is going to need instrumentation to correct the underlying instability. Once I have a chance to review everything with Dr. Conroy I will get back to the patient with a final plan. We did briefly discuss what synovial cyst resection entails, as well as potential hardware. Although she has had abdominal surgeries, her gastric bypass incision is quite high and her abdomen which might leave open the possibility for an oblique lumbar interbody fusion. This would be the easiest approach given her BMI and body habitus. Thank you for allowing us to care for your patient. The total time spent with this visit with this patient was 45 minutes reviewing history, physical exam, lumbar imaging review, and implementation of treatment plan or further diagnostic testing Justin Conroy MD,PhD [facility] Orders: Orders XR lumbar spine 4V min Today M48.061 - Spinal stenosis, lumbar region without neurogenic claudication Coding Level of Care Code New Pt Level 4 (24323) Diagnoses Lumbar spinal stenosis M48.061
[2025-04-14 10:52] VITALS: BMI 51.2
--- OUTSIDE RECORDS SUMMARY | 2025-04-14 14:10 | XMS_ITS | Clinical Summary ---
Author Organization [facility] Prior to 09/13/[address] [place] [address] Care Team Providers Care Manager Flight Name Role Phone Cameron Sanchez MD Primary Care Provider [phone] Allergies Active Allergy Reactions Criticality Noted Date [...] age to complete this topic Care Teams Manager Flight Relationship Specialty Start Date End Date Cameron Sanchez MD PCP - General Child Nutrition Manager 11/13/16
--- OUTSIDE RECORDS SUMMARY | 2025-04-14 14:10 | XMS_ITS | Encounter Summary ---
Author Organization [facility] Address [address] [place] [address] Care Team Providers Care Rehabilitation Worker Name Role Phone Justin Zavala Primary Care Provider [phone] Encounter Details Date Type Department Care Team (Late st Contact Info) Description 03/25/2025 Results Follow-Up [address] [phone] Justin Zavala PA [address] [place] [phone] Social History Tobacco Use Types Packs/Day Years [...] your loved ones. For example, early childhood coordinator or elderly care for an older adult? [...] 8:15 AM EDT Office Visit Adult Medicine [address] [phone] Justin Zavala PA [address] [place] [phone] documented as of this encounter Visit Diagnoses Not on filedocumented in this encounter Additional Health Concerns Assessment Noted Time PHQ-9 Depression Total Score: 0 07/19/19 25 10:52 AM EDT A fall risk assessment has been complete d for the patient 07/18/2024 10:50 AM EDT documented as of this encounter Care Teams Rehabilitation Worker Relationship Specialty Start Date End Date Justin Zavala PA [address] [place] [address] PCP - General Internal Medicine 06/23/20 documented as of this encounter
--- OUTSIDE RECORDS SUMMARY | 2025-04-14 14:10 | XMS_ITS | Clinical Summary ---
Author Organization [facility] [address] [place] [address] [place] [phone] Phone Care Team Providers Care Manager Of Photography Name Role Phone Justin Zavala Primary Care Provider [phone] Allergies Active Allergy Reactions Criticality Noted Date [...] the lungs 2 times daily. Active calcium carbonate-orman min D3 600 mg-5 mcg (200 unit) [...] Description 03/25/2025 9:45 AM EST Lab Draw [address] Secondary hypertension; Hypothyroidism, unspecified type; Pure hypercholesterolemia ; Uncomplicated asthma, unspecified asthma severity, unspecified whether persistent; Abnormal level of blood mineral 03/25/2025 Results Follow-Up Adult Medicine [address] [phone] Justin Zavala PA 03/23/2025 9:00 AM EST Office Visit Adult Medicine [address] [phone] Justin Zavala PA Secondary hypertension (Primary Dx); Hypothyroidism, unspecified type; Pure hypercholesterolemia ; Uncomplicated asthma, unspecified asthma severity, unspecified whether persistent; Abnormal level of blood mineral 01/13/2025 Telephone Adult Medicine [address] [phone] Brigette Wood [place] from Last 3 Months Immunizations Immunization Administration [...] Surgery Date Site/Laterality Comments GASTRIC BYPASS PROCEDURE: [place]Y GASTRIC RSTCV W/BYP W/SM INT RCNSTJ LIMIT ABSRPJ; COMMENT: 2004 dr rodriguez OTHER SURGICAL HISTORY PROCEDURE: [place] EXC PRTD NICHOL/PRTD GLND LAT LOBE W/O NRV DSJ; COMMENT: 3 tumors, left COLONOSCOPY 12/23/2007 PROCEDURE: HISTORICAL COLONOSCOPY; COMMENT: diverticulosis; repeat in ten years HAND SURGERY PROCEDURE: HISTORICAL HAND SURGERY; COMMENT: thumb arthoplasty bilateral CARPAL TUNNEL RELEASE PROCEDURE: WY NEUROPLASTY &/TRANSPOS MEDIAN NRV CARPAL TUNNE; COMMENT: left KNEE ARTHROSCOPY 01/20/2011 PROCEDURE: WY ARTHROSCOPY KNEE DIAGNOSTIC W/WO SYNOVIAL BX SPX; COMMENT: Left; Idania TOTAL KNEE ARTHROPLASTY 2014 PROCEDURE: WY ARTHRP KNE CONDYLE&PLATU MEDIAL&LAT COMPARTMENTS; COMMENT: left dr edward TOTAL KNEE ARTHROPLASTY 2015 PROCEDURE: WY ARTHRP KNE CONDYLE&PLATU MEDIAL&LAT COMPARTMENTS; COMMENT: right COLONOSCOPY 08/21/2018 PROCEDURE: HISTORICAL COLONOSCOPY; COMMENT: negative OTHER SURGICAL HISTORY 09/2019 PROCEDURE: W[place] ARTHROSCOPIC TOTAL SHOULDER REPLACEMENT; COMMENT: R OTHER SURGICAL HISTORY 11/01/2021 Left PROCEDURE: [place] ARTHROSCOPIC TOTAL SHOULDER REPLACEMENT; COMMENT: reverse [...] for your loved ones. For example, exceptional children's teacher or elderly care for an older [...] 8:15 AM EDT Office Visit Adult Medicine [address] [phone] Justin Zavala PA [facility] [place] [phone] Health Maintenance Due Date Last Done Comments [...] Encounter for screening mammogram for breast cancer HM DEPRESSION SCREENING Routine 07/18/2023 COLONOSCOPY Routine [...] 0.40 - 4.00 mcIU/mL 03/25/2025 12:53 PM [facility] Blood Venous blood specimen / Unknown Venipuncture / Unknown 03/25/2025 9:53 AM EST 03/25/2025 9:53 AM EST Justin BROWN LAB BLOOD ORDERABLES Lois l Result [facility] [address] [place] [address], [place] [phone] * Lipid panel with reflex to direct LDL (03/25/2025 9:53 AM EST) Cholesterol 178 0 - 200 mg/dL 03/25/2025 1:02 PM [facility] Triglycerides 90 0 - 150 mg/dL 03/25/2025 1:02 PM [facility] HDL 75 >=40 mg/dL 03/25/2025 1:02 PM [facility] LDL Calculated 85 0 - 100 mg/dL 03/25/2025 1:02 PM [facility] Comment:Estimated LDL is kel culated using the Friedewald equation: Total cholesterol - HDL cholesterol - (Triglycerides/5) VLDL Cholesterol Kel 18 mg/dL 03/25/2025 1:02 PM [facility] Non HDL Chol. (LDL+VLDL) 103 <145 mg/dL 03/25/2025 1:02 PM [facility] Chol/HDL Ratio 2.4 0.0 - 4.4 03/25/2025 1:02 PM [facility] Blood Venous blood specimen / Unknown Venipuncture / Unknown 03/25/2025 9:53 AM EST 03/25/2025 9:53 AM EST Justin BROWN LAB BLOOD ORDERABLES Lois l Result [facility] [address] [place] [address], * (ABNORMAL) CBC auto differential (03/25/2025 9:53 AM EST) WBC 4.7(L) 4.8 - 10.8 K/mcL LAB HEMETOLOGY METHOD 03/25/2025 12:11 PM [facility] RBC 4.40 3.80 - 4.80 M/mcL LAB HEMETOLOGY METHOD 03/25/2025 12:11 PM [facility] Hemoglobin 12.4 11.5 - 16.0 g/dL LAB HEMETOLOGY METHOD 03/25/2025 12:11 PM [facility] Hematocrit 39.1 35.0 - 47.0 % LAB HEMETOLOGY METHOD 03/25/2025 12:11 PM [facility] MCV 88.7 79.0 - 98.0 FL LAB HEMETOLOGY METHOD 03/25/2025 12:11 PM [facility] MCH 28.1 27.0 - 32.0 pcg LAB HEMETOLOGY METHOD 03/25/2025 12:11 PM [facility] MCHC 31.7(L) 32.0 - 37.0 g/dL LAB HEMETOLOGY METHOD 03/25/2025 12:11 PM [facility] RDW 14.6 11.0 - 15.0 % LAB HEMETOLOGY METHOD 03/25/2025 12:11 PM [facility] Platelets 331 130 - 400 K/mcL LAB HEMETOLOGY METHOD 03/25/2025 12:11 PM [facility] MPV 9.8 7.0 - 11.0 FL LAB HEMETOLOGY METHOD 03/25/2025 12:11 PM [facility] NRBC 0.0 <1.0 % LAB HEMETOLOGY METHOD 03/25/2025 12:11 PM [facility] NRBC Absolute 0.00 <0.10 K/mcL LAB HEMETOLOGY METHOD 03/25/2025 12:11 PM [facility] Neutrophils Relative 81.6 % LAB HEMETOLOGY METHOD 03/25/2025 12:11 PM [facility] Lymphocytes Relative 12.9 % LAB HEMETOLOGY METHOD 03/25/2025 12:11 PM [facility] Monocytes Relative 3.6 % LAB HEMETOLOGY METHOD 03/25/2025 12:11 PM [facility] Eosinophils Relative 0.2 % LAB HEMETOLOGY METHOD 03/25/2025 12:11 PM [facility] Basophils Relative 0.6 % LAB HEMETOLOGY METHOD 03/25/2025 12:11 PM [facility] Immature Granulocytes Relative 1.1 % LAB HEMETOLOGY METHOD 03/25/2025 12:11 PM [facility] Neutrophils Absolute 3.80 1.50 - 7.00 K/mcL LAB HEMETOLOGY METHOD 03/25/2025 12:11 PM [facility] Lymphocytes Absolute 0.60(L) 1.00 - 5.00 K/mcL LAB HEMETOLOGY METHOD 03/25/2025 12:11 PM EST [facility] Monocytes Absolute 0.17(L) 0.20 - 1.00 K/[facility] LAB HEMETOLOGY METHOD 03/25/2025 12:11 PM [facility] Eosinophils Absolute 0.01 0.00 - 0.50 K/[facility] HEMETOLOGY METHOD 03/25/2025 12:11 PM [facility] Basophils Absolute 0.03 0.00 - 0.20 K/[facility] HEMETOLOGY METHOD 03/25/2025 12:11 PM [facility] Immature Granulocytes Absolute 0.05(H) 0.00 - 0.03 K/[facility] HEMETOLOGY METHOD 03/25/2025 12:11 PM [facility] Blood Venous blood specimen / Unknown Venipuncture / Unknown 03/25/2025 9:53 AM EST 03/25/2025 9:53 AM EST Justin BROWN LAB BLOOD ORDERABLES Lois l Result [facility] [address] [place] [address], * Hemoglobin A1c (03/25/2025 9:53 AM EST) Hemoglobin A1C 6.0 <6.5 % LAB CHEMISTRY METHOD 03/25/2025 5:31 PM EST [facility] Mean Bld Glu Estim. 126 mg/dL LAB CHEMISTRY METHOD 03/25/2025 5:31 PM EST [facility] Blood Venous blood specimen / Unknown Venipuncture / Unknown 03/25/2025 9:53 AM EST 03/25/2025 9:53 AM EST Justin BROWN LAB BLOOD ORDERABLES Lois l Result [facility] [address] [place] [address], [place] [phone] * Comprehensive metabolic panel (03/25/2025 9:53 AM EST) Sodium 142 133 - 145 mmol/L 03/25/2025 1:02 PM [facility] Potassium 4.6 3.5 - 5.5 mmol/L 03/25/2025 1:02 PM [facility] Chloride 105 96 - 110 mmol/L 03/25/2025 1:02 PM [facility] CO2 29 21 - 32 mmol/L 03/25/2025 1:02 PM [facility] Anion Gap 8 3 - 11 03/25/2025 1:02 PM [facility] Glucose 100 70 - 100 mg/dL 03/25/2025 1:02 PM [facility] BUN 14 5 - 25 mg/dL 03/25/2025 1:02 PM [facility] Creatinine 0.98 0.50 - 1.10 mg/dL 03/25/2025 1:02 PM [facility] eGFR 60 >=60 mL/min/1. 73m2 03/25/2025 1:02 PM [facility] Comment:Calculation based on the Chronic Kidney Disease Epidemiology Collaboration (CKD-EPI) equation refit without adjustment for race. BUN/Creatinine Ratio 14.3 03/25/2025 1:02 PM [facility] Calcium 9.1 8.5 - 10.5 mg/dL 03/25/2025 1:02 PM [facility] AST (SGOT) 19 10 - 42 unit/L 03/25/2025 1:02 PM [facility] ALT (SGPT) 18 10 - 60 unit/L 03/25/2025 1:02 PM [facility] Alkaline Phosphatase 85 42 - 121 unit/L 03/25/2025 1:02 PM EST [facility] Total Protein 7.4 6.0 - 8.0 g/dL 03/25/2025 1:02 PM EST [facility] Albumin 4.6 3.2 - 5.0 g/dL 03/25/2025 1:02 PM [facility] Total Bilirubin 0.3 0.0 - 1.4 mg/dL 03/25/2025 1:02 PM EST [facility] Blood Venous blood specimen / Unknown Venipuncture / Unknown 03/25/2025 9:53 AM EST 03/25/2025 9:53 AM EST Justin BROWN LAB BLOOD ORDERABLES Lois l Result [facility] [address] [place] [address], * MG Mammo Digital Screening w Eliezer bilat (12/23/2024 7:39 AM EDT) Anatomical Region Laterality Modality Breast Bilateral Mammography 12/24/2024 5:53 PM EDT Impressions 12/24/2024 5:56 PM EDT No mammographic evidence of malignancy. BREAST DENSITY: B - There are scattered areas of fibroglandular density. BI-RADS CATEGORY: 2 - BENIGN RECOMMENDATION: Screening bilateral mammogram is recommended in 1 year. MAMMO LOCATION: [facility], [address] [place] [address], [id number], . -------- FINAL REPORT -------- Dictated By: Stephanie Cesar Dictated Date: 12/24/2024 17:53 ET Assigned Physician: Stephanie Cesar Reviewed and Electronically Signed By: Stephanie Cesar Signed Date: 12/24/2024 17:56 ET Workstation ID: [id number] Transcribed By: Self Edit Transcribed Date: 12/24/2024 [...] is recommended in 1 year. MAMMO LOCATION: [facility], [address] [place] [address], [id number], . -------- FINAL REPORT -------- Dictated By: Stephanie Cesar Dictated Date: 12/24/2024 17:53 ET Assigned Physician: Stephanie Cesar Reviewed and Electronically Signed By: Stephanie Cesar Signed Date: 12/24/2024 17:56 ET Workstation ID: [id number] Transcribed By: Self Edit Transcribed Date: 12/24/2024 17:53 ET us Justin BROWN IMG BI PROCEDURES Final R esult * Depression Screening (07/18/2023) Depression Screening Abstracted [...] density by WHO criteria. [facility] Department of Internal Medicine recommends using National [...] screening schedule based on nick Ceballos., [facility] May 04, 2011 for patients [...] density by WHO criteria. The [facility] Department of Internal Medicine recommendsusing National Osteoporosis [...] alternative screening schedule based on nick Ceballos., [facility]2011 for patients with osteopenia (based [...] Center Hepatitis C Screening Abstracted Historical Provider MD HEALTH MAINTENANCE Final Result from Last 3 Months or Most Recently Relevant to Health Maintenance Insurance MEDICARE [facility] Advance Directives Documents on File Type Date Recorded Patient Dependency Case Manager Expl anation Health Care Decision (hx) 11/01/2021 AD SEBASTIAN DIRECTIVE Health Care Decision (hx) 11/01/2021 AD SEBASTIAN DIRECTIVE Health Care Decision (hx) 11/01/2021 AD SEBASTIAN DIRECTIVE Care Teams Manager Of Photography Relationship Specialty Start Date End Date Justin Zavala PA [address] [place] [address] PCP - General Internal Medicine 06/23/20
== END 2025-04-14 11:27 | disposition home or self-care (01) ==
LOC: HO.HNS 10:33
PROVIDERS: PCP Physician Assistant Medical; Referring Provider Internal Medicine; Visit Provider Physician Assistant
DX: M48.061 Spinal stenosis, lumbar region without neurogenic claudication (principal)
CPT/HCPCS: 99204

== ENCOUNTER 2025-04-14 10:32 | Outpatient (REF) | payer MEDICARE, BC, SELFPAY ==
--- NOTE | ~2025-04-14 | XR_ITS ---
Examination: Lumbar spine 4 views. CLINICAL INDICATION: Spinal stenosis. Clinical indication. COMPARISON: None. TECHNIQUE: Standing upright AP, lateral, flexion and extension views were obtained. FINDINGS: There is normal lumbar lordosis. There is grade 1 anterolisthesis L3 over L4 and L4 over L5. There is also L3-4, L4-5 and L5-S1 disc heights. Rest the disc heights are maintained normal. No visible acute fracture, dislocation or subluxation seen. SI joints are symmetrical and normal. On flexion views there is minimal increased movement of L4 over L5 with normal position on extension view same as neutral view. The paravertebral soft tissues are normal. XR/XR lumbar spine 4V min IMPRESSION: Grade 1 L3 over L4 and L4 over L5 anterolisthesis. There is degenerative disc changes from L2-3 through L5-S1 disc levels. There is minimal anterior movement of L4 over L5 on flexion view Electronically signed by: Fish Esteban MD 04/14/2025 11:49 AM EST
== END 2025-04-14 10:33 | disposition home or self-care (01) ==
LOC: HO.HOSX 10:32
PROVIDERS: PCP Physician Assistant Medical; Referring Provider Internal Medicine; Visit Provider Physician Assistant
DX: M48.061 Spinal stenosis, lumbar region without neurogenic claudication (principal); M79.662 Pain in left lower leg; M79.661 Pain in right lower leg; M43.16 Spondylolisthesis, lumbar region
CPT/HCPCS: 72110; 99202

== ENCOUNTER → 2025-04-14 11:30 | Outpatient (BNV) | payer MEDICARE, BC, SELFPAY | PROVIDERS: PCP Physician Assistant Medical; Referring Provider Internal Medicine; Visit Provider Radiology Diagnostic Radiology | DX: M48.061 Spinal stenosis, lumbar region without neurogenic claudication (principal); M51.379 Other intervertebral disc degeneration, lumbosacral region without mention of lumbar back pain or lower extremity pain | CPT/HCPCS: 72110 ==